=== PATIENT | female | born 1955 | race Caucasian/White ===

== ENCOUNTER 2020-02-21 09:19 | Inpatient (IN) | payer MEDICARE, OTHER ==
[~2020-02-21] VITALS: Ht 165.1 cm; Wt 55.8 kg
--- NOTE | 2020-02-21 10:01 | PHYS DOC ---
General Adult EDM: Chief Complaint: PSYCH EVALUATION HPI: HPI: 64-year-old female past medical history significant for COPD on 4 L nasal cannula, hypertension, RA, anemia, anxiety, hypertension and major depressive disorder presents to the ED sent from [facility] in [place], [place] by primary care physician Dr. Pérez, for [facility] admission, (pre- approved) requesting medical clearance. Patient states she's "been told" she has "outbursts" and needs medications. States she feels well and has no medical complaints. Patient was tested negative for COVID on February 20, 2020. ROS: Denies associated fever, chills, cough, dyspnea, chest pain or pressure, nausea, vomiting, diarrhea, abdominal pain, back pain, neck stiffness, headache, dysuria, hematuria, leg swelling, joint pain or rashes. Allergies: Allergies: Allergies Coded Allergies Type Severity Reaction Last Updated Verified amoxicillin Allergy Unknown 02/21/20 Yes aspirin Allergy Unknown 02/21/20 Yes cephalexin Allergy Unknown 02/21/20 Yes clarithromycin Allergy Unknown 02/21/20 Yes clavulanic acid Allergy Unknown 02/21/20 Yes codeine Allergy Unknown 02/21/20 Yes ibuprofen Allergy Unknown 02/21/20 Yes latex Allergy Unknown 02/21/20 Yes oseltamivir Allergy Unknown 02/21/20 Yes Physical Exam: PE: Constitutional: Well developed, well nourished, no acute distress, non-toxic appearance. [] HENT: Normocephalic, atraumatic, bilateral external ears normal, oropharynx moist, nose normal. [] Eyes: EOMI, conjunctiva normal, no discharge. [] Neck: Normal range of motion, no tenderness, supple, no stridor. [] Cardiovascular:Heart rate regular rhythm, no murmur [] Lungs & Thorax: Bilateral breath sounds clear to auscultation [] Abdomen: Bowel sounds normal, soft, no tenderness, no masses, no pulsatile masses. [] Skin: Warm, dry, no erythema, no rash. [] Back: No tenderness, no CVA tenderness. [] Extremities: No tenderness, no cyanosis, no clubbing, ROM intact, no edema. [] Neurologic: Alert and oriented X 3, normal motor function, normal sensory function, no focal deficits noted. [] Psychologic: Affect normal, judgement normal, mood normal. [] Current Patient Data: Vital Signs: HD stable EKG: EKG: Sinus rhythm at 95 bpm, no axis deviation, normal intervals, no T wave inversions, no ST elevations or ST depressions Radiology/Procedures: Impressions: Impression: Labs show anemia, no prior for comparison. Potassium was 3.1, oral replacement started in ED. Patient is medically cleared for psych admission, stable at time of admission. Dragon Disclaimer: Dragon Disclaimer: This electronic medical record was generated, in whole or in part, using a voice recognition dictation system. Departure Departure: Impression: Primary Impression: Behavior disturbance Disposition: ADMITTED INPATIENT Admitting Physician: Other (Dr. Bridges) Condition: GOOD JUDSON PATTON DO February 21, 2020 10:01
[2020-02-21] MEDS ORDERED: ASCO500C9 PO (10:06)
[2020-02-21] MEDS ORDERED: LORA-254 PO (10:06)
[2020-02-21] MEDS ORDERED: OXYC1TAB15 PO (10:06)
[2020-02-21] MEDS ORDERED: CLOP75TA57 PO (10:06)
[2020-02-21] MEDS ORDERED: DULO60CA6 PO (10:06)
[2020-02-21] MEDS ORDERED: QUET100T4 PO (10:06)
[2020-02-21] MEDS ORDERED: IPRA3AMP29 NEB (10:06)
[2020-02-21] MEDS ORDERED: MAGN24003 PO (10:06)
[2020-02-21] MEDS ORDERED: SUCR1TAB35 PO (10:06)
[2020-02-21] MEDS ORDERED: QUET50TA5 PO (10:06)
[2020-02-21] MEDS ORDERED: TAMS0.4C97 PO (10:06)
[2020-02-21] MEDS ORDERED: FERR325T14 PO (10:06)
[2020-02-21] MEDS ORDERED: PANT40TA3 PO (10:06)
[2020-02-21] MEDS ORDERED: GABA800T5 PO (10:06)
[2020-02-21] MEDS ORDERED: OXYC10TA46 PO (10:06)
[2020-02-21 10:52] LABS: BASO # 0.1 x10^3/uL (0.0-0.2); BASO % 1 % (0-3); EOS # 0.5 x10^3/uL (0.0-0.7); EOS % 5 % (0-3); HEMATOCRIT 29.3 % (36.0-47.0); HEMOGLOBIN 9.3 g/dL (12.0-15.5); LYMPH # 1.9 x10^3/uL (1.0-4.8); LYMPH % 19 % (24-48); MEAN CORPUSCULAR HEMOGLOBIN 30 pg (25-35); MEAN CORPUSCULAR HGB CONC 32 g/dL (31-37); MEAN CORPUSCULAR VOLUME 93 fL (79-100); MONO # 0.6 x10^3/uL (0.0-1.1); MONO % 7 % (0-9); NEUT # 6.6 x10^3uL (1.8-7.7); NEUT % 68 % (31-73); PLATELET COUNT 406 x10^3/uL (140-400); RED BLOOD COUNT 3.16 x10^6/uL (3.50-5.40); RED CELL DISTRIBUTION WIDTH 15.1 % (11.5-14.5); WHITE BLOOD COUNT 9.7 x10^3/uL (4.0-11.0)
[2020-02-21 11:00] LABS: CALCIUM 8.7 mg/dL (8.5-10.1); CREATININE 0.6 mg/dL (0.6-1.0); GFR 100.3; POTASSIUM 3.1 mmol/L (3.5-5.1)
[2020-02-21 11:01] LABS: BACTERIA,URINE 0 /HPF (0-FEW); BILIRUBIN,URINE NEG (NEG); CLARITY,URINE CLEAR; COLOR,URINE YELLOW; GLUCOSE,URINE NEG (NEG); NITRITE,URINE NEG (NEG); RBC,URINE 0 /HPF (0-2); SQUAMOUS EPITHELIAL CELL,UR FEW /LPF; UROBILINOGEN,URINE 0.2 mg/dL (0.2 mg/dL)
[2020-02-21] MEDS ORDERED: POTASSIUM BICARB 20 MEQ EFFERVESCENT TABLET. PO ONE (11:30)
--- NOTE | 2020-02-21 13:41 | EKG ---
[address] [address] Test Date: 2020-02-21 Test Time: 09:56:58 Pat Name: SUNNY NEWTON Department: Room: Gender: F Principal Database Developer: : 1955 Requested By: JUDSON PATTON Order Number: [id number] Reading MD: Alejandro Hernandes Measurements Intervals [place] Rate: 95 P: 54 DC: 156 QRS: 2 QRSD: 76 T: 13 QT: 362 QTc: 458 Interpretive Statements SINUS RHYTHM QRS(T) CONTOUR ABNORMALITY CONSISTENT WITH ANTEROSEPTAL INFARCT AGE UNDETERMINED ABNORMAL ECG Electronically Signed On 02-21-2020 13:41:01 CDT by Alejandro Hernandes
[2020-02-21] MEDS ORDERED: ACETAMINOPHEN 325 MG TABLET PO PRN (14:00)
[2020-02-21] MEDS ORDERED: MAGNESIUM HYDROXIDE 2,400 MG/30 ML ORAL.SUSP. PO PRN ×2 (14:00→14:45)
[2020-02-21] MEDS ORDERED: MAG HYDROX/AL HYDROX/SIMETH 30 ML ORAL.SUSP PO PRN (14:00)
[2020-02-21 14:11] VITALS: BP 108/56
[2020-02-21 15:44] VITALS: BP 123/68
[2020-02-21] MEDS: SUCRALFATE 1 GM TABLET. PO SCH ×2 (16:30→19:55)
[2020-02-21] MEDS: IPRATROPIUM/ALBUTEROL 20/100mcg/INH INHALER. INH SCH ×2 (17:15→19:54)
[2020-02-21] MEDS: oxyCODONE/APAP 5/325 1 TAB TABLET PO PRN (17:27)
[2020-02-21] MEDS: GABAPENTIN 400 MG CAPSULE. PO SCH (19:55)
[2020-02-21] MEDS: TAMSULOSIN 0.4 MG CAP.ER.24H. PO SCH (19:55)
[2020-02-21] MEDS: oxyCODONE ER 10 MG TAB.ER.12H PO SCH (19:56)
[2020-02-21] MEDS: QUEtiapine 50 MG TABLET. PO SCH (19:56)
--- NOTE | 2020-02-21 22:06 | PDOC ---
Exam Note: Andrea Note: Please also refer to the separate dictated note~for this date of service dictated separately. Discussed the patient with Nursing staff reviewed the chart.~Reviewed interim history and current functioning. Reviewed vital signs,~Labs/ Radiology~and current medications noted below. Continue current treatment with the changes noted in the dictated addendum note Assessment: Vital Signs/I&O: Vital Signs Date Time Temp Pulse Resp B/P (MAP) Pulse Ox O2 Delivery O2 Flow Rate FiO2 02/21/20 19:56 Room Air 02/21/20 15:44 97.0 94 16 123/68 (86) 99 4.0 Labs: Laboratory Tests Test 02/21/20 09:40 02/21/20 10:30 Urine Collection Type Unknown Urine Color Yellow Urine Clarity Clear Urine pH 7.0 Urine Specific [place] 1.015 Urine Protein Neg (NEG-TRACE) Urine Glucose (UA) Neg mg/dL (NEG) Urine Ketones (Stick) Neg mg/dL (NEG) Urine Blood Neg (NEG) Urine Nitrite Neg (NEG) Urine Bilirubin Neg (NEG) Urine Urobilinogen Dipstick 0.2 mg/dL (0.2 mg/dL) Urine Leukocyte Esterase Trace (NEG) Urine RBC 0 /HPF (0-2) Urine WBC 1-4 /HPF (0-4) Urine Squamous Epithelial Cells Few /LPF Urine Renal Epithelial Cells Occ /LPF Urine Bacteria 0 /HPF (0-FEW) White Blood Count 9.7 x10^3/uL (4.0-11.0) Red Blood Count 3.16 x10^6/uL (3.50-5.40) L Hemoglobin 9.3 g/dL (12.0-15.5) L Hematocrit 29.3 % (36.0-47.0) L Mean Corpuscular Volume 93 fL (79-100) Mean Corpuscular Hemoglobin 30 pg (25-35) Mean Corpuscular Hemoglobin Concent 32 g/dL (31-37) Red Cell Distribution Width 15.1 % (11.5-14.5) H Platelet Count 406 x10^3/uL (140-400) H Neutrophils (%) (Auto) 68 % (31-73) Lymphocytes (%) (Auto) 19 % (24-48) L Monocytes (%) (Auto) 7 % (0-9) Eosinophils (%) (Auto) 5 % (0-3) H Basophils (%) (Auto) 1 % (0-3) Neutrophils # (Auto) 6.6 x10^3uL (1.8-7.7) Lymphocytes # (Auto) 1.9 x10^3/uL (1.0-4.8) Monocytes # (Auto) 0.6 x10^3/uL (0.0-1.1) Eosinophils # (Auto) 0.5 x10^3/uL (0.0-0.7) Basophils # (Auto) 0.1 x10^3/uL (0.0-0.2) Sodium Level 141 mmol/L (136-145) Potassium Level 3.1 mmol/L (3.5-5.1) L Chloride Level 104 mmol/L (98-107) Carbon Dioxide Level 32 mmol/L (21-32) Anion Gap 5 (6-14) L Blood Urea Nitrogen 8 mg/dL (7-20) Creatinine 0.6 mg/dL (0.6-1.0) Estimated GFR (Cockcroft-Gault) 100.3 Glucose Level 92 mg/dL (70-99) Calcium Level 8.7 mg/dL (8.5-10.1) Magnesium Level 1.9 mg/dL (1.8-2.4) Current Medications: Meds: Current Medications Medications (Trade) Dose Ordered Sig/Jocelyn Route PRN Reason Start Time Stop Time Status Last Admin Dose Admin Potassium Bicarbonate (Potassium Effervescent Tablet) 40 meq 1X ONCE PO 02/21/20 11:30 02/21/20 11:34 DC 02/21/20 11:53 Albuterol/ Ipratropium (Combivent Respimat 20-100 Mcg) 1 puff RTQID INH 02/21/20 16:00 02/21/20 19:54 Oxycodone HCl (OxyCONTIN) 10 mg BID PO 02/21/20 21:00 02/21/20 19:56 Oxycodone/ Acetaminophen (Percocet 5/325) 2 tab PRN Q4HRS PRN PO MODERATE PAIN 02/21/20 14:15 02/21/20 17:27 Quetiapine Fumarate (SEROquel) 50 mg HS PO 02/21/20 21:00 02/21/20 19:56 Sucralfate (Carafate) 1 gm QIDACHS PO 02/21/20 16:30 02/21/20 19:55 Tamsulosin HCl (Flomax) 0.4 mg HS PO 02/21/20 21:00 02/21/20 19:55 Gabapentin (Neurontin) 800 mg QHS PO 02/21/20 21:00 02/21/20 19:55 I have reviewed the current psychotropics carefully including drug interactions. Risk benefit ratio favors no change other than as noted in my dictated progress note. MUKESH JAY MD February 21, 2020 22:06
--- NOTE | 2020-02-21 22:36 | HP ---
ADMIT DATE: 02/21/2020 PSYCHIATRIC ADMISSION HISTORY AND EVALUATION IDENTIFYING DATA: The patient is a 64-year-old female referred to us from [facility] by her primary care physician on account of worsening symptoms of depression, anxiety, impulse control. Reportedly, the patient has been "medication seeking and hyperfocused on medications." She is noted to have a labile mood, is manipulative "plays the victim of the time." She is refusing to eat, having weight loss, resistive to cares, verbally abusive, calling staff by derogatory names. She has been demanding, impulsive, disruptive, aggressive. She has failed outpatient psychiatric interventions resulting in this referral. CHIEF COMPLAINT: "Send me to another psychiatric hospital in [place], [place] about a year and half back. I don't know why they had sent me again. Yes, I get upset." HISTORY OF PRESENT ILLNESS: The patient has significant medical comorbidities with severe rheumatoid arthritis significantly affecting her functioning including ability to use her hands to eat. She is unable to feed herself, has been getting increasingly depressed, irritable, anxious, having sleep and appetite changes and worsening impulse control. No clear symptoms of bipolar disorder, suicidal or homicidal ideation. Cognitively, she has been reasonably intact. PAST PSYCHIATRIC HISTORY: As above. MEDICAL HISTORY: Positive for severe rheumatoid arthritis, esophagitis, COPD, chronic pain in right knee, right shoulder muscle weakness, GERD, emphysema, chronic constipation, anemia, malnutrition, hypertension, history of frequent falls, history of right knee replacement. ACCU-CHEKS: Not applicable. DIET: Regular. MEDICATIONS: Takes medications whole. ACTIVITY: Ambulates wheelchair, 1 to 2 person assist. CODE STATUS: Full code. ALLERGIES: ASPIRIN, KEFLEX, CLARITHROMYCIN, CODEINE, IBUPROFEN, AUGMENTIN, NUBAIN, TAMIFLU, LATEX. FAMILY HISTORY: Noncontributory. 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 Her about a year ago and she states she has been more depressed since then. She has 1 son who has been closely involved in her care. No history of alcohol, drug abuse, physical, sexual or elder abuse. She is not known to be a perpetrator. REACTION TO HOSPITALIZATION: The patient accepting of it. REVIEW OF SYSTEMS: Ambulation impaired. She is lying in bed. No CV, , pulmonary, eye system symptoms on review. MENTAL STATUS EXAMINATION: The patient is reasonably oriented. Speech is coherent, abstraction fair, computation impaired, language function intact, attention span short. Mood and affect are depressed, withdrawn, somewhat anxious. She minimizes this. Cognitively, she is reasonably intact. No suicidal or homicidal ideation. LABORATORY DATA: Reviewed. IMPRESSION: Major depressive disorder, recurrent; anxiety disorder, unspecified; impulse control disorder, unspecified. Rest as above. PLAN: Admit to Geropsychiatry Unit at [facility]. I will see the patient daily individually from a psychiatric standpoint. Medical followup with Dr. Blair. Continue the patient on her current psychotropics including Cymbalta 60 mg a day, Ativan p.r.n., Seroquel 100 mg a.m., 50 mg at bedtime. Observe baseline, then make further changes as clinically indicated. Estimated length of stay 10-12 days. DISCHARGE PLANS: Back to senior care when stable. MUKESH JAY MD DR: CASANDRA/elvis JOB#: [id number] / [id number]
[2020-02-22 05:07] LABS: HEMOGLOBIN A1C 4.7 % (4.8-5.6); THYROXINE 4.8 ug/dL (4.5-12.0)
[2020-02-22] MEDS: oxyCODONE/APAP 5/325 1 TAB TABLET PO PRN (06:02)
[2020-02-22 06:23] VITALS: BP 138/80
[2020-02-22] MEDS: oxyCODONE ER 10 MG TAB.ER.12H PO SCH ×2 (07:56→20:05)
[2020-02-22] MEDS: SUCRALFATE 1 GM TABLET. PO SCH ×4 (07:56→20:06)
[2020-02-22] MEDS: QUEtiapine 100 MG TABLET. PO SCH (07:58)
[2020-02-22] MEDS: ASCORBIC ACID 500 MG TABLET PO SCH (07:58)
[2020-02-22] MEDS: DULoxetine HCL 60 MG CAPSULE.DR PO SCH (07:58)
[2020-02-22] MEDS: FERROUS SULFATE 325 MG TABLET. PO SCH (07:58)
[2020-02-22] MEDS: IPRATROPIUM/ALBUTEROL 20/100mcg/INH INHALER. INH SCH ×4 (07:58→20:06)
[2020-02-22] MEDS: PANTOPRAZOLE 40 MG TABLET. PO SCH (07:58)
[2020-02-22] MEDS: CLOPIDOGREL BISULFATE 75 MG TABLET PO SCH (07:58)
[2020-02-22] MEDS ORDERED: NICOTINE 7MG PATCH. TD PRN (08:45)
[2020-02-22] MEDS ORDERED: NICOTINE 7MG PATCH. TD SCH (09:00)
[2020-02-22 10:46] LABS: THYROID STIM HORMONE (TSH) 4.255 uIU/mL (0.358-3.740)
[2020-02-22 15:32] VITALS: BP 97/60
[2020-02-22] MEDS: oxyCODONE IR 5 MG TABLET PO PRN (16:52)
[2020-02-22] MEDS: POTASSIUM CHLORIDE 20 MEQ TABLET.ER. PO SCH (20:05)
[2020-02-22] MEDS: TAMSULOSIN 0.4 MG CAP.ER.24H. PO SCH (20:05)
[2020-02-22] MEDS: GABAPENTIN 400 MG CAPSULE. PO SCH (20:06)
[2020-02-22] MEDS: QUEtiapine 50 MG TABLET. PO SCH (20:06)
[2020-02-22] MEDS ORDERED: NYSTATIN/TRIAMCIN TOPICAL CREAM 15GM TUBE. TP PRN (20:15)
--- NOTE | 2020-02-22 21:15 | CONS ---
DATE OF CONSULTATION: REASON FOR CONSULTATION: Medical management. HISTORY OF PRESENT ILLNESS: The patient is a 64-year-old female patient, a resident at [facility], who was admitted to [facility] on account of medication, seeking any meds, hyper-focused on medication, labile mood, manipulative, placed a victim all the time, refusing to eat. She has weight loss resistance to care, verbally abusive, calling staff names, demanding, all this in a background of major depressive disorder, impulse control disorder. PAST MEDICAL HISTORY: Significant for severe deforming rheumatoid arthritis, esophagitis, chronic obstructive pulmonary disease, chronic pain syndrome, pain in her right knee and right shoulder, muscle weakness, gastroesophageal reflux disease, chronic constipation, anemia, malnutrition and hypertension. PAST SURGICAL HISTORY: Significant for bilateral total knee arthroplasty. PAST PSYCHIATRIC HISTORY: Significant for anxiety disorder, conduct disorder, major depressive disorder and impulse control disorder. ALLERGIES: She is allergic to AMOXICILLIN, ASPIRIN, CEPHALEXIN, CLARITHROMYCIN, CLAVULANIC ACID, CODEINE, IBUPROFEN, LATEX, NALBUPHINE and OSELTAMIVIR. MEDICATIONS: She was transferred to this facility to continue on ascorbic acid 500 mg daily, Seroquel 100 mg daily, ferrous sulfate 325 mg once a day, duloxetine 60 mg once a day, Plavix 75 mg once a day, NicoDerm CQ 7 mg patch once a day though the patient is refusing to take it, Protonix 40 mg once a day, gabapentin 800 mg at bedtime, tamsulosin 0.4 mg at bedtime. She is also on Seroquel 50 mg at bedtime, OxyContin 10 mg twice a day, sucralfate 1 gram 4 times a day, Combivent Respimat 1 puff 4 times a day, magnesium hydroxide for milk of magnesia 30 mL p.o. daily p.r.n. for constipation, lorazepam 0.5 mg twice a day as needed, oxycodone/APAP 5/325 two tablets every 4 hours, Mylanta 15 mL after meals and bedtime and acetaminophen 650 mg every 6 hours. FAMILY HISTORY: Her father, 2 sisters and older brother are . SOCIAL HISTORY: She is , has 1 son. She continued to smoke, does not drink alcohol or use any recreational drugs. 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 REVIEW OF SYSTEMS: The patient complained mostly of pain. Other surgical operations she has included appendectomy, cholecystectomy, bilateral cataract extraction as well as total abdominal hysterectomy. PHYSICAL EXAMINATION: GENERAL: When I examined her this afternoon, she was resting slightly propped up in bed, in no apparent respiratory distress. She was pale, but no jaundice, cyanosis or thyromegaly. No jugular venous distention. No lower limb edema. VITAL SIGNS: Her heart rate was 63, blood pressure was 138/80, temperature was 98.1, respiratory rate was 18 and oxygen saturation was 97% on 4 liters of oxygen. HEAD, EYES, EARS, NOSE AND THROAT: Showed normocephalic, atraumatic. NECK: Supple. HEART: Showed normal first and second heart sounds. No gallop, rub or murmur. CHEST: Clear to auscultation. No crepitation or rhonchi. ABDOMEN: Distended, soft, nontender. NEUROLOGIC: She was awake, alert, responding appropriately. All cranial nerves intact. She moves all extremities; however, she is mostly bed bound, wheelchair bound. She has severe deforming rheumatoid arthritis involving both hands. She has also hammertoe on her left foot. LABORATORY DATA: On admission showed a white cell count 9700, hemoglobin 9, hematocrit 29, MCV 93, and platelet count of 106,000. Her chemistry showed a serum sodium 141, potassium 3.1, chloride 104, bicarbonate 32, anion gap of 5, BUN 8, creatinine 0.6, estimated GFR was 100. Her glucose was 92 and calcium was 8.7. Her urinalysis was essentially unremarkable. IMPRESSION: In summary, this is a 64-year-old female patient, a resident at [facility], who was admitted to this unit on account of worsening symptoms of depression, anxiety and impulse control. Reportedly, the patient has been medication seeking and hyper-focused on her medication. She was noted to have a labile mood. She is unable to place a victim of all the time. She is refusing to eat, having weight loss, resistive to care, verbally abusive, calling staff by name. She apparently has been demanding, impulsive, disruptive and aggressive and that she has failed outpatient psychiatric intervention. She was admitted for inpatient psychiatric stabilization. Medically, she has obviously severe deforming rheumatoid arthritis. She apparently has a history of esophagitis, chronic obstructive pulmonary disease, chronic pain in her right knee and right shoulder. She has chronic constipation, anemia, malnutrition, hypertension, history of frequent falls and history of right knee replacement. Her lab work showed that she has obviously normochromic normocytic anemia consistent with rheumatoid arthritis. She also has hypokalemia, so she seemed to be all in all medically stable. I will obviously put her on potassium supplement and monitor her lab work to make sure that the potassium is well replenished. Other than that she seemed to be medically stable. Thank you, Dr. Pérez for allowing me to participate in the care of this patient. ANGEL WHITE MD DR: STAR/elvis JOB#: [id number] / [id number]
--- NOTE | 2020-02-22 22:14 | PDOC ---
Exam Note: Andrea Note: Please also refer to the separate dictated note~for this date of service dictated separately.~Patient seen individually. Discussed the patient with Nursing staff reviewed the chart.~Reviewed interim history and current functioning. Reviewed vital signs,~Labs/ Radiology~and current medications noted below. Continue current treatment with the changes noted in the dictated addendum note Assessment: Vital Signs/I&O: Vital Signs Date Time Temp Pulse Resp B/P (MAP) Pulse Ox O2 Delivery O2 Flow Rate FiO2 02/22/20 20:05 93 02/22/20 15:32 98.6 77 16 97/60 (72) 02/22/20 06:23 Nasal Cannula 4.0 I & O 02/21/20 02/21/20 02/22/20 15:00 23:00 07:00 Intake Total 240 ml 0 ml Balance 240 ml 0 ml Current Medications: Meds: Current Medications Medications (Trade) Dose Ordered Sig/Jocelyn Route PRN Reason Start Time Stop Time Status Last Admin Dose Admin Clopidogrel Bisulfate (Plavix) 75 mg DAILY PO 02/22/20 09:00 02/22/20 07:58 Duloxetine HCl (Cymbalta) 60 mg DAILY PO 02/22/20 09:00 02/22/20 07:58 Ferrous Sulfate (Feosol) 325 mg DAILY PO 02/22/20 09:00 02/22/20 07:58 Pantoprazole Sodium (Protonix) 40 mg DAILYAC PO 02/22/20 07:30 02/22/20 07:58 Quetiapine Fumarate (SEROquel) 100 mg DAILY PO 02/22/20 09:00 02/22/20 07:58 Ascorbic Acid (Vitamin C) 500 mg DAILY PO 02/22/20 09:00 02/22/20 07:58 Oxycodone HCl (Roxicodone) 10 mg PRN Q4HRS PRN PO PAIN 02/22/20 14:30 02/22/20 16:52 Potassium Chloride (Klor-Con) 20 meq BID PO 02/22/20 21:00 02/22/20 20:05 I have reviewed the current psychotropics carefully including drug interactions. Risk benefit ratio favors no change other than as noted in my dictated progress note. Diagnosis: Problems: (1) Major depressive disorder, recurrent episode (2) Anxiety disorder, unspecified (3) Impulse control disorder, unspecified MISTY,MAN M MD February 22, 2020 22:14
[2020-02-23 06:37] VITALS: BP 144/70
[2020-02-23 07:06] LABS: ALBUMIN 1.3 g/dL (3.4-5.0); ALBUMIN/GLOBULIN RATIO 0.3 (1.0-1.7); CALCIUM 8.1 mg/dL (8.5-10.1); CREATININE 0.5 mg/dL (0.6-1.0); GFR 123.8; POTASSIUM 4.1 mmol/L (3.5-5.1); TOTAL BILIRUBIN 0.3 mg/dL (0.2-1.0); TOTAL PROTEIN 5.8 g/dL (6.4-8.2)
[2020-02-23] MEDS: SUCRALFATE 1 GM TABLET. PO SCH ×4 (07:53→20:15)
[2020-02-23] MEDS: ASCORBIC ACID 500 MG TABLET PO SCH (07:53)
[2020-02-23] MEDS: QUEtiapine 100 MG TABLET. PO SCH (07:53)
[2020-02-23] MEDS: POTASSIUM CHLORIDE 20 MEQ TABLET.ER. PO SCH ×2 (07:53→20:16)
[2020-02-23] MEDS: FERROUS SULFATE 325 MG TABLET. PO SCH (07:53)
[2020-02-23] MEDS: IPRATROPIUM/ALBUTEROL 20/100mcg/INH INHALER. INH SCH ×4 (07:53→20:15)
[2020-02-23] MEDS: CLOPIDOGREL BISULFATE 75 MG TABLET PO SCH (07:53)
[2020-02-23] MEDS: PANTOPRAZOLE 40 MG TABLET. PO SCH (07:53)
[2020-02-23] MEDS: DULoxetine HCL 60 MG CAPSULE.DR PO SCH (07:53)
[2020-02-23] MEDS: oxyCODONE IR 5 MG TABLET PO PRN ×3 (07:55→16:51)
[2020-02-23] MEDS: oxyCODONE ER 10 MG TAB.ER.12H PO SCH ×2 (07:55→20:16)
[2020-02-23] MEDS: buPROPion XL 150 MG TAB.ER.24H PO SCH (09:00)
[2020-02-23] MEDS: LORazepam 0.5 MG TABLET PO PRN ×2 (12:04→20:16)
[2020-02-23 15:46] VITALS: BP 100/68
[2020-02-23] MEDS: TAMSULOSIN 0.4 MG CAP.ER.24H. PO SCH (20:15)
[2020-02-23] MEDS: GABAPENTIN 400 MG CAPSULE. PO SCH (20:17)
[2020-02-23] MEDS: QUEtiapine 50 MG TABLET. PO SCH (20:17)
--- NOTE | 2020-02-23 22:30 | PDOC ---
Exam Note: Andrea Note: Please also refer to the separate dictated note~for this date of service dictated separately.~Patient seen individually. Discussed the patient with Nursing staff reviewed the chart.~Reviewed interim history and current functioning. Reviewed vital signs,~Labs/ Radiology~and current medications noted below. Continue current treatment with the changes noted in the dictated addendum note Assessment: Vital Signs/I&O: Vital Signs Date Time Temp Pulse Resp B/P (MAP) Pulse Ox O2 Delivery O2 Flow Rate FiO2 02/23/20 15:46 98.2 84 15 100/68 (79) 96 02/22/20 06:23 Nasal Cannula 4.0 I & O 02/22/20 02/22/20 02/23/20 15:00 23:00 07:00 Intake Total 240 ml 360 ml Balance 240 ml 360 ml Labs: Laboratory Tests Test 02/23/20 06:45 Sodium Level 141 mmol/L (136-145) Potassium Level 4.1 mmol/L (3.5-5.1) Chloride Level 105 mmol/L (98-107) Carbon Dioxide Level 34 mmol/L (21-32) H Anion Gap 2 (6-14) L Blood Urea Nitrogen 9 mg/dL (7-20) Creatinine 0.5 mg/dL (0.6-1.0) L Estimated GFR (Cockcroft-Gault) 123.8 BUN/Creatinine Ratio 18 (6-20) Glucose Level 83 mg/dL (70-99) Calcium Level 8.1 mg/dL (8.5-10.1) L Total Bilirubin 0.3 mg/dL (0.2-1.0) Aspartate Amino Transferase (AST) 46 U/L (15-37) H Alanine Aminotransferase (ALT) 20 U/L (14-59) Alkaline Phosphatase 223 U/L (46-116) H C-Reactive Protein 54.6 mg/L (0-3.3) H Total Protein 5.8 g/dL (6.4-8.2) L Albumin 1.3 g/dL (3.4-5.0) L Albumin/Globulin Ratio 0.3 (1.0-1.7) L Current Medications: Meds: Current Medications Medications (Trade) Dose Ordered Sig/Jocelyn Route PRN Reason Start Time Stop Time Status Last Admin Dose Admin Bupropion HCl (Wellbutrin Xl) 150 mg DAILY PO 02/23/20 09:00 02/23/20 09:00 Quetiapine Fumarate (SEROquel) 50 mg DAILY PO 02/24/20 09:00 02/23/20 20:17 I have reviewed the current psychotropics carefully including drug interactions. Risk benefit ratio favors no change other than as noted in my dictated progress note. Diagnosis: Problems: (1) Major depressive disorder, recurrent episode (2) Impulse control disorder, unspecified (3) Anxiety disorder, unspecified MUKESH JAY MD February 23, 2020 22:30
--- NOTE | 2020-02-24 05:14 | PN ---
DATE: 02/22/2020 PSYCHIATRIC PROGRESS NOTE This late entry 02/22/2020 covers elements not covered in my initial note. SUBJECTIVE: I met with the patient evening of 02/22/2020 on audiovisual rounds. Per RAVI Ramirez, the patient slept 6-1/4 hours previous night. She continues to be somewhat withdrawn, isolative and does not push herself to do as much as she is physically capable of despite the fact that she is quite incapacitated by the rheumatoid arthritis. Part of this lack of motivation is her mood symptoms. REVIEW OF SYSTEMS: Positive for the arthritic pain, impaired ambulation with 1 or 2-person assist, difficulty feeding herself due to the arthritis. No CV, GI, or pulmonary system symptoms on review. MENTAL STATUS EXAMINATION: The patient is reasonably oriented. Speech is coherent, abstraction fair, computation impaired, language function intact, attention span short. Mood and affect withdrawn. LABORATORY DATA: Reviewed. IMPRESSION: Major depressive disorder, recurrent; anxiety disorder, unspecified. PLAN: The patient's memory is fairly intact. She resides at [facility] and one of the nursing staffs' parent was a roommate in the past and she clearly remembered all of this accurately. We will augment the Cymbalta 60 mg a day with Wellbutrin-XL 150 mg a day. She has taken Wellbutrin in the past as a single agent, but never in combination with Cymbalta. Maintain Seroquel 100 mg daily, 50 mg at bedtime, but we may reduce the daytime Seroquel to avoid sedation, which may further cause some apathy. We will decide this in the next day or two. MAN Tanya JAY MD DR: CASANDRA/elvis JOB#: [id number] / [id number]
[2020-02-24 06:30] VITALS: BP 124/61
[2020-02-24 06:50] LABS: BASO # 0.1 x10^3/uL (0.0-0.2); BASO % 1 % (0-3); EOS # 0.6 x10^3/uL (0.0-0.7); EOS % 8 % (0-3); HEMATOCRIT 25.8 % (36.0-47.0); HEMOGLOBIN 8.4 g/dL (12.0-15.5); LYMPH # 2.3 x10^3/uL (1.0-4.8); LYMPH % 31 % (24-48); MEAN CORPUSCULAR HEMOGLOBIN 30 pg (25-35); MEAN CORPUSCULAR HGB CONC 32 g/dL (31-37); MEAN CORPUSCULAR VOLUME 93 fL (79-100); MONO # 0.7 x10^3/uL (0.0-1.1); MONO % 9 % (0-9); NEUT # 3.9 x10^3uL (1.8-7.7); NEUT % 52 % (31-73); PLATELET COUNT 354 x10^3/uL (140-400); RED BLOOD COUNT 2.78 x10^6/uL (3.50-5.40); RED CELL DISTRIBUTION WIDTH 15.4 % (11.5-14.5); WHITE BLOOD COUNT 7.5 x10^3/uL (4.0-11.0)
[2020-02-24 06:59] LABS: ALBUMIN 1.3 g/dL (3.4-5.0); ALBUMIN/GLOBULIN RATIO 0.3 (1.0-1.7); CALCIUM 8.5 mg/dL (8.5-10.1); CREATININE 0.5 mg/dL (0.6-1.0); GFR 123.8; TOTAL BILIRUBIN 0.2 mg/dL (0.2-1.0); TOTAL PROTEIN 5.8 g/dL (6.4-8.2)
[2020-02-24] MEDS: FERROUS SULFATE 325 MG TABLET. PO SCH (08:08)
[2020-02-24] MEDS: IPRATROPIUM/ALBUTEROL 20/100mcg/INH INHALER. INH SCH ×4 (08:08→21:32)
[2020-02-24] MEDS: SUCRALFATE 1 GM TABLET. PO SCH ×4 (08:08→21:31)
[2020-02-24] MEDS: DULoxetine HCL 60 MG CAPSULE.DR PO SCH (08:08)
[2020-02-24] MEDS: PANTOPRAZOLE 40 MG TABLET. PO SCH (08:08)
[2020-02-24] MEDS: buPROPion XL 150 MG TAB.ER.24H PO SCH (08:09)
[2020-02-24] MEDS: CLOPIDOGREL BISULFATE 75 MG TABLET PO SCH (08:09)
[2020-02-24] MEDS: POTASSIUM CHLORIDE 20 MEQ TABLET.ER. PO SCH ×2 (08:09→21:32)
[2020-02-24] MEDS: ASCORBIC ACID 500 MG TABLET PO SCH (08:09)
[2020-02-24] MEDS: oxyCODONE ER 10 MG TAB.ER.12H PO SCH ×2 (08:11→21:32)
[2020-02-24 16:43] VITALS: BP 123/72
--- NOTE | 2020-02-24 19:40 | RAD ---
INDICATION: Chest pain COMPARISON: March 2019 FINDINGS: Single view of chest obtained. Partial visualization of intramedullary elfego in the left humerus. Calcific atherosclerosis. Mild haziness at the right lung base. IMPRESSION: * Mild haziness right lung base could be from atelectasis or early infiltrate. Electronically signed by: Juan Wilkins MD (02/24/2020 7:37 PM) [id number]
[2020-02-24] MEDS: GABAPENTIN 400 MG CAPSULE. PO SCH (21:31)
[2020-02-24] MEDS: QUEtiapine 100 MG TABLET. PO SCH (21:31)
[2020-02-24] MEDS: TAMSULOSIN 0.4 MG CAP.ER.24H. PO SCH (21:31)
[2020-02-24] MEDS: LORazepam 0.5 MG TABLET PO PRN (21:31)
--- NOTE | 2020-02-24 22:00 | PDOC ---
Exam Note: Andrea Note: Please also refer to the separate dictated note~for this date of service dictated separately.~Patient seen individually. Discussed the patient with Nursing staff reviewed the chart.~Reviewed interim history and current functioning. Reviewed vital signs,~Labs/ Radiology~and current medications noted below. Continue current treatment with the changes noted in the dictated addendum note Assessment: Vital Signs/I&O: Vital Signs Date Time Temp Pulse Resp B/P (MAP) Pulse Ox O2 Delivery O2 Flow Rate FiO2 02/24/20 21:32 97 02/24/20 16:43 98.3 102 20 123/72 (89) 2.0 02/22/20 06:23 Nasal Cannula I & O 02/23/20 02/23/20 02/24/20 15:00 23:00 07:00 Intake Total 840 ml 480 ml Balance 840 ml 480 ml Labs: Laboratory Tests Test 02/24/20 06:25 White Blood Count 7.5 x10^3/uL (4.0-11.0) Red Blood Count 2.78 x10^6/uL (3.50-5.40) L Hemoglobin 8.4 g/dL (12.0-15.5) L Hematocrit 25.8 % (36.0-47.0) L Mean Corpuscular Volume 93 fL (79-100) Mean Corpuscular Hemoglobin 30 pg (25-35) Mean Corpuscular Hemoglobin Concent 32 g/dL (31-37) Red Cell Distribution Width 15.4 % (11.5-14.5) H Platelet Count 354 x10^3/uL (140-400) Neutrophils (%) (Auto) 52 % (31-73) Lymphocytes (%) (Auto) 31 % (24-48) Monocytes (%) (Auto) 9 % (0-9) Eosinophils (%) (Auto) 8 % (0-3) H Basophils (%) (Auto) 1 % (0-3) Neutrophils # (Auto) 3.9 x10^3uL (1.8-7.7) Lymphocytes # (Auto) 2.3 x10^3/uL (1.0-4.8) Monocytes # (Auto) 0.7 x10^3/uL (0.0-1.1) Eosinophils # (Auto) 0.6 x10^3/uL (0.0-0.7) Basophils # (Auto) 0.1 x10^3/uL (0.0-0.2) Sodium Level 141 mmol/L (136-145) Potassium Level 4.0 mmol/L (3.5-5.1) Chloride Level 105 mmol/L (98-107) Carbon Dioxide Level 33 mmol/L (21-32) H Anion Gap 3 (6-14) L Blood Urea Nitrogen 6 mg/dL (7-20) L Creatinine 0.5 mg/dL (0.6-1.0) L Estimated GFR (Cockcroft-Gault) 123.8 BUN/Creatinine Ratio 12 (6-20) Glucose Level 84 mg/dL (70-99) Calcium Level 8.5 mg/dL (8.5-10.1) Total Bilirubin 0.2 mg/dL (0.2-1.0) Aspartate Amino Transferase (AST) 56 U/L (15-37) H Alanine Aminotransferase (ALT) 20 U/L (14-59) Alkaline Phosphatase 243 U/L (46-116) H Total Protein 5.8 g/dL (6.4-8.2) L Albumin 1.3 g/dL (3.4-5.0) L Albumin/Globulin Ratio 0.3 (1.0-1.7) L Current Medications: Meds: Current Medications Medications (Trade) Dose Ordered Sig/Jocelyn Route PRN Reason Start Time Stop Time Status Last Admin Dose Admin Quetiapine Fumarate (SEROquel) 50 mg DAILY PO 02/24/20 09:00 02/23/20 20:17 Quetiapine Fumarate (SEROquel) 100 mg HS PO 02/24/20 21:00 02/24/20 21:31 I have reviewed the current psychotropics carefully including drug interactions. Risk benefit ratio favors no change other than as noted in my dictated progress note. Diagnosis: Problems: (1) Major depressive disorder, recurrent episode (2) Impulse control disorder, unspecified (3) Anxiety disorder, unspecified MUKESH JAY MD February 24, 2020 22:00
--- NOTE | 2020-02-24 22:19 | PN ---
DATE: 02/24/2020 PSYCHIATRIC PROGRESS NOTE This note covers the elements not covered in my initial note 02/24/2020. SUBJECTIVE: The patient was staffed at a treatment team meeting with the entire team in the morning and RAVI Ambrocio. Appetite 75%, slept 6-1/2 hours. She has been verbally abusive to staff, anxious, restless, demanding, threatening, calling the staff with the B word, refusing to do things, wanting to talk to her son to discharge her from here. Also discussed the patient with RAVI Schroeder in the evening. She has been somewhat hopeless, helpless, yelling at night, complains of chest pain. Dr. Blair is working this up with a chest x-ray, labs including troponin, anxious, restless, slamming her hand. REVIEW OF SYSTEMS: Ambulation impaired and above complains as noted. MENTAL STATUS EXAM: Oriented reasonably. Speech coherent, rapid at times. Abstraction fair, computation impaired, language function intact, attention span short. Mood and affect remains labile. LABORATORY DATA: Reviewed. IMPRESSION: Major depressive disorder with psychotic features; anxiety disorder, unspecified. Rest unchanged. PLAN: Defer medical workup to Dr. Blair, get past psychiatric records from her prior psychiatric hospitalizations. Seroquel has been changed. Continue Cymbalta along with Ativan p.r.n., Wellbutrin. May consider adding Depakote as a mood stabilizer and stopping Wellbutrin since this could be worsening her irritability. We will give it another day and then decide. MUKESH JAY MD DR: CASANDRA/elvis JOB#: [id number] / [id number]
--- NOTE | 2020-02-24 22:41 | PN ---
DATE: 02/23/2020 This late entry 02/22 covers elements not covered in my initial note. SUBJECTIVE: I met with the patient evening of 02/22 on audiovisual rounds. Discussed with RAVI Ramirez. The patient slept 6-1/2 hours previous night. She remains quite anxious, restless, labile in her mood, blaming staff for various things including supporting her. She is a fall risk and she had then complaints that there were hurting her. She attempted to walk and did a little better, walking to the toilet. She seems to be able to feed herself, but prefers to have staff to do this for her. I addressed this with her. REVIEW OF SYSTEMS: Ambulation impaired, 2% assist. No CV, , pulmonary, eye system symptoms on review. She has vague somatic symptoms. MENTAL STATUS EXAM: Oriented reasonably. Speech is coherent, abstraction fair, computation impaired, language function intact, attention span short. Mood and affect, anxious and labile. LABORATORY DATA: Reviewed. IMPRESSION: Major depressive disorder with psychotic features; anxiety disorder, unspecified. PLAN: Continue current psychotropics. Cymbalta 60 mg a day, Ativan p.r.n., change the Seroquel currently 100 mg a.m. and 50 mg at bedtime to 50 mg a.m. to reduce daytime sedation and 100 mg at bedtime. Maintain Wellbutrin 150 mg a day. Rest unchanged for now. MUKESH JAY MD DR: CASANDRA/elvis JOB#: [id number] / [id number]
[2020-02-24] MEDS: METHYL SALICYLATE/MENTHOL TOPICAL OINTMENT 57GM TUBE. TP PRN (23:00)
[2020-02-24] MEDS: oxyCODONE IR 5 MG TABLET PO PRN (23:00)
[2020-02-25 05:49] VITALS: BP 128/76
[2020-02-25 06:16] LABS: BASO # 0.1 x10^3/uL (0.0-0.2); BASO % 2 % (0-3); EOS # 0.4 x10^3/uL (0.0-0.7); EOS % 8 % (0-3); HEMATOCRIT 33.8 % (36.0-47.0); LYMPH # 1.9 x10^3/uL (1.0-4.8); LYMPH % 39 % (24-48); MEAN CORPUSCULAR HEMOGLOBIN 30 pg (25-35); MEAN CORPUSCULAR HGB CONC 32 g/dL (31-37); MEAN CORPUSCULAR VOLUME 92 fL (79-100); MONO # 0.4 x10^3/uL (0.0-1.1); MONO % 9 % (0-9); NEUT % 42 % (31-73); PLATELET COUNT 84 x10^3/uL (140-400); RED BLOOD COUNT 3.66 x10^6/uL (3.50-5.40); RED CELL DISTRIBUTION WIDTH 15.6 % (11.5-14.5); WHITE BLOOD COUNT 4.9 x10^3/uL (4.0-11.0)
[2020-02-25 06:53] LABS: HEMOGLOBIN 10.8 g/dL (12.0-15.5)
[2020-02-25] MEDS: QUEtiapine 50 MG TABLET. PO SCH (09:32)
[2020-02-25] MEDS: DULoxetine HCL 60 MG CAPSULE.DR PO SCH (09:32)
[2020-02-25] MEDS: buPROPion XL 150 MG TAB.ER.24H PO SCH (09:32)
[2020-02-25] MEDS: PANTOPRAZOLE 40 MG TABLET. PO SCH (09:32)
[2020-02-25] MEDS: POTASSIUM CHLORIDE 20 MEQ TABLET.ER. PO SCH ×2 (09:32→20:05)
[2020-02-25] MEDS: ASCORBIC ACID 500 MG TABLET PO SCH (09:32)
[2020-02-25] MEDS: IPRATROPIUM/ALBUTEROL 20/100mcg/INH INHALER. INH SCH ×4 (09:32→20:03)
[2020-02-25] MEDS: SUCRALFATE 1 GM TABLET. PO SCH ×4 (09:32→20:05)
[2020-02-25] MEDS: CLOPIDOGREL BISULFATE 75 MG TABLET PO SCH (09:33)
[2020-02-25] MEDS: FERROUS SULFATE 325 MG TABLET. PO SCH (09:33)
[2020-02-25] MEDS: oxyCODONE ER 10 MG TAB.ER.12H PO SCH ×2 (09:34→20:04)
--- NOTE | 2020-02-25 11:25 | TX PLAN ---
Interdisciplinary Tx Plan Admission Information February 21, 2020 at 13:15 Legal Status (on Admission): Voluntary DPOA/Guardian Name: Christiano Duncan Contact Other [facility] Other Contact Verified Code Status: Full Code Allergies: Coded Allergies: amoxicillin (Verified Allergy, Unknown, 02/21/20) aspirin (Verified Allergy, Unknown, 02/21/20) cephalexin (Verified Allergy, Unknown, 02/21/20) clarithromycin (Verified Allergy, Unknown, 02/21/20) clavulanic acid (Verified Allergy, Unknown, 02/21/20) codeine (Verified Allergy, Unknown, 02/21/20) ibuprofen (Verified Allergy, Unknown, 02/21/20) latex (Verified Allergy, Unknown, 02/21/20) nalbuphine (Verified Allergy, Unknown, 02/21/20) oseltamivir (Verified Allergy, Unknown, 02/21/20) Diagnoses Primary Diagnosis: MDD, Impulse Control D/O Reasons for Admission: Agitated, Angry, Poor impulse control Problem in Patient's Words: I think she requires frequent help for everything because she can't do it on her own. Additional Admission Comments: According to the intake pt is medication seeking, hyperfocused on medications, anxious, refusing to eat, weight loss, resistant cares, verbally abusive and name calling; demanding Problems Active Problems: Attention-seeking Medication seeking Verbally abusive Demanding Inactive Problems: Medication management Pt Strengths/Limitations Ability for [place]: Poor Cognitive Functioning/Ability: Poor Communication Skills/Ability: Fair Financial Resources: Fair Insight/Judgement: Poor Intellectual Ability: Fair Physical Health: Poor Social Skills: Poor Stability in Family: Fair Stability in School/Work: Poor Verbal Skills: Fair Discharge Criteria Discharge Criteria: No need for close observ., Improved behavior, Improved mood/thought Other Discharge Comments: Must exhibit a decrease in yelling out for the nurse in excess. Preliminary Discharge Plan Preliminary DC Plan: Custodial Special Precautions Fall Risk: Moderate Initial D/C Plan Pt to return to [facility] Identified Discharge Needs: Continued follow up care Currently Utilized Resources Currently Utilized Resources/P: Agency physician Referrals Community Resources: Mental health services Identified Problems/Hx/Goals Objectives/Short-Term Goals Short Term Goals: Dec. Outbursts, Improved Social Skills, Medication Stabilization, Monitor Med Effects, Promote Coping Skill Short Term Goals in Patient's: N/A Interventions/Frequency Staff Interventions/Frequency&: Psychiatrist to assess pt at least 3x per week. Social Work to assess pt at least 2x per week. Nursing to assess and monitor q 15 minutes daily. Encourage group participation within activities; or 1:1 time dependent on goals set by Activity Dept. History Vocational History: N/A Education: N/A Community Follow-up Pt will need continued primary care follow-up Will need mental health providers Community Provider/Family Inpu: Pt son feels that pt just cannot do anything on her own. 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
[2020-02-25] MEDS: oxyCODONE IR 5 MG TABLET PO PRN ×2 (12:33→17:34)
[2020-02-25 16:06] VITALS: BP 113/73
[2020-02-25] MEDS: QUEtiapine 100 MG TABLET. PO SCH (20:04)
[2020-02-25] MEDS: TAMSULOSIN 0.4 MG CAP.ER.24H. PO SCH (20:05)
[2020-02-25] MEDS: AMMONIUM LACTATE 12% TOPICAL LOTION 226GM BOTTLE. TP SCH (20:05)
[2020-02-25] MEDS: GABAPENTIN 400 MG CAPSULE. PO SCH (20:05)
--- NOTE | 2020-02-25 22:15 | PDOC ---
Exam Note: Andrea Note: Please also refer to the separate dictated note~for this date of service dictated separately.~Patient seen individually. Discussed the patient with Nursing staff reviewed the chart.~Reviewed interim history and current functioning. Reviewed vital signs,~Labs/ Radiology~and current medications noted below. Continue current treatment with the changes noted in the dictated addendum note Assessment: Vital Signs/I&O: Vital Signs Date Time Temp Pulse Resp B/P (MAP) Pulse Ox O2 Delivery O2 Flow Rate FiO2 02/25/20 20:35 98.4 97 2.0 02/25/20 20:04 20 Nasal Cannula 02/25/20 16:06 91 113/73 (86) I & O 02/24/20 02/24/20 02/25/20 15:00 23:00 07:00 Intake Total 240 ml 100 ml Balance 240 ml 100 ml Labs: Laboratory Tests Test 02/24/20 23:50 02/25/20 05:57 Creatine Kinase 34 U/L (26-192) Troponin I Quantitative < 0.017 ng/mL (0-0.055) White Blood Count 4.9 x10^3/uL (4.0-11.0) Red Blood Count 3.66 x10^6/uL (3.50-5.40) Hemoglobin 10.8 g/dL (12.0-15.5) L Hematocrit 33.8 % (36.0-47.0) L Mean Corpuscular Volume 92 fL (79-100) Mean Corpuscular Hemoglobin 30 pg (25-35) Mean Corpuscular Hemoglobin Concent 32 g/dL (31-37) Red Cell Distribution Width 15.6 % (11.5-14.5) H Platelet Count 84 x10^3/uL (140-400) L Neutrophils (%) (Auto) 42 % (31-73) Lymphocytes (%) (Auto) 39 % (24-48) Monocytes (%) (Auto) 9 % (0-9) Eosinophils (%) (Auto) 8 % (0-3) H Basophils (%) (Auto) 2 % (0-3) Neutrophils # (Auto) 2.0 x10^3uL (1.8-7.7) Lymphocytes # (Auto) 1.9 x10^3/uL (1.0-4.8) Monocytes # (Auto) 0.4 x10^3/uL (0.0-1.1) Eosinophils # (Auto) 0.4 x10^3/uL (0.0-0.7) Basophils # (Auto) 0.1 x10^3/uL (0.0-0.2) Current Medications: Meds: Current Medications Medications (Trade) Dose Ordered Sig/Jocelyn Route PRN Reason Start Time Stop Time Status Last Admin Dose Admin Lactic Acid (Lac-Hydrin) 1 laurence BID TP 02/25/20 21:00 02/25/20 20:05 I have reviewed the current psychotropics carefully including drug interactions. Risk benefit ratio favors no change other than as noted in my dictated progress note. Diagnosis: Problems: (1) Major depressive disorder, recurrent episode (2) Impulse control disorder, unspecified (3) Anxiety disorder, unspecified MUKESH JAY MD February 25, 2020 22:15
[2020-02-25] MEDS: LORazepam 0.5 MG TABLET PO PRN (23:07)
[2020-02-26 06:24] VITALS: BP 115/75
[2020-02-26] MEDS: ASCORBIC ACID 500 MG TABLET PO SCH (09:25)
[2020-02-26] MEDS: IPRATROPIUM/ALBUTEROL 20/100mcg/INH INHALER. INH SCH ×4 (09:25→20:26)
[2020-02-26] MEDS: AMMONIUM LACTATE 12% TOPICAL LOTION 226GM BOTTLE. TP SCH ×2 (09:25→20:26)
[2020-02-26] MEDS: CLOPIDOGREL BISULFATE 75 MG TABLET PO SCH (09:26)
[2020-02-26] MEDS: POTASSIUM CHLORIDE 20 MEQ TABLET.ER. PO SCH ×2 (09:26→20:26)
[2020-02-26] MEDS: DULoxetine HCL 60 MG CAPSULE.DR PO SCH (09:26)
[2020-02-26] MEDS: FERROUS SULFATE 325 MG TABLET. PO SCH (09:26)
[2020-02-26] MEDS: buPROPion XL 150 MG TAB.ER.24H PO SCH (09:26)
[2020-02-26] MEDS: SUCRALFATE 1 GM TABLET. PO SCH ×4 (09:26→20:26)
[2020-02-26] MEDS: PANTOPRAZOLE 40 MG TABLET. PO SCH (09:26)
[2020-02-26] MEDS: QUEtiapine 50 MG TABLET. PO SCH (09:26)
[2020-02-26] MEDS: oxyCODONE ER 10 MG TAB.ER.12H PO SCH ×2 (09:28→20:25)
[2020-02-26 09:59] LABS: BASO # 0.1 x10^3/uL (0.0-0.2); BASO % 2 % (0-3); EOS # 0.7 x10^3/uL (0.0-0.7); EOS % 11 % (0-3); HEMATOCRIT 28.1 % (36.0-47.0); HEMOGLOBIN 9.3 g/dL (12.0-15.5); LYMPH % 32 % (24-48); MEAN CORPUSCULAR HEMOGLOBIN 30 pg (25-35); MEAN CORPUSCULAR HGB CONC 33 g/dL (31-37); MEAN CORPUSCULAR VOLUME 91 fL (79-100); MONO # 0.6 x10^3/uL (0.0-1.1); MONO % 10 % (0-9); NEUT # 2.9 x10^3uL (1.8-7.7); NEUT % 46 % (31-73); RED BLOOD COUNT 3.11 x10^6/uL (3.50-5.40); RED CELL DISTRIBUTION WIDTH 15.4 % (11.5-14.5); WHITE BLOOD COUNT 6.3 x10^3/uL (4.0-11.0)
[2020-02-26 10:04] LABS: PLATELET COUNT 422 x10^3/uL (140-400)
[2020-02-26 10:23] LABS: ALBUMIN 1.5 g/dL (3.4-5.0); ALBUMIN/GLOBULIN RATIO 0.3 (1.0-1.7); CALCIUM 8.8 mg/dL (8.5-10.1); CREATININE 0.6 mg/dL (0.6-1.0); GFR 100.3; POTASSIUM 3.9 mmol/L (3.5-5.1); TOTAL BILIRUBIN 0.4 mg/dL (0.2-1.0); TOTAL PROTEIN 6.7 g/dL (6.4-8.2)
[2020-02-26 11:07] LABS: PLT ESTIMATE INCREASED (ADEQUATE)
[2020-02-26 11:11] LABS: TARGET CELLS FEW
[2020-02-26] MEDS: oxyCODONE IR 5 MG TABLET PO PRN (13:03)
[2020-02-26 15:47] VITALS: BP 98/68
[2020-02-26] MEDS ORDERED: DOCUSATE SODIUM 100 MG CAPSULE PO PRN (17:15)
[2020-02-26] MEDS: QUEtiapine 100 MG TABLET. PO SCH (20:25)
[2020-02-26] MEDS: GABAPENTIN 400 MG CAPSULE. PO SCH (20:26)
[2020-02-26] MEDS: TAMSULOSIN 0.4 MG CAP.ER.24H. PO SCH (20:26)
--- NOTE | 2020-02-26 21:53 | PDOC ---
Exam Note: Andrea Note: Please also refer to the separate dictated note~for this date of service dictated separately.~Patient seen individually. Discussed the patient with Nursing staff reviewed the chart.~Reviewed interim history and current functioning. Reviewed vital signs,~Labs/ Radiology~and current medications noted below. Continue current treatment with the changes noted in the dictated addendum note Assessment: Vital Signs/I&O: Vital Signs Date Time Temp Pulse Resp B/P (MAP) Pulse Ox O2 Delivery O2 Flow Rate FiO2 02/26/20 20:25 18 Nasal Cannula 2.0 02/26/20 20:16 98.3 98 02/26/20 15:47 99 98/68 (78) I & O 02/25/20 02/25/20 02/26/20 15:00 23:00 07:00 Intake Total 320 ml 240 ml Balance 320 ml 240 ml Labs: Laboratory Tests Test 02/26/20 09:53 White Blood Count 6.3 x10^3/uL (4.0-11.0) Red Blood Count 3.11 x10^6/uL (3.50-5.40) L Hemoglobin 9.3 g/dL (12.0-15.5) L Hematocrit 28.1 % (36.0-47.0) L Mean Corpuscular Volume 91 fL (79-100) Mean Corpuscular Hemoglobin 30 pg (25-35) Mean Corpuscular Hemoglobin Concent 33 g/dL (31-37) Red Cell Distribution Width 15.4 % (11.5-14.5) H Platelet Count 422 x10^3/uL (140-400) #H Neutrophils (%) (Auto) 46 % (31-73) Lymphocytes (%) (Auto) 32 % (24-48) Monocytes (%) (Auto) 10 % (0-9) H Eosinophils (%) (Auto) 11 % (0-3) H Basophils (%) (Auto) 2 % (0-3) Neutrophils # (Auto) 2.9 x10^3uL (1.8-7.7) Lymphocytes # (Auto) 2.0 x10^3/uL (1.0-4.8) Monocytes # (Auto) 0.6 x10^3/uL (0.0-1.1) Eosinophils # (Auto) 0.7 x10^3/uL (0.0-0.7) Basophils # (Auto) 0.1 x10^3/uL (0.0-0.2) Platelet Estimate Increased (ADEQUATE) Target Cells Few Sodium Level 136 mmol/L (136-145) Potassium Level 3.9 mmol/L (3.5-5.1) Chloride Level 101 mmol/L (98-107) Carbon Dioxide Level 32 mmol/L (21-32) Anion Gap 3 (6-14) L Blood Urea Nitrogen 5 mg/dL (7-20) L Creatinine 0.6 mg/dL (0.6-1.0) Estimated GFR (Cockcroft-Gault) 100.3 BUN/Creatinine Ratio 8 (6-20) Glucose Level 82 mg/dL (70-99) Calcium Level 8.8 mg/dL (8.5-10.1) Total Bilirubin 0.4 mg/dL (0.2-1.0) Aspartate Amino Transferase (AST) 44 U/L (15-37) H Alanine Aminotransferase (ALT) 20 U/L (14-59) Alkaline Phosphatase 224 U/L (46-116) H Total Protein 6.7 g/dL (6.4-8.2) Albumin 1.5 g/dL (3.4-5.0) L Albumin/Globulin Ratio 0.3 (1.0-1.7) L Current Medications: Meds: Current Medications Medications (Trade) Dose Ordered Sig/Jocelyn Route PRN Reason Start Time Stop Time Status Last Admin Dose Admin Docusate Sodium (Colace) 100 mg PRN DAILY PRN PO HARD STOOLS 02/26/20 17:15 02/26/20 20:25 I have reviewed the current psychotropics carefully including drug interactions. Risk benefit ratio favors no change other than as noted in my dictated progress note. Diagnosis: Problems: (1) Major depressive disorder, recurrent episode (2) Impulse control disorder, unspecified (3) Anxiety disorder, unspecified MUKESH JAY MD February 26, 2020 21:53
[2020-02-26] MEDS: LORazepam 0.5 MG TABLET PO PRN (21:56)
[2020-02-27 05:20] VITALS: BP 121/70
[2020-02-27] MEDS: QUEtiapine 50 MG TABLET. PO SCH (10:41)
[2020-02-27] MEDS: CLOPIDOGREL BISULFATE 75 MG TABLET PO SCH (10:42)
[2020-02-27] MEDS: DULoxetine HCL 60 MG CAPSULE.DR PO SCH (10:42)
[2020-02-27] MEDS: buPROPion XL 150 MG TAB.ER.24H PO SCH (10:42)
[2020-02-27] MEDS: oxyCODONE ER 10 MG TAB.ER.12H PO SCH ×2 (10:43→20:30)
[2020-02-27] MEDS: FERROUS SULFATE 325 MG TABLET. PO SCH (10:43)
[2020-02-27] MEDS: ASCORBIC ACID 500 MG TABLET PO SCH (10:43)
[2020-02-27] MEDS: POTASSIUM CHLORIDE 20 MEQ TABLET.ER. PO SCH ×2 (10:43→20:30)
[2020-02-27] MEDS: PANTOPRAZOLE 40 MG TABLET. PO SCH (10:43)
[2020-02-27] MEDS: SUCRALFATE 1 GM TABLET. PO SCH ×4 (10:44→20:30)
[2020-02-27] MEDS: PSYLLIUM SEED (WITH SUGAR) PACKET. PO SCH (10:44)
[2020-02-27] MEDS: AMMONIUM LACTATE 12% TOPICAL LOTION 226GM BOTTLE. TP SCH ×2 (10:44→20:37)
[2020-02-27] MEDS: IPRATROPIUM/ALBUTEROL 20/100mcg/INH INHALER. INH SCH ×4 (10:44→20:28)
[2020-02-27] MEDS: LORazepam 0.5 MG TABLET PO PRN ×2 (12:33→22:01)
[2020-02-27 15:34] VITALS: BP 97/58
[2020-02-27] MEDS: GABAPENTIN 400 MG CAPSULE. PO SCH (20:30)
[2020-02-27] MEDS: TAMSULOSIN 0.4 MG CAP.ER.24H. PO SCH (20:30)
[2020-02-27] MEDS: risperiDONE 0.25 MG TABLET. PO SCH (20:35)
[2020-02-27 21:10] LABS: FECAL OB PT POSITIVE (NEG)
--- NOTE | 2020-02-27 21:25 | PN ---
DATE: 02/25/2020 This late entry 02/24 covers elements not covered in my initial note. SUBJECTIVE: I met with the patient evening of 02/24 on audiovisual rounds. Per RAVI Sandoval, the patient slept 5-1/2 hours previous night. She has been needy, wanting to call her son, anxious, restless, quite labile in her mood. REVIEW OF SYSTEMS: Ambulation impaired, 1 or 2-person assist. She has vague somatic symptoms, chronic pain secondary to arthritis. No CV, , pulmonary, eye system symptoms on review. MENTAL STATUS EXAMINATION: The patient is reasonably oriented. Speech is coherent, abstraction fair, computation impaired, language function intact, attention span short. Mood and affect still depressed, withdrawn, but better than before. LABORATORY DATA: Reviewed. IMPRESSION: Major depressive disorder, recurrent, impulse control disorder. PLAN: Continue psychotropics from initial note, adjust further as clinically indicated. May need to adjust Seroquel. MUKESH JAY MD DR: CASANDRA/elvis JOB#: [id number] / [id number]
--- NOTE | 2020-02-27 21:29 | PN ---
DATE: 02/26/2020 This late entry 02/25 covers elements not covered in my initial note. SUBJECTIVE: I met with the patient evening of 02/25. Per RAVI Sandoval, the patient has been anxious, restless, medication seeking. Labs, BUN is improved. She often refuses to use a wheelchair, is a fall risk. Slept 5-1/4 hours previous night. REVIEW OF SYSTEMS: Chronic pain, impaired ambulation. No CV, , pulmonary, eye system symptoms on review. MENTAL STATUS EXAM: Oriented reasonably. Speech is coherent, abstraction fair, computation impaired, language function intact, attention span short. Mood and affect still depressed. No suicidal ideation. LABORATORY DATA: Reviewed. IMPRESSION: Unchanged from initial note. PLAN: No change from initial note. MAN Tanya JAY MD DR: CASANDRA/elvis JOB#: [id number] / [id number]
--- NOTE | 2020-02-27 21:30 | PN ---
DATE: 02/27/2020 PSYCHIATRIC PROGRESS NOTE This note covers elements not covered in my initial note 02/27/2020. SUBJECTIVE: The patient was staffed at a treatment team meeting with the entire team in the morning. Per RAVI Guerrero, the patient has had a better day. I met with her on audiovisual rounds in the evening. She has been less anxious, labile and less "hollering" per nursing staff. She ate her dinner very well, then was agitated, hollering after that and then settled shortly thereafter. REVIEW OF SYSTEMS: Ambulation impaired, in wheelchair, chronic pain, impaired ambulation. No CV, , pulmonary, eye system symptoms on review. MENTAL STATUS EXAM: Reasonably oriented. Speech is coherent, abstraction fair, computation impaired, language function intact, attention span short. Mood and affect withdrawn. LABORATORY DATA: Reviewed. IMPRESSION: Major depressive disorder, recurrent; anxiety disorder, unspecified; impulse control disorder, unspecified. Rest unchanged. PLAN: No change from initial note. I have received a message from the patient's providers at [facility], stating she has been on Seroquel for a long period of time with little benefit and they would request a change in her atypical antipsychotic. She remains intermittently psychotic, restless and we will go ahead and change the Seroquel to Risperdal 0.25 mg b.i.d. Continue Cymbalta along with Ativan p.r.n., Wellbutrin 150 mg a day. Adjust further as clinically indicated. MUKESH JAY MD DR: CASANDRA/elivs JOB#: [id number] / [id number]
--- NOTE | 2020-02-27 21:57 | PDOC ---
Exam Note: Andrea Note: Please also refer to the separate dictated note~for this date of service dictated separately.~Patient seen individually. Discussed the patient with Nursing staff reviewed the chart.~Reviewed interim history and current functioning. Reviewed vital signs,~Labs/ Radiology~and current medications noted below. Continue current treatment with the changes noted in the dictated addendum note Assessment: Vital Signs/I&O: Vital Signs Date Time Temp Pulse Resp B/P (MAP) Pulse Ox O2 Delivery O2 Flow Rate FiO2 02/27/20 20:52 98.6 97 02/27/20 20:30 Room Air 02/27/20 15:34 110 20 97/58 (71) 2.0 I & O 0 02/26/20 02/26/20 02/27/20 14:59 22:59 06:59 Intake Total 840 ml 120 ml Balance 840 ml 120 ml Labs: Laboratory Tests Test 02/27/20 19:06 Stool Occult Blood Positive (NEG) Current Medications: Meds: Current Medications Medications (Trade) Dose Ordered Sig/Jocelyn Route PRN Reason Start Time Stop Time Status Last Admin Dose Admin Psyllium Hydrophilic Mucilloid (Metamucil) 1 pkt DAILY PO 02/27/20 09:00 02/27/20 10:44 Risperidone (RisperDAL) 0.25 mg BID PO 02/27/20 21:00 02/27/20 20:35 I have reviewed the current psychotropics carefully including drug interactions. Risk benefit ratio favors no change other than as noted in my dictated progress note. Diagnosis: Problems: (1) Major depressive disorder, recurrent episode (2) Impulse control disorder, unspecified (3) Anxiety disorder, unspecified MUKESH JAY MD February 27, 2020 21:57
[2020-02-27] MEDS: oxyCODONE IR 5 MG TABLET PO PRN (23:52)
[2020-02-28 06:12] VITALS: BP 111/63
[2020-02-28] MEDS: POTASSIUM CHLORIDE 20 MEQ TABLET.ER. PO SCH ×2 (07:46→20:02)
[2020-02-28] MEDS: SUCRALFATE 1 GM TABLET. PO SCH ×4 (07:46→20:01)
[2020-02-28] MEDS: CLOPIDOGREL BISULFATE 75 MG TABLET PO SCH (07:46)
[2020-02-28] MEDS: risperiDONE 0.25 MG TABLET. PO SCH ×2 (07:46→20:04)
[2020-02-28] MEDS: FERROUS SULFATE 325 MG TABLET. PO SCH ×2 (07:46→20:02)
[2020-02-28] MEDS: buPROPion XL 150 MG TAB.ER.24H PO SCH (07:46)
[2020-02-28] MEDS: DULoxetine HCL 60 MG CAPSULE.DR PO SCH (07:46)
[2020-02-28] MEDS: PANTOPRAZOLE 40 MG TABLET. PO SCH (07:47)
[2020-02-28] MEDS: AMMONIUM LACTATE 12% TOPICAL LOTION 226GM BOTTLE. TP SCH ×2 (07:47→20:05)
[2020-02-28] MEDS: IPRATROPIUM/ALBUTEROL 20/100mcg/INH INHALER. INH SCH ×4 (07:47→20:01)
[2020-02-28] MEDS: ASCORBIC ACID 500 MG TABLET PO SCH ×2 (07:47→20:04)
[2020-02-28] MEDS: PSYLLIUM SEED (WITH SUGAR) PACKET. PO SCH (07:47)
[2020-02-28] MEDS: oxyCODONE ER 10 MG TAB.ER.12H PO SCH ×2 (07:48→20:04)
[2020-02-28] MEDS: LORazepam 0.5 MG TABLET PO PRN ×2 (09:01→20:04)
[2020-02-28] MEDS ORDERED: POLYVINYL ALCOHOL/POVIDONE/PF OPHTH SOLUTION DROPERETTE. OU PRN (11:45)
[2020-02-28] MEDS: oxyCODONE IR 5 MG TABLET PO PRN (11:57)
[2020-02-28 16:21] VITALS: BP 113/71
[2020-02-28] MEDS: TAMSULOSIN 0.4 MG CAP.ER.24H. PO SCH (20:02)
[2020-02-28] MEDS: traZODone 50 MG TABLET. PO SCH (20:02)
[2020-02-28] MEDS: GABAPENTIN 400 MG CAPSULE. PO SCH (20:03)
--- NOTE | 2020-02-28 22:07 | PDOC ---
Exam Note: Andrea Note: Please also refer to the separate dictated note~for this date of service dictated separately.~Patient seen individually. Discussed the patient with Nursing staff reviewed the chart.~Reviewed interim history and current functioning. Reviewed vital signs,~Labs/ Radiology~and current medications noted below. Continue current treatment with the changes noted in the dictated addendum note Assessment: Vital Signs/I&O: Vital Signs Date Time Temp Pulse Resp B/P (MAP) Pulse Ox O2 Delivery O2 Flow Rate FiO2 02/28/20 20:04 18 98 Nasal Cannula 2.0 02/28/20 20:00 98.1 02/28/20 16:21 90 113/71 (85) I & O 02/27/20 02/27/20 02/28/20 15:00 23:00 07:00 Intake Total 360 ml 120 ml Balance 360 ml 120 ml Current Medications: Meds: Current Medications Medications (Trade) Dose Ordered Sig/Jocelyn Route PRN Reason Start Time Stop Time Status Last Admin Dose Admin Ferrous Sulfate (Feosol) 325 mg BID PO 02/28/20 21:00 02/28/20 20:02 Ascorbic Acid (Vitamin C) 500 mg BID PO 02/28/20 21:00 02/28/20 20:04 Artificial Tears (Refresh Classic) 1 drop PRN Q15MIN PRN OU DRY EYE 02/28/20 11:45 02/28/20 11:56 Trazodone HCl (Desyrel) 50 mg QHS PO 02/28/20 21:00 02/28/20 20:02 I have reviewed the current psychotropics carefully including drug interactions. Risk benefit ratio favors no change other than as noted in my dictated progress note. Diagnosis: Problems: (1) Major depressive disorder, recurrent episode (2) Impulse control disorder, unspecified (3) Anxiety disorder, unspecified MUKESH JAY MD February 28, 2020 22:07
[2020-02-29] MEDS: oxyCODONE IR 5 MG TABLET PO PRN ×2 (04:07→12:38)
[2020-02-29 06:23] VITALS: BP 110/67
[2020-02-29 06:26] LABS: BASO # 0.1 x10^3/uL (0.0-0.2); BASO % 1 % (0-3); EOS # 0.5 x10^3/uL (0.0-0.7); EOS % 7 % (0-3); HEMATOCRIT 29.4 % (36.0-47.0); HEMOGLOBIN 9.5 g/dL (12.0-15.5); LYMPH # 1.8 x10^3/uL (1.0-4.8); LYMPH % 26 % (24-48); MEAN CORPUSCULAR HEMOGLOBIN 30 pg (25-35); MEAN CORPUSCULAR HGB CONC 32 g/dL (31-37); MEAN CORPUSCULAR VOLUME 93 fL (79-100); MONO # 0.8 x10^3/uL (0.0-1.1); MONO % 11 % (0-9); NEUT # 3.8 x10^3uL (1.8-7.7); NEUT % 55 % (31-73); PLATELET COUNT 475 x10^3/uL (140-400); RED BLOOD COUNT 3.17 x10^6/uL (3.50-5.40); RED CELL DISTRIBUTION WIDTH 15.2 % (11.5-14.5)
[2020-02-29 06:42] LABS: ALBUMIN 1.5 g/dL (3.4-5.0); ALBUMIN/GLOBULIN RATIO 0.3 (1.0-1.7); CREATININE 0.7 mg/dL (0.6-1.0); POTASSIUM 3.9 mmol/L (3.5-5.1); TOTAL BILIRUBIN 0.3 mg/dL (0.2-1.0); TOTAL PROTEIN 6.6 g/dL (6.4-8.2)
[2020-02-29] MEDS: oxyCODONE ER 10 MG TAB.ER.12H PO SCH ×2 (07:41→21:07)
[2020-02-29] MEDS: PSYLLIUM SEED (WITH SUGAR) PACKET. PO SCH (07:41)
[2020-02-29] MEDS: SUCRALFATE 1 GM TABLET. PO SCH ×4 (07:41→21:07)
[2020-02-29] MEDS: CLOPIDOGREL BISULFATE 75 MG TABLET PO SCH (07:41)
[2020-02-29] MEDS: risperiDONE 0.25 MG TABLET. PO SCH ×2 (07:41→21:07)
[2020-02-29] MEDS: ASCORBIC ACID 500 MG TABLET PO SCH ×3 (07:41→21:07)
[2020-02-29] MEDS: IPRATROPIUM/ALBUTEROL 20/100mcg/INH INHALER. INH SCH ×4 (07:42→21:08)
[2020-02-29] MEDS: DULoxetine HCL 60 MG CAPSULE.DR PO SCH (07:42)
[2020-02-29] MEDS: PANTOPRAZOLE 40 MG TABLET. PO SCH (07:42)
[2020-02-29] MEDS: FERROUS SULFATE 325 MG TABLET. PO SCH ×2 (07:42→21:07)
[2020-02-29] MEDS: buPROPion XL 150 MG TAB.ER.24H PO SCH (07:42)
[2020-02-29] MEDS: POTASSIUM CHLORIDE 20 MEQ TABLET.ER. PO SCH ×2 (07:42→21:07)
[2020-02-29] MEDS: AMMONIUM LACTATE 12% TOPICAL LOTION 226GM BOTTLE. TP SCH ×2 (07:43→21:08)
[2020-02-29 16:01] VITALS: BP 94/68
[2020-02-29] MEDS: LORazepam 0.5 MG TABLET PO PRN (16:05)
[2020-02-29] MEDS: TAMSULOSIN 0.4 MG CAP.ER.24H. PO SCH (21:07)
[2020-02-29] MEDS: GABAPENTIN 400 MG CAPSULE. PO SCH (21:07)
[2020-02-29] MEDS: traZODone 50 MG TABLET. PO SCH (21:07)
--- NOTE | 2020-02-29 22:15 | PDOC ---
Exam Note: Andrea Note: Please also refer to the separate dictated note~for this date of service dictated separately.~Patient seen individually. Discussed the patient with Nursing staff reviewed the chart.~Reviewed interim history and current functioning. Reviewed vital signs,~Labs/ Radiology~and current medications noted below. Continue current treatment with the changes noted in the dictated addendum note Assessment: Vital Signs/I&O: Vital Signs Date Time Temp Pulse Resp B/P (MAP) Pulse Ox O2 Delivery O2 Flow Rate FiO2 02/29/20 21:07 94 02/29/20 20:24 98.7 2.0 02/29/20 16:01 74 20 94/68 (77) Nasal Cannula I & O 02/28/20 02/28/20 02/29/20 15:00 23:00 07:00 Intake Total 120 ml 360 ml Balance 120 ml 360 ml Labs: Laboratory Tests Test 02/29/20 06:00 White Blood Count 7.0 x10^3/uL (4.0-11.0) Red Blood Count 3.17 x10^6/uL (3.50-5.40) L Hemoglobin 9.5 g/dL (12.0-15.5) L Hematocrit 29.4 % (36.0-47.0) L Mean Corpuscular Volume 93 fL (79-100) Mean Corpuscular Hemoglobin 30 pg (25-35) Mean Corpuscular Hemoglobin Concent 32 g/dL (31-37) Red Cell Distribution Width 15.2 % (11.5-14.5) H Platelet Count 475 x10^3/uL (140-400) H Neutrophils (%) (Auto) 55 % (31-73) Lymphocytes (%) (Auto) 26 % (24-48) Monocytes (%) (Auto) 11 % (0-9) H Eosinophils (%) (Auto) 7 % (0-3) H Basophils (%) (Auto) 1 % (0-3) Neutrophils # (Auto) 3.8 x10^3uL (1.8-7.7) Lymphocytes # (Auto) 1.8 x10^3/uL (1.0-4.8) Monocytes # (Auto) 0.8 x10^3/uL (0.0-1.1) Eosinophils # (Auto) 0.5 x10^3/uL (0.0-0.7) Basophils # (Auto) 0.1 x10^3/uL (0.0-0.2) Sodium Level 139 mmol/L (136-145) Potassium Level 3.9 mmol/L (3.5-5.1) Chloride Level 102 mmol/L (98-107) Carbon Dioxide Level 34 mmol/L (21-32) H Anion Gap 3 (6-14) L Blood Urea Nitrogen 6 mg/dL (7-20) L Creatinine 0.7 mg/dL (0.6-1.0) Estimated GFR (Cockcroft-Gault) 84.0 BUN/Creatinine Ratio 9 (6-20) Glucose Level 86 mg/dL (70-99) Calcium Level 9.0 mg/dL (8.5-10.1) Total Bilirubin 0.3 mg/dL (0.2-1.0) Aspartate Amino Transferase (AST) 31 U/L (15-37) Alanine Aminotransferase (ALT) 17 U/L (14-59) Alkaline Phosphatase 178 U/L (46-116) H Total Protein 6.6 g/dL (6.4-8.2) Albumin 1.5 g/dL (3.4-5.0) L Albumin/Globulin Ratio 0.3 (1.0-1.7) L Current Medications: I have reviewed the current psychotropics carefully including drug interactions. Risk benefit ratio favors no change other than as noted in my dictated progress note. Diagnosis: Problems: (1) Major depressive disorder, recurrent episode (2) Impulse control disorder, unspecified (3) Anxiety disorder, unspecified MUKESH JAY MD February 29, 2020 22:14
[2020-03-01] MEDS: oxyCODONE IR 5 MG TABLET PO PRN ×2 (01:24→12:52)
[2020-03-01 05:42] VITALS: BP 125/66
[2020-03-01] MEDS: DULoxetine HCL 60 MG CAPSULE.DR PO SCH (07:53)
[2020-03-01] MEDS: buPROPion XL 150 MG TAB.ER.24H PO SCH (07:53)
[2020-03-01] MEDS: POTASSIUM CHLORIDE 20 MEQ TABLET.ER. PO SCH ×2 (07:53→20:44)
[2020-03-01] MEDS: AMMONIUM LACTATE 12% TOPICAL LOTION 226GM BOTTLE. TP SCH ×2 (07:53→20:44)
[2020-03-01] MEDS: SUCRALFATE 1 GM TABLET. PO SCH ×4 (07:56→20:44)
[2020-03-01] MEDS: PANTOPRAZOLE 40 MG TABLET. PO SCH (07:56)
[2020-03-01] MEDS: CLOPIDOGREL BISULFATE 75 MG TABLET PO SCH (07:56)
[2020-03-01] MEDS: ASCORBIC ACID 500 MG TABLET PO SCH ×3 (07:56→20:44)
[2020-03-01] MEDS: risperiDONE 0.25 MG TABLET. PO SCH ×2 (07:56→20:44)
[2020-03-01] MEDS: FERROUS SULFATE 325 MG TABLET. PO SCH ×2 (07:56→20:44)
[2020-03-01] MEDS: IPRATROPIUM/ALBUTEROL 20/100mcg/INH INHALER. INH SCH ×4 (07:57→20:44)
[2020-03-01] MEDS: PSYLLIUM SEED (WITH SUGAR) PACKET. PO SCH (07:59)
[2020-03-01] MEDS: oxyCODONE ER 10 MG TAB.ER.12H PO SCH ×2 (07:59→20:44)
[2020-03-01] MEDS: NEO/POLYMYX/DEXAMETH OPHTH SUSPENSION 5ML BOTTLE. OU SCH ×2 (12:00→20:43)
[2020-03-01 16:08] VITALS: BP 110/63
[2020-03-01] MEDS: LORazepam 0.5 MG TABLET PO PRN (17:39)
--- NOTE | 2020-03-01 19:47 | PN ---
DATE: 02/28/2020 PSYCHIATRIC PROGRESS NOTE. This late entry of 02/28/2020 covers the elements not covered in my initial note. SUBJECTIVE: I met with the patient in them evening of 02/28/2020 on telehealth rounds. Per RAVI Ramirez, the patient was yelling in the morning, anxious, restless, blaming that someone threw her. She slept 3-1/2 hours previous night. Staff try and hold her because she tries to get up and walk on her own and is a fall risk, 1 or 2 person assist and she dislikes this. Totally oblivious to the fact of what could happen if she did fall and injure herself. Stool Hemoccult is positive for hemoglobin 9.3, will defer to Dr. Blair/Dr. Palafox and iron supplements have been increased with vitamin C added. REVIEW OF SYSTEMS: Positive for impaired ambulation. No CV, , pulmonary, eye system symptoms on review. She has vague somatic symptoms. MENTAL STATUS EXAM: Oriented reasonably. Speech has some latency, coherent. Abstraction fair, computation impaired, language function intact, attention span short. Mood and affect withdrawn, but improved. LABORATORY DATA: Reviewed. IMPRESSION: Major depressive disorder, recurrent; impulse control disorder; rheumatoid arthritis; anxiety disorder, unspecified. Rest unchanged. PLAN: Add trazodone 50 mg at bedtime scheduled for insomnia, february repeat x 1. Defer medical management to Dr. Blair/Dr. Palafox. Continue Cymbalta, Risperdal, Wellbutrin at current dosage, Ativan p.r.n. MUKESH JAY MD DR: CASANDRA/elvis JOB#: [id number] / [id number]
--- NOTE | 2020-03-01 19:47 | PN ---
DATE: 02/29/2020 PSYCHIATRIC PROGRESS NOTE This late entry 02/29/2020 covers elements not covered in my initial note. SUBJECTIVE: I met with the patient evening of 02/29/2020 on telehealth rounds. Per RAVI Ramirez, the patient slept 6-1/4 hours previous night. Trazodone seemed to help. She has been yelling less so, but still wants to walk and ambulate is a fall risk. REVIEW OF SYSTEMS: No CV, , pulmonary, eye system symptoms on review. MENTAL STATUS EXAM: Reasonably oriented. Speech has some latency, coherent. Abstraction fair, computation impaired, language function intact, attention span short. Mood and affect somewhat withdrawn. LABORATORY DATA: Reviewed. IMPRESSION: Unchanged from initial note. PLAN: No change from initial note. MAN Tanya JAY MD DR: CASANDRA/elvis JOB#: [id number] / [id number]
[2020-03-01] MEDS: GABAPENTIN 400 MG CAPSULE. PO SCH (20:44)
[2020-03-01] MEDS: traZODone 50 MG TABLET. PO SCH (20:44)
[2020-03-01] MEDS: TAMSULOSIN 0.4 MG CAP.ER.24H. PO SCH (20:44)
--- NOTE | 2020-03-01 22:17 | PDOC ---
Exam Note: Andrea Note: Please also refer to the separate dictated note~for this date of service dictated separately.~Patient seen individually. Discussed the patient with Nursing staff reviewed the chart.~Reviewed interim history and current functioning. Reviewed vital signs,~Labs/ Radiology~and current medications noted below. Continue current treatment with the changes noted in the dictated addendum note Assessment: Vital Signs/I&O: Vital Signs Date Time Temp Pulse Resp B/P (MAP) Pulse Ox O2 Delivery O2 Flow Rate FiO2 03/01/20 21:22 98.3 99 03/01/20 16:08 84 18 110/63 (79) Nasal Cannula 2.0 I & O 02/29/20 02/29/20 03/01/20 15:00 23:00 07:00 Intake Total 360 ml 240 ml Balance 360 ml 240 ml Current Medications: Meds: Current Medications Medications (Trade) Dose Ordered Sig/Jocelyn Route PRN Reason Start Time Stop Time Status Last Admin Dose Admin Neomycin/ Polymyxin/ Dexamethasone (Maxitrol) 1 drop BID OU 03/01/20 12:00 03/05/20 21:01 03/01/20 20:43 I have reviewed the current psychotropics carefully including drug interactions. Risk benefit ratio favors no change other than as noted in my dictated progress note. Diagnosis: Problems: (1) Major depressive disorder, recurrent episode (2) Impulse control disorder, unspecified (3) Anxiety disorder, unspecified MUKESH JAY MD March 01, 2020 22:17
[2020-03-02 05:44] VITALS: BP 113/68
[2020-03-02] MEDS: NEO/POLYMYX/DEXAMETH OPHTH SUSPENSION 5ML BOTTLE. OU SCH ×2 (08:50→20:22)
[2020-03-02] MEDS: AMMONIUM LACTATE 12% TOPICAL LOTION 226GM BOTTLE. TP SCH ×2 (08:50→20:22)
[2020-03-02] MEDS: IPRATROPIUM/ALBUTEROL 20/100mcg/INH INHALER. INH SCH ×4 (08:50→20:22)
[2020-03-02] MEDS: PSYLLIUM SEED (WITH SUGAR) PACKET. PO SCH ×2 (08:51→09:00)
[2020-03-02] MEDS: DULoxetine HCL 60 MG CAPSULE.DR PO SCH (08:51)
[2020-03-02] MEDS: ASCORBIC ACID 500 MG TABLET PO SCH ×2 (08:51→20:23)
[2020-03-02] MEDS: POTASSIUM CHLORIDE 20 MEQ TABLET.ER. PO SCH ×2 (08:51→20:22)
[2020-03-02] MEDS: CLOPIDOGREL BISULFATE 75 MG TABLET PO SCH (08:51)
[2020-03-02] MEDS: SUCRALFATE 1 GM TABLET. PO SCH ×4 (08:51→20:23)
[2020-03-02] MEDS: risperiDONE 0.25 MG TABLET. PO SCH ×2 (08:51→20:23)
[2020-03-02] MEDS: FERROUS SULFATE 325 MG TABLET. PO SCH ×2 (08:51→20:23)
[2020-03-02] MEDS: PANTOPRAZOLE 40 MG TABLET. PO SCH (08:51)
[2020-03-02] MEDS: oxyCODONE ER 10 MG TAB.ER.12H PO SCH ×2 (08:52→20:23)
[2020-03-02] MEDS: buPROPion XL 150 MG TAB.ER.24H PO SCH (08:52)
[2020-03-02] MEDS: LORazepam 0.5 MG TABLET PO PRN ×2 (09:03→21:32)
[2020-03-02 10:39] LABS: BASO # 0.1 x10^3/uL (0.0-0.2); BASO % 1 % (0-3); EOS # 0.7 x10^3/uL (0.0-0.7); EOS % 8 % (0-3); LYMPH # 1.9 x10^3/uL (1.0-4.8); LYMPH % 21 % (24-48); MEAN CORPUSCULAR HEMOGLOBIN 30 pg (25-35); MEAN CORPUSCULAR HGB CONC 32 g/dL (31-37); MEAN CORPUSCULAR VOLUME 92 fL (79-100); MONO % 11 % (0-9); NEUT # 5.1 x10^3uL (1.8-7.7); NEUT % 59 % (31-73); PLATELET COUNT 481 x10^3/uL (140-400); RED BLOOD COUNT 3.04 x10^6/uL (3.50-5.40); RED CELL DISTRIBUTION WIDTH 15.5 % (11.5-14.5); WHITE BLOOD COUNT 8.7 x10^3/uL (4.0-11.0)
[2020-03-02 10:48] LABS: ALBUMIN 1.5 g/dL (3.4-5.0); ALBUMIN/GLOBULIN RATIO 0.3 (1.0-1.7); CREATININE 0.6 mg/dL (0.6-1.0); GFR 100.3; TOTAL BILIRUBIN 0.2 mg/dL (0.2-1.0); TOTAL PROTEIN 6.4 g/dL (6.4-8.2)
--- NOTE | 2020-03-02 12:37 | TX PLAN ---
Interdisciplinary Tx Plan Admission Information February 21, 2020 at 13:15 Legal Status (on Admission): Voluntary DPOA/Guardian Name: Christiano Duncan Contact Other [facility] Verified Code Status: Full Code Allergies: Coded Allergies: amoxicillin (Verified Allergy, Unknown, 02/21/20) aspirin (Verified Allergy, Unknown, 02/21/20) cephalexin (Verified Allergy, Unknown, 02/21/20) clarithromycin (Verified Allergy, Unknown, 02/21/20) clavulanic acid (Verified Allergy, Unknown, 02/21/20) codeine (Verified Allergy, Unknown, 02/21/20) ibuprofen (Verified Allergy, Unknown, 02/21/20) latex (Verified Allergy, Unknown, 02/21/20) nalbuphine (Verified Allergy, Unknown, 02/21/20) oseltamivir (Verified Allergy, Unknown, 02/21/20) Diagnoses Primary Diagnosis: MDD, Impulse Control D/O Reasons for Admission: Agitated, Angry, Poor impulse control Problem in Patient's Words: I think she requires frequent help for everything because she can't do it on her own. Additional Admission Comments: According to the intake pt is medication seeking, hyperfocused on medications, anxious, refusing to eat, weight loss, resistant cares, verbally abusive and name calling; demanding Problems Active Problems: Attention-seeking Medication seeking Verbally abusive Demanding Inactive Problems: Medication management Pt Strengths/Limitations Ability for [place]: Poor Cognitive Functioning/Ability: Poor Communication Skills/Ability: Fair Financial Resources: Fair Insight/Judgement: Poor Intellectual Ability: Fair Physical Health: Poor Social Skills: Poor Stability in Family: Fair Stability in School/Work: Poor Verbal Skills: Fair Discharge Criteria Discharge Criteria: No need for close observ., Improved behavior, Improved mood/thought Other Discharge Comments: Must exhibit a decrease in yelling out for the nurse in excess. Preliminary Discharge Plan Preliminary DC Plan: Longterm Special Precautions Fall Risk: Moderate Initial D/C Plan Pt to return to [facility] Identified Discharge Needs: Continued follow up care Currently Utilized Resources Currently Utilized Resources/P: Agency physician Referrals Community Resources: Mental health services Identified Problems/Hx/Goals Objectives/Short-Term Goals Short Term Goals: Dec. Outbursts, Improved Social Skills, Medication Stabilization, Monitor Med Effects, Promote Coping Skill Short Term Goals in Patient's: N/A Interventions/Frequency Staff Interventions/Frequency&: Psychiatrist to assess pt at least 3x per week. Social Work to assess pt at least 2x per week. Nursing to assess and monitor q 15 minutes daily. Encourage group participation within activities; or 1:1 time dependent on goals set by Activity Dept. History Vocational History: N/A Education: N/A Community Follow-up Pt will need continued primary care follow-up Will need mental health providers Community Provider/Family Inpu: Pt son feels that pt just cannot do anything on her own. Treatment Plan Explained Patient/Liaison Engineer had this treatment plan explained to him/her as indicated by the signature below and has been given the opportunity to ask questions and make suggestions: Date: Patient/Liaison Engineer Signature: Status Update Update Pt is eating roughly 50% of meals and sleeping on average 6 hours. Pt continues to be somatic and attention seeking. Pt is compliant with medications and cares; however, does have pain complaints. Pt is currently on Cymbalta, Risperdal and Wellbutrin. At this time, pt will return to [facility] once stable. RENETTA is working on a Behavioral Plan with nursing staff that will be appropriate and able to follow pt back to her placement. RENETTA will plan to follow up with pt son and the facility on [place] of the beginning of next week. ANDRES RODRIGES March 02, 2020 12:37
[2020-03-02] MEDS: oxyCODONE IR 5 MG TABLET PO PRN ×2 (13:21→21:32)
[2020-03-02 16:12] VITALS: BP 102/67
[2020-03-02] MEDS: TAMSULOSIN 0.4 MG CAP.ER.24H. PO SCH (20:22)
[2020-03-02] MEDS: GABAPENTIN 400 MG CAPSULE. PO SCH (20:23)
[2020-03-02] MEDS: traZODone 50 MG TABLET. PO SCH (20:23)
--- NOTE | 2020-03-02 22:11 | PDOC ---
Exam Note: Andrea Note: Please also refer to the separate dictated note~for this date of service dictated separately.~Patient seen individually. Discussed the patient with Nursing staff reviewed the chart.~Reviewed interim history and current functioning. Reviewed vital signs,~Labs/ Radiology~and current medications noted below. Continue current treatment with the changes noted in the dictated addendum note Assessment: Vital Signs/I&O: Vital Signs Date Time Temp Pulse Resp B/P (MAP) Pulse Ox O2 Delivery O2 Flow Rate FiO2 03/02/20 21:54 97.5 98 03/02/20 16:12 80 20 102/67 (79) 2.0 03/02/20 05:44 Nasal Cannula I & O 03/01/20 03/01/20 03/02/20 14:59 22:59 06:59 Intake Total 240 ml 340 ml Balance 240 ml 340 ml Labs: Laboratory Tests Test 03/02/20 10:24 White Blood Count 8.7 x10^3/uL (4.0-11.0) Red Blood Count 3.04 x10^6/uL (3.50-5.40) L Hemoglobin 9.0 g/dL (12.0-15.5) L Hematocrit 28.0 % (36.0-47.0) L Mean Corpuscular Volume 92 fL (79-100) Mean Corpuscular Hemoglobin 30 pg (25-35) Mean Corpuscular Hemoglobin Concent 32 g/dL (31-37) Red Cell Distribution Width 15.5 % (11.5-14.5) H Platelet Count 481 x10^3/uL (140-400) H Neutrophils (%) (Auto) 59 % (31-73) Lymphocytes (%) (Auto) 21 % (24-48) L Monocytes (%) (Auto) 11 % (0-9) H Eosinophils (%) (Auto) 8 % (0-3) H Basophils (%) (Auto) 1 % (0-3) Neutrophils # (Auto) 5.1 x10^3uL (1.8-7.7) Lymphocytes # (Auto) 1.9 x10^3/uL (1.0-4.8) Monocytes # (Auto) 1.0 x10^3/uL (0.0-1.1) Eosinophils # (Auto) 0.7 x10^3/uL (0.0-0.7) Basophils # (Auto) 0.1 x10^3/uL (0.0-0.2) Sodium Level 139 mmol/L (136-145) Potassium Level 4.0 mmol/L (3.5-5.1) Chloride Level 102 mmol/L (98-107) Carbon Dioxide Level 33 mmol/L (21-32) H Anion Gap 4 (6-14) L Blood Urea Nitrogen 9 mg/dL (7-20) Creatinine 0.6 mg/dL (0.6-1.0) Estimated GFR (Cockcroft-Gault) 100.3 BUN/Creatinine Ratio 15 (6-20) Glucose Level 96 mg/dL (70-99) Calcium Level 9.0 mg/dL (8.5-10.1) Total Bilirubin 0.2 mg/dL (0.2-1.0) Aspartate Amino Transferase (AST) 32 U/L (15-37) Alanine Aminotransferase (ALT) 14 U/L (14-59) Alkaline Phosphatase 158 U/L (46-116) H Total Protein 6.4 g/dL (6.4-8.2) Albumin 1.5 g/dL (3.4-5.0) L Albumin/Globulin Ratio 0.3 (1.0-1.7) L Current Medications: I have reviewed the current psychotropics carefully including drug interactions. Risk benefit ratio favors no change other than as noted in my dictated progress note. Diagnosis: Problems: (1) Major depressive disorder, recurrent episode (2) Impulse control disorder, unspecified (3) Anxiety disorder, unspecified MUKESH JAY MD March 02, 2020 22:11
[2020-03-03] MEDS: oxyCODONE IR 5 MG TABLET PO PRN ×3 (01:39→20:15)
[2020-03-03] MEDS: METHYL SALICYLATE/MENTHOL TOPICAL OINTMENT 57GM TUBE. TP PRN ×2 (01:43→20:12)
[2020-03-03 06:15] VITALS: BP 107/70
[2020-03-03] MEDS: PSYLLIUM SEED (WITH SUGAR) PACKET. PO SCH (09:00)
[2020-03-03] MEDS: buPROPion XL 150 MG TAB.ER.24H PO SCH (09:39)
[2020-03-03] MEDS: DULoxetine HCL 60 MG CAPSULE.DR PO SCH (09:39)
[2020-03-03] MEDS: ASCORBIC ACID 500 MG TABLET PO SCH ×2 (09:39→20:12)
[2020-03-03] MEDS: PANTOPRAZOLE 40 MG TABLET. PO SCH (09:40)
[2020-03-03] MEDS: POTASSIUM CHLORIDE 20 MEQ TABLET.ER. PO SCH ×2 (09:40→20:15)
[2020-03-03] MEDS: CLOPIDOGREL BISULFATE 75 MG TABLET PO SCH (09:40)
[2020-03-03] MEDS: oxyCODONE ER 10 MG TAB.ER.12H PO SCH ×2 (09:40→20:15)
[2020-03-03] MEDS: FERROUS SULFATE 325 MG TABLET. PO SCH ×2 (09:40→20:16)
[2020-03-03] MEDS: SUCRALFATE 1 GM TABLET. PO SCH ×4 (09:40→20:13)
[2020-03-03] MEDS: risperiDONE 0.25 MG TABLET. PO SCH ×2 (09:40→20:15)
[2020-03-03] MEDS: IPRATROPIUM/ALBUTEROL 20/100mcg/INH INHALER. INH SCH ×4 (09:41→20:11)
[2020-03-03] MEDS: AMMONIUM LACTATE 12% TOPICAL LOTION 226GM BOTTLE. TP SCH ×2 (09:41→20:12)
[2020-03-03] MEDS: NEO/POLYMYX/DEXAMETH OPHTH SUSPENSION 5ML BOTTLE. OU SCH ×2 (09:41→20:11)
[2020-03-03 15:34] VITALS: BP 104/71
[2020-03-03] MEDS: GABAPENTIN 400 MG CAPSULE. PO SCH (20:12)
[2020-03-03] MEDS: TAMSULOSIN 0.4 MG CAP.ER.24H. PO SCH (20:13)
[2020-03-03] MEDS: LORazepam 0.5 MG TABLET PO PRN (20:13)
[2020-03-03] MEDS: traZODone 50 MG TABLET. PO SCH (20:14)
--- NOTE | 2020-03-03 21:22 | PN ---
DATE: 03/01/2020 PSYCHIATRIC PROGRESS NOTE. This is a late entry, date of service 03/01/2020, covers the elements not covered in my initial note. SUBJECTIVE: I met with the patient in the evening of 03/01/2020 on audiovisual rounds. Per RAVI Ramirez, the patient slept 7-1/4 hours previous night. She was up at noon, anxious, yelling in the evening. She has been reassessed for physical therapy. REVIEW OF SYSTEMS: Ambulation impaired, in wheelchair. No CV, , pulmonary, eye system symptoms on review. MENTAL STATUS EXAM: Reasonably oriented. Speech has some latency, low in rate and rhythm, low in volume. Abstraction fair, computation impaired, language function intact, attention span short. Mood and affect somewhat withdrawn. LABORATORY DATA: Reviewed. IMPRESSION: Unchanged from initial note. PLAN: No change from initial note. MAN Tanya JAY MD DR: CASANDRA/elvis JOB#: [id number] / [id number]
--- NOTE | 2020-03-03 22:05 | PDOC ---
Exam Note: Andrea Note: Please also refer to the separate dictated note~for this date of service dictated separately.~Patient seen individually. Discussed the patient with Nursing staff reviewed the chart.~Reviewed interim history and current functioning. Reviewed vital signs,~Labs/ Radiology~and current medications noted below. Continue current treatment with the changes noted in the dictated addendum note Assessment: Vital Signs/I&O: Vital Signs Date Time Temp Pulse Resp B/P (MAP) Pulse Ox O2 Delivery O2 Flow Rate FiO2 03/03/20 21:33 96 03/03/20 18:44 98.7 03/03/20 15:34 110 16 104/71 (82) 03/03/20 08:08 2.0 03/03/20 06:15 Room Air I & O 03/02/20 03/02/20 03/03/20 15:00 23:00 07:00 Intake Total 360 ml 600 ml Balance 360 ml 600 ml Current Medications: I have reviewed the current psychotropics carefully including drug interactions. Risk benefit ratio favors no change other than as noted in my dictated progress note. Diagnosis: Problems: (1) Major depressive disorder, recurrent episode (2) Impulse control disorder, unspecified (3) Anxiety disorder, unspecified MUKESH JAY MD March 03, 2020 22:05
--- NOTE | 2020-03-03 22:15 | PN ---
DATE: 03/02/2020 PSYCHIATRIC PROGRESS NOTE This late entry 03/02/2020 covers elements not covered in my initial note. SUBJECTIVE: I met with the patient evening of 03/02/2020 and staffed at a treatment team meeting with the entire team and RAVI Massey in the morning. The patient slept 6-1/2 hours previous night. She was tired in the morning, compliant with medications. Does complain of pain, impaired ambulation. REVIEW OF SYSTEMS: No CV, , pulmonary, eye system symptoms on review. During the day, she has tried to make herself fall out of bed. MENTAL STATUS EXAM: Reasonably oriented. Speech has some latency, coherent, often responses monosyllabic. Abstraction fair, computation impaired, language function intact. Mood and affect withdrawn. LABORATORY DATA: Reviewed. IMPRESSION: Unchanged from initial note. PLAN: No change from initial note. MAN Tanya JAY MD DR: CASANDRA/elvis JOB#: [id number] / [id number]
[2020-03-03] MEDS: traZODone 50 MG TABLET. PO PRN (23:35)
[2020-03-04 06:41] VITALS: BP 128/78
[2020-03-04] MEDS: buPROPion XL 150 MG TAB.ER.24H PO SCH (08:30)
[2020-03-04] MEDS: IPRATROPIUM/ALBUTEROL 20/100mcg/INH INHALER. INH SCH ×4 (08:30→20:19)
[2020-03-04] MEDS: risperiDONE 0.25 MG TABLET. PO SCH ×2 (08:30→20:19)
[2020-03-04] MEDS: AMMONIUM LACTATE 12% TOPICAL LOTION 226GM BOTTLE. TP SCH ×2 (08:30→20:19)
[2020-03-04] MEDS: ASCORBIC ACID 500 MG TABLET PO SCH ×2 (08:30→20:19)
[2020-03-04] MEDS: NEO/POLYMYX/DEXAMETH OPHTH SUSPENSION 5ML BOTTLE. OU SCH ×2 (08:30→20:19)
[2020-03-04] MEDS: POTASSIUM CHLORIDE 20 MEQ TABLET.ER. PO SCH ×2 (08:30→20:18)
[2020-03-04] MEDS: PANTOPRAZOLE 40 MG TABLET. PO SCH (08:31)
[2020-03-04] MEDS: DULoxetine HCL 60 MG CAPSULE.DR PO SCH (08:31)
[2020-03-04] MEDS: FERROUS SULFATE 325 MG TABLET. PO SCH ×2 (08:31→20:18)
[2020-03-04] MEDS: PSYLLIUM SEED (WITH SUGAR) PACKET. PO SCH (08:31)
[2020-03-04] MEDS: oxyCODONE ER 10 MG TAB.ER.12H PO SCH ×2 (08:31→20:18)
[2020-03-04] MEDS: CLOPIDOGREL BISULFATE 75 MG TABLET PO SCH (08:31)
[2020-03-04] MEDS: SUCRALFATE 1 GM TABLET. PO SCH ×4 (08:31→20:18)
--- NOTE | 2020-03-04 09:18 | PDOC ---
Exam Note: Andrea Note: This note is a late entry for 03/03/2020 covers elements not covered in my initial note. SUBJECTIVE: The patient was seen on Telehealth services in the evening of 03/03/2020. Nursing report was with Gaye RODRIGUES. Discussed the patient with nursing staff reviewed the chart. She slept 5-1/4 hours previous night. Previous night she was yelling, agitated. Today yelled twice in the bathroom. She has been doing better. REVIEW OF SYSTEMS: She is in a wheelchair. No CV, , Pulmonary, Eye system symptoms on review. MENTAL STATUS EXAM: Reasonably oriented. Speech has some latency, coherent, often responses are monosyllabic. Abstraction fair. Computation impaired. Language function intact. Mood and affect withdrawn. LABORATORY DATA: Reviewed. IMPRESSION: Unchanged from initial note. PLAN: No change from initial note. Assessment: Vital Signs/I&O: Vital Signs Date Time Temp Pulse Resp B/P (MAP) Pulse Ox O2 Delivery O2 Flow Rate FiO2 03/04/20 08:31 92 03/04/20 08:00 98.3 03/04/20 06:41 71 16 128/78 (95) 03/03/20 08:08 2.0 03/03/20 06:15 Room Air I & O 03/03/20 03/03/20 03/04/20 15:00 23:00 07:00 Intake Total 480 ml 360 ml Balance 480 ml 360 ml Current Medications: I have reviewed the current psychotropics carefully including drug interactions. Risk benefit ratio favors no change other than as noted in my dictated progress note. Diagnosis: Problems: (1) Major depressive disorder, recurrent episode (2) Impulse control disorder, unspecified (3) Anxiety disorder, unspecified MUKESH JAY MD March 04, 2020 09:18
[2020-03-04 09:22] LABS: BASO # 0.1 x10^3/uL (0.0-0.2); BASO % 1 % (0-3); EOS # 0.6 x10^3/uL (0.0-0.7); EOS % 9 % (0-3); HEMOGLOBIN 9.5 g/dL (12.0-15.5); LYMPH # 2.4 x10^3/uL (1.0-4.8); LYMPH % 33 % (24-48); MEAN CORPUSCULAR HEMOGLOBIN 30 pg (25-35); MEAN CORPUSCULAR HGB CONC 33 g/dL (31-37); MEAN CORPUSCULAR VOLUME 93 fL (79-100); MONO # 0.8 x10^3/uL (0.0-1.1); MONO % 11 % (0-9); NEUT # 3.2 x10^3uL (1.8-7.7); NEUT % 45 % (31-73); PLATELET COUNT 498 x10^3/uL (140-400); RED BLOOD COUNT 3.13 x10^6/uL (3.50-5.40); RED CELL DISTRIBUTION WIDTH 15.8 % (11.5-14.5); WHITE BLOOD COUNT 7.2 x10^3/uL (4.0-11.0)
[2020-03-04 09:37] LABS: ALBUMIN 1.6 g/dL (3.4-5.0); ALBUMIN/GLOBULIN RATIO 0.3 (1.0-1.7); CALCIUM 9.1 mg/dL (8.5-10.1); CREATININE 0.6 mg/dL (0.6-1.0); GFR 100.3; POTASSIUM 3.9 mmol/L (3.5-5.1); TOTAL BILIRUBIN 0.3 mg/dL (0.2-1.0); TOTAL PROTEIN 6.8 g/dL (6.4-8.2)
[2020-03-04] MEDS: oxyCODONE IR 5 MG TABLET PO PRN (14:48)
[2020-03-04 15:59] VITALS: BP 110/63
[2020-03-04] MEDS: TAMSULOSIN 0.4 MG CAP.ER.24H. PO SCH (20:18)
[2020-03-04] MEDS: traZODone 50 MG TABLET. PO SCH (20:19)
[2020-03-04] MEDS: GABAPENTIN 400 MG CAPSULE. PO SCH (20:19)
[2020-03-04] MEDS: LORazepam 0.5 MG TABLET PO PRN (20:31)
--- NOTE | 2020-03-04 22:04 | PDOC ---
Exam Note: Andrea Note: Please also refer to the separate dictated note~for this date of service dictated separately.~Patient seen individually. Discussed the patient with Nursing staff reviewed the chart.~Reviewed interim history and current functioning. Reviewed vital signs,~Labs/ Radiology~and current medications noted below. Continue current treatment with the changes noted in the dictated addendum note Assessment: Vital Signs/I&O: Vital Signs Date Time Temp Pulse Resp B/P (MAP) Pulse Ox O2 Delivery O2 Flow Rate FiO2 03/04/20 20:37 98.2 98 03/04/20 20:18 18 Room Air 03/04/20 15:59 65 110/63 (79) 2.0 I & O 0 03/03/20 03/03/20 03/04/20 15:00 23:00 07:00 Intake Total 480 ml 360 ml Balance 480 ml 360 ml Labs: Laboratory Tests Test 03/04/20 09:13 White Blood Count 7.2 x10^3/uL (4.0-11.0) Red Blood Count 3.13 x10^6/uL (3.50-5.40) L Hemoglobin 9.5 g/dL (12.0-15.5) L Hematocrit 29.0 % (36.0-47.0) L Mean Corpuscular Volume 93 fL (79-100) Mean Corpuscular Hemoglobin 30 pg (25-35) Mean Corpuscular Hemoglobin Concent 33 g/dL (31-37) Red Cell Distribution Width 15.8 % (11.5-14.5) H Platelet Count 498 x10^3/uL (140-400) H Neutrophils (%) (Auto) 45 % (31-73) Lymphocytes (%) (Auto) 33 % (24-48) Monocytes (%) (Auto) 11 % (0-9) H Eosinophils (%) (Auto) 9 % (0-3) H Basophils (%) (Auto) 1 % (0-3) Neutrophils # (Auto) 3.2 x10^3uL (1.8-7.7) Lymphocytes # (Auto) 2.4 x10^3/uL (1.0-4.8) Monocytes # (Auto) 0.8 x10^3/uL (0.0-1.1) Eosinophils # (Auto) 0.6 x10^3/uL (0.0-0.7) Basophils # (Auto) 0.1 x10^3/uL (0.0-0.2) Sodium Level 139 mmol/L (136-145) Potassium Level 3.9 mmol/L (3.5-5.1) Chloride Level 103 mmol/L (98-107) Carbon Dioxide Level 33 mmol/L (21-32) H Anion Gap 3 (6-14) L Blood Urea Nitrogen 10 mg/dL (7-20) Creatinine 0.6 mg/dL (0.6-1.0) Estimated GFR (Cockcroft-Gault) 100.3 BUN/Creatinine Ratio 17 (6-20) Glucose Level 90 mg/dL (70-99) Calcium Level 9.1 mg/dL (8.5-10.1) Total Bilirubin 0.3 mg/dL (0.2-1.0) Aspartate Amino Transferase (AST) 33 U/L (15-37) Alanine Aminotransferase (ALT) 15 U/L (14-59) Alkaline Phosphatase 151 U/L (46-116) H Total Protein 6.8 g/dL (6.4-8.2) Albumin 1.6 g/dL (3.4-5.0) L Albumin/Globulin Ratio 0.3 (1.0-1.7) L Current Medications: I have reviewed the current psychotropics carefully including drug interactions. Risk benefit ratio favors no change other than as noted in my dictated progress note. Diagnosis: Problems: (1) Major depressive disorder, recurrent episode (2) Impulse control disorder, unspecified (3) Anxiety disorder, unspecified MUKESH JAY MD March 04, 2020 22:04
--- NOTE | 2020-03-04 22:34 | PN ---
DATE: 03/04/2020 PSYCHIATRIC PROGRESS NOTE This note covers elements not covered in my initial note 03/04/2020. SUBJECTIVE: I met with the patient evening of 03/04/2020 several times on rounds that she would called me back again after a short while. Per RAVI Camacho, the patient slept 4-1/2 hours previous night. She slept in the morning until 10:00 a.m. She was quite agitated with one of the female CNAs. Also received a message from [facility] staff with the son's desire to have her discharged on Monday instead of early next week and we will go ahead and do this, so long as she remains stable until then. REVIEW OF SYSTEMS: Ambulation impaired, in a wheelchair. No CV, , pulmonary, eye system symptoms on review. She has vague somatic symptoms. MENTAL STATUS EXAMINATION: Oriented to herself and situation. Speech coherent, rapid at times. Abstraction fair, computation impaired. Language function intact. Attention span short. Mood and affect remains labile. LABORATORY DATA: Reviewed. IMPRESSION: Major depressive disorder, recurrent; anxiety disorder, unspecified; impulse control disorder, unspecified. Rest unchanged. PLAN: Continue psychotropics from initial note, Cymbalta 60 mg a day, Risperdal 0.25 mg b.i.d., Wellbutrin 150 mg a day, trazodone at night, Ativan p.r.n. MAN Tanya JAY MD DR: CASANDRA/elvis JOB#: [id number] / [id number]
[2020-03-05 06:14] VITALS: BP 99/60
[2020-03-05] MEDS: PSYLLIUM SEED (WITH SUGAR) PACKET. PO SCH (09:00)
[2020-03-05] MEDS: NEO/POLYMYX/DEXAMETH OPHTH SUSPENSION 5ML BOTTLE. OU SCH ×2 (10:30→20:19)
[2020-03-05] MEDS: AMMONIUM LACTATE 12% TOPICAL LOTION 226GM BOTTLE. TP SCH ×2 (10:30→20:48)
[2020-03-05] MEDS: IPRATROPIUM/ALBUTEROL 20/100mcg/INH INHALER. INH SCH ×4 (10:31→20:19)
[2020-03-05] MEDS: buPROPion XL 150 MG TAB.ER.24H PO SCH (10:31)
[2020-03-05] MEDS: SUCRALFATE 1 GM TABLET. PO SCH ×4 (10:31→20:17)
[2020-03-05] MEDS: PANTOPRAZOLE 40 MG TABLET. PO SCH (10:31)
[2020-03-05] MEDS: POTASSIUM CHLORIDE 20 MEQ TABLET.ER. PO SCH ×2 (10:32→20:19)
[2020-03-05] MEDS: oxyCODONE ER 10 MG TAB.ER.12H PO SCH ×2 (10:32→20:18)
[2020-03-05] MEDS: ASCORBIC ACID 500 MG TABLET PO SCH ×2 (10:32→20:18)
[2020-03-05] MEDS: CLOPIDOGREL BISULFATE 75 MG TABLET PO SCH (10:32)
[2020-03-05] MEDS: FERROUS SULFATE 325 MG TABLET. PO SCH ×2 (10:32→20:18)
[2020-03-05] MEDS: DULoxetine HCL 60 MG CAPSULE.DR PO SCH (10:32)
[2020-03-05] MEDS: risperiDONE 0.25 MG TABLET. PO SCH ×2 (10:32→20:18)
[2020-03-05] MEDS: LORazepam 0.5 MG TABLET PO PRN (12:23)
[2020-03-05] MEDS: oxyCODONE IR 5 MG TABLET PO PRN (12:23)
[2020-03-05 15:35] VITALS: BP 104/65
[2020-03-05] MEDS: GABAPENTIN 400 MG CAPSULE. PO SCH (20:18)
[2020-03-05] MEDS: traZODone 50 MG TABLET. PO SCH (20:19)
[2020-03-05] MEDS: TAMSULOSIN 0.4 MG CAP.ER.24H. PO SCH (20:19)
--- NOTE | 2020-03-05 22:01 | PDOC ---
Exam Note: Andrea Note: Please also refer to the separate dictated note~for this date of service dictated separately.~Patient seen individually. Discussed the patient with Nursing staff reviewed the chart.~Reviewed interim history and current functioning. Reviewed vital signs,~Labs/ Radiology~and current medications noted below. Continue current treatment with the changes noted in the dictated addendum note Assessment: Vital Signs/I&O: Vital Signs Date Time Temp Pulse Resp B/P (MAP) Pulse Ox O2 Delivery O2 Flow Rate FiO2 03/05/20 20:19 97.6 94 03/05/20 20:18 20 Room Air 03/05/20 15:35 110 104/65 (78) 03/05/20 14:44 2.0 I & O 03/04/20 03/04/20 03/05/20 15:00 23:00 07:00 Intake Total 360 ml 240 ml Balance 360 ml 240 ml Current Medications: I have reviewed the current psychotropics carefully including drug interactions. Risk benefit ratio favors no change other than as noted in my dictated progress note. Diagnosis: Problems: (1) Major depressive disorder, recurrent episode (2) Impulse control disorder, unspecified (3) Anxiety disorder, unspecified MUKESH JAY MD March 05, 2020 22:01
--- NOTE | 2020-03-05 22:02 | PN ---
DATE: 03/05/2020 PSYCHIATRIC PROGRESS NOTE This note covers elements not covered in my initial note 03/05/2020. Per RAVI Hu, the patient slept 6-1/4 hours previous night. SUBJECTIVE: I met with the patient on telehealth rounds the evening of 03/05/2020. Previous evening, she was noted to be somewhat agitated, manic, anxious and attention seeking. She received Ativan at night. In the morning, she got scheduled oxycodone, wanted a p.r.n. and then around lunchtime received oxycodone p.r.n. and Ativan. She was quite agitated in the evening and not wanting a shower and it is a shower day every third day. REVIEW OF SYSTEMS: Positive for impaired ambulation, chronic pain due to arthritis. No CV, , pulmonary, eye system symptoms on review. MENTAL STATUS EXAM: Reasonably oriented. Speech has some latency, coherent. Abstraction fair, computation impaired, language function intact, attention span short. Mood and affect remains labile. LABORATORY DATA: Reviewed. IMPRESSION: Unchanged from initial note. Major depressive disorder, recurrent, impulse control disorder; anxiety disorder, unspecified. PLAN: Increase Cymbalta from 60 mg a day to 90 mg a day. Hopefully, this will help her pain a little better as well, as greater antianxiety antidepressant effect do help mood lability. Rest unchanged including Wellbutrin 150 mg a day, trazodone for insomnia, Risperdal 0.25 b.i.d., Ativan p.r.n. MUKESH JAY MD DR: CASANDRA/elvis JOB#: [id number] / [id number]
[2020-03-06 06:17] VITALS: BP 121/63
[2020-03-06] MEDS: buPROPion XL 150 MG TAB.ER.24H PO SCH (07:55)
[2020-03-06] MEDS: PSYLLIUM SEED (WITH SUGAR) PACKET. PO SCH (07:55)
[2020-03-06] MEDS: risperiDONE 0.25 MG TABLET. PO SCH ×2 (07:55→20:16)
[2020-03-06] MEDS: POTASSIUM CHLORIDE 20 MEQ TABLET.ER. PO SCH ×2 (07:55→20:16)
[2020-03-06] MEDS: ASCORBIC ACID 500 MG TABLET PO SCH ×2 (07:55→20:15)
[2020-03-06] MEDS: FERROUS SULFATE 325 MG TABLET. PO SCH ×2 (07:55→20:15)
[2020-03-06] MEDS: PANTOPRAZOLE 40 MG TABLET. PO SCH (07:55)
[2020-03-06] MEDS: CLOPIDOGREL BISULFATE 75 MG TABLET PO SCH (07:55)
[2020-03-06] MEDS: SUCRALFATE 1 GM TABLET. PO SCH ×4 (07:55→20:15)
[2020-03-06] MEDS: IPRATROPIUM/ALBUTEROL 20/100mcg/INH INHALER. INH SCH ×4 (07:56→20:17)
[2020-03-06] MEDS: oxyCODONE ER 10 MG TAB.ER.12H PO SCH ×2 (07:58→20:17)
[2020-03-06] MEDS: AMMONIUM LACTATE 12% TOPICAL LOTION 226GM BOTTLE. TP SCH ×2 (07:58→20:17)
[2020-03-06] MEDS: DULoxetine HCL 30 MG CAPSULE.DR PO SCH (07:59)
[2020-03-06] MEDS: LORazepam 0.5 MG TABLET PO PRN (12:52)
[2020-03-06] MEDS: oxyCODONE IR 5 MG TABLET PO PRN (13:00)
[2020-03-06 16:26] VITALS: BP 107/56
[2020-03-06] MEDS: TAMSULOSIN 0.4 MG CAP.ER.24H. PO SCH (20:15)
[2020-03-06] MEDS: traZODone 50 MG TABLET. PO SCH (20:16)
[2020-03-06] MEDS: GABAPENTIN 400 MG CAPSULE. PO SCH (20:16)
--- NOTE | 2020-03-06 21:52 | PDOC ---
Exam Note: Andrea Note: Please also refer to the separate dictated note~for this date of service dictated separately.~Patient seen individually. Discussed the patient with Nursing staff reviewed the chart.~Reviewed interim history and current functioning. Reviewed vital signs,~Labs/ Radiology~and current medications noted below. Continue current treatment with the changes noted in the dictated addendum note Assessment: Vital Signs/I&O: Vital Signs Date Time Temp Pulse Resp B/P (MAP) Pulse Ox O2 Delivery O2 Flow Rate FiO2 03/06/20 21:13 97.4 95 03/06/20 20:17 18 Nasal Cannula 2.0 03/06/20 16:26 96 107/56 (73) I & O 03/05/20 03/05/20 03/06/20 15:00 23:00 07:00 Intake Total 120 ml 240 ml Balance 120 ml 240 ml Current Medications: Meds: Current Medications Medications (Trade) Dose Ordered Sig/Jocelyn Route PRN Reason Start Time Stop Time Status Last Admin Dose Admin Duloxetine HCl (Cymbalta) 90 mg DAILY PO 03/06/20 09:00 03/06/20 07:59 I have reviewed the current psychotropics carefully including drug interactions. Risk benefit ratio favors no change other than as noted in my dictated progress note. Diagnosis: Problems: (1) Major depressive disorder, recurrent episode (2) Impulse control disorder, unspecified (3) Anxiety disorder, unspecified MUKESH JAY MD March 06, 2020 21:52
[2020-03-06] MEDS: METHYL SALICYLATE/MENTHOL TOPICAL OINTMENT 57GM TUBE. TP PRN (21:57)
[2020-03-07] MEDS: oxyCODONE IR 5 MG TABLET PO PRN ×3 (04:26→20:16)
[2020-03-07 05:59] VITALS: BP 110/60
[2020-03-07] MEDS: buPROPion XL 150 MG TAB.ER.24H PO SCH (07:53)
[2020-03-07] MEDS: CLOPIDOGREL BISULFATE 75 MG TABLET PO SCH (07:53)
[2020-03-07] MEDS: DULoxetine HCL 30 MG CAPSULE.DR PO SCH (07:53)
[2020-03-07] MEDS: PSYLLIUM SEED (WITH SUGAR) PACKET. PO SCH (07:53)
[2020-03-07] MEDS: risperiDONE 0.25 MG TABLET. PO SCH ×2 (07:53→19:53)
[2020-03-07] MEDS: SUCRALFATE 1 GM TABLET. PO SCH ×4 (07:53→19:53)
[2020-03-07] MEDS: FERROUS SULFATE 325 MG TABLET. PO SCH ×2 (07:53→19:54)
[2020-03-07] MEDS: POTASSIUM CHLORIDE 20 MEQ TABLET.ER. PO SCH ×2 (07:54→19:53)
[2020-03-07] MEDS: PANTOPRAZOLE 40 MG TABLET. PO SCH (07:54)
[2020-03-07] MEDS: ASCORBIC ACID 500 MG TABLET PO SCH ×2 (07:54→19:52)
[2020-03-07] MEDS: IPRATROPIUM/ALBUTEROL 20/100mcg/INH INHALER. INH SCH ×4 (07:58→19:52)
[2020-03-07] MEDS: AMMONIUM LACTATE 12% TOPICAL LOTION 226GM BOTTLE. TP SCH ×2 (07:59→19:54)
[2020-03-07] MEDS: oxyCODONE ER 10 MG TAB.ER.12H PO SCH ×2 (08:01→19:53)
[2020-03-07 08:46] LABS: BASO # 0.1 x10^3/uL (0.0-0.2); BASO % 2 % (0-3); EOS # 0.5 x10^3/uL (0.0-0.7); EOS % 8 % (0-3); HEMATOCRIT 28.9 % (36.0-47.0); HEMOGLOBIN 9.2 g/dL (12.0-15.5); LYMPH # 1.8 x10^3/uL (1.0-4.8); LYMPH % 27 % (24-48); MEAN CORPUSCULAR HEMOGLOBIN 30 pg (25-35); MEAN CORPUSCULAR HGB CONC 32 g/dL (31-37); MEAN CORPUSCULAR VOLUME 93 fL (79-100); MONO # 0.8 x10^3/uL (0.0-1.1); MONO % 12 % (0-9); NEUT # 3.4 x10^3uL (1.8-7.7); NEUT % 52 % (31-73); PLATELET COUNT 469 x10^3/uL (140-400); RED BLOOD COUNT 3.11 x10^6/uL (3.50-5.40); RED CELL DISTRIBUTION WIDTH 15.6 % (11.5-14.5); WHITE BLOOD COUNT 6.5 x10^3/uL (4.0-11.0)
[2020-03-07 08:52] LABS: ALBUMIN 1.6 g/dL (3.4-5.0); ALBUMIN/GLOBULIN RATIO 0.3 (1.0-1.7); CALCIUM 9.2 mg/dL (8.5-10.1); CREATININE 0.5 mg/dL (0.6-1.0); GFR 123.8; POTASSIUM 4.1 mmol/L (3.5-5.1); TOTAL BILIRUBIN 0.2 mg/dL (0.2-1.0); TOTAL PROTEIN 6.5 g/dL (6.4-8.2)
[2020-03-07 16:10] VITALS: BP 100/65
[2020-03-07] MEDS: busPIRone 5 MG TABLET. PO SCH (17:00)
[2020-03-07] MEDS: TAMSULOSIN 0.4 MG CAP.ER.24H. PO SCH (19:52)
[2020-03-07] MEDS: traZODone 50 MG TABLET. PO SCH (19:54)
[2020-03-07] MEDS: GABAPENTIN 400 MG CAPSULE. PO SCH (19:54)
[2020-03-07] MEDS: LORazepam 0.5 MG TABLET PO PRN (21:53)
--- NOTE | 2020-03-07 22:26 | PDOC ---
Exam Note: Andrea Note: Please also refer to the separate dictated note~for this date of service dictated separately.~Patient seen individually. Discussed the patient with Nursing staff reviewed the chart.~Reviewed interim history and current functioning. Reviewed vital signs,~Labs/ Radiology~and current medications noted below. Continue current treatment with the changes noted in the dictated addendum note Assessment: Vital Signs/I&O: Vital Signs Date Time Temp Pulse Resp B/P (MAP) Pulse Ox O2 Delivery O2 Flow Rate FiO2 03/07/20 21:25 92 03/07/20 20:58 98.4 03/07/20 16:10 101 20 100/65 (77) Room Air 2.0 I & O 03/06/20 03/06/20 03/07/20 15:00 23:00 07:00 Intake Total 240 ml 240 ml Balance 240 ml 240 ml Labs: Laboratory Tests Test 03/07/20 07:45 White Blood Count 6.5 x10^3/uL (4.0-11.0) Red Blood Count 3.11 x10^6/uL (3.50-5.40) L Hemoglobin 9.2 g/dL (12.0-15.5) L Hematocrit 28.9 % (36.0-47.0) L Mean Corpuscular Volume 93 fL (79-100) Mean Corpuscular Hemoglobin 30 pg (25-35) Mean Corpuscular Hemoglobin Concent 32 g/dL (31-37) Red Cell Distribution Width 15.6 % (11.5-14.5) H Platelet Count 469 x10^3/uL (140-400) H Neutrophils (%) (Auto) 52 % (31-73) Lymphocytes (%) (Auto) 27 % (24-48) Monocytes (%) (Auto) 12 % (0-9) H Eosinophils (%) (Auto) 8 % (0-3) H Basophils (%) (Auto) 2 % (0-3) Neutrophils # (Auto) 3.4 x10^3uL (1.8-7.7) Lymphocytes # (Auto) 1.8 x10^3/uL (1.0-4.8) Monocytes # (Auto) 0.8 x10^3/uL (0.0-1.1) Eosinophils # (Auto) 0.5 x10^3/uL (0.0-0.7) Basophils # (Auto) 0.1 x10^3/uL (0.0-0.2) Sodium Level 140 mmol/L (136-145) Potassium Level 4.1 mmol/L (3.5-5.1) Chloride Level 104 mmol/L (98-107) Carbon Dioxide Level 35 mmol/L (21-32) H Anion Gap 1 (6-14) L Blood Urea Nitrogen 10 mg/dL (7-20) Creatinine 0.5 mg/dL (0.6-1.0) L Estimated GFR (Cockcroft-Gault) 123.8 BUN/Creatinine Ratio 20 (6-20) Glucose Level 86 mg/dL (70-99) Calcium Level 9.2 mg/dL (8.5-10.1) Total Bilirubin 0.2 mg/dL (0.2-1.0) Aspartate Amino Transferase (AST) 28 U/L (15-37) Alanine Aminotransferase (ALT) 17 U/L (14-59) Alkaline Phosphatase 124 U/L (46-116) H Total Protein 6.5 g/dL (6.4-8.2) Albumin 1.6 g/dL (3.4-5.0) L Albumin/Globulin Ratio 0.3 (1.0-1.7) L Current Medications: Meds: Current Medications Medications (Trade) Dose Ordered Sig/Jocelyn Route PRN Reason Start Time Stop Time Status Last Admin Dose Admin Buspirone HCl (Buspar) 5 mg BIDWMEALS PO 03/07/20 17:00 03/07/20 17:00 I have reviewed the current psychotropics carefully including drug interactions. Risk benefit ratio favors no change other than as noted in my dictated progress note. Diagnosis: Problems: (1) Major depressive disorder, recurrent episode (2) Impulse control disorder, unspecified (3) Anxiety disorder, unspecified MUKESH JAY MD March 07, 2020 22:25
[2020-03-08] MEDS: oxyCODONE IR 5 MG TABLET PO PRN ×3 (05:27→20:18)
[2020-03-08 06:40] VITALS: BP 121/74
--- NOTE | 2020-03-08 07:42 | PDOC ---
Exam Note: Andrea Note: This note is a late entry for 03/06/2020 covers elements not covered in my initial note. Subjective: The patient was seen face to face in the evening of 03/06/2020. Nursing report was with Trice RODRIGUES. Discussed the patient with nursing staff reviewed the chart. The patient has been anxious, restless, obsessing about wanting to go home and states her son is coming to pick her up. In fact the son is in [place]. [facility] social service staff is coordinating discharge with plans with the son. She slept 7-3/4 hours previous night. Per nursing report she is constantly anxious presents as poor me. Review of Systems: Positive for arthritic pain, generalized with impaired ambulation, on wheelchair. No CV, GI/, Pulmonary, Eye system symptoms on review. Mental Status Exam: Reasonably oriented. Speech has some latency, coherent. Abstraction fair. Computation impaired. Language function intact. Attention span short. Mood and affect remains labile. Laboratory Data: Reviewed. Impression: Major depressive disorder, recurrent. Anxiety disorder unspecified . Impulse control disorder. Rest unchanged. Plan: No change from initial note. Assessment: Vital Signs/I&O: Vital Signs Date Time Temp Pulse Resp B/P (MAP) Pulse Ox O2 Delivery O2 Flow Rate FiO2 03/08/20 06:49 98 03/08/20 06:40 98.0 96 18 121/74 (90) 03/07/20 16:10 Room Air 2.0 I & O 03/07/20 03/07/20 03/08/20 15:00 23:00 07:00 Intake Total 240 ml 360 ml Balance 240 ml 360 ml Labs: Laboratory Tests Test 03/07/20 07:45 White Blood Count 6.5 x10^3/uL (4.0-11.0) Red Blood Count 3.11 x10^6/uL (3.50-5.40) L Hemoglobin 9.2 g/dL (12.0-15.5) L Hematocrit 28.9 % (36.0-47.0) L Mean Corpuscular Volume 93 fL (79-100) Mean Corpuscular Hemoglobin 30 pg (25-35) Mean Corpuscular Hemoglobin Concent 32 g/dL (31-37) Red Cell Distribution Width 15.6 % (11.5-14.5) H Platelet Count 469 x10^3/uL (140-400) H Neutrophils (%) (Auto) 52 % (31-73) Lymphocytes (%) (Auto) 27 % (24-48) Monocytes (%) (Auto) 12 % (0-9) H Eosinophils (%) (Auto) 8 % (0-3) H Basophils (%) (Auto) 2 % (0-3) Neutrophils # (Auto) 3.4 x10^3uL (1.8-7.7) Lymphocytes # (Auto) 1.8 x10^3/uL (1.0-4.8) Monocytes # (Auto) 0.8 x10^3/uL (0.0-1.1) Eosinophils # (Auto) 0.5 x10^3/uL (0.0-0.7) Basophils # (Auto) 0.1 x10^3/uL (0.0-0.2) Sodium Level 140 mmol/L (136-145) Potassium Level 4.1 mmol/L (3.5-5.1) Chloride Level 104 mmol/L (98-107) Carbon Dioxide Level 35 mmol/L (21-32) H Anion Gap 1 (6-14) L Blood Urea Nitrogen 10 mg/dL (7-20) Creatinine 0.5 mg/dL (0.6-1.0) L Estimated GFR (Cockcroft-Gault) 123.8 BUN/Creatinine Ratio 20 (6-20) Glucose Level 86 mg/dL (70-99) Calcium Level 9.2 mg/dL (8.5-10.1) Total Bilirubin 0.2 mg/dL (0.2-1.0) Aspartate Amino Transferase (AST) 28 U/L (15-37) Alanine Aminotransferase (ALT) 17 U/L (14-59) Alkaline Phosphatase 124 U/L (46-116) H Total Protein 6.5 g/dL (6.4-8.2) Albumin 1.6 g/dL (3.4-5.0) L Albumin/Globulin Ratio 0.3 (1.0-1.7) L Current Medications: Meds: Current Medications Medications (Trade) Dose Ordered Sig/Jocelyn Route PRN Reason Start Time Stop Time Status Last Admin Dose Admin Buspirone HCl (Buspar) 5 mg BIDWMEALS PO 03/07/20 17:00 03/07/20 17:00 I have reviewed the current psychotropics carefully including drug interactions. Risk benefit ratio favors no change other than as noted in my dictated progress note. Diagnosis: Problems: (1) Major depressive disorder, recurrent episode (2) Impulse control disorder, unspecified (3) Anxiety disorder, unspecified MUKESH JAY MD March 08, 2020 07:42
--- NOTE | 2020-03-08 07:44 | PDOC ---
Exam Note: Andrea Note: This note is a late entry for 03/07/2020 covers elements not covered in my initial note. Subjective: The patient was seen face to face in the evening of 03/07/2020. Nursing report was with Trice RODRIGUES. Discussed the patient with nursing staff reviewed the chart. She slept 5-1/4 hours previous night. I met with her in the dining room and then twice in the hallway and then in her room. She was constantly asking me to come back, talked to her about discharge plans for tomorrow, Monday. She remains obsessive, anxious. Review of Systems: Positive for arthritic pain, generalized with impaired ambulation, on wheelchair. No CV, GI/, Pulmonary, Eye system symptoms on review. Mental Status Exam: Reasonably oriented. Speech has some latency, coherent. Abstraction fair. Computation impaired. Language function intact. Attention span short. Mood and affect remains labile. Laboratory Data: Reviewed. Impression: Major depressive disorder, recurrent. Anxiety disorder unspecified. Impulse control disorder. Rest unchanged. Plan: We have discussed with social service staff and have arranged discharge for Monday. Initially I had considered increasing the Cymbalta to 90 mg a day to help with her mood/anxiety but given the extent of her obsessiveness, we will change the Cymbalta to Luvox 25 mg a day for 3 days and then 50 mg a day. Add BuSpar 5 mg 9 a.m. and 5 p.m. for anxiety. We will also stop the Wellbutrin 150 mg a day in the morning as since this could be worsening her agitation. Assessment: Vital Signs/I&O: Vital Signs Date Time Temp Pulse Resp B/P (MAP) Pulse Ox O2 Delivery O2 Flow Rate FiO2 03/08/20 06:49 98 03/08/20 06:40 98.0 96 18 121/74 (90) 03/07/20 16:10 Room Air 2.0 I & O 03/07/20 03/07/20 03/08/20 15:00 23:00 07:00 Intake Total 240 ml 360 ml Balance 240 ml 360 ml Labs: Laboratory Tests Test 03/07/20 07:45 White Blood Count 6.5 x10^3/uL (4.0-11.0) Red Blood Count 3.11 x10^6/uL (3.50-5.40) L Hemoglobin 9.2 g/dL (12.0-15.5) L Hematocrit 28.9 % (36.0-47.0) L Mean Corpuscular Volume 93 fL (79-100) Mean Corpuscular Hemoglobin 30 pg (25-35) Mean Corpuscular Hemoglobin Concent 32 g/dL (31-37) Red Cell Distribution Width 15.6 % (11.5-14.5) H Platelet Count 469 x10^3/uL (140-400) H Neutrophils (%) (Auto) 52 % (31-73) Lymphocytes (%) (Auto) 27 % (24-48) Monocytes (%) (Auto) 12 % (0-9) H Eosinophils (%) (Auto) 8 % (0-3) H Basophils (%) (Auto) 2 % (0-3) Neutrophils # (Auto) 3.4 x10^3uL (1.8-7.7) Lymphocytes # (Auto) 1.8 x10^3/uL (1.0-4.8) Monocytes # (Auto) 0.8 x10^3/uL (0.0-1.1) Eosinophils # (Auto) 0.5 x10^3/uL (0.0-0.7) Basophils # (Auto) 0.1 x10^3/uL (0.0-0.2) Sodium Level 140 mmol/L (136-145) Potassium Level 4.1 mmol/L (3.5-5.1) Chloride Level 104 mmol/L (98-107) Carbon Dioxide Level 35 mmol/L (21-32) H Anion Gap 1 (6-14) L Blood Urea Nitrogen 10 mg/dL (7-20) Creatinine 0.5 mg/dL (0.6-1.0) L Estimated GFR (Cockcroft-Gault) 123.8 BUN/Creatinine Ratio 20 (6-20) Glucose Level 86 mg/dL (70-99) Calcium Level 9.2 mg/dL (8.5-10.1) Total Bilirubin 0.2 mg/dL (0.2-1.0) Aspartate Amino Transferase (AST) 28 U/L (15-37) Alanine Aminotransferase (ALT) 17 U/L (14-59) Alkaline Phosphatase 124 U/L (46-116) H Total Protein 6.5 g/dL (6.4-8.2) Albumin 1.6 g/dL (3.4-5.0) L Albumin/Globulin Ratio 0.3 (1.0-1.7) L Current Medications: Meds: Current Medications Medications (Trade) Dose Ordered Sig/Jocelyn Route PRN Reason Start Time Stop Time Status Last Admin Dose Admin Buspirone HCl (Buspar) 5 mg BIDWMEALS PO 03/07/20 17:00 03/07/20 17:00 I have reviewed the current psychotropics carefully including drug interactions. Risk benefit ratio favors no change other than as noted in my dictated progress note. Diagnosis: Problems: (1) Major depressive disorder, recurrent episode (2) Impulse control disorder, unspecified (3) Anxiety disorder, unspecified MUKESH JAY MD March 08, 2020 07:44
[2020-03-08] MEDS: SUCRALFATE 1 GM TABLET. PO SCH ×4 (08:00→20:16)
[2020-03-08] MEDS: risperiDONE 0.25 MG TABLET. PO SCH ×2 (08:00→20:17)
[2020-03-08] MEDS: IPRATROPIUM/ALBUTEROL 20/100mcg/INH INHALER. INH SCH ×4 (08:00→20:18)
[2020-03-08] MEDS: CLOPIDOGREL BISULFATE 75 MG TABLET PO SCH (08:00)
[2020-03-08] MEDS: PANTOPRAZOLE 40 MG TABLET. PO SCH (08:00)
[2020-03-08] MEDS: oxyCODONE ER 10 MG TAB.ER.12H PO SCH ×2 (08:00→20:16)
[2020-03-08] MEDS: busPIRone 5 MG TABLET. PO SCH ×2 (08:00→17:00)
[2020-03-08] MEDS: PSYLLIUM SEED (WITH SUGAR) PACKET. PO SCH (08:01)
[2020-03-08] MEDS: FERROUS SULFATE 325 MG TABLET. PO SCH ×2 (08:01→20:17)
[2020-03-08] MEDS: ASCORBIC ACID 500 MG TABLET PO SCH ×2 (08:01→20:17)
[2020-03-08] MEDS: POTASSIUM CHLORIDE 20 MEQ TABLET.ER. PO SCH ×2 (08:01→20:17)
[2020-03-08] MEDS: AMMONIUM LACTATE 12% TOPICAL LOTION 226GM BOTTLE. TP SCH ×2 (08:01→20:18)
[2020-03-08 15:59] VITALS: BP 104/52
[2020-03-08] MEDS ORDERED: PSYLLIUM SEED (WITH SUGAR) PACKET. PO PRN (16:30)
[2020-03-08] MEDS: LORazepam 0.5 MG TABLET PO PRN (17:49)
[2020-03-08] MEDS: traZODone 50 MG TABLET. PO SCH (20:17)
[2020-03-08] MEDS: GABAPENTIN 400 MG CAPSULE. PO SCH (20:17)
[2020-03-08] MEDS: TAMSULOSIN 0.4 MG CAP.ER.24H. PO SCH (20:18)
--- NOTE | 2020-03-08 21:55 | PDOC ---
Exam Note: Andrea Note: Please also refer to the separate dictated note~for this date of service dictated separately.~Patient seen individually. Discussed the patient with Nursing staff reviewed the chart.~Reviewed interim history and current functioning. Reviewed vital signs,~Labs/ Radiology~and current medications noted below. Continue current treatment with the changes noted in the dictated addendum note Assessment: Vital Signs/I&O: Vital Signs Date Time Temp Pulse Resp B/P (MAP) Pulse Ox O2 Delivery O2 Flow Rate FiO2 03/08/20 21:22 97 03/08/20 18:01 98.4 03/08/20 15:59 92 18 104/52 (69) Room Air 03/08/20 08:34 3.0 I & O 03/07/20 03/07/20 03/08/20 15:00 23:00 07:00 Intake Total 240 ml 360 ml Balance 240 ml 360 ml Current Medications: Meds: Current Medications Medications (Trade) Dose Ordered Sig/Jocelyn Route PRN Reason Start Time Stop Time Status Last Admin Dose Admin Fluvoxamine Maleate (Luvox) 25 mg DAILY PO 03/08/20 09:00 03/10/20 08:59 03/08/20 08:03 I have reviewed the current psychotropics carefully including drug interactions. Risk benefit ratio favors no change other than as noted in my dictated progress note. Diagnosis: Problems: (1) Major depressive disorder, recurrent episode (2) Impulse control disorder, unspecified (3) Anxiety disorder, unspecified MUKESH JAY MD March 08, 2020 21:54
[2020-03-08] MEDS: traZODone 50 MG TABLET. PO PRN (23:43)
[2020-03-09 06:15] VITALS: BP 130/66
--- NOTE | 2020-03-09 06:57 | PDOC ---
Exam Note: Andrea Note: This note is a late entry for 03/08/2020 covers elements not covered in my initial note. Subjective: The patient was seen face to face in the evening of 03/08/2020. Nursing report was with Ashley RODRIGUES. Discussed the patient with nursing staff reviewed the chart. She slept 6 hours previous night. Reportedly the patient has talked to her son wanting him to take her home for a day or two before she goes back to the correction. [facility] social service staff has been involved to facilitate this. She remains quite obsessed with this. She has been started on Luvox in place of Cymbalta and we will see how she does. Review of Systems: Impaired ambulation, on wheelchair. No CV, GI/, P ulmonary, Eye system symptoms on review. Mental Status Exam: Reasonably oriented. Speech has some latency, coherent. Abstraction fair. Computation impaired. Language function intact. Attention span short. Mood and affect remains labile. Laboratory Data: Reviewed. Impression: Major depressive disorder, recurrent. Anxiety disorder unspecified. Impulse control disorder. Rest unchanged. Plan: She has been started on Luvox in place of Cymbalta and we will see how she does. Rest unchanged from initial note. Assessment: Vital Signs/I&O: Vital Signs Date Time Temp Pulse Resp B/P (MAP) Pulse Ox O2 Delivery O2 Flow Rate FiO2 03/09/20 06:15 97.4 72 20 130/66 (87) 98 03/08/20 15:59 Room Air 03/08/20 08:34 3.0 I & O 03/08/20 03/08/20 03/09/20 15:00 23:00 07:00 Intake Total 240 ml 240 ml Balance 240 ml 240 ml Current Medications: Meds: Current Medications Medications (Trade) Dose Ordered Sig/Jocelyn Route PRN Reason Start Time Stop Time Status Last Admin Dose Admin Fluvoxamine Maleate (Luvox) 25 mg DAILY PO 03/08/20 09:00 03/10/20 08:59 03/08/20 08:03 I have reviewed the current psychotropics carefully including drug interactions. Risk benefit ratio favors no change other than as noted in my dictated progress note. Diagnosis: Problems: (1) Major depressive disorder, recurrent episode (2) Impulse control disorder, unspecified (3) Anxiety disorder, unspecified MUKESH JAY MD March 09, 2020 06:57
[2020-03-09] MEDS: SUCRALFATE 1 GM TABLET. PO SCH ×4 (07:30→20:47)
[2020-03-09] MEDS: IPRATROPIUM/ALBUTEROL 20/100mcg/INH INHALER. INH SCH ×4 (08:00→20:46)
[2020-03-09 08:17] LABS: BASO # 0.1 x10^3/uL (0.0-0.2); BASO % 2 % (0-3); EOS # 0.4 x10^3/uL (0.0-0.7); EOS % 7 % (0-3); HEMATOCRIT 28.1 % (36.0-47.0); HEMOGLOBIN 9.1 g/dL (12.0-15.5); LYMPH # 1.7 x10^3/uL (1.0-4.8); LYMPH % 26 % (24-48); MEAN CORPUSCULAR HEMOGLOBIN 30 pg (25-35); MEAN CORPUSCULAR HGB CONC 33 g/dL (31-37); MEAN CORPUSCULAR VOLUME 92 fL (79-100); MONO # 0.8 x10^3/uL (0.0-1.1); MONO % 12 % (0-9); NEUT # 3.6 x10^3uL (1.8-7.7); NEUT % 54 % (31-73); PLATELET COUNT 484 x10^3/uL (140-400); RED BLOOD COUNT 3.06 x10^6/uL (3.50-5.40); RED CELL DISTRIBUTION WIDTH 15.5 % (11.5-14.5); WHITE BLOOD COUNT 6.7 x10^3/uL (4.0-11.0)
[2020-03-09 08:33] LABS: ALBUMIN 1.6 g/dL (3.4-5.0); ALBUMIN/GLOBULIN RATIO 0.3 (1.0-1.7); CALCIUM 9.3 mg/dL (8.5-10.1); CREATININE 0.7 mg/dL (0.6-1.0); POTASSIUM 3.8 mmol/L (3.5-5.1); TOTAL BILIRUBIN 0.2 mg/dL (0.2-1.0); TOTAL PROTEIN 6.5 g/dL (6.4-8.2)
[2020-03-09] MEDS: AMMONIUM LACTATE 12% TOPICAL LOTION 226GM BOTTLE. TP SCH ×2 (09:00→20:46)
[2020-03-09] MEDS: FERROUS SULFATE 325 MG TABLET. PO SCH ×2 (11:43→20:47)
[2020-03-09] MEDS: PANTOPRAZOLE 40 MG TABLET. PO SCH (11:43)
[2020-03-09] MEDS: POTASSIUM CHLORIDE 20 MEQ TABLET.ER. PO SCH ×2 (11:43→20:47)
[2020-03-09] MEDS: busPIRone 5 MG TABLET. PO SCH ×2 (11:43→17:12)
[2020-03-09] MEDS: oxyCODONE ER 10 MG TAB.ER.12H PO SCH ×2 (11:44→20:48)
[2020-03-09] MEDS: ASCORBIC ACID 500 MG TABLET PO SCH ×2 (11:44→20:47)
[2020-03-09] MEDS: risperiDONE 0.25 MG TABLET. PO SCH ×2 (11:44→20:47)
[2020-03-09] MEDS: oxyCODONE IR 5 MG TABLET PO PRN ×2 (11:44→20:48)
[2020-03-09] MEDS: CLOPIDOGREL BISULFATE 75 MG TABLET PO SCH (11:45)
[2020-03-09] MEDS: LORazepam 0.5 MG TABLET PO PRN (14:14)
[2020-03-09 16:14] VITALS: BP 143/89
[2020-03-09] MEDS: TAMSULOSIN 0.4 MG CAP.ER.24H. PO SCH (20:47)
[2020-03-09] MEDS: GABAPENTIN 400 MG CAPSULE. PO SCH (20:47)
[2020-03-09] MEDS: traZODone 50 MG TABLET. PO SCH (20:47)
[2020-03-10 05:39] VITALS: BP 93/55
--- NOTE | 2020-03-10 08:14 | PDOC ---
Exam Note: Andrea Note: This is a late entry for DOS 03/09/2020. Please also refer to the separate dictated note~for this date of service dictated separately.~Patient seen individually. Discussed the patient with Nursing staff reviewed the chart.~Reviewed interim history and current functioning. Reviewed vital signs,~Labs/ Radiology~and current medications noted below. Continue current treatment with the changes noted in the dictated addendum note Assessment: Vital Signs/I&O: Vital Signs Date Time Temp Pulse Resp B/P (MAP) Pulse Ox O2 Delivery O2 Flow Rate FiO2 03/10/20 05:39 98.2 106 20 93/55 (68) 91 Nasal Cannula 2.0 I & O 03/09/20 03/09/20 03/10/20 14:59 22:59 06:59 Intake Total 240 ml 480 ml Balance 240 ml 480 ml Current Medications: I have reviewed the current psychotropics carefully including drug interactions. Risk benefit ratio favors no change other than as noted in my dictated progress note. Diagnosis: Problems: (1) Major depressive disorder, recurrent episode (2) Impulse control disorder, unspecified (3) Anxiety disorder, unspecified MUKESH JAY MD March 10, 2020 08:14
[2020-03-10] MEDS: IPRATROPIUM/ALBUTEROL 20/100mcg/INH INHALER. INH SCH ×4 (08:27→20:15)
[2020-03-10] MEDS: POTASSIUM CHLORIDE 20 MEQ TABLET.ER. PO SCH ×2 (08:28→20:17)
[2020-03-10] MEDS: ASCORBIC ACID 500 MG TABLET PO SCH ×2 (08:28→20:17)
[2020-03-10] MEDS: busPIRone 5 MG TABLET. PO SCH ×2 (08:28→17:45)
[2020-03-10] MEDS: SUCRALFATE 1 GM TABLET. PO SCH ×4 (08:28→20:17)
[2020-03-10] MEDS: AMMONIUM LACTATE 12% TOPICAL LOTION 226GM BOTTLE. TP SCH ×2 (08:28→20:16)
[2020-03-10] MEDS: PANTOPRAZOLE 40 MG TABLET. PO SCH (08:29)
[2020-03-10] MEDS: risperiDONE 0.25 MG TABLET. PO SCH ×2 (08:29→20:17)
[2020-03-10] MEDS: CLOPIDOGREL BISULFATE 75 MG TABLET PO SCH (08:29)
[2020-03-10] MEDS: FERROUS SULFATE 325 MG TABLET. PO SCH ×2 (08:29→20:17)
[2020-03-10] MEDS: oxyCODONE ER 10 MG TAB.ER.12H PO SCH ×2 (08:30→20:18)
[2020-03-10] MEDS: oxyCODONE IR 5 MG TABLET PO PRN ×2 (12:10→20:18)
[2020-03-10 15:54] VITALS: BP 109/67
--- NOTE | 2020-03-10 15:57 | TX PLAN ---
Interdisciplinary Tx Plan Admission Information February 21, 2020 at 13:15 Legal Status (on Admission): Voluntary DPOA/Guardian Name: Christiano Duncan Contact [facility] Verified Code Status: Full Code Allergies: Coded Allergies: amoxicillin (Verified Allergy, Unknown, 02/21/20) aspirin (Verified Allergy, Unknown, 02/21/20) cephalexin (Verified Allergy, Unknown, 02/21/20) clarithromycin (Verified Allergy, Unknown, 02/21/20) clavulanic acid (Verified Allergy, Unknown, 02/21/20) codeine (Verified Allergy, Unknown, 02/21/20) ibuprofen (Verified Allergy, Unknown, 02/21/20) latex (Verified Allergy, Unknown, 02/21/20) nalbuphine (Verified Allergy, Unknown, 02/21/20) oseltamivir (Verified Allergy, Unknown, 02/21/20) Diagnoses Primary Diagnosis: MDD, Impulse Control D/O Reasons for Admission: Agitated, Angry, Poor impulse control Problem in Patient's Words: I think she requires frequent help for everything because she can't do it on her own. Additional Admission Comments: According to the intake pt is medication seeking, hyperfocused on medications, anxious, refusing to eat, weight loss, resistant cares, verbally abusive and name calling; demanding Problems Active Problems: Attention-seeking Medication seeking Verbally abusive Demanding Inactive Problems: Medication management Pt Strengths/Limitations Ability for [place]: Poor Cognitive Functioning/Ability: Poor Communication Skills/Ability: Fair Financial Resources: Fair Insight/Judgement: Poor Intellectual Ability: Fair Physical Health: Poor Social Skills: Poor Stability in Family: Fair Stability in School/Work: Poor Verbal Skills: Fair Discharge Criteria Discharge Criteria: No need for close observ., Improved behavior, Improved mood/thought Other Discharge Comments: Must exhibit a decrease in yelling out for the nurse in excess. Preliminary Discharge Plan Preliminary DC Plan: Snf Special Precautions Fall Risk: Moderate Initial D/C Plan Pt to return to [facility] Identified Discharge Needs: Continued follow up care Currently Utilized Resources Currently Utilized Resources/P: Agency physician Referrals Community Resources: Mental health services Identified Problems/Hx/Goals Objectives/Short-Term Goals Short Term Goals: Dec. Outbursts, Improved Social Skills, Medication Stabilization, Monitor Med Effects, Promote Coping Skill Short Term Goals in Patient's: N/A Interventions/Frequency Staff Interventions/Frequency&: Psychiatrist to assess pt at least 3x per week. Social Work to assess pt at least 2x per week. Nursing to assess and monitor q 15 minutes daily. Encourage group participation within activities; or 1:1 time dependent on goals set by Activity Dept. History Vocational History: N/A Education: N/A Community Follow-up Pt will need continued primary care follow-up Will need mental health providers Community Provider/Family Inpu: Pt son feels that pt just cannot do anything on her own. Treatment Plan Explained Patient/Cut To Length Operator had this treatment plan explained to him/her as indicated by the signature below and has been given the opportunity to ask questions and make suggestions: Date: Patient/Cut To Length Operator Signature: Status Update Update Pt is eating roughly 50% of meals and sleeping on average 6.5 hours per night. Pt is compliant with medications, but upset that her son will not and cannot pick her up. It was explained to pt that with pt son traveling out of the state, the facility will pick pt up and pt son is not able to do so. Pt was started over the weekend on Luvox to aid in pt rumination on subjects. ELOS for pt is Monday around 1130. ANDRES RODRIGES March 10, 2020 15:57
[2020-03-10] MEDS: SULFACETAMIDE 10% OPHTH SOLUTION 15ML BOTTLE. OS SCH ×2 (18:00→20:18)
--- NOTE | 2020-03-10 19:44 | PN ---
DATE: 03/10/2020 SUBJECTIVE: The patient was seen today and requested the nursing staff as she apparently has matted eyelashes and she has drainage in her left eye. She denied any blurring of vision. Denied any pain. PHYSICAL EXAMINATION: GENERAL: When I examined her, she looked well and was clearly in no apparent respiratory distress, pale, somewhat cachectic, but no jaundice, cyanosis or thyromegaly. No jugular venous distention or limb edema. VITAL SIGNS: Her heart rate was 103, blood pressure was 109/67, temperature 98.1, respiratory rate was 18 and oxygen saturation was 97%. HEAD, EYES, EARS, NOSE AND THROAT: Showed normocephalic, atraumatic. Examination of the eyes showed that she has drainage from her left eye and also matting of her eyelashes. There is no conjunctival injection. Pupils are equally reacting to light and accommodation. The rest of clinical exam is stable. LABORATORY DATA: Her lab work as of yesterday showed a white cell count of 6700, hemoglobin 9, hematocrit 28, MCV 92, and platelet count of 184,000. Her chemistry showed a serum sodium 140, potassium 3.8, chloride 104, bicarbonate 34, anion gap of 2, BUN 9, creatinine 0.7, estimated GFR was 84 mL per minute. Her glucose was 91. ASSESSMENT AND PLAN: Acute conjunctivitis. I will start the patient on sulfacetamide eye drops 2 drops to the affected eye or eyes every 4 hours until clear. ANGEL WHITE MD DR: STAR/elvis JOB#: [id number] / [id number]
[2020-03-10] MEDS: TAMSULOSIN 0.4 MG CAP.ER.24H. PO SCH (20:16)
[2020-03-10] MEDS: traZODone 50 MG TABLET. PO SCH (20:16)
[2020-03-10] MEDS: GABAPENTIN 400 MG CAPSULE. PO SCH (20:17)
--- NOTE | 2020-03-10 22:04 | PDOC ---
Exam Note: Andrea Note: Please also refer to the separate dictated note~for this date of service dictated separately.~Patient seen individually. Discussed the patient with Nursing staff reviewed the chart.~Reviewed interim history and current functioning. Reviewed vital signs,~Labs/ Radiology~and current medications noted below. Continue current treatment with the changes noted in the dictated addendum note Assessment: Vital Signs/I&O: Vital Signs Date Time Temp Pulse Resp B/P (MAP) Pulse Ox O2 Delivery O2 Flow Rate FiO2 03/10/20 21:18 97 03/10/20 18:35 98.7 03/10/20 15:54 103 18 109/67 (81) 03/10/20 08:42 2.0 03/10/20 05:39 Nasal Cannula I & O 03/09/20 03/09/20 03/10/20 15:00 23:00 07:00 Intake Total 240 ml 480 ml Balance 240 ml 480 ml Current Medications: Meds: Current Medications Medications (Trade) Dose Ordered Sig/Jocelyn Route PRN Reason Start Time Stop Time Status Last Admin Dose Admin Fluvoxamine Maleate (Luvox) 50 mg DAILY PO 03/10/20 09:00 03/10/20 08:29 Sulfacetamide Sodium (Sulf-10) 2 drop Q4H OS 03/10/20 18:00 03/10/20 20:18 I have reviewed the current psychotropics carefully including drug interactions. Risk benefit ratio favors no change other than as noted in my dictated progress note. Diagnosis: Problems: (1) Major depressive disorder, recurrent episode (2) Impulse control disorder, unspecified (3) Anxiety disorder, unspecified MUKESH JAY MD March 10, 2020 22:04
[2020-03-10] MEDS ORDERED: ACET325T21 PO (23:19)
[2020-03-10] MEDS ORDERED: AMMO385C5 TP (23:20)
[2020-03-10] MEDS ORDERED: MAG355OR11 PO (23:21)
[2020-03-10] MEDS ORDERED: DOCU100C28 PO (23:21)
[2020-03-10] MEDS ORDERED: METH57CR17 TP (23:22)
[2020-03-10] MEDS ORDERED: NICO1PAT27 TD (23:22)
[2020-03-10] MEDS ORDERED: NYST15CR2 TP (23:23)
[2020-03-10] MEDS ORDERED: POTA20TA4 PO (23:25)
[2020-03-10] MEDS ORDERED: POLY15DR7 EACHEYE (23:25)
[2020-03-10] MEDS ORDERED: PSYL575P4 PO (23:27)
[2020-03-10] MEDS ORDERED: BUSP5TAB PO (23:27)
[2020-03-10] MEDS ORDERED: FLUV50TA2 PO (23:27)
[2020-03-10] MEDS ORDERED: OXYC5TAB4 PO (23:28)
[2020-03-10] MEDS ORDERED: RISP0.5T3 PO (23:28)
[2020-03-10] MEDS ORDERED: TRAZ-120 PO ×2 (23:29)
[2020-03-10] MEDS ORDERED: SULF15DR5 OS (23:35)
[2020-03-11] MEDS: SULFACETAMIDE 10% OPHTH SOLUTION 15ML BOTTLE. OS SCH ×3 (02:00→09:06)
[2020-03-11 05:29] VITALS: BP 97/64
[2020-03-11] MEDS: LORazepam 0.5 MG TABLET PO PRN (05:36)
[2020-03-11 07:21] LABS: BASO # 0.1 x10^3/uL (0.0-0.2); BASO % 1 % (0-3); EOS # 0.5 x10^3/uL (0.0-0.7); EOS % 6 % (0-3); HEMATOCRIT 28.8 % (36.0-47.0); HEMOGLOBIN 9.3 g/dL (12.0-15.5); LYMPH # 2.4 x10^3/uL (1.0-4.8); LYMPH % 32 % (24-48); MEAN CORPUSCULAR HEMOGLOBIN 30 pg (25-35); MEAN CORPUSCULAR HGB CONC 32 g/dL (31-37); MEAN CORPUSCULAR VOLUME 92 fL (79-100); MONO # 0.8 x10^3/uL (0.0-1.1); MONO % 10 % (0-9); NEUT # 3.8 x10^3uL (1.8-7.7); NEUT % 51 % (31-73); PLATELET COUNT 466 x10^3/uL (140-400); RED BLOOD COUNT 3.13 x10^6/uL (3.50-5.40); RED CELL DISTRIBUTION WIDTH 15.6 % (11.5-14.5); WHITE BLOOD COUNT 7.6 x10^3/uL (4.0-11.0)
[2020-03-11] MEDS: SUCRALFATE 1 GM TABLET. PO SCH (07:30)
[2020-03-11 07:34] LABS: ALBUMIN 1.6 g/dL (3.4-5.0); ALBUMIN/GLOBULIN RATIO 0.3 (1.0-1.7); CALCIUM 8.8 mg/dL (8.5-10.1); CREATININE 0.9 mg/dL (0.6-1.0); GFR 62.8; POTASSIUM 3.5 mmol/L (3.5-5.1); TOTAL BILIRUBIN 0.2 mg/dL (0.2-1.0); TOTAL PROTEIN 6.5 g/dL (6.4-8.2)
--- NOTE | 2020-03-11 07:37 | PDOC ---
Exam Note: Andrea Note: This note is a late entry for 03/09/2020 covers elements not covered in my initial note. Subjective: The patient was seen face to face in the evening of 03/09/2020. Nursing report was with Cherrie RODRIGUES. Discussed the patient with nursing staff reviewed the chart. She slept 6 hours previous night. She is anxious, very obsessed, persistent, repetitive about wanting to be discharged, want me to call her son to arrange for me to come and take her to his house. Nursing staff are reiterating to her that discharge plans are being worked out with social service staff. Review of Systems: Impaired ambulation, in wheelchair. Complains of chronic arthritic pain. No CV, GI/, Pulmonary, Eye system symptoms on review. Mental Status Exam: Reasonably oriented. Speech has some latency, coherent. Abstraction fair. Computation impaired. Language function intact. Attention span short. Mood and affect remains labile. Laboratory Data: Reviewed. Impression: Major depressive disorder, recurrent. Anxiety disorder unspecified. Impulse control disorder. Rest unchanged. Plan: Rest unchanged from initial note. Assessment: Vital Signs/I&O: Vital Signs Date Time Temp Pulse Resp B/P (MAP) Pulse Ox O2 Delivery O2 Flow Rate FiO2 03/11/20 05:29 98.3 101 18 97/64 (75) 95 Nasal Cannula 2.0 I & O 03/10/20 03/10/20 03/11/20 15:00 23:00 07:00 Intake Total 480 ml 840 ml Balance 480 ml 840 ml Labs: Laboratory Tests Test 03/11/20 06:22 White Blood Count 7.6 x10^3/uL (4.0-11.0) Red Blood Count 3.13 x10^6/uL (3.50-5.40) L Hemoglobin 9.3 g/dL (12.0-15.5) L Hematocrit 28.8 % (36.0-47.0) L Mean Corpuscular Volume 92 fL (79-100) Mean Corpuscular Hemoglobin 30 pg (25-35) Mean Corpuscular Hemoglobin Concent 32 g/dL (31-37) Red Cell Distribution Width 15.6 % (11.5-14.5) H Platelet Count 466 x10^3/uL (140-400) H Neutrophils (%) (Auto) 51 % (31-73) Lymphocytes (%) (Auto) 32 % (24-48) Monocytes (%) (Auto) 10 % (0-9) H Eosinophils (%) (Auto) 6 % (0-3) H Basophils (%) (Auto) 1 % (0-3) Neutrophils # (Auto) 3.8 x10^3uL (1.8-7.7) Lymphocytes # (Auto) 2.4 x10^3/uL (1.0-4.8) Monocytes # (Auto) 0.8 x10^3/uL (0.0-1.1) Eosinophils # (Auto) 0.5 x10^3/uL (0.0-0.7) Basophils # (Auto) 0.1 x10^3/uL (0.0-0.2) Sodium Level 138 mmol/L (136-145) Potassium Level 3.5 mmol/L (3.5-5.1) Chloride Level 102 mmol/L (98-107) Carbon Dioxide Level 32 mmol/L (21-32) Anion Gap 4 (6-14) L Blood Urea Nitrogen 9 mg/dL (7-20) Creatinine 0.9 mg/dL (0.6-1.0) Estimated GFR (Cockcroft-Gault) 62.8 BUN/Creatinine Ratio 10 (6-20) Glucose Level 106 mg/dL (70-99) H Calcium Level 8.8 mg/dL (8.5-10.1) Total Bilirubin 0.2 mg/dL (0.2-1.0) Aspartate Amino Transferase (AST) 27 U/L (15-37) Alanine Aminotransferase (ALT) 16 U/L (14-59) Alkaline Phosphatase 134 U/L (46-116) H Total Protein 6.5 g/dL (6.4-8.2) Albumin 1.6 g/dL (3.4-5.0) L Albumin/Globulin Ratio 0.3 (1.0-1.7) L Current Medications: Meds: Current Medications Medications (Trade) Dose Ordered Sig/Jocelyn Route PRN Reason Start Time Stop Time Status Last Admin Dose Admin Fluvoxamine Maleate (Luvox) 50 mg DAILY PO 03/10/20 09:00 03/10/20 08:29 Sulfacetamide Sodium (Sulf-10) 2 drop Q4H OS 03/10/20 18:00 03/11/20 05:36 I have reviewed the current psychotropics carefully including drug interactions. Risk benefit ratio favors no change other than as noted in my dictated progress note. Diagnosis: Problems: (1) Major depressive disorder, recurrent episode (2) Impulse control disorder, unspecified (3) Anxiety disorder, unspecified MUKESH JAY MD March 11, 2020 07:37
--- NOTE | 2020-03-11 07:59 | PDOC ---
Exam Note: Andrea Note: This note is a late entry for 03/10/2020 covers elements not covered in my initial note. Subjective: The patient was seen face to face with the treatment team in the morning including Belle Romero, and Destiny (social media coordinator), Jonna, Activity Therapy. Nursing report was with Janice RODRIGUES. Discussed the patient with nursing staff in the evening reviewed the chart. She slept 8-3/4 hours previous night. She was tearful yesterday. Review of Systems: Positive for chronic arthritic pain. Impaired ambulation, in wheelchair, yells out at times. No CV, GI/, Pulmonary, Eye system symptoms on review. Mental Status Exam: I met with the patient in the evening in the dining room at some length and again discussed with Janice RODRIGUES. Reasonably oriented. Speech has some latency, coherent. Abstraction fair. Computation impaired. Language function intact. Attention span short. Mood and affect remains labile. Laboratory Data: Reviewed. Impression: Major depressive disorder, recurrent. Anxiety disorder unspecified. Impulse control disorder. Rest unchanged. Plan: Rest unchanged from initial note. She is COVID-19 and will be transitioned back to the facility tomorrow. Assessment: Vital Signs/I&O: Vital Signs Date Time Temp Pulse Resp B/P (MAP) Pulse Ox O2 Delivery O2 Flow Rate FiO2 03/11/20 05:29 98.3 101 18 97/64 (75) 95 Nasal Cannula 2.0 I & O 03/10/20 03/10/20 03/11/20 15:00 23:00 07:00 Intake Total 480 ml 840 ml Balance 480 ml 840 ml Labs: Laboratory Tests Test 03/11/20 06:22 White Blood Count 7.6 x10^3/uL (4.0-11.0) Red Blood Count 3.13 x10^6/uL (3.50-5.40) L Hemoglobin 9.3 g/dL (12.0-15.5) L Hematocrit 28.8 % (36.0-47.0) L Mean Corpuscular Volume 92 fL (79-100) Mean Corpuscular Hemoglobin 30 pg (25-35) Mean Corpuscular Hemoglobin Concent 32 g/dL (31-37) Red Cell Distribution Width 15.6 % (11.5-14.5) H Platelet Count 466 x10^3/uL (140-400) H Neutrophils (%) (Auto) 51 % (31-73) Lymphocytes (%) (Auto) 32 % (24-48) Monocytes (%) (Auto) 10 % (0-9) H Eosinophils (%) (Auto) 6 % (0-3) H Basophils (%) (Auto) 1 % (0-3) Neutrophils # (Auto) 3.8 x10^3uL (1.8-7.7) Lymphocytes # (Auto) 2.4 x10^3/uL (1.0-4.8) Monocytes # (Auto) 0.8 x10^3/uL (0.0-1.1) Eosinophils # (Auto) 0.5 x10^3/uL (0.0-0.7) Basophils # (Auto) 0.1 x10^3/uL (0.0-0.2) Sodium Level 138 mmol/L (136-145) Potassium Level 3.5 mmol/L (3.5-5.1) Chloride Level 102 mmol/L (98-107) Carbon Dioxide Level 32 mmol/L (21-32) Anion Gap 4 (6-14) L Blood Urea Nitrogen 9 mg/dL (7-20) Creatinine 0.9 mg/dL (0.6-1.0) Estimated GFR (Cockcroft-Gault) 62.8 BUN/Creatinine Ratio 10 (6-20) Glucose Level 106 mg/dL (70-99) H Calcium Level 8.8 mg/dL (8.5-10.1) Total Bilirubin 0.2 mg/dL (0.2-1.0) Aspartate Amino Transferase (AST) 27 U/L (15-37) Alanine Aminotransferase (ALT) 16 U/L (14-59) Alkaline Phosphatase 134 U/L (46-116) H Total Protein 6.5 g/dL (6.4-8.2) Albumin 1.6 g/dL (3.4-5.0) L Albumin/Globulin Ratio 0.3 (1.0-1.7) L Current Medications: Meds: Current Medications Medications (Trade) Dose Ordered Sig/Jocelyn Route PRN Reason Start Time Stop Time Status Last Admin Dose Admin Fluvoxamine Maleate (Luvox) 50 mg DAILY PO 03/10/20 09:00 03/10/20 08:29 Sulfacetamide Sodium (Sulf-10) 2 drop Q4H OS 03/10/20 18:00 03/11/20 05:36 I have reviewed the current psychotropics carefully including drug interactions. Risk benefit ratio favors no change other than as noted in my dictated progress note. Diagnosis: Problems: (1) Major depressive disorder, recurrent episode (2) Impulse control disorder, unspecified (3) Anxiety disorder, unspecified MUKESH JAY MD March 11, 2020 07:59
[2020-03-11] MEDS: AMMONIUM LACTATE 12% TOPICAL LOTION 226GM BOTTLE. TP SCH (09:00)
[2020-03-11] MEDS: PANTOPRAZOLE 40 MG TABLET. PO SCH (09:06)
[2020-03-11] MEDS: CLOPIDOGREL BISULFATE 75 MG TABLET PO SCH (09:06)
[2020-03-11] MEDS: IPRATROPIUM/ALBUTEROL 20/100mcg/INH INHALER. INH SCH (09:06)
[2020-03-11] MEDS: FERROUS SULFATE 325 MG TABLET. PO SCH (09:06)
[2020-03-11] MEDS: oxyCODONE ER 10 MG TAB.ER.12H PO SCH (09:07)
[2020-03-11] MEDS: busPIRone 5 MG TABLET. PO SCH (09:07)
[2020-03-11] MEDS: risperiDONE 0.25 MG TABLET. PO SCH (09:08)
[2020-03-11] MEDS: ASCORBIC ACID 500 MG TABLET PO SCH (09:08)
[2020-03-11] MEDS: POTASSIUM CHLORIDE 20 MEQ TABLET.ER. PO SCH (09:08)
[2020-03-11] MEDS: oxyCODONE IR 5 MG TABLET PO PRN (09:29)
--- NOTE | 2020-03-11 22:14 | PDOC ---
Exam Note: Andrea Note: Please also refer to the separate dictated note~for this date of service dictated separately.~Patient seen individually. Discussed the patient with Nursing staff reviewed the chart.~Reviewed interim history and current functioning. Reviewed vital signs,~Labs/ Radiology~and current medications noted below. Continue current treatment with the changes noted in the dictated addendum note Assessment: Vital Signs/I&O: Vital Signs Date Time Temp Pulse Resp B/P (MAP) Pulse Ox O2 Delivery O2 Flow Rate FiO2 03/11/20 08:00 98.1 96 03/11/20 05:29 101 18 97/64 (75) Nasal Cannula 2.0 I & O 03/10/20 03/10/20 03/11/20 15:00 23:00 07:00 Intake Total 480 ml 840 ml Balance 480 ml 840 ml Labs: Laboratory Tests Test 03/11/20 06:22 White Blood Count 7.6 x10^3/uL (4.0-11.0) Red Blood Count 3.13 x10^6/uL (3.50-5.40) L Hemoglobin 9.3 g/dL (12.0-15.5) L Hematocrit 28.8 % (36.0-47.0) L Mean Corpuscular Volume 92 fL (79-100) Mean Corpuscular Hemoglobin 30 pg (25-35) Mean Corpuscular Hemoglobin Concent 32 g/dL (31-37) Red Cell Distribution Width 15.6 % (11.5-14.5) H Platelet Count 466 x10^3/uL (140-400) H Neutrophils (%) (Auto) 51 % (31-73) Lymphocytes (%) (Auto) 32 % (24-48) Monocytes (%) (Auto) 10 % (0-9) H Eosinophils (%) (Auto) 6 % (0-3) H Basophils (%) (Auto) 1 % (0-3) Neutrophils # (Auto) 3.8 x10^3uL (1.8-7.7) Lymphocytes # (Auto) 2.4 x10^3/uL (1.0-4.8) Monocytes # (Auto) 0.8 x10^3/uL (0.0-1.1) Eosinophils # (Auto) 0.5 x10^3/uL (0.0-0.7) Basophils # (Auto) 0.1 x10^3/uL (0.0-0.2) Sodium Level 138 mmol/L (136-145) Potassium Level 3.5 mmol/L (3.5-5.1) Chloride Level 102 mmol/L (98-107) Carbon Dioxide Level 32 mmol/L (21-32) Anion Gap 4 (6-14) L Blood Urea Nitrogen 9 mg/dL (7-20) Creatinine 0.9 mg/dL (0.6-1.0) Estimated GFR (Cockcroft-Gault) 62.8 BUN/Creatinine Ratio 10 (6-20) Glucose Level 106 mg/dL (70-99) H Calcium Level 8.8 mg/dL (8.5-10.1) Total Bilirubin 0.2 mg/dL (0.2-1.0) Aspartate Amino Transferase (AST) 27 U/L (15-37) Alanine Aminotransferase (ALT) 16 U/L (14-59) Alkaline Phosphatase 134 U/L (46-116) H Total Protein 6.5 g/dL (6.4-8.2) Albumin 1.6 g/dL (3.4-5.0) L Albumin/Globulin Ratio 0.3 (1.0-1.7) L Current Medications: I have reviewed the current psychotropics carefully including drug interactions. Risk benefit ratio favors no change other than as noted in my dictated progress note. Diagnosis: Problems: (1) Major depressive disorder, recurrent episode (2) Impulse control disorder, unspecified (3) Anxiety disorder, unspecified MUKESH JAY MD March 11, 2020 22:14
--- NOTE | 2020-03-13 01:06 | PN ---
DATE: 03/11/2020 PSYCHIATRIC PROGRESS NOTE. This late entry of 03/11/2020 covers the elements not covered in my initial note. REASON FOR ADMISSION: Please refer to the admission history for details. Briefly, the patient is a 64-year-old female referred to us from [facility] on account of worsening symptoms of depression, anxiety, irritability, mood lability. She was medication seeking, hyperfocused on her meds with a labile mood, manipulative, "playing the victim all the time." she is refusing to eat, having weight loss, resistive to cares, depressed, verbally abusive, and calling staff names, demanding. Behaviors were deemed unmanageable, dangerous. Having failed outpatient psychiatric interventions, she was referred for inpatient psychiatric stabilization. SIGNIFICANT FINDINGS AND CLINICAL COURSE: Following admission, the patient was seen daily individually by myself from a psychiatric standpoint, medical followup with Dr. Blair/Dr. Palafox. The patient was significantly impaired due to her arthritis and impaired ability to ambulate, remaining in a wheelchair. She was depressed, anxious, restless, paranoid with marked mood lability and obsessive. Adjustments were made in her psychotropic. She seemed to respond to a combination of Luvox 50 mg a day; BuSpar 5 mg t.i.d.; trazodone 50 mg at bedtime, february repeat x 1 for insomnia; Ativan p.r.n. Prior to discharge, she remained anxious, restless, but much improved and manageable. REVIEW OF SYSTEMS: Prior to discharge on 03/11/2020, ambulation impaired, in wheelchair. No CV, , pulmonary, eye, ENT system symptoms on review. She has chronic pain and arthritis, impaired mobility due to this, which is significant. MENTAL STATUS EXAM: Reasonably oriented. Speech is coherent, has some latency, pressured at times. Abstraction fair, computation impaired, language function intact, attention span short. Mood and affect, lability is improved. LABORATORY DATA: Reviewed. FINAL DIAGNOSES: Major depressive disorder, recurrent with psychotic features, in partial remission; anxiety disorder, unspecified; impulse control disorder, unspecified. Rest unchanged from admission. DISCHARGE MEDICATIONS: Please refer to the MRAD. DISCHARGE INSTRUCTIONS: [facility]. Time for discharge from day management greater than 30 minutes. MAN Tanya JAY MD DR: Charles JOB#: [id number] / [id number]
== END 2020-03-11 12:08 | DRG 885 ==
LOC: EDBD 09:19 → ER 09:19 → GEROPSY 13:15
PROVIDERS: ADMIT Psychiatry & Neurology Psychiatry; ATTEND Psychiatry & Neurology Psychiatry
DX: F33.3 Major depressive disorder, recurrent, severe with psychotic symptoms (principal); E43 Unspecified severe protein-calorie malnutrition; E87.6 Hypokalemia; F41.9 Anxiety disorder, unspecified; F63.9 Impulse disorder, unspecified; G89.4 Chronic pain syndrome; H10.30 Unspecified acute conjunctivitis, unspecified eye; I10 Essential (primary) hypertension; J43.9 Emphysema, unspecified; M06.9 Rheumatoid arthritis, unspecified; Z96.653 Presence of artificial knee joint, bilateral; K21.0 Gastro-esophageal reflux disease with esophagitis; Z88.5 Allergy status to narcotic agent; Z88.8 Allergy status to other drugs, medicaments and biological substances; Z88.1 Allergy status to other antibiotic agents; Z91.041 Radiographic dye allergy status; Z91.040 Latex allergy status; Z90.710 Acquired absence of both cervix and uterus; Z90.49 Acquired absence of other specified parts of digestive tract; Z98.42 Cataract extraction status, left eye; Z98.41 Cataract extraction status, right eye; Z99.3 Dependence on wheelchair; Z20.828 Contact with and (suspected) exposure to other viral communicable diseases; Z68.21 Body mass index [BMI] 21.0-21.9, adult
CPT/HCPCS: 36415; 71045; 80048; 80053; 80061; 81001; 82274; 82306; 82550; 82607; 83036; 83540; 83550; 83735; 84436; 84443; 84480; 84484; 85025; 86140; 86592; 87086; 93005; 94640; 99406; 97530; 97535; U0003-CS

== ENCOUNTER 2020-11-15 17:45 | Inpatient (IN) | payer MEDICARE, OTHER ==
[~2020-11-15] VITALS: Ht 165.1 cm; Wt 52.1 kg
[~2020-11-15 17:45] MED LIST: ACET325T21 PO; AMMO385C5 TP; ASCO500C9 PO; BUSP5TAB PO; CLOP75TA57 PO; DOCU100C28 PO; DULO60CA6 PO; FERR325T14 PO; FLUV50TA2 PO; GABA800T5 PO; IPRA3AMP29 NEB; LORA-254 PO; MAG355OR11 PO; MAGN24003 PO; METH57CR17 TP; NICO1PAT27 TD; NYST15CR2 TP; OXYC10TA46 PO; OXYC1TAB15 PO; OXYC5TAB4 PO; PANT40TA3 PO; POLY15DR7 EACHEYE; POTA20TA4 PO; PSYL575P4 PO; QUET100T4 PO; QUET50TA5 PO; RISP0.5T62 PO; SUCR1TAB35 PO; SULF15DR5 OS; TAMS0.4C97 PO; TRAZ-120 PO
[2020-11-15 20:00] VITALS: BP 134/72
[2020-11-15] MEDS ORDERED: DOCUSATE SODIUM 100 MG CAPSULE PO PRN (22:00)
[2020-11-15] MEDS ORDERED: PHENYLEPH/MINERAL OIL/PETROLAT RECTAL OINTMENT TUBE. RC PRN ×2 (22:00→22:45)
[2020-11-15] MEDS ORDERED: ACETAMINOPHEN 325 MG TABLET PO PRN (22:00)
[2020-11-15] MEDS ORDERED: NICOTINE 7MG PATCH. TD PRN (22:00)
[2020-11-15] MEDS ORDERED: POLYVINYL ALCOHOL 1.4% OPHTH SOLUTION 15ML BOTTLE. OU PRN (22:15)
[2020-11-15] MEDS ORDERED: LORazepam 0.5 MG TABLET PO PRN (22:15)
[2020-11-15] MEDS: CALCIUM CARBONATE 500 MG TABLET PO SCH (22:52)
[2020-11-15] MEDS: LACTOBACILLUS RHAMNOSUS GG 1 CAPSULE. PO SCH (22:52)
[2020-11-15] MEDS: OLANZapine 10 MG TABLET PO SCH (22:52)
[2020-11-15] MEDS ORDERED: OLANZapine 10 MG TABLET PO SCH (23:00)
[2020-11-15] MEDS ORDERED: CALCIUM CARBONATE 500 MG TABLET PO SCH (23:00)
[2020-11-15] MEDS ORDERED: LACTOBACILLUS RHAMNOSUS GG 1 CAPSULE. PO SCH (23:00)
[2020-11-15 23:05] VITALS: BP 124/69
--- NOTE | 2020-11-16 05:19 | EKG ---
[address] [address] Test Date: 2020-11-16 Test Time: 05:15:06 Pat Name: SUNNY NEWTON Department: Room: [facility] A Gender: F Speech/Language Therapist: : 1955 Requested By: ANGEL WHITE Order Number: [id number] Reading MD: Alejandro Hernandes Measurements Intervals Sandy Rate: 94 P: 45 MD: 164 QRS: 0 QRSD: 80 T: 7 QT: 364 QTc: 461 Interpretive Statements SINUS RHYTHM LEFTWARD AXIS Electronically Signed On 11-24-2020 10:18:29 ENAMEL BUFFER by Alejandro Hernandes
[2020-11-16 05:45] VITALS: BP 126/68
[2020-11-16 06:37] LABS: BASO # 0.1 x10^3/uL (0.0-0.2); BASO % 1 % (0-3); EOS # 0.5 x10^3/uL (0.0-0.7); EOS % 6 % (0-3); HEMATOCRIT 32.1 % (36.0-47.0); HEMOGLOBIN 10.3 g/dL (12.0-15.5); LYMPH % 33 % (24-48); MEAN CORPUSCULAR HEMOGLOBIN 30 pg (25-35); MEAN CORPUSCULAR HGB CONC 32 g/dL (31-37); MEAN CORPUSCULAR VOLUME 93 fL (79-100); MONO # 0.8 x10^3/uL (0.0-1.1); MONO % 9 % (0-9); NEUT # 4.7 x10^3uL (1.8-7.7); NEUT % 51 % (31-73); PLATELET COUNT 373 x10^3/uL (140-400); RED BLOOD COUNT 3.44 x10^6/uL (3.50-5.40); RED CELL DISTRIBUTION WIDTH 15.2 % (11.5-14.5); WHITE BLOOD COUNT 9.2 x10^3/uL (4.0-11.0)
[2020-11-16 06:46] LABS: ALBUMIN 2.4 g/dL (3.4-5.0); ALBUMIN/GLOBULIN RATIO 0.5 (1.0-1.7); CALCIUM 8.7 mg/dL (8.5-10.1); CREATININE 0.8 mg/dL (0.6-1.0); GFR 71.8; MAGNESIUM 1.9 mg/dL (1.8-2.4); POTASSIUM 3.9 mmol/L (3.5-5.1); TOTAL BILIRUBIN 0.2 mg/dL (0.2-1.0); TOTAL PROTEIN 7.1 g/dL (6.4-8.2)
[2020-11-16] MEDS ORDERED: PANTOPRAZOLE 40 MG TABLET. PO SCH (07:30)
[2020-11-16] MEDS ORDERED: busPIRone 10 MG TABLET. PO SCH (08:00)
[2020-11-16] MEDS ORDERED: CLOPIDOGREL BISULFATE 75 MG TABLET PO SCH ×3 (08:00→09:00)
[2020-11-16] MEDS: OLANZapine 10 MG TABLET PO SCH (08:30)
[2020-11-16] MEDS: CALCIUM CARBONATE 500 MG TABLET PO SCH (08:31)
[2020-11-16] MEDS ORDERED: GABAPENTIN 400 MG CAPSULE. PO SCH ×3 (09:00→21:00)
[2020-11-16] MEDS ORDERED: POTASSIUM CHLORIDE 20 MEQ TABLET.ER. PO SCH (09:00)
[2020-11-16] MEDS ORDERED: ASCORBIC ACID 500 MG TABLET PO SCH (09:00)
[2020-11-16] MEDS ORDERED: SUCRALFATE 1 GM TABLET. PO SCH (09:00)
[2020-11-16] MEDS ORDERED: FLUoxetine HCL 20 MG CAPSULE PO SCH ×2 (09:00)
[2020-11-16] MEDS: LACTOBACILLUS RHAMNOSUS GG 1 CAPSULE. PO SCH (09:00)
[2020-11-16] MEDS ORDERED: oxyCODONE ER 20 MG TAB.ER.12H PO SCH ×2 (09:00)
[2020-11-16] MEDS ORDERED: FERROUS SULFATE 325 MG TABLET. PO SCH (09:00)
[2020-11-16] MEDS ORDERED: NEO/POLYMYX/DEXAMETH OPHTH SUSPENSION 5ML BOTTLE. OU SCH ×2 (09:00)
[2020-11-16 10:38] VITALS: BP 115/62
[2020-11-16 10:45] LABS: BACTERIA,URINE MOD /HPF (0-FEW); BILIRUBIN,URINE NEG (NEG); CLARITY,URINE CLEAR; COLOR,URINE YELLOW; GLUCOSE,URINE NEG (NEG); NITRITE,URINE NEG (NEG); SQUAMOUS EPITHELIAL CELL,UR FEW /LPF; UROBILINOGEN,URINE 0.2 mg/dL (0.2 mg/dL)
[2020-11-16 10:46] LABS: HYALINE CASTS, URINE OCC /HPF
--- NOTE | 2020-11-16 12:41 | HP ---
ADMIT DATE: 11/15/2020 HISTORY OF PRESENT ILLNESS: The patient is a 64-year-old female patient, a resident at [facility], who was admitted to [address] [place] [address] Surgical Unit to be screened for COVID-19 and once she is negative, she will be admitted to [facility] Unit for inpatient psychiatric stabilization. Apparently, the patient is ___ hollering out threatening to throw herself to the floor, attention seeking, verbally abusive, name calling, belligerent, anxious, irritable. Two to three weeks ago, she was moved to a private room, was started on Zyprexa, gabapentin, and lorazepam without much improvement, and given the failure of outpatient psychiatric intervention, she will be admitted to [facility] for inpatient psychiatric stabilization. PAST MEDICAL HISTORY: Significant for severe deforming rheumatoid arthritis, esophagitis, chronic obstructive pulmonary disease, chronic pain syndrome, pain in her right knee and right shoulder, muscle weakness, gastroesophageal reflux disease, chronic constipation, anemia, malnutrition and hypertension. She also has bilateral conjunctivitis. PAST SURGICAL HISTORY: Significant for bilateral cataract extraction, tonsillectomy, appendectomy, cholecystectomy, total abdominal hysterectomy. She has also bilateral total knee arthroplasty and left shoulder surgery. PAST PSYCHIATRIC HISTORY: Significant for anxiety disorder, conduct disorder, major depressive disorder, impulse control disorder. ALLERGIES: She is allergic to AMOXICILLIN, ASPIRIN, CEPHALEXIN, CLARITHROMYCIN, CLAVULANIC ACID, CODEINE, IBUPROFEN, LATEX, NALBUPHINE and TAMIFLU. MEDICATIONS: She is currently on following medications: She is on tamsulosin 0.4 mg at bedtime, nicotine patch 7 mg transdermal daily, ferrous sulfate 325 mg twice a day, Plavix 75 mg once a day, acetaminophen 650 mg every 6 hours, gabapentin 800 mg at bedtime, lorazepam 0.5 mg twice a day as needed, buspirone 10 mg twice a day with meals, potassium chloride 20 mEq twice a day, artificial tears 1 drop to both eyes every 15 minutes. She is on Colace 100 mg daily as needed for constipation, sucralfate 1 gram twice a day, Protonix 40 mg once a day and ascorbic acid 500 mg twice a day. FAMILY HISTORY: Her father, 2 sisters and other brothers are all . SOCIAL HISTORY: She is . She has 1 son. She unfortunately continues to smoke, according to her, 3 cigarettes a day. She does not drink alcohol or use any recreational drugs. 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 REVIEW OF SYSTEMS: As per history of present illness. PHYSICAL EXAMINATION: GENERAL: When I examined her on arrival, she looked pale, extremely cachectic, but no jaundice or cyanosis. No lymphadenopathy, no thyromegaly. No jugular venous distention. No limb edema. VITAL SIGNS: Her heart rate was 106, blood pressure was 134/72, temperature was 98.3, respiratory rate was 18 and oxygen saturation was 94% on room air. HEAD, EYES, EARS, NOSE AND THROAT: Showed she is normocephalic, atraumatic. She has bilateral conjunctivitis with eyelashes matted, especially in the left eye. NECK: Supple. HEART: Showed normal first and second heart sounds. No gallop, rub or murmur. CHEST: Showed central trachea, equal bilateral chest expansion, air entry, vesicular sounds. I could not appreciate any crepitation or rhonchi. ABDOMEN: Scaphoid, soft, nontender. NEUROLOGIC: She was awake, alert, responding appropriately. All cranial nerves are intact. EXTREMITIES: She moves extremities without difficulty, although she is mostly bed bound, wheelchair bound. She has severe deforming rheumatoid arthritis. She has also marked muscle wasting and weakness, has multiple wounds in both her left and right legs. LABORATORY DATA: Her lab work on admission showed a white cell count 9200, hemoglobin 10, hematocrit 32, MCV 93, and platelet count of 373,000. Her chemistry showed a serum sodium 140, potassium 3.9, chloride 105, bicarbonate 31, anion gap of 4, BUN 20, creatinine 0.8, estimated GFR was 72 mL per minute, her glucose 104, calcium was 8.7, magnesium was 1.9. Total bilirubin, AST, ALT were normal. Alkaline phosphatase slightly elevated. Total protein was 7.1, albumin was 2.4. Her D-dimer was extremely high at 3.72. Urinalysis showed that the urine was yellow, clear with a pH of 5, specific gravity of 1.020. The urine was negative for protein, glucose, ketones, blood, nitrite, but trace of leukocyte esterase, 1-2 rbc's, 5-10 wbc's, and moderate amount of bacteria. IMPRESSION: In summary, this is a 65-year-old female patient, a resident at [facility], was admitted to Med/Surg Unit to be screened for coronavirus. She will eventually be admitted to [facility] on account of being constantly ___ hollering out, threatening to throw herself on the floor tension seeking, verbally abusive, name calling, belligerent, anxious and irritable. About 2-3 weeks ago, she was seen by the psychiatrist and was moved to a private room. She was started on Zyprexa. Her gabapentin was increased and started on lorazepam without much improvement and therefore, she was referred to [facility] for inpatient psychiatric stabilization. Medically, she has multitude of medical problems including severe deforming rheumatoid arthritis, gastroesophageal reflux disease and esophagitis, chronic obstructive pulmonary disease, chronic pain syndrome and chronic constipation, anemia, malnutrition and hypertension. We will continue all her medication for now and await the results of the coronavirus PCR. Once negative, she will be transferred to [facility]. ANGEL WHITE MD DR: STAR/elvis JOB#: [id number] / [id number]
--- NOTE | 2020-11-16 12:53 | PN ---
DATE: 11/16/2020 SUBJECTIVE: The patient is resting, slightly propped up in bed, in no apparent respiratory distress. She is sleepy, but arousable. On questioning her, she is complaining of aches and pains all over. Her eyelashes are matted particularly more so on the left than right. PHYSICAL EXAMINATION: GENERAL: When I examined her, she was pale, somewhat cachectic, but no jaundice, cyanosis or thyromegaly. No jugular venous distention. No limb edema. VITAL SIGNS: Her heart rate was 75, blood pressure 115/62, temperature was 98.4, respiratory rate was 20, and oxygen saturation was 100% on 3 liters of oxygen. HEENT: Showed normocephalic, atraumatic. NECK: Supple. HEART: Showed normal first and second heart sounds. No gallop, rub or murmur. CHEST: Clear to auscultation. No crepitation or rhonchi. ABDOMEN: Distended, soft, nontender. NEUROLOGIC: She is awake, alert, responding appropriately. All cranial nerves are intact. She moves extremities without difficulty, although she is mostly bedbound and wheelchair bound. She has severe deforming rheumatoid arthritis. She has multiple wounds on both legs. LABORATORY DATA: Showed that she has normochromic, normocytic anemia. Her chemistry is unremarkable except for protein-calorie malnutrition with serum albumin is only 2.4. Her D-dimer is high at 3.72. However, she has severe rheumatoid arthritis and this could be just acute phase reactant. PLAN: My plan is to obviously continue with all her medication. I will add sulfacetamide eye drops and erythromycin and await the result of her coronavirus by PCR. If it comes negative, she will be discharged to [facility] for inpatient psychiatric stabilization. ANGEL WHITE MD DR: STAR/elvis JOB#: [id number] / [id number]
--- NOTE | 2020-11-16 15:01 | DS ---
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 Apparently 2-3 weeks ago, she was moved to a private room, was started on Zyprexa, gabapentin, and lorazepam, without much improvement and, therefore, she was admitted to [facility] for inpatient psychiatric stabilization. PHYSICAL EXAMINATION: GENERAL: When I saw her this afternoon, she looked well and was clearly in no apparent distress. She was pale, cachectic, no jaundice, cyanosis, or thyromegaly. No jugular venous distention. No limb edema. VITAL SIGNS: Her heart rate was 75, blood pressure 115/62, temperature 98.4, respiratory rate 20, and oxygen saturation 100% on 3 liters of oxygen. HEAD, EYES, EARS, NOSE AND THROAT: Showed normocephalic, atraumatic. NECK: Supple. HEART: Normal first and second heart sounds. No gallop or murmur. CHEST: Clear to auscultation. No crepitation or rhonchi. ABDOMEN: Distended, soft, nontender. No guarding or rigidity. No organomegaly. All hernial orifice intact. Bowel sounds normal. NEUROLOGIC: She is grossly intact. She has severe deforming rheumatoid arthritis. She has multiple wounds in both lower extremities. LABORATORY DATA: Showed hemoglobin of 10, hematocrit 32 with normal white cell count and platelets. Her chemistry was also unremarkable except that she has severe protein-calorie malnutrition. Her D-dimer is high at 3.72 and her coronavirus by PCR was not detectable. DISCHARGE MEDICATIONS: She was discharged to [facility] Unit to continue on acetaminophen 650 mg every 6 hours, ascorbic acid 500 mg twice a day, buspirone 10 mg twice a day, Plavix 75 mg once a day, Colace 100 mg twice a day, ferrous sulfate 325 mg twice a day, gabapentin 800 mg at bedtime, lorazepam 0.5 mg twice a day for anxiety. She is on Nicoderm CQ 7 mg transdermal patch once a day, Protonix 40 mg once a day, artificial tears 1 drop to both eyes every 4 hours, potassium chloride 20 mEq twice a day, sucralfate 1 gram twice a day, tamsulosin 0.4 mg at bedtime. She should be on neomycin, Polymyxin, and dexamethasone for Maxitrol 1 drop to both eyes twice a day, and OxyContin 20 mg twice a day. FINAL DISCHARGE DIAGNOSES: 1. Severe anxiety disorder, impulsive disorder, major depressive disorder. 2. Severe deforming rheumatoid arthritis. 3. Gastroesophageal reflux disease and esophagitis. 4. Chronic obstructive pulmonary disease. 5. Chronic pain syndrome. 6. Chronic constipation. 7. Anemia. 8. Hypertension. 9. Malnutrition. 10. Bilateral conjunctivitis. ANGEL WHITE MD DR: STAR/elvis JOB#: [id number] / [id number]
[2020-11-16] MEDS ORDERED: LACT1CAP21 PO (17:59)
[2020-11-16] MEDS ORDERED: FLUO40CA2 PO (17:59)
[2020-11-16] MEDS ORDERED: GABA100C81 PO (17:59)
[2020-11-16] MEDS ORDERED: CALC500T31 PO (17:59)
[2020-11-16] MEDS ORDERED: PHEN28OI8 RC (17:59)
[2020-11-16] MEDS ORDERED: NEO/5DRO EACHEYE (17:59)
[2020-11-16] MEDS ORDERED: OLAN10TA9 PO (17:59)
[2020-11-16] MEDS ORDERED: OXYC20TA42 PO (17:59)
[2020-11-16] MEDS ORDERED: GABA600T7 PO (17:59)
[2020-11-16 19:41] LABS: THYROID STIM HORMONE (TSH) 3.934 uIU/mL (0.358-3.740)
[2020-11-16] MEDS ORDERED: TAMSULOSIN 0.4 MG CAP.ER.24H. PO SCH (21:00)
[2020-11-17 00:09] LABS: HEMOGLOBIN A1C 5.3 % (4.8-5.6)
== END 2020-11-16 13:09 | DRG 391 ==
LOC: 1 SOUTH 19:45
PROVIDERS: ADMIT Internal Medicine; ATTEND Internal Medicine
DX: K21.00 Gastro-esophageal reflux disease with esophagitis, without bleeding (principal); E43 Unspecified severe protein-calorie malnutrition; Z68.1 Body mass index [BMI] 19.9 or less, adult; F32.9 Major depressive disorder, single episode, unspecified; D64.9 Anemia, unspecified; F17.210 Nicotine dependence, cigarettes, uncomplicated; F41.9 Anxiety disorder, unspecified; G89.4 Chronic pain syndrome; H10.9 Unspecified conjunctivitis; I10 Essential (primary) hypertension; J44.9 Chronic obstructive pulmonary disease, unspecified; K59.09 Other constipation; M06.9 Rheumatoid arthritis, unspecified; Z90.710 Acquired absence of both cervix and uterus; Z96.653 Presence of artificial knee joint, bilateral; Z98.41 Cataract extraction status, right eye; Z98.42 Cataract extraction status, left eye; Z20.822 Contact with and (suspected) exposure to COVID-19; Z88.8 Allergy status to other drugs, medicaments and biological substances; Z88.1 Allergy status to other antibiotic agents; Z91.040 Latex allergy status
CPT/HCPCS: 36415; 80053; 80061; 81001; 82306; 82607; 83036; 83735; 84443; 85025; 85379; 86592; 87077; 87086; 87186; 93005; U0003

== ENCOUNTER 2020-11-16 15:30 | Inpatient (IN) | payer MEDICARE, OTHER ==
[~2020-11-16] VITALS: Ht 162.6 cm; Wt 55.5 kg
[2020-11-16 15:30] VITALS: BP 118/68
[2020-11-16] MEDS ORDERED: MAG HYDROX/AL HYDROX/SIMETH 30 ML ORAL.SUSP PO PRN (17:30)
[2020-11-16] MEDS ORDERED: ACETAMINOPHEN 325 MG TABLET PO PRN (17:30)
[2020-11-16] MEDS ORDERED: NICOTINE 7MG PATCH. TD SCH (17:30)
[2020-11-16] MEDS ORDERED: MAGNESIUM HYDROXIDE 2,400 MG/30 ML ORAL.SUSP. PO PRN (17:30)
[2020-11-16] MEDS ORDERED: FLUO40CA2 PO (17:59)
[2020-11-16] MEDS ORDERED: GABA100C81 PO (17:59)
[2020-11-16] MEDS ORDERED: CALC500T31 PO (17:59)
[2020-11-16] MEDS ORDERED: NEO/5DRO EACHEYE (17:59)
[2020-11-16] MEDS ORDERED: PHEN28OI8 RC (17:59)
[2020-11-16] MEDS ORDERED: LACT1CAP21 PO (17:59)
[2020-11-16] MEDS ORDERED: OXYC20TA42 PO (17:59)
[2020-11-16] MEDS ORDERED: OLAN10TA9 PO (17:59)
[2020-11-16] MEDS ORDERED: GABA600T7 PO (17:59)
[2020-11-16] MEDS ORDERED: DOCUSATE SODIUM 100 MG CAPSULE PO PRN (18:00)
[2020-11-16] MEDS ORDERED: PHENYLEPH/MINERAL OIL/PETROLAT RECTAL OINTMENT TUBE. RC PRN (18:45)
[2020-11-16] MEDS ORDERED: NICOTINE 7MG PATCH. TD PRN (19:00)
[2020-11-16] MEDS: OLANZapine 10 MG TABLET PO SCH (19:45)
[2020-11-16] MEDS: LACTOBACILLUS RHAMNOSUS GG 1 CAPSULE. PO SCH (19:45)
[2020-11-16] MEDS: GABAPENTIN 400 MG CAPSULE. PO SCH (19:45)
[2020-11-16] MEDS: FERROUS SULFATE 325 MG TABLET. PO SCH (19:45)
[2020-11-16] MEDS: TAMSULOSIN 0.4 MG CAP.ER.24H. PO SCH (19:45)
[2020-11-16] MEDS: CALCIUM CARBONATE 500 MG TABLET PO SCH (19:45)
[2020-11-16] MEDS: SUCRALFATE 1 GM TABLET. PO SCH (19:45)
[2020-11-16] MEDS: POTASSIUM CHLORIDE 20 MEQ TABLET.ER. PO SCH (19:46)
[2020-11-16] MEDS: ASCORBIC ACID 500 MG TABLET PO SCH (19:46)
[2020-11-16] MEDS: oxyCODONE ER 20 MG TAB.ER.12H PO SCH (19:46)
[2020-11-16] MEDS ORDERED: NON FORMULARY ITEM (Gabapentin 600 MG) PO SCH (21:00)
--- NOTE | 2020-11-16 21:06 | PDOC ---
Exam Note: Andrea Note: Please also refer to the separate dictated note~for this date of service dictated separately.~Patient seen individually. Discussed the patient with Nursing staff reviewed the chart.~Reviewed interim history and current functioning. Reviewed vital signs,~Labs/ Radiology~and current medications noted below. Continue current treatment with the changes noted in the dictated addendum note Assessment: Vital Signs/I&O: Vital Signs Date Time Temp Pulse Resp B/P (MAP) Pulse Ox O2 Delivery O2 Flow Rate FiO2 11/16/20 15:30 98.1 86 20 118/68 (85) 96 Nasal Cannula 3.0 Current Medications: Meds: Current Medications Medications (Trade) Dose Ordered Sig/Jocelyn Route PRN Reason Start Time Stop Time Status Last Admin Dose Admin Calcium Carbonate/ Glycine (Oscal) 500 mg BID PO 11/16/20 21:00 11/16/20 19:45 Ferrous Sulfate (Feosol) 325 mg BID PO 11/16/20 21:00 11/16/20 19:45 Olanzapine (ZyPREXA) 10 mg BID PO 11/16/20 21:00 11/16/20 19:45 Oxycodone HCl (OxyCONTIN) 20 mg BID PO 11/16/20 21:00 11/16/20 19:46 Potassium Chloride (Klor-Con) 20 meq BID PO 11/16/20 21:00 11/16/20 19:46 Sucralfate (Carafate) 1 gm BID PO 11/16/20 21:00 11/16/20 19:45 Tamsulosin HCl (Flomax) 0.4 mg HS PO 11/16/20 21:00 11/16/20 19:45 Ascorbic Acid (Vitamin C) 500 mg BID PO 11/16/20 21:00 11/16/20 19:46 Gabapentin (Neurontin) 800 mg HS PO 11/16/20 21:00 11/16/20 19:45 Lactobacillus Rhamnosus (Culturelle) 1 cap BID PO 11/16/20 21:00 11/16/20 19:45 I have reviewed the current psychotropics carefully including drug interactions. Risk benefit ratio favors no change other than as noted in my dictated progress note. Diagnosis: Problems: (1) Major depressive disorder with psychotic features (2) Acute psychosis (3) Anxiety disorder, unspecified (4) Impulse control disorder, unspecified MUKESH JAY MDb 1, 2021 21:06
--- NOTE | 2020-11-17 06:34 | EKG ---
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
[2020-11-17 06:44] VITALS: BP 120/70
[2020-11-17] MEDS: CALCIUM CARBONATE 500 MG TABLET PO SCH ×2 (08:55→20:15)
[2020-11-17] MEDS: OLANZapine 10 MG TABLET PO SCH ×2 (08:55→20:15)
[2020-11-17] MEDS: SUCRALFATE 1 GM TABLET. PO SCH ×2 (08:55→20:15)
[2020-11-17] MEDS: FERROUS SULFATE 325 MG TABLET. PO SCH ×2 (08:55→20:15)
[2020-11-17] MEDS: ASCORBIC ACID 500 MG TABLET PO SCH ×2 (08:55→20:15)
[2020-11-17] MEDS: LACTOBACILLUS RHAMNOSUS GG 1 CAPSULE. PO SCH ×2 (08:55→20:15)
[2020-11-17] MEDS: POTASSIUM CHLORIDE 20 MEQ TABLET.ER. PO SCH ×2 (08:55→20:16)
[2020-11-17] MEDS: PANTOPRAZOLE 40 MG TABLET. PO SCH (08:56)
[2020-11-17] MEDS: FLUoxetine HCL 20 MG CAPSULE PO SCH (08:56)
[2020-11-17] MEDS: busPIRone 10 MG TABLET. PO SCH ×2 (08:56→17:29)
[2020-11-17] MEDS: GABAPENTIN 100 MG CAPSULE. PO SCH ×2 (08:56→17:29)
[2020-11-17] MEDS: CLOPIDOGREL BISULFATE 75 MG TABLET PO SCH (08:56)
[2020-11-17] MEDS: oxyCODONE ER 20 MG TAB.ER.12H PO SCH ×2 (08:57→20:16)
[2020-11-17] MEDS: NICOTINE 7MG PATCH. TD SCH (08:57)
[2020-11-17] MEDS: NEO/POLYMYX/DEXAMETH OPHTH SUSPENSION 5ML BOTTLE. OU SCH (08:57)
--- NOTE | 2020-11-17 09:58 | HP ---
ADMIT DATE: PSYCHIATRIC ADMISSION HISTORY/EVALUATION I met with the patient evening of 11/16/2020 for this evaluation [id number]. IDENTIFYING DATA: The patient is a 65-year-old female referred to us from [facility] by her primary care physician/psychiatrist on account of recurrence of her major depressive disorder with psychotic features, anxiety disorder and impulse control disorder. She is being admitted by her son, Christiano Duncan, who is her power of solder leveler printed circuit boards and at the nursing facility, the patient had increasing anxiety, was on the call light, repeatedly hollering out, yelling, threatening to throw herself on the floor, noted to be "attention seeking." She is verbally abusive, name calling, belligerent, anxious, irritable. Behaviors have been worsening for about 2 or 3 weeks. Attempts had been made to move her room to a private room and Zyprexa was increased, Neurontin increased, Ativan added per her primary care physician, but she failed all of this. Behaviors were deemed unmanageable at the facility resulting in this referral. She was initially admitted to [facility] Medical/S[facility] floor until her COVID screen was negative and then she transferred to us. CHIEF COMPLAINT: "Yes, I was getting upset. I get impatient." HISTORY OF PRESENT ILLNESS: The patient has a history of major depressive disorder with psychotic features and has been hospitalized with us in the past. She has been doing better at the group home until she has had worsening behaviors for the past 2 or 3 weeks. She has had marked mood lability, anxiety, irritability, appears more depressed, impulsive, angry and unmanageable. She has failed outpatient psychiatric interventions. She does have a history of mood swings, but no clear established diagnosis of bipolar disorder, but she has been known to be somewhat obsessive and is noted to have a possible personality disorder. PAST PSYCHIATRIC HISTORY: As above. She has been hospitalized on our service in the past. MEDICAL HISTORY: Positive for status post pneumonia, cellulitis, severe rheumatoid arthritis, esophagitis, COPD, chronic right knee pain, chronic shoulder muscle weakness, GERD, emphysema, chronic constipation, anemia, malnutrition, hypertension, frequent falls, history of right knee replacement. ACCU-CHEKS: Not applicable. DIET: Regular. Takes medications whole. Ambulates in wheelchair. Urine culture is pending. CODE STATUS: Full code. ALLERGIES: ASPIRIN, KEFLEX, CLARITHROMYCIN, CODEINE, IBUPROFEN, AUGMENTIN, NUBAIN, TAMIFLU, LATEX. CURRENT PSYCHOTROPICS: BuSpar 10 mg b.i.d.; gabapentin 400 mg b.i.d., 800 mg at bedtime; Ativan 0.5 mg b.i.d. p.r.n. anxiety; Prozac 40 mg a day; Zyprexa 10 mg b.i.d. FAMILY HISTORY: Noncontributory. SOCIAL HISTORY: No history of alcohol, drug abuse, physical, sexual or elder abuse. She is not known to be a perpetrator. REACTION TO HOSPITALIZATION: The patient accepting of it. ASSETS: Stable living at the above nursing facility, supportive son who is her power of solder leveler printed circuit boards. REVIEW OF SYSTEMS: Ambulation impaired in wheelchair and some pain is consequent to arthritis, anxiety. No CV, , pulmonary, eye system symptoms on review. MENTAL STATUS EXAMINATION: The patient is reasonably oriented, seemed to recognize me from a prior hospitalization. Speech coherent, little pressured at times. Abstraction fair, computation impaired, language function intact, attention span short. Mood is somewhat depressed and anxious, somewhat obsessive. No active suicidal or homicidal ideation. Attention span is short. IMPRESSION: Major depressive disorder with psychotic features, rule out bipolar 1 disorder, unspecified; anxiety disorder, unspecified; impulse control disorder. Rest as above. PLAN: Admit to Geropsychiatry Unit at [facility]. I will see the patient daily individually from a psychiatric standpoint. Medical followup with Dr. Blair/Dr. Palafox. Continue the patient on her current psychotropics. Observe baseline. Make further adjustments as clinically indicated. ESTIMATED LENGTH OF STAY: 10-12 days. DISPOSITION: Plans back to group home when stable. MUKESH JAY MD DR: CASANDRA/elvis JOB#: [id number] / [id number]
[2020-11-17] MEDS: LORazepam 1 MG TABLET PO PRN (12:39)
[2020-11-17 15:26] VITALS: BP 116/79
--- NOTE | 2020-11-17 19:07 | CONS ---
DATE OF CONSULTATION: 11/17/2020 REASON FOR CONSULTATION: Medical management. HISTORY OF PRESENT ILLNESS: The patient is a 65-year-old female patient who was referred from [facility] by her primary care physician on account of recurrence of her major depressive disorder with psychotic features, anxiety disorder, impulse control. She was seen initially at [address] [place] [address] where she was screened for COVID-19 at 1010 out to be negative and was referred to [facility] for inpatient psychiatric stabilization. She apparently has been repeatedly hollering out, yelling, threatening to throw herself to the floor, noted to be attention seeking. She is verbally abusive, name calling, belligerent, anxious, irritable, behaviors that have been worsening for about 2-3 weeks. Attempts have been made to move her room to a private room and Zyprexa was increased, her Neurontin was increased and Ativan was added by primary care physician without much improvement and therefore, she is admitted to [facility] for inpatient psychiatric stabilization. Medically, she has multiple medical problems including severe deforming rheumatoid arthritis, esophagitis, COPD, chronic pain syndrome, gastroesophageal reflux disease, chronic constipation, anemia, malnutrition, hypertension, frequent falls. PAST SURGICAL HISTORY: Significant for bilateral cataract extraction, tonsillectomy, appendectomy, cholecystectomy, total abdominal hysterectomy. She also has bilateral total knee arthroplasty and left shoulder surgery. PAST PSYCHIATRIC HISTORY: Significant for anxiety and impulse control, major depressive disorder. ALLERGIES: She is allergic to AMOXICILLIN, ASPIRIN, CEPHALEXIN, CLARITHROMYCIN, CLAVULANIC ACID, CODEINE, IBUPROFEN, LATEX, NALBUPHINE and TAMIFLU. FAMILY HISTORY: Her father and 2 sisters and other brothers are all . SOCIAL HISTORY: She is , has 1 son. Fortunately, continues to smoke according to her 3 cigarettes a day. She does not drink alcohol or inhalational drugs. 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 MEDICATIONS: She is currently on following medications: She is on fluoxetine 40 mg once a day. She is on Maxitrol 1 drop to both eyes once a day, gabapentin 400 mg twice a day, Plavix 75 mg daily, Nicoderm transdermal patch 7 mg topically daily, buspirone 10 mg twice a day, Protonix 40 mg daily, lactobacillus rhamnosus 1 capsule twice a day, gabapentin 800 mg at bedtime, ascorbic acid 500 mg twice a day, tamsulosin 0.4 mg at bedtime, sucralfate 1 g twice a day, potassium chloride 20 mEq twice a day, OxyContin 20 mg twice a day, olanzapine 10 mg twice a day, ferrous sulfate 325 mg twice a day, calcium carbonate with glycine 500 mg twice a day, and artificial tears 1 drop to both eyes every 15 minutes. She is on Preparation-H applied topically twice a day, lorazepam 0.5 mg twice a day, Colace 100 mg daily p.r.n. for constipation, acetaminophen 650 mg every 6 hours, magnesium hydroxide for milk of magnesia 30 mL p.o. daily p.r.n. for constipation. PHYSICAL EXAMINATION: GENERAL: On examining her, she was pale, but no jaundice, cyanosis or thyromegaly. No jugular venous distention. No lower limb edema. VITAL SIGNS: Her heart rate was 80, blood pressure was 116/79, temperature was 96.3, respiratory rate was 16, and oxygen saturation was 97% on 3 liters of oxygen. HEAD, EYES, EARS, NOSE AND THROAT: Showed normocephalic, atraumatic. NECK: Supple. HEART: Normal first and second heart sounds. No gallop or murmur. CHEST: Clear to auscultation. No crepitation or rhonchi. ABDOMEN: Distended, soft, nontender. NEUROLOGIC: She is awake, alert, responding appropriately. All cranial nerves are intact. He moves she is mostly bed bound, wheelchair bound. She has severe deforming rheumatoid arthritis. She has multiple wounds in both lower extremities. LABORATORY DATA: Her lab work showed a white cell count was 9200; hemoglobin 10; hematocrit 32; MCV 93; and platelet count 373,000 with normal manual differential. Her chemistry showed a serum sodium 140, potassium 3.9, chloride 105, bicarbonate 31, anion gap of 4, BUN 20, creatinine 0.8, estimated GFR was 72 mL per minute. Her glucose was 104. Hemoglobin A1c was 5.3%. Calcium was 8.7, magnesium was 1.9. Total bilirubin, AST, ALT, alkaline phosphatase were normal. Her total protein was 7.1, albumin was 2.4. Her serum triglycerides were 81, total cholesterol 172, LDL was 113, VLDL was 16, and HDL cholesterol of 43 and the ratio was 4. Her vitamin B12 was 430, 25-hydroxy vitamin D was normal at 33.8. Her TSH was 3.9434. D-dimer was high at 3.72. Urinalysis was essentially unremarkable and her coronavirus by PCR was not detectable. Her total T3 was normal at 99 and free T4 was 1.13 and is also well within normal range. 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 She is verbally abusive, name calling, belligerent, anxious, irritable. Medically, she has multiple medical problems including chronic obstructive pulmonary disease, severe deforming rheumatoid arthritis, hiatal hernia, esophagitis, chronic constipation, anemia, malnutrition, hypertension. All in all, the patient seems to be medically stable. I have reviewed all her medication and lab works and seemed to be all appropriate. Thank you, Dr. Pérez for allowing me to participate in the care of this patient. ANGEL WHITE MD DR: STAR/elvis JOB#: [id number] / [id number]
[2020-11-17] MEDS: GABAPENTIN 400 MG CAPSULE. PO SCH (20:15)
[2020-11-17] MEDS: TAMSULOSIN 0.4 MG CAP.ER.24H. PO SCH (20:15)
--- NOTE | 2020-11-17 21:02 | PDOC ---
Exam Note: Andrea Note: Please also refer to the separate dictated note~for this date of service dictated separately.~Patient seen individually. Discussed the patient with Nursing staff reviewed the chart.~Reviewed interim history and current functioning. Reviewed vital signs,~Labs/ Radiology~and current medications noted below. Continue current treatment with the changes noted in the dictated addendum note Assessment: Vital Signs/I&O: Vital Signs Date Time Temp Pulse Resp B/P (MAP) Pulse Ox O2 Delivery O2 Flow Rate FiO2 11/17/20 20:16 97 11/17/20 15:26 96.3 80 16 116/79 (91) 11/17/20 13:00 Nasal Cannula 3.0 I & O 11/16/20 11/16/20 11/17/20 14:59 22:59 06:59 Intake Total 220 ml Balance 220 ml Current Medications: Meds: Current Medications Medications (Trade) Dose Ordered Sig/Jocelyn Route PRN Reason Start Time Stop Time Status Last Admin Dose Admin Acetaminophen (Tylenol) 650 mg PRN Q6HRS PRN PO MILD PAIN / TEMP > 100.3'F 11/16/20 17:30 11/17/20 18:17 DC 11/17/20 12:40 Multi-Ingredient Ointment (Analgesic [place]) 1 laurence PRN QID PRN TP MUSCLE PAIN 11/16/20 17:30 Al Hydroxide/Mg Hydroxide (Mylanta Plus Xs) 15 ml PRN AFTMEALHC PRN PO DYSPEPSIA 11/16/20 17:30 Magnesium Hydroxide (Milk Of Magnesia) 2,400 mg PRN QHS PRN PO CONSTIPATION 11/16/20 17:30 Nicotine (Nicoderm Cq 7mg Patch) 1 patch DAILY TD 11/16/20 17:30 11/16/20 17:44 DC Nicotine (Nicoderm Cq 7mg Patch) 1 patch DAILY TD 11/17/20 09:00 11/17/20 08:57 Acetaminophen (Tylenol) 650 mg PRN Q6HRS PRN PO MILD PAIN / TEMP > 100.3'F 11/16/20 18:00 Buspirone HCl (Buspar) 10 mg BIDWMEALS PO 11/17/20 08:00 11/17/20 18:09 DC 11/17/20 17:29 Calcium Carbonate/ Glycine (Oscal) 500 mg BID PO 11/16/20 21:00 11/17/20 20:15 Clopidogrel Bisulfate (Plavix) 75 mg DAILY PO 11/17/20 09:00 11/17/20 08:56 Docusate Sodium (Colace) 100 mg PRN DAILY PRN PO 2ND CHOICE CONSTIPATION 11/16/20 18:00 Ferrous Sulfate (Feosol) 325 mg BID PO 11/16/20 21:00 11/17/20 20:15 Gabapentin (Neurontin) 400 mg BID94 PO 11/17/20 09:00 11/17/20 17:29 Lorazepam (Ativan) 0.5 mg PRN BID PRN PO ANXIETY / AGITATION 11/16/20 18:00 11/17/20 12:39 Neomycin/ Polymyxin/ Dexamethasone (Maxitrol) 1 drop DAILY OU 11/17/20 09:00 11/17/20 08:57 Nicotine (Nicoderm Cq 7mg Patch) 1 patch PRN DAILY PRN TD SMOKING CESSATION 11/16/20 19:00 Olanzapine (ZyPREXA) 10 mg BID PO 11/16/20 21:00 11/17/20 20:15 Oxycodone HCl (OxyCONTIN) 20 mg BID PO 11/16/20 21:00 11/17/20 20:16 Pantoprazole Sodium (Protonix) 40 mg DAILYAC PO 11/17/20 07:30 11/17/20 08:56 Potassium Chloride (Klor-Con) 20 meq BID PO 11/16/20 21:00 11/17/20 20:16 Sucralfate (Carafate) 1 gm BID PO 11/16/20 21:00 11/17/20 20:15 Tamsulosin HCl (Flomax) 0.4 mg HS PO 11/16/20 21:00 11/17/20 20:15 Ascorbic Acid (Vitamin C) 500 mg BID PO 11/16/20 21:00 11/17/20 20:15 Fluoxetine HCl (PROzac) 40 mg DAILY PO 11/17/20 09:00 11/17/20 08:56 Non-Formulary Medication (Gabapentin ) 600 mg TID PO 11/16/20 21:00 UNV Gabapentin (Neurontin) 800 mg HS PO 11/16/20 21:00 11/17/20 20:15 Lactobacillus Rhamnosus (Culturelle) 1 cap BID PO 11/16/20 21:00 11/17/20 20:15 Phenyleph/Shark Oil/Min Oil/Petrol (Preparation H) 1 laurence PRN BID PRN RC RECTAL PAIN 11/16/20 18:45 Artificial Tears (Artificial Tears) 1 drop PRN Q15MIN PRN OD DRY EYE 11/16/20 18:45 Buspirone HCl (Buspar) 10 mg 1700 PO 11/18/20 17:00 11/20/20 23:50 Buspirone HCl (Buspar) 5 mg DAILY PO 11/18/20 09:00 11/20/20 23:50 Buspirone HCl (Buspar) 5 mg BIDWMEALS PO 11/21/20 08:00 Current Medications Medications (Trade) Dose Ordered Sig/Jocelyn Route PRN Reason Start Time Stop Time Status Last Admin Dose Admin Nicotine (Nicoderm Cq 7mg Patch) 1 patch DAILY TD 11/17/20 09:00 11/17/20 08:57 Buspirone HCl (Buspar) 10 mg BIDWMEALS PO 11/17/20 08:00 11/17/20 18:09 DC 11/17/20 17:29 Clopidogrel Bisulfate (Plavix) 75 mg DAILY PO 11/17/20 09:00 11/17/20 08:56 Gabapentin (Neurontin) 400 mg BID94 PO 11/17/20 09:00 11/17/20 17:29 Neomycin/ Polymyxin/ Dexamethasone (Maxitrol) 1 drop DAILY OU 11/17/20 09:00 11/17/20 08:57 Pantoprazole Sodium (Protonix) 40 mg DAILYAC PO 11/17/20 07:30 11/17/20 08:56 Fluoxetine HCl (PROzac) 40 mg DAILY PO 11/17/20 09:00 11/17/20 08:56 I have reviewed the current psychotropics carefully including drug interactions. Risk benefit ratio favors no change other than as noted in my dictated progress note. Diagnosis: Problems: (1) Major depressive disorder with psychotic features (2) Anxiety disorder, unspecified (3) Impulse control disorder, unspecified MUKESH JAY MD Nov 17, 2020 21:02
[2020-11-18] MEDS: ACETAMINOPHEN 325 MG TABLET PO PRN ×2 (04:53→16:23)
[2020-11-18 06:26] VITALS: BP 121/76
[2020-11-18] MEDS: SUCRALFATE 1 GM TABLET. PO SCH ×2 (09:12→20:29)
[2020-11-18] MEDS: NICOTINE 7MG PATCH. TD SCH (09:12)
[2020-11-18] MEDS: busPIRone 5 MG TABLET. PO SCH (09:12)
[2020-11-18] MEDS: GABAPENTIN 100 MG CAPSULE. PO SCH ×2 (09:12→16:14)
[2020-11-18] MEDS: oxyCODONE ER 20 MG TAB.ER.12H PO SCH ×2 (09:13→20:30)
[2020-11-18] MEDS: FERROUS SULFATE 325 MG TABLET. PO SCH ×2 (09:13→20:29)
[2020-11-18] MEDS: OLANZapine 10 MG TABLET PO SCH ×2 (09:13→20:29)
[2020-11-18] MEDS: ASCORBIC ACID 500 MG TABLET PO SCH ×2 (09:13→20:29)
[2020-11-18] MEDS: POTASSIUM CHLORIDE 20 MEQ TABLET.ER. PO SCH ×2 (09:14→20:29)
[2020-11-18] MEDS: CALCIUM CARBONATE 500 MG TABLET PO SCH ×2 (09:14→20:29)
[2020-11-18] MEDS: PANTOPRAZOLE 40 MG TABLET. PO SCH (09:14)
[2020-11-18] MEDS: FLUoxetine HCL 20 MG CAPSULE PO SCH (09:14)
[2020-11-18] MEDS: LACTOBACILLUS RHAMNOSUS GG 1 CAPSULE. PO SCH ×2 (09:14→20:29)
[2020-11-18] MEDS: CLOPIDOGREL BISULFATE 75 MG TABLET PO SCH (09:14)
[2020-11-18] MEDS: NEO/POLYMYX/DEXAMETH OPHTH SUSPENSION 5ML BOTTLE. OU SCH (09:15)
--- NOTE | 2020-11-18 09:18 | PDOC ---
Exam Note: Andrea Note: This note is a late entry for 11/17/2020 covers elements not covered in my initial note. Subjective: The patient was seen face to face in the evening of 11/17/2020 with Fritz RODRIGUES. Discussed with nursing staff, reviewed the chart. The patient slept 4-3/4 hours previous night. Overall the patient remains anxious, constantly wanting nursing staff to reposition her. She is compliant with medications. Review of Systems: Ambulation impaired in wheelchair. She complains of pain and generalized somatic symptoms. No CV, , pulmonary, eye, ENT system symptoms on review. Mental Status Exam: The patient is reasonably oriented. Speech coherent, has some latency. Abstraction is fair. Computation is impaired. Language function intact. Attention span is short. Mood and affect depressed. Laboratory Data: Reviewed. Impression: Major depressive disorder with psychotic features. Anxiety disorder unspecified. Impulse control disorder unspecified. Plan: The patient is rather on high dosages of Zyprexa 10 mg b.i.d. We will reduce it to 5 mg a.m. and 10 mg h.s. In 3 days drop the h.s. dosage down to 5 mg. Continue rest unchanged. Assessment: Vital Signs/I&O: Vital Signs Date Time Temp Pulse Resp B/P (MAP) Pulse Ox O2 Delivery O2 Flow Rate FiO2 11/18/20 06:26 97.7 75 18 121/76 (91) 97 Nasal Cannula 2.0 I & O 11/17/20 11/17/20 11/18/20 14:59 22:59 06:59 Intake Total 340 ml 220 ml 100 ml Balance 340 ml 220 ml 100 ml Current Medications: Meds: Current Medications Medications (Trade) Dose Ordered Sig/Jocelyn Route PRN Reason Start Time Stop Time Status Last Admin Dose Admin Acetaminophen (Tylenol) 650 mg PRN Q6HRS PRN PO MILD PAIN / TEMP > 100.3'F 11/16/20 17:30 11/17/20 18:17 DC 11/17/20 12:40 Multi-Ingredient Ointment (Analgesic [place]) 1 laurence PRN QID PRN TP MUSCLE PAIN 11/16/20 17:30 Al Hydroxide/Mg Hydroxide (Mylanta Plus Xs) 15 ml PRN AFTMEALHC PRN PO DYSPEPSIA 11/16/20 17:30 Magnesium Hydroxide (Milk Of Magnesia) 2,400 mg PRN QHS PRN PO CONSTIPATION 11/16/20 17:30 Nicotine (Nicoderm Cq 7mg Patch) 1 patch DAILY TD 11/16/20 17:30 11/16/20 17:44 DC Nicotine (Nicoderm Cq 7mg Patch) 1 patch DAILY TD 11/17/20 09:00 11/18/20 09:12 Acetaminophen (Tylenol) 650 mg PRN Q6HRS PRN PO MILD PAIN / TEMP > 100.3'F 11/16/20 18:00 11/18/20 04:53 Buspirone HCl (Buspar) 10 mg BIDWMEALS PO 11/17/20 08:00 11/17/20 18:09 DC 11/17/20 17:29 Calcium Carbonate/ Glycine (Oscal) 500 mg BID PO 11/16/20 21:00 11/18/20 09:14 Clopidogrel Bisulfate (Plavix) 75 mg DAILY PO 11/17/20 09:00 11/18/20 09:14 Docusate Sodium (Colace) 100 mg PRN DAILY PRN PO 2ND CHOICE CONSTIPATION 11/16/20 18:00 Ferrous Sulfate (Feosol) 325 mg BID PO 11/16/20 21:00 11/18/20 09:13 Gabapentin (Neurontin) 400 mg BID94 PO 11/17/20 09:00 11/18/20 09:12 Lorazepam (Ativan) 0.5 mg PRN BID PRN PO ANXIETY / AGITATION 11/16/20 18:00 11/17/20 12:39 Neomycin/ Polymyxin/ Dexamethasone (Maxitrol) 1 drop DAILY OU 11/17/20 09:00 11/18/20 09:15 Nicotine (Nicoderm Cq 7mg Patch) 1 patch PRN DAILY PRN TD SMOKING CESSATION 11/16/20 19:00 Olanzapine (ZyPREXA) 10 mg BID PO 11/16/20 21:00 11/18/20 09:13 Oxycodone HCl (OxyCONTIN) 20 mg BID PO 11/16/20 21:00 11/18/20 09:13 Pantoprazole Sodium (Protonix) 40 mg DAILYAC PO 11/17/20 07:30 11/18/20 09:14 Potassium Chloride (Klor-Con) 20 meq BID PO 11/16/20 21:00 11/18/20 09:14 Sucralfate (Carafate) 1 gm BID PO 11/16/20 21:00 11/18/20 09:12 Tamsulosin HCl (Flomax) 0.4 mg HS PO 11/16/20 21:00 11/17/20 20:15 Ascorbic Acid (Vitamin C) 500 mg BID PO 11/16/20 21:00 11/18/20 09:13 Fluoxetine HCl (PROzac) 40 mg DAILY PO 11/17/20 09:00 11/18/20 09:14 Non-Formulary Medication (Gabapentin ) 600 mg TID PO 11/16/20 21:00 UNV Gabapentin (Neurontin) 800 mg HS PO 11/16/20 21:00 11/17/20 20:15 Lactobacillus Rhamnosus (Culturelle) 1 cap BID PO 11/16/20 21:00 11/18/20 09:14 Phenyleph/Shark Oil/Min Oil/Petrol (Preparation H) 1 laurence PRN BID PRN RC RECTAL PAIN 11/16/20 18:45 Artificial Tears (Artificial Tears) 1 drop PRN Q15MIN PRN OD DRY EYE 11/16/20 18:45 Buspirone HCl (Buspar) 10 mg 1700 PO 11/18/20 17:00 11/20/20 23:50 Buspirone HCl (Buspar) 5 mg DAILY PO 11/18/20 09:00 11/20/20 23:50 11/18/20 09:12 Buspirone HCl (Buspar) 5 mg BIDWMEALS PO 11/21/20 08:00 Current Medications Medications (Trade) Dose Ordered Sig/Jocelyn Route PRN Reason Start Time Stop Time Status Last Admin Dose Admin Buspirone HCl (Buspar) 5 mg DAILY PO 11/18/20 09:00 11/20/20 23:50 11/18/20 09:12 I have reviewed the current psychotropics carefully including drug interactions. Risk benefit ratio favors no change other than as noted in my dictated progress note. Diagnosis: Problems: (1) Impulse control disorder, unspecified (2) Anxiety disorder, unspecified (3) Major depressive disorder with psychotic features MUKESH JAY MD Nov 18, 2020 09:18
[2020-11-18] MEDS: METHYL SALICYLATE/MENTHOL TOPICAL OINTMENT 57GM TUBE. TP PRN (15:29)
[2020-11-18] MEDS: busPIRone 10 MG TABLET. PO SCH (16:14)
[2020-11-18 16:18] VITALS: BP 103/64
[2020-11-18] MEDS: LORazepam 1 MG TABLET PO PRN (16:24)
[2020-11-18] MEDS: GABAPENTIN 400 MG CAPSULE. PO SCH (20:29)
[2020-11-18] MEDS: TAMSULOSIN 0.4 MG CAP.ER.24H. PO SCH (20:30)
--- NOTE | 2020-11-18 21:02 | PDOC ---
Exam Note: Andrea Note: Please also refer to the separate dictated note~for this date of service dictated separately.~Patient seen individually. Discussed the patient with Nursing staff reviewed the chart.~Reviewed interim history and current functioning. Reviewed vital signs,~Labs/ Radiology~and current medications noted below. Continue current treatment with the changes noted in the dictated addendum note Assessment: Vital Signs/I&O: Vital Signs Date Time Temp Pulse Resp B/P (MAP) Pulse Ox O2 Delivery O2 Flow Rate FiO2 11/18/20 20:30 98 11/18/20 16:18 98.2 76 22 103/64 (77) 11/18/20 13:33 Nasal Cannula 2.0 I & O 11/17/20 11/17/20 11/18/20 15:00 23:00 07:00 Intake Total 340 ml 220 ml 100 ml Balance 340 ml 220 ml 100 ml Current Medications: Meds: Current Medications Medications (Trade) Dose Ordered Sig/Jocelyn Route PRN Reason Start Time Stop Time Status Last Admin Dose Admin Acetaminophen (Tylenol) 650 mg PRN Q6HRS PRN PO MILD PAIN / TEMP > 100.3'F 11/16/20 17:30 11/17/20 18:17 DC 11/17/20 12:40 Multi-Ingredient Ointment (Analgesic [place]) 1 laurence PRN QID PRN TP MUSCLE PAIN 11/16/20 17:30 11/18/20 15:29 Al Hydroxide/Mg Hydroxide (Mylanta Plus Xs) 15 ml PRN AFTMEALHC PRN PO DYSPEPSIA 11/16/20 17:30 Magnesium Hydroxide (Milk Of Magnesia) 2,400 mg PRN QHS PRN PO CONSTIPATION 11/16/20 17:30 Nicotine (Nicoderm Cq 7mg Patch) 1 patch DAILY TD 11/16/20 17:30 11/16/20 17:44 DC Nicotine (Nicoderm Cq 7mg Patch) 1 patch DAILY TD 11/17/20 09:00 11/18/20 09:12 Acetaminophen (Tylenol) 650 mg PRN Q6HRS PRN PO MILD PAIN / TEMP > 100.3'F 11/16/20 18:00 11/18/20 16:23 Buspirone HCl (Buspar) 10 mg BIDWMEALS PO 11/17/20 08:00 11/17/20 18:09 DC 11/17/20 17:29 Calcium Carbonate/ Glycine (Oscal) 500 mg BID PO 11/16/20 21:00 11/18/20 20:29 Clopidogrel Bisulfate (Plavix) 75 mg DAILY PO 11/17/20 09:00 11/18/20 09:14 Docusate Sodium (Colace) 100 mg PRN DAILY PRN PO 2ND CHOICE CONSTIPATION 11/16/20 18:00 Ferrous Sulfate (Feosol) 325 mg BID PO 11/16/20 21:00 11/18/20 20:29 Gabapentin (Neurontin) 400 mg BID94 PO 11/17/20 09:00 11/18/20 16:14 Lorazepam (Ativan) 0.5 mg PRN BID PRN PO ANXIETY / AGITATION 11/16/20 18:00 11/18/20 16:24 Neomycin/ Polymyxin/ Dexamethasone (Maxitrol) 1 drop DAILY OU 11/17/20 09:00 11/18/20 09:15 Nicotine (Nicoderm Cq 7mg Patch) 1 patch PRN DAILY PRN TD SMOKING CESSATION 11/16/20 19:00 Olanzapine (ZyPREXA) 10 mg BID PO 11/16/20 21:00 11/18/20 20:29 Oxycodone HCl (OxyCONTIN) 20 mg BID PO 11/16/20 21:00 11/18/20 20:30 Pantoprazole Sodium (Protonix) 40 mg DAILYAC PO 11/17/20 07:30 11/18/20 09:14 Potassium Chloride (Klor-Con) 20 meq BID PO 11/16/20 21:00 11/18/20 20:29 Sucralfate (Carafate) 1 gm BID PO 11/16/20 21:00 11/18/20 20:29 Tamsulosin HCl (Flomax) 0.4 mg HS PO 11/16/20 21:00 11/18/20 20:30 Ascorbic Acid (Vitamin C) 500 mg BID PO 11/16/20 21:00 11/18/20 20:29 Fluoxetine HCl (PROzac) 40 mg DAILY PO 11/17/20 09:00 11/18/20 09:14 Non-Formulary Medication (Gabapentin ) 600 mg TID PO 11/16/20 21:00 UNV Gabapentin (Neurontin) 800 mg HS PO 11/16/20 21:00 11/18/20 20:29 Lactobacillus Rhamnosus (Culturelle) 1 cap BID PO 11/16/20 21:00 11/18/20 20:29 Phenyleph/Shark Oil/Min Oil/Petrol (Preparation H) 1 laurence PRN BID PRN RC RECTAL PAIN 11/16/20 18:45 Artificial Tears (Artificial Tears) 1 drop PRN Q15MIN PRN OD DRY EYE 11/16/20 18:45 Buspirone HCl (Buspar) 10 mg 1700 PO 11/18/20 17:00 11/20/20 23:50 11/18/20 16:14 Buspirone HCl (Buspar) 5 mg DAILY PO 11/18/20 09:00 11/20/20 23:50 11/18/20 09:12 Buspirone HCl (Buspar) 5 mg BIDWMEALS PO 11/21/20 08:00 Quetiapine Fumarate (SEROquel) 12.5 mg 0900,1300,1500 PO 11/19/20 09:00 Current Medications Medications (Trade) Dose Ordered Sig/Jocelyn Route PRN Reason Start Time Stop Time Status Last Admin Dose Admin Buspirone HCl (Buspar) 10 mg 1700 PO 11/18/20 17:00 11/20/20 23:50 11/18/20 16:14 Buspirone HCl (Buspar) 5 mg DAILY PO 11/18/20 09:00 11/20/20 23:50 11/18/20 09:12 I have reviewed the current psychotropics carefully including drug interactions. Risk benefit ratio favors no change other than as noted in my dictated progress note. Diagnosis: Problems: (1) Major depressive disorder, recurrent episode (2) Impulse control disorder, unspecified (3) Anxiety disorder, unspecified (4) Major depressive disorder with psychotic features MUKESH JAY MD Nov 18, 2020 21:02
--- NOTE | 2020-11-18 22:54 | PN ---
DATE: 11/18/2020 PSYCHIATRIC PROGRESS NOTE SUBJECTIVE: The patient was seen on rounds evening of 11/18/2020. Discussed with RAVI Kirk, reviewed the chart. This note covers elements not covered in my initial note. The patient slept for 3/4 hours previous night. She has been extremely anxious, restless, yelling. She does seem to be in significant pain from arthritis, making her anxiety, irritability worse. REVIEW OF SYSTEMS: Ambulation impaired, in wheelchair. No CV, , pulmonary, eye, ENT system symptoms on review. She has vague somatic symptoms. MENTAL STATUS EXAM: Oriented reasonably. Speech coherent, rapid, loud at times. Abstraction fair, computation impaired, language function intact, attention span short. Mood and affect still depressed with marked mood lability. No suicidal ideation. LABORATORY DATA: Reviewed. IMPRESSION: Major depressive disorder with psychotic features; anxiety disorder, unspecified; impulse control disorder, unspecified. PLAN: Start Seroquel 12.5 mg at 9 a.m., 1:00 p.m., 5:00 p.m. to augment the Prozac 40 mg a day and to help with anxiety, irritability, mood lability. Reviewed drug interactions, risk/benefit ratio. There is no further change. MUKESH JAY MD DR: CASANDRA/elvis JOB#: [id number] / [id number]
[2020-11-19 06:03] VITALS: BP 122/62
[2020-11-19] MEDS: PANTOPRAZOLE 40 MG TABLET. PO SCH (11:59)
[2020-11-19] MEDS: CLOPIDOGREL BISULFATE 75 MG TABLET PO SCH (12:00)
[2020-11-19] MEDS: LACTOBACILLUS RHAMNOSUS GG 1 CAPSULE. PO SCH ×2 (12:00→19:36)
[2020-11-19] MEDS: OLANZapine 10 MG TABLET PO SCH ×2 (12:00→19:36)
[2020-11-19] MEDS: GABAPENTIN 100 MG CAPSULE. PO SCH ×2 (12:00→15:39)
[2020-11-19] MEDS: FERROUS SULFATE 325 MG TABLET. PO SCH ×2 (12:00→19:36)
[2020-11-19] MEDS: ASCORBIC ACID 500 MG TABLET PO SCH ×2 (12:00→19:37)
[2020-11-19] MEDS: SUCRALFATE 1 GM TABLET. PO SCH ×2 (12:00→19:36)
[2020-11-19] MEDS: FLUoxetine HCL 20 MG CAPSULE PO SCH (12:00)
[2020-11-19] MEDS: NICOTINE 7MG PATCH. TD SCH (12:00)
[2020-11-19] MEDS: CALCIUM CARBONATE 500 MG TABLET PO SCH ×2 (12:01→19:36)
[2020-11-19] MEDS: POTASSIUM CHLORIDE 20 MEQ TABLET.ER. PO SCH ×2 (12:01→19:36)
[2020-11-19] MEDS: busPIRone 5 MG TABLET. PO SCH (12:01)
[2020-11-19] MEDS: QUEtiapine 25 MG TABLET. PO SCH ×3 (12:02→15:38)
[2020-11-19] MEDS: oxyCODONE ER 20 MG TAB.ER.12H PO SCH ×2 (12:03→19:37)
[2020-11-19] MEDS: NEO/POLYMYX/DEXAMETH OPHTH SUSPENSION 5ML BOTTLE. OU SCH (12:04)
[2020-11-19] MEDS: LORazepam 1 MG TABLET PO PRN (13:26)
[2020-11-19 16:01] VITALS: BP 104/59
[2020-11-19] MEDS: busPIRone 10 MG TABLET. PO SCH (17:26)
[2020-11-19] MEDS: TAMSULOSIN 0.4 MG CAP.ER.24H. PO SCH (19:36)
[2020-11-19] MEDS: GABAPENTIN 400 MG CAPSULE. PO SCH (19:36)
--- NOTE | 2020-11-19 21:09 | PDOC ---
Exam Note: Andrea Note: Please also refer to the separate dictated note~for this date of service dictated separately.~Patient seen individually. Discussed the patient with Nursing staff reviewed the chart.~Reviewed interim history and current functioning. Reviewed vital signs,~Labs/ Radiology~and current medications noted below. Continue current treatment with the changes noted in the dictated addendum note Assessment: Vital Signs/I&O: Vital Signs Date Time Temp Pulse Resp B/P (MAP) Pulse Ox O2 Delivery O2 Flow Rate FiO2 11/19/20 16:10 18 93 Nasal Cannula 2.0 11/19/20 16:01 97.9 89 104/59 (74) I & O 11/18/20 11/18/20 11/19/20 15:00 23:00 07:00 Intake Total 480 ml 320 ml Balance 480 ml 320 ml Current Medications: Meds: Current Medications Medications (Trade) Dose Ordered Sig/Jocelyn Route PRN Reason Start Time Stop Time Status Last Admin Dose Admin Acetaminophen (Tylenol) 650 mg PRN Q6HRS PRN PO MILD PAIN / TEMP > 100.3'F 11/16/20 17:30 11/17/20 18:17 DC 11/17/20 12:40 Multi-Ingredient Ointment (Analgesic [place]) 1 laurence PRN QID PRN TP MUSCLE PAIN 11/16/20 17:30 11/18/20 15:29 Al Hydroxide/Mg Hydroxide (Mylanta Plus Xs) 15 ml PRN AFTMEALHC PRN PO DYSPEPSIA 11/16/20 17:30 Magnesium Hydroxide (Milk Of Magnesia) 2,400 mg PRN QHS PRN PO CONSTIPATION 11/16/20 17:30 Nicotine (Nicoderm Cq 7mg Patch) 1 patch DAILY TD 11/16/20 17:30 11/16/20 17:44 DC Nicotine (Nicoderm Cq 7mg Patch) 1 patch DAILY TD 11/17/20 09:00 11/19/20 12:00 Acetaminophen (Tylenol) 650 mg PRN Q6HRS PRN PO MILD PAIN / TEMP > 100.3'F 11/16/20 18:00 11/18/20 16:23 Buspirone HCl (Buspar) 10 mg BIDWMEALS PO 11/17/20 08:00 11/17/20 18:09 DC 11/17/20 17:29 Calcium Carbonate/ Glycine (Oscal) 500 mg BID PO 11/16/20 21:00 11/19/20 19:36 Clopidogrel Bisulfate (Plavix) 75 mg DAILY PO 11/17/20 09:00 11/19/20 12:00 Docusate Sodium (Colace) 100 mg PRN DAILY PRN PO 2ND CHOICE CONSTIPATION 11/16/20 18:00 Ferrous Sulfate (Feosol) 325 mg BID PO 11/16/20 21:00 11/19/20 19:36 Gabapentin (Neurontin) 400 mg BID94 PO 11/17/20 09:00 11/19/20 15:39 Lorazepam (Ativan) 0.5 mg PRN BID PRN PO ANXIETY / AGITATION 11/16/20 18:00 11/19/20 13:26 Neomycin/ Polymyxin/ Dexamethasone (Maxitrol) 1 drop DAILY OU 11/17/20 09:00 11/19/20 12:04 Nicotine (Nicoderm Cq 7mg Patch) 1 patch PRN DAILY PRN TD SMOKING CESSATION 11/16/20 19:00 Olanzapine (ZyPREXA) 10 mg BID PO 11/16/20 21:00 11/19/20 19:36 Oxycodone HCl (OxyCONTIN) 20 mg BID PO 11/16/20 21:00 11/19/20 19:37 Pantoprazole Sodium (Protonix) 40 mg DAILYAC PO 11/17/20 07:30 11/19/20 11:59 Potassium Chloride (Klor-Con) 20 meq BID PO 11/16/20 21:00 11/19/20 19:36 Sucralfate (Carafate) 1 gm BID PO 11/16/20 21:00 11/19/20 19:36 Tamsulosin HCl (Flomax) 0.4 mg HS PO 11/16/20 21:00 11/19/20 19:36 Ascorbic Acid (Vitamin C) 500 mg BID PO 11/16/20 21:00 11/19/20 19:37 Fluoxetine HCl (PROzac) 40 mg DAILY PO 11/17/20 09:00 11/19/20 12:00 Non-Formulary Medication (Gabapentin ) 600 mg TID PO 11/16/20 21:00 UNV Gabapentin (Neurontin) 800 mg HS PO 11/16/20 21:00 11/19/20 19:36 Lactobacillus Rhamnosus (Culturelle) 1 cap BID PO 11/16/20 21:00 11/19/20 19:36 Phenyleph/Shark Oil/Min Oil/Petrol (Preparation H) 1 laurence PRN BID PRN RC RECTAL PAIN 11/16/20 18:45 Artificial Tears (Artificial Tears) 1 drop PRN Q15MIN PRN OD DRY EYE 11/16/20 18:45 Buspirone HCl (Buspar) 10 mg 1700 PO 11/18/20 17:00 11/20/20 23:50 11/19/20 17:26 Buspirone HCl (Buspar) 5 mg DAILY PO 11/18/20 09:00 11/20/20 23:50 11/19/20 12:01 Buspirone HCl (Buspar) 5 mg BIDWMEALS PO 11/21/20 08:00 Quetiapine Fumarate (SEROquel) 12.5 mg 0900,1300,1500 PO 11/19/20 09:00 11/19/20 15:38 Current Medications Medications (Trade) Dose Ordered Sig/Jocelyn Route PRN Reason Start Time Stop Time Status Last Admin Dose Admin Quetiapine Fumarate (SEROquel) 12.5 mg 0900,1300,1500 PO 11/19/20 09:00 11/19/20 15:38 I have reviewed the current psychotropics carefully including drug interactions. Risk benefit ratio favors no change other than as noted in my dictated progress note. Diagnosis: Problems: (1) Impulse control disorder, unspecified (2) Anxiety disorder, unspecified (3) Acute psychosis (4) Major depressive disorder with psychotic features MUKESH JAY MD Nov 19, 2020 21:09
[2020-11-20 06:24] VITALS: BP 135/69
[2020-11-20] MEDS: QUEtiapine 25 MG TABLET. PO SCH ×3 (06:39→15:00)
[2020-11-20] MEDS: FLUoxetine HCL 20 MG CAPSULE PO SCH (06:39)
[2020-11-20] MEDS: CLOPIDOGREL BISULFATE 75 MG TABLET PO SCH (06:39)
[2020-11-20] MEDS: busPIRone 5 MG TABLET. PO SCH (06:39)
[2020-11-20] MEDS: OLANZapine 10 MG TABLET PO SCH ×3 (06:39→21:00)
[2020-11-20] MEDS: PANTOPRAZOLE 40 MG TABLET. PO SCH (06:40)
[2020-11-20] MEDS: POTASSIUM CHLORIDE 20 MEQ TABLET.ER. PO SCH ×3 (06:40→21:00)
[2020-11-20] MEDS: SUCRALFATE 1 GM TABLET. PO SCH ×3 (06:40→21:00)
[2020-11-20] MEDS: GABAPENTIN 100 MG CAPSULE. PO SCH ×2 (06:40→16:00)
[2020-11-20] MEDS: FERROUS SULFATE 325 MG TABLET. PO SCH ×3 (06:40→21:00)
[2020-11-20] MEDS: LACTOBACILLUS RHAMNOSUS GG 1 CAPSULE. PO SCH ×3 (06:40→21:01)
[2020-11-20] MEDS: CALCIUM CARBONATE 500 MG TABLET PO SCH ×3 (06:40→21:00)
[2020-11-20] MEDS: ASCORBIC ACID 500 MG TABLET PO SCH ×2 (06:40→20:59)
[2020-11-20] MEDS: NICOTINE 7MG PATCH. TD SCH (06:41)
[2020-11-20] MEDS: NEO/POLYMYX/DEXAMETH OPHTH SUSPENSION 5ML BOTTLE. OU SCH (06:43)
[2020-11-20] MEDS: oxyCODONE ER 20 MG TAB.ER.12H PO SCH ×2 (06:43→21:00)
[2020-11-20] MEDS: LORazepam 1 MG TABLET PO PRN ×2 (13:43→14:30)
[2020-11-20 16:00] VITALS: BP 101/62
[2020-11-20] MEDS: busPIRone 10 MG TABLET. PO SCH (17:00)
[2020-11-20 20:53] VITALS: BP 103/63
--- NOTE | 2020-11-20 20:56 | PDOC ---
Exam Note: Andrea Note: Please also refer to the separate dictated note~for this date of service dictated separately.~Patient seen individually. Discussed the patient with Nursing staff reviewed the chart.~Reviewed interim history and current functioning. Reviewed vital signs,~Labs/ Radiology~and current medications noted below. Continue current treatment with the changes noted in the dictated addendum note Assessment: Vital Signs/I&O: Vital Signs Date Time Temp Pulse Resp B/P (MAP) Pulse Ox O2 Delivery O2 Flow Rate FiO2 11/20/20 06:43 95 11/20/20 06:24 98.0 87 18 135/69 (91) 11/19/20 16:10 Nasal Cannula 2.0 I & O 11/19/20 11/19/20 11/20/20 15:00 23:00 07:00 Intake Total 840 ml 360 ml Balance 840 ml 360 ml Current Medications: Meds: Current Medications Medications (Trade) Dose Ordered Sig/Jocelyn Route PRN Reason Start Time Stop Time Status Last Admin Dose Admin Acetaminophen (Tylenol) 650 mg PRN Q6HRS PRN PO MILD PAIN / TEMP > 100.3'F 11/16/20 17:30 11/17/20 18:17 DC 11/17/20 12:40 Multi-Ingredient Ointment (Analgesic [place]) 1 laurence PRN QID PRN TP MUSCLE PAIN 11/16/20 17:30 11/18/20 15:29 Al Hydroxide/Mg Hydroxide (Mylanta Plus Xs) 15 ml PRN AFTMEALHC PRN PO DYSPEPSIA 11/16/20 17:30 Magnesium Hydroxide (Milk Of Magnesia) 2,400 mg PRN QHS PRN PO CONSTIPATION 11/16/20 17:30 Nicotine (Nicoderm Cq 7mg Patch) 1 patch DAILY TD 11/16/20 17:30 11/16/20 17:44 DC Nicotine (Nicoderm Cq 7mg Patch) 1 patch DAILY TD 11/17/20 09:00 11/20/20 06:41 Acetaminophen (Tylenol) 650 mg PRN Q6HRS PRN PO MILD PAIN / TEMP > 100.3'F 11/16/20 18:00 11/18/20 16:23 Buspirone HCl (Buspar) 10 mg BIDWMEALS PO 11/17/20 08:00 11/17/20 18:09 DC 11/17/20 17:29 Calcium Carbonate/ Glycine (Oscal) 500 mg BID PO 11/16/20 21:00 11/20/20 06:40 Clopidogrel Bisulfate (Plavix) 75 mg DAILY PO 11/17/20 09:00 11/20/20 06:39 Docusate Sodium (Colace) 100 mg PRN DAILY PRN PO 2ND CHOICE CONSTIPATION 11/16/20 18:00 Ferrous Sulfate (Feosol) 325 mg BID PO 11/16/20 21:00 11/20/20 06:40 Gabapentin (Neurontin) 400 mg BID94 PO 11/17/20 09:00 11/20/20 16:00 Lorazepam (Ativan) 0.5 mg PRN BID PRN PO ANXIETY / AGITATION 11/16/20 18:00 11/20/20 14:30 Neomycin/ Polymyxin/ Dexamethasone (Maxitrol) 1 drop DAILY OU 11/17/20 09:00 11/20/20 06:43 Nicotine (Nicoderm Cq 7mg Patch) 1 patch PRN DAILY PRN TD SMOKING CESSATION 11/16/20 19:00 Olanzapine (ZyPREXA) 10 mg BID PO 11/16/20 21:00 11/20/20 06:39 Oxycodone HCl (OxyCONTIN) 20 mg BID PO 11/16/20 21:00 11/20/20 06:43 Pantoprazole Sodium (Protonix) 40 mg DAILYAC PO 11/17/20 07:30 11/20/20 06:40 Potassium Chloride (Klor-Con) 20 meq BID PO 11/16/20 21:00 11/20/20 06:40 Sucralfate (Carafate) 1 gm BID PO 11/16/20 21:00 11/20/20 06:40 Tamsulosin HCl (Flomax) 0.4 mg HS PO 11/16/20 21:00 11/19/20 19:36 Ascorbic Acid (Vitamin C) 500 mg BID PO 11/16/20 21:00 11/20/20 06:40 Fluoxetine HCl (PROzac) 40 mg DAILY PO 11/17/20 09:00 11/20/20 06:39 Non-Formulary Medication (Gabapentin ) 600 mg TID PO 11/16/20 21:00 UNV Gabapentin (Neurontin) 800 mg HS PO 11/16/20 21:00 11/19/20 19:36 Lactobacillus Rhamnosus (Culturelle) 1 cap BID PO 11/16/20 21:00 11/20/20 06:40 Phenyleph/Shark Oil/Min Oil/Petrol (Preparation H) 1 laurence PRN BID PRN RC RECTAL PAIN 11/16/20 18:45 Artificial Tears (Artificial Tears) 1 drop PRN Q15MIN PRN OD DRY EYE 11/16/20 18:45 Buspirone HCl (Buspar) 10 mg 1700 PO 11/18/20 17:00 11/20/20 23:50 11/20/20 17:00 Buspirone HCl (Buspar) 5 mg DAILY PO 11/18/20 09:00 11/20/20 23:50 11/20/20 06:39 Buspirone HCl (Buspar) 5 mg BIDWMEALS PO 11/21/20 08:00 Quetiapine Fumarate (SEROquel) 12.5 mg 0900,1300,1500 PO 11/19/20 09:00 11/20/20 15:00 I have reviewed the current psychotropics carefully including drug interactions. Risk benefit ratio favors no change other than as noted in my dictated progress note. Diagnosis: Problems: (1) Impulse control disorder, unspecified (2) Anxiety disorder, unspecified (3) Major depressive disorder with psychotic features MUKESH JAY MD Nov 20, 2020 20:56
[2020-11-20] MEDS: TAMSULOSIN 0.4 MG CAP.ER.24H. PO SCH ×2 (20:59→21:00)
[2020-11-20] MEDS: GABAPENTIN 400 MG CAPSULE. PO SCH ×2 (20:59→21:00)
[2020-11-21] MEDS: OLANZapine 10 MG TABLET PO SCH ×2 (01:33→10:36)
[2020-11-21] MEDS: oxyCODONE ER 20 MG TAB.ER.12H PO SCH ×3 (01:33→20:13)
[2020-11-21] MEDS: GABAPENTIN 400 MG CAPSULE. PO SCH ×2 (01:34→20:12)
[2020-11-21 06:28] VITALS: BP 137/93
--- NOTE | 2020-11-21 07:23 | PDOC ---
Exam Note: Andrea Note: This note is a late entry for 11/19/2020 covers elements not covered in my initial note. Subjective: The patient was seen face to face in the morning of 11/19/2020 for a treatment team meeting with Belle Solomon, Heather Campbell and Liya (social work manager), Jonna Nicolas, activity therapy and Fritz RODRIGUES, reviewed the chart. The patient slept 6-1/2 hours previous night. The patient has been yelling, continues to have significant pain consequent to arthritis. Previous night she was less anxious. We will provide a special kitchenware to help her feed herself. [facility] wanted levels to screen but they will have to do it when she returns there. I addressed in treatment team meeting. Review of Systems: Ambulation impaired in wheelchair. No CV, , pulmonary, eye, ENT system symptoms on review. Mental Status Exam: The patient is reasonably oriented. Speech coherent, rapid at times. She is blaming staff for different things and feels they are mistreating her. She had been making numerous complaints about staff to the [facility] and other authorities while at the group home as well. Abstraction is fair. Computation is impaired. Language function intact. Mood and affect remains labile, anxious. Laboratory Data: Reviewed. Impression: Major depressive disorder with psychotic features. Anxiety disorder unspecified. Impulse control disorder unspecified. Plan: No change from initial note. Adjust further as clinically indicated. Assessment: Vital Signs/I&O: Vital Signs Date Time Temp Pulse Resp B/P (MAP) Pulse Ox O2 Delivery O2 Flow Rate FiO2 11/21/20 06:28 97.6 75 137/93 (108) 97 Nasal Cannula 2.0 11/20/20 16:00 18 I & O 11/20/20 11/20/20 11/21/20 15:00 23:00 07:00 Intake Total 480 ml 120 ml Balance 480 ml 120 ml Current Medications: Meds: Current Medications Medications (Trade) Dose Ordered Sig/Jocelyn Route PRN Reason Start Time Stop Time Status Last Admin Dose Admin Acetaminophen (Tylenol) 650 mg PRN Q6HRS PRN PO MILD PAIN / TEMP > 100.3'F 11/16/20 17:30 11/17/20 18:17 DC 11/17/20 12:40 Multi-Ingredient Ointment (Analgesic [place]) 1 laurence PRN QID PRN TP MUSCLE PAIN 11/16/20 17:30 11/18/20 15:29 Al Hydroxide/Mg Hydroxide (Mylanta Plus Xs) 15 ml PRN AFTMEALHC PRN PO DYSPEPSIA 11/16/20 17:30 Magnesium Hydroxide (Milk Of Magnesia) 2,400 mg PRN QHS PRN PO CONSTIPATION 11/16/20 17:30 Nicotine (Nicoderm Cq 7mg Patch) 1 patch DAILY TD 11/16/20 17:30 11/16/20 17:44 DC Nicotine (Nicoderm Cq 7mg Patch) 1 patch DAILY TD 11/17/20 09:00 11/20/20 06:41 Acetaminophen (Tylenol) 650 mg PRN Q6HRS PRN PO MILD PAIN / TEMP > 100.3'F 11/16/20 18:00 11/18/20 16:23 Buspirone HCl (Buspar) 10 mg BIDWMEALS PO 11/17/20 08:00 11/17/20 18:09 DC 11/17/20 17:29 Calcium Carbonate/ Glycine (Oscal) 500 mg BID PO 11/16/20 21:00 11/20/20 06:40 Clopidogrel Bisulfate (Plavix) 75 mg DAILY PO 11/17/20 09:00 11/20/20 06:39 Docusate Sodium (Colace) 100 mg PRN DAILY PRN PO 2ND CHOICE CONSTIPATION 11/16/20 18:00 Ferrous Sulfate (Feosol) 325 mg BID PO 11/16/20 21:00 11/20/20 06:40 Gabapentin (Neurontin) 400 mg BID94 PO 11/17/20 09:00 11/20/20 16:00 Lorazepam (Ativan) 0.5 mg PRN BID PRN PO ANXIETY / AGITATION 11/16/20 18:00 11/20/20 14:30 Neomycin/ Polymyxin/ Dexamethasone (Maxitrol) 1 drop DAILY OU 11/17/20 09:00 11/20/20 06:43 Nicotine (Nicoderm Cq 7mg Patch) 1 patch PRN DAILY PRN TD SMOKING CESSATION 11/16/20 19:00 Olanzapine (ZyPREXA) 10 mg BID PO 11/16/20 21:00 11/21/20 01:33 Oxycodone HCl (OxyCONTIN) 20 mg BID PO 11/16/20 21:00 11/21/20 01:33 Pantoprazole Sodium (Protonix) 40 mg DAILYAC PO 11/17/20 07:30 11/20/20 06:40 Potassium Chloride (Klor-Con) 20 meq BID PO 11/16/20 21:00 11/20/20 06:40 Sucralfate (Carafate) 1 gm BID PO 11/16/20 21:00 11/20/20 06:40 Tamsulosin HCl (Flomax) 0.4 mg HS PO 11/16/20 21:00 11/19/20 19:36 Ascorbic Acid (Vitamin C) 500 mg BID PO 11/16/20 21:00 11/20/20 20:59 Fluoxetine HCl (PROzac) 40 mg DAILY PO 11/17/20 09:00 11/20/20 06:39 Non-Formulary Medication (Gabapentin ) 600 mg TID PO 11/16/20 21:00 UNV Gabapentin (Neurontin) 800 mg HS PO 11/16/20 21:00 11/21/20 01:34 Lactobacillus Rhamnosus (Culturelle) 1 cap BID PO 11/16/20 21:00 11/20/20 06:40 Phenyleph/Shark Oil/Min Oil/Petrol (Preparation H) 1 laurence PRN BID PRN RC RECTAL PAIN 11/16/20 18:45 Artificial Tears (Artificial Tears) 1 drop PRN Q15MIN PRN OD DRY EYE 11/16/20 18:45 Buspirone HCl (Buspar) 10 mg 1700 PO 11/18/20 17:00 11/20/20 23:50 DC 11/20/20 17:00 Buspirone HCl (Buspar) 5 mg DAILY PO 11/18/20 09:00 11/20/20 23:50 DC 11/20/20 06:39 Buspirone HCl (Buspar) 5 mg BIDWMEALS PO 11/21/20 08:00 Quetiapine Fumarate (SEROquel) 12.5 mg 0900,1300,1500 PO 11/19/20 09:00 11/20/20 15:00 I have reviewed the current psychotropics carefully including drug interactions. Risk benefit ratio favors no change other than as noted in my dictated progress note. Diagnosis: Problems: (1) Impulse control disorder, unspecified (2) Anxiety disorder, unspecified (3) Major depressive disorder with psychotic features MUKESH JAY MD Nov 21, 2020 07:23
--- NOTE | 2020-11-21 07:47 | PDOC ---
Exam Note: Andrea Note: This note is a late entry for 11/20/2020 covers elements not covered in my initial note. Subjective: The patient was seen face to face in the evening of 11/20/2020 with Ashley RODRIGUES. Discussed with nursing staff, reviewed the chart. The patient slept 7-3/4 hours previous night. She has been yelling, restless, anxious. Review of Systems: Ambulation impaired in wheelchair. No CV, , pulmonary, eye, ENT system symptoms on review. Mental Status Exam: The patient is alert and oriented. I met with her in her room. She is yelling constantly and intermittently. The patient in the next room was complaining about her yelling all last night. Speech coherent, has some latency. Abstraction is fair. Computation is impaired. Language function intact. Attention span is short. Mood and affect depressed. Laboratory Data: Reviewed. Impression: Major depressive disorder with psychotic features. Anxiety disorder unspecified. Impulse control disorder unspecified. Plan: Continue current psychotropics. Adjust further as clinically indicated. Assessment: Vital Signs/I&O: Vital Signs Date Time Temp Pulse Resp B/P (MAP) Pulse Ox O2 Delivery O2 Flow Rate FiO2 11/21/20 06:28 97.6 75 137/93 (108) 97 Nasal Cannula 2.0 11/20/20 16:00 18 I & O 11/20/20 11/20/20 11/21/20 15:00 23:00 07:00 Intake Total 480 ml 120 ml Balance 480 ml 120 ml Current Medications: Meds: Current Medications Medications (Trade) Dose Ordered Sig/Jocelyn Route PRN Reason Start Time Stop Time Status Last Admin Dose Admin Acetaminophen (Tylenol) 650 mg PRN Q6HRS PRN PO MILD PAIN / TEMP > 100.3'F 11/16/20 17:30 11/17/20 18:17 DC 11/17/20 12:40 Multi-Ingredient Ointment (Analgesic [place]) 1 laurence PRN QID PRN TP MUSCLE PAIN 11/16/20 17:30 11/18/20 15:29 Al Hydroxide/Mg Hydroxide (Mylanta Plus Xs) 15 ml PRN AFTMEALHC PRN PO DYSPEPSIA 11/16/20 17:30 Magnesium Hydroxide (Milk Of Magnesia) 2,400 mg PRN QHS PRN PO CONSTIPATION 11/16/20 17:30 Nicotine (Nicoderm Cq 7mg Patch) 1 patch DAILY TD 11/16/20 17:30 11/16/20 17:44 DC Nicotine (Nicoderm Cq 7mg Patch) 1 patch DAILY TD 11/17/20 09:00 11/20/20 06:41 Acetaminophen (Tylenol) 650 mg PRN Q6HRS PRN PO MILD PAIN / TEMP > 100.3'F 11/16/20 18:00 11/18/20 16:23 Buspirone HCl (Buspar) 10 mg BIDWMEALS PO 11/17/20 08:00 11/17/20 18:09 DC 11/17/20 17:29 Calcium Carbonate/ Glycine (Oscal) 500 mg BID PO 11/16/20 21:00 11/20/20 06:40 Clopidogrel Bisulfate (Plavix) 75 mg DAILY PO 11/17/20 09:00 11/20/20 06:39 Docusate Sodium (Colace) 100 mg PRN DAILY PRN PO 2ND CHOICE CONSTIPATION 11/16/20 18:00 Ferrous Sulfate (Feosol) 325 mg BID PO 11/16/20 21:00 11/20/20 06:40 Gabapentin (Neurontin) 400 mg BID94 PO 11/17/20 09:00 11/20/20 16:00 Lorazepam (Ativan) 0.5 mg PRN BID PRN PO ANXIETY / AGITATION 11/16/20 18:00 11/20/20 14:30 Neomycin/ Polymyxin/ Dexamethasone (Maxitrol) 1 drop DAILY OU 11/17/20 09:00 11/20/20 06:43 Nicotine (Nicoderm Cq 7mg Patch) 1 patch PRN DAILY PRN TD SMOKING CESSATION 11/16/20 19:00 Olanzapine (ZyPREXA) 10 mg BID PO 11/16/20 21:00 11/21/20 01:33 Oxycodone HCl (OxyCONTIN) 20 mg BID PO 11/16/20 21:00 11/21/20 01:33 Pantoprazole Sodium (Protonix) 40 mg DAILYAC PO 11/17/20 07:30 11/20/20 06:40 Potassium Chloride (Klor-Con) 20 meq BID PO 11/16/20 21:00 11/20/20 06:40 Sucralfate (Carafate) 1 gm BID PO 11/16/20 21:00 11/20/20 06:40 Tamsulosin HCl (Flomax) 0.4 mg HS PO 11/16/20 21:00 11/19/20 19:36 Ascorbic Acid (Vitamin C) 500 mg BID PO 11/16/20 21:00 11/20/20 20:59 Fluoxetine HCl (PROzac) 40 mg DAILY PO 11/17/20 09:00 11/20/20 06:39 Non-Formulary Medication (Gabapentin ) 600 mg TID PO 11/16/20 21:00 UNV Gabapentin (Neurontin) 800 mg HS PO 11/16/20 21:00 11/21/20 01:34 Lactobacillus Rhamnosus (Culturelle) 1 cap BID PO 11/16/20 21:00 11/20/20 06:40 Phenyleph/Shark Oil/Min Oil/Petrol (Preparation H) 1 laurence PRN BID PRN RC RECTAL PAIN 11/16/20 18:45 Artificial Tears (Artificial Tears) 1 drop PRN Q15MIN PRN OD DRY EYE 11/16/20 18:45 Buspirone HCl (Buspar) 10 mg 1700 PO 11/18/20 17:00 11/20/20 23:50 DC 11/20/20 17:00 Buspirone HCl (Buspar) 5 mg DAILY PO 11/18/20 09:00 11/20/20 23:50 DC 11/20/20 06:39 Buspirone HCl (Buspar) 5 mg BIDWMEALS PO 11/21/20 08:00 Quetiapine Fumarate (SEROquel) 12.5 mg 0900,1300,1500 PO 11/19/20 09:00 11/20/20 15:00 I have reviewed the current psychotropics carefully including drug interactions. Risk benefit ratio favors no change other than as noted in my dictated progress note. Diagnosis: Problems: (1) Impulse control disorder, unspecified (2) Anxiety disorder, unspecified (3) Major depressive disorder with psychotic features MUKESH JAY MD Nov 21, 2020 07:47
[2020-11-21] MEDS: NEO/POLYMYX/DEXAMETH OPHTH SUSPENSION 5ML BOTTLE. OU SCH (09:00)
[2020-11-21] MEDS: FLUoxetine HCL 20 MG CAPSULE PO SCH (10:36)
[2020-11-21] MEDS: SUCRALFATE 1 GM TABLET. PO SCH ×2 (10:36→20:12)
[2020-11-21] MEDS: NICOTINE 7MG PATCH. TD SCH (10:36)
[2020-11-21] MEDS: LACTOBACILLUS RHAMNOSUS GG 1 CAPSULE. PO SCH ×2 (10:36→20:12)
[2020-11-21] MEDS: QUEtiapine 25 MG TABLET. PO SCH ×3 (10:36→14:51)
[2020-11-21] MEDS: CALCIUM CARBONATE 500 MG TABLET PO SCH ×2 (10:36→20:13)
[2020-11-21] MEDS: PANTOPRAZOLE 40 MG TABLET. PO SCH (10:37)
[2020-11-21] MEDS: busPIRone 5 MG TABLET. PO SCH ×2 (10:37→17:17)
[2020-11-21] MEDS: POTASSIUM CHLORIDE 20 MEQ TABLET.ER. PO SCH ×2 (10:37→20:13)
[2020-11-21] MEDS: ASCORBIC ACID 500 MG TABLET PO SCH ×2 (10:37→20:12)
[2020-11-21] MEDS: FERROUS SULFATE 325 MG TABLET. PO SCH ×2 (10:37→20:12)
[2020-11-21] MEDS: CLOPIDOGREL BISULFATE 75 MG TABLET PO SCH (10:37)
[2020-11-21] MEDS: GABAPENTIN 100 MG CAPSULE. PO SCH ×2 (10:39→17:18)
[2020-11-21 15:56] VITALS: BP 111/50
[2020-11-21] MEDS: TAMSULOSIN 0.4 MG CAP.ER.24H. PO SCH (20:13)
[2020-11-21] MEDS: OLANZapine 5 MG TABLET PO SCH (20:15)
--- NOTE | 2020-11-21 21:05 | PDOC ---
Exam Note: Andrea Note: Please also refer to the separate dictated note~for this date of service dictated separately.~Patient seen individually. Discussed the patient with Nursing staff reviewed the chart.~Reviewed interim history and current functioning. Reviewed vital signs,~Labs/ Radiology~and current medications noted below. Continue current treatment with the changes noted in the dictated addendum note Assessment: Vital Signs/I&O: Vital Signs Date Time Temp Pulse Resp B/P (MAP) Pulse Ox O2 Delivery O2 Flow Rate FiO2 11/21/20 20:13 96 11/21/20 15:56 97.2 87 16 111/50 (70) 2.0 11/21/20 06:28 Nasal Cannula I & O 11/20/20 11/20/20 11/21/20 15:00 23:00 07:00 Intake Total 480 ml 120 ml Balance 480 ml 120 ml Current Medications: Meds: Current Medications Medications (Trade) Dose Ordered Sig/Jocelyn Route PRN Reason Start Time Stop Time Status Last Admin Dose Admin Acetaminophen (Tylenol) 650 mg PRN Q6HRS PRN PO MILD PAIN / TEMP > 100.3'F 11/16/20 17:30 11/17/20 18:17 DC 11/17/20 12:40 Multi-Ingredient Ointment (Analgesic [place]) 1 laurence PRN QID PRN TP MUSCLE PAIN 11/16/20 17:30 11/18/20 15:29 Al Hydroxide/Mg Hydroxide (Mylanta Plus Xs) 15 ml PRN AFTMEALHC PRN PO DYSPEPSIA 11/16/20 17:30 Magnesium Hydroxide (Milk Of Magnesia) 2,400 mg PRN QHS PRN PO CONSTIPATION 11/16/20 17:30 Nicotine (Nicoderm Cq 7mg Patch) 1 patch DAILY TD 11/16/20 17:30 11/16/20 17:44 DC Nicotine (Nicoderm Cq 7mg Patch) 1 patch DAILY TD 11/17/20 09:00 11/21/20 10:36 Acetaminophen (Tylenol) 650 mg PRN Q6HRS PRN PO MILD PAIN / TEMP > 100.3'F 11/16/20 18:00 11/18/20 16:23 Buspirone HCl (Buspar) 10 mg BIDWMEALS PO 11/17/20 08:00 11/17/20 18:09 DC 11/17/20 17:29 Calcium Carbonate/ Glycine (Oscal) 500 mg BID PO 11/16/20 21:00 11/21/20 20:13 Clopidogrel Bisulfate (Plavix) 75 mg DAILY PO 11/17/20 09:00 11/21/20 10:37 Docusate Sodium (Colace) 100 mg PRN DAILY PRN PO 2ND CHOICE CONSTIPATION 11/16/20 18:00 Ferrous Sulfate (Feosol) 325 mg BID PO 11/16/20 21:00 11/21/20 20:12 Gabapentin (Neurontin) 400 mg BID94 PO 11/17/20 09:00 11/21/20 17:18 Lorazepam (Ativan) 0.5 mg PRN BID PRN PO ANXIETY / AGITATION 11/16/20 18:00 11/20/20 14:30 Neomycin/ Polymyxin/ Dexamethasone (Maxitrol) 1 drop DAILY OU 11/17/20 09:00 11/21/20 09:00 Nicotine (Nicoderm Cq 7mg Patch) 1 patch PRN DAILY PRN TD SMOKING CESSATION 11/16/20 19:00 Olanzapine (ZyPREXA) 10 mg BID PO 11/16/20 21:00 11/21/20 18:06 DC 11/21/20 10:36 Oxycodone HCl (OxyCONTIN) 20 mg BID PO 11/16/20 21:00 11/21/20 20:13 Pantoprazole Sodium (Protonix) 40 mg DAILYAC PO 11/17/20 07:30 11/21/20 10:37 Potassium Chloride (Klor-Con) 20 meq BID PO 11/16/20 21:00 11/21/20 20:13 Sucralfate (Carafate) 1 gm BID PO 11/16/20 21:00 11/21/20 20:12 Tamsulosin HCl (Flomax) 0.4 mg HS PO 11/16/20 21:00 11/21/20 20:13 Ascorbic Acid (Vitamin C) 500 mg BID PO 11/16/20 21:00 11/21/20 20:12 Fluoxetine HCl (PROzac) 40 mg DAILY PO 11/17/20 09:00 11/21/20 10:36 Non-Formulary Medication (Gabapentin ) 600 mg TID PO 11/16/20 21:00 UNV Gabapentin (Neurontin) 800 mg HS PO 11/16/20 21:00 11/21/20 20:12 Lactobacillus Rhamnosus (Culturelle) 1 cap BID PO 11/16/20 21:00 11/21/20 20:12 Phenyleph/Shark Oil/Min Oil/Petrol (Preparation H) 1 laurence PRN BID PRN RC RECTAL PAIN 11/16/20 18:45 Artificial Tears (Artificial Tears) 1 drop PRN Q15MIN PRN OD DRY EYE 11/16/20 18:45 Buspirone HCl (Buspar) 10 mg 1700 PO 11/18/20 17:00 11/20/20 23:50 DC 11/20/20 17:00 Buspirone HCl (Buspar) 5 mg DAILY PO 11/18/20 09:00 11/20/20 23:50 DC 11/20/20 06:39 Buspirone HCl (Buspar) 5 mg BIDWMEALS PO 11/21/20 08:00 11/21/20 17:17 Quetiapine Fumarate (SEROquel) 12.5 mg 0900,1300,1500 PO 11/19/20 09:00 11/21/20 14:51 Olanzapine (ZyPREXA) 10 mg DAILY PO 11/22/20 09:00 11/24/20 22:00 Olanzapine (ZyPREXA) 5 mg QHS PO 11/21/20 21:00 11/24/20 22:00 11/21/20 20:15 Olanzapine (ZyPREXA) 5 mg BID PO 11/25/20 09:00 Divalproex Sodium (Depakote Sprinkles) 125 mg 0900,1300,1700 PO 11/22/20 09:00 Current Medications Medications (Trade) Dose Ordered Sig/Jocelyn Route PRN Reason Start Time Stop Time Status Last Admin Dose Admin Buspirone HCl (Buspar) 5 mg BIDWMEALS PO 11/21/20 08:00 11/21/20 17:17 Olanzapine (ZyPREXA) 5 mg QHS PO 11/21/20 21:00 11/24/20 22:00 11/21/20 20:15 I have reviewed the current psychotropics carefully including drug interactions. Risk benefit ratio favors no change other than as noted in my dictated progress note. Diagnosis: Problems: (1) Impulse control disorder, unspecified (2) Acute psychosis (3) Major depressive disorder with psychotic features MUKESH JAY MD Nov 21, 2020 21:05
[2020-11-22 06:04] VITALS: BP 128/84
[2020-11-22] MEDS: FLUoxetine HCL 20 MG CAPSULE PO SCH (08:17)
[2020-11-22] MEDS: QUEtiapine 25 MG TABLET. PO SCH ×3 (08:17→15:00)
[2020-11-22] MEDS: CLOPIDOGREL BISULFATE 75 MG TABLET PO SCH (08:17)
[2020-11-22] MEDS: POTASSIUM CHLORIDE 20 MEQ TABLET.ER. PO SCH ×2 (08:17→19:52)
[2020-11-22] MEDS: FERROUS SULFATE 325 MG TABLET. PO SCH ×2 (08:17→19:51)
[2020-11-22] MEDS: busPIRone 5 MG TABLET. PO SCH ×2 (08:17→17:00)
[2020-11-22] MEDS: LACTOBACILLUS RHAMNOSUS GG 1 CAPSULE. PO SCH ×2 (08:18→19:51)
[2020-11-22] MEDS: NICOTINE 7MG PATCH. TD SCH (08:18)
[2020-11-22] MEDS: ASCORBIC ACID 500 MG TABLET PO SCH ×2 (08:18→19:51)
[2020-11-22] MEDS: NEO/POLYMYX/DEXAMETH OPHTH SUSPENSION 5ML BOTTLE. OU SCH (08:18)
[2020-11-22] MEDS: SUCRALFATE 1 GM TABLET. PO SCH ×2 (08:18→19:51)
[2020-11-22] MEDS: CALCIUM CARBONATE 500 MG TABLET PO SCH ×2 (08:18→19:51)
[2020-11-22] MEDS: PANTOPRAZOLE 40 MG TABLET. PO SCH (08:18)
[2020-11-22] MEDS: oxyCODONE ER 20 MG TAB.ER.12H PO SCH ×2 (08:21→19:52)
[2020-11-22] MEDS: DIVALPROEX 125 MG CAP.SPRINK PO SCH ×3 (08:22→17:00)
[2020-11-22] MEDS: OLANZapine 10 MG TABLET PO SCH (08:22)
[2020-11-22] MEDS: GABAPENTIN 100 MG CAPSULE. PO SCH ×2 (08:22→16:00)
--- NOTE | 2020-11-22 08:28 | PDOC ---
Exam Note: Andrea Note: This note is a late entry for 11/21/2020 covers elements not covered in my initial note. Subjective: The patient was seen on telehealth rounds in the evening of 11/21/2020 with Ashley RODRIGUES, discussed and reviewed the chart. The patient slept 6-3/4 hours previous night. She has a very difficult day. She has been yelling constantly, anxious, restless, agitated, somatically preoccupied. She suddenly has severe arthritis and the pain makes her agitation worse. Review of Systems: Positive for the above pain, inability to ambulate, arthritis. No CV, , pulmonary, eye system symptoms on review. Mental Status Exam: The patient is alert and oriented. I met with her in her room. Speech coherent, rapid, loud at times. Abstraction is fair. Computation is impaired. Language function intact. Attention span is short. Mood and affect remains labile. Laboratory Data: Reviewed. Impression: Major depressive disorder with psychotic features. Anxiety disorder unspecified. Impulse control disorder unspecified. Plan: Continue psychotropics from initial note. She is currently on Zyprexa 10 mg b.i.d. We will reduce to 10 mg a.m. and 5 mg h.s. for 3 days, then 5 mg b.i.d. and further reduction after that since she is on Seroquel 12.5 mg 3 times a day which we will continue along with BuSpar and she remains on gabapentin. We will add Depakote Sprinkle 125 mg 9 a.m., 1 p.m., 5 p.m. as a mood stabilizer. Check CBC, CMP, valproic acid level in 3 days. Adjust further as clinically indicated. Assessment: Vital Signs/I&O: Vital Signs Date Time Temp Pulse Resp B/P (MAP) Pulse Ox O2 Delivery O2 Flow Rate FiO2 11/22/20 06:04 97.6 87 20 128/84 (99) 100 2.0 11/21/20 06:28 Nasal Cannula I & O 11/21/20 11/21/20 11/22/20 15:00 23:00 07:00 Intake Total 360 ml 440 ml Balance 360 ml 440 ml Current Medications: Meds: Current Medications Medications (Trade) Dose Ordered Sig/Jocelyn Route PRN Reason Start Time Stop Time Status Last Admin Dose Admin Acetaminophen (Tylenol) 650 mg PRN Q6HRS PRN PO MILD PAIN / TEMP > 100.3'F 11/16/20 17:30 11/17/20 18:17 DC 11/17/20 12:40 Multi-Ingredient Ointment (Analgesic [place]) 1 laurence PRN QID PRN TP MUSCLE PAIN 11/16/20 17:30 11/18/20 15:29 Al Hydroxide/Mg Hydroxide (Mylanta Plus Xs) 15 ml PRN AFTMEALHC PRN PO DYSPEPSIA 11/16/20 17:30 Magnesium Hydroxide (Milk Of Magnesia) 2,400 mg PRN QHS PRN PO CONSTIPATION 11/16/20 17:30 Nicotine (Nicoderm Cq 7mg Patch) 1 patch DAILY TD 11/16/20 17:30 11/16/20 17:44 DC Nicotine (Nicoderm Cq 7mg Patch) 1 patch DAILY TD 11/17/20 09:00 11/22/20 08:18 Acetaminophen (Tylenol) 650 mg PRN Q6HRS PRN PO MILD PAIN / TEMP > 100.3'F 11/16/20 18:00 11/18/20 16:23 Buspirone HCl (Buspar) 10 mg BIDWMEALS PO 11/17/20 08:00 11/17/20 18:09 DC 11/17/20 17:29 Calcium Carbonate/ Glycine (Oscal) 500 mg BID PO 11/16/20 21:00 11/22/20 08:18 Clopidogrel Bisulfate (Plavix) 75 mg DAILY PO 11/17/20 09:00 11/22/20 08:17 Docusate Sodium (Colace) 100 mg PRN DAILY PRN PO 2ND CHOICE CONSTIPATION 11/16/20 18:00 Ferrous Sulfate (Feosol) 325 mg BID PO 11/16/20 21:00 11/22/20 08:17 Gabapentin (Neurontin) 400 mg BID94 PO 11/17/20 09:00 11/22/20 08:22 Lorazepam (Ativan) 0.5 mg PRN BID PRN PO ANXIETY / AGITATION 11/16/20 18:00 11/20/20 14:30 Neomycin/ Polymyxin/ Dexamethasone (Maxitrol) 1 drop DAILY OU 11/17/20 09:00 11/22/20 08:18 Nicotine (Nicoderm Cq 7mg Patch) 1 patch PRN DAILY PRN TD SMOKING CESSATION 11/16/20 19:00 Olanzapine (ZyPREXA) 10 mg BID PO 11/16/20 21:00 11/21/20 18:06 DC 11/21/20 10:36 Oxycodone HCl (OxyCONTIN) 20 mg BID PO 11/16/20 21:00 11/22/20 08:21 Pantoprazole Sodium (Protonix) 40 mg DAILYAC PO 11/17/20 07:30 11/22/20 08:18 Potassium Chloride (Klor-Con) 20 meq BID PO 11/16/20 21:00 11/22/20 08:17 Sucralfate (Carafate) 1 gm BID PO 11/16/20 21:00 11/22/20 08:18 Tamsulosin HCl (Flomax) 0.4 mg HS PO 11/16/20 21:00 11/21/20 20:13 Ascorbic Acid (Vitamin C) 500 mg BID PO 11/16/20 21:00 11/22/20 08:18 Fluoxetine HCl (PROzac) 40 mg DAILY PO 11/17/20 09:00 11/22/20 08:17 Non-Formulary Medication (Gabapentin ) 600 mg TID PO 11/16/20 21:00 UNV Gabapentin (Neurontin) 800 mg HS PO 11/16/20 21:00 11/21/20 20:12 Lactobacillus Rhamnosus (Culturelle) 1 cap BID PO 11/16/20 21:00 11/22/20 08:18 Phenyleph/Shark Oil/Min Oil/Petrol (Preparation H) 1 laurence PRN BID PRN RC RECTAL PAIN 11/16/20 18:45 Artificial Tears (Artificial Tears) 1 drop PRN Q15MIN PRN OD DRY EYE 11/16/20 18:45 Buspirone HCl (Buspar) 10 mg 1700 PO 11/18/20 17:00 11/20/20 23:50 DC 11/20/20 17:00 Buspirone HCl (Buspar) 5 mg DAILY PO 11/18/20 09:00 11/20/20 23:50 DC 11/20/20 06:39 Buspirone HCl (Buspar) 5 mg BIDWMEALS PO 11/21/20 08:00 11/22/20 08:17 Quetiapine Fumarate (SEROquel) 12.5 mg 0900,1300,1500 PO 11/19/20 09:00 11/22/20 08:17 Olanzapine (ZyPREXA) 10 mg DAILY PO 11/22/20 09:00 11/24/20 22:00 11/22/20 08:22 Olanzapine (ZyPREXA) 5 mg QHS PO 11/21/20 21:00 11/24/20 22:00 11/21/20 20:15 Olanzapine (ZyPREXA) 5 mg BID PO 11/25/20 09:00 Divalproex Sodium (Depakote Sprinkles) 125 mg 0900,1300,1700 PO 11/22/20 09:00 11/22/20 08:22 Current Medications Medications (Trade) Dose Ordered Sig/Jocelyn Route PRN Reason Start Time Stop Time Status Last Admin Dose Admin Olanzapine (ZyPREXA) 10 mg DAILY PO 11/22/20 09:00 11/24/20 22:00 11/22/20 08:22 Olanzapine (ZyPREXA) 5 mg QHS PO 11/21/20 21:00 11/24/20 22:00 11/21/20 20:15 Divalproex Sodium (Depakote Sprinkles) 125 mg 0900,1300,1700 PO 11/22/20 09:00 11/22/20 08:22 I have reviewed the current psychotropics carefully including drug interactions. Risk benefit ratio favors no change other than as noted in my dictated progress note. Diagnosis: Problems: (1) Impulse control disorder, unspecified (2) Anxiety disorder, unspecified (3) Major depressive disorder with psychotic features MUKESH JAY MD Nov 22, 2020 08:28
[2020-11-22 16:08] VITALS: BP 104/59
[2020-11-22] MEDS: OLANZapine 5 MG TABLET PO SCH (19:51)
[2020-11-22] MEDS: GABAPENTIN 400 MG CAPSULE. PO SCH (19:52)
[2020-11-22] MEDS: TAMSULOSIN 0.4 MG CAP.ER.24H. PO SCH (19:52)
--- NOTE | 2020-11-22 21:04 | PDOC ---
Exam Note: Andrea Note: Please also refer to the separate dictated note~for this date of service dictated separately.~Patient seen individually. Discussed the patient with Nursing staff reviewed the chart.~Reviewed interim history and current functioning. Reviewed vital signs,~Labs/ Radiology~and current medications noted below. Continue current treatment with the changes noted in the dictated addendum note Assessment: Vital Signs/I&O: Vital Signs Date Time Temp Pulse Resp B/P (MAP) Pulse Ox O2 Delivery O2 Flow Rate FiO2 11/22/20 19:52 Nasal Cannula 11/22/20 16:08 98.0 18 104/59 (74) 97 11/22/20 06:04 87 2.0 I & O 11/21/20 11/21/20 11/22/20 15:00 23:00 07:00 Intake Total 360 ml 440 ml Balance 360 ml 440 ml Current Medications: Meds: Current Medications Medications (Trade) Dose Ordered Sig/Jocelyn Route PRN Reason Start Time Stop Time Status Last Admin Dose Admin Acetaminophen (Tylenol) 650 mg PRN Q6HRS PRN PO MILD PAIN / TEMP > 100.3'F 11/16/20 17:30 11/17/20 18:17 DC 11/17/20 12:40 Multi-Ingredient Ointment (Analgesic [place]) 1 laurence PRN QID PRN TP MUSCLE PAIN 11/16/20 17:30 11/18/20 15:29 Al Hydroxide/Mg Hydroxide (Mylanta Plus Xs) 15 ml PRN AFTMEALHC PRN PO DYSPEPSIA 11/16/20 17:30 Magnesium Hydroxide (Milk Of Magnesia) 2,400 mg PRN QHS PRN PO CONSTIPATION 11/16/20 17:30 Nicotine (Nicoderm Cq 7mg Patch) 1 patch DAILY TD 11/16/20 17:30 11/16/20 17:44 DC Nicotine (Nicoderm Cq 7mg Patch) 1 patch DAILY TD 11/17/20 09:00 11/22/20 08:18 Acetaminophen (Tylenol) 650 mg PRN Q6HRS PRN PO MILD PAIN / TEMP > 100.3'F 11/16/20 18:00 11/18/20 16:23 Buspirone HCl (Buspar) 10 mg BIDWMEALS PO 11/17/20 08:00 11/17/20 18:09 DC 11/17/20 17:29 Calcium Carbonate/ Glycine (Oscal) 500 mg BID PO 11/16/20 21:00 11/22/20 19:51 Clopidogrel Bisulfate (Plavix) 75 mg DAILY PO 11/17/20 09:00 11/22/20 08:17 Docusate Sodium (Colace) 100 mg PRN DAILY PRN PO 2ND CHOICE CONSTIPATION 11/16/20 18:00 Ferrous Sulfate (Feosol) 325 mg BID PO 11/16/20 21:00 11/22/20 19:51 Gabapentin (Neurontin) 400 mg BID94 PO 11/17/20 09:00 11/22/20 16:00 Lorazepam (Ativan) 0.5 mg PRN BID PRN PO ANXIETY / AGITATION 11/16/20 18:00 11/20/20 14:30 Neomycin/ Polymyxin/ Dexamethasone (Maxitrol) 1 drop DAILY OU 11/17/20 09:00 11/22/20 08:18 Nicotine (Nicoderm Cq 7mg Patch) 1 patch PRN DAILY PRN TD SMOKING CESSATION 11/16/20 19:00 Olanzapine (ZyPREXA) 10 mg BID PO 11/16/20 21:00 11/21/20 18:06 DC 11/21/20 10:36 Oxycodone HCl (OxyCONTIN) 20 mg BID PO 11/16/20 21:00 11/22/20 19:52 Pantoprazole Sodium (Protonix) 40 mg DAILYAC PO 11/17/20 07:30 11/22/20 08:18 Potassium Chloride (Klor-Con) 20 meq BID PO 11/16/20 21:00 11/22/20 19:52 Sucralfate (Carafate) 1 gm BID PO 11/16/20 21:00 11/22/20 19:51 Tamsulosin HCl (Flomax) 0.4 mg HS PO 11/16/20 21:00 11/22/20 19:52 Ascorbic Acid (Vitamin C) 500 mg BID PO 11/16/20 21:00 11/22/20 19:51 Fluoxetine HCl (PROzac) 40 mg DAILY PO 11/17/20 09:00 11/22/20 08:17 Non-Formulary Medication (Gabapentin ) 600 mg TID PO 11/16/20 21:00 UNV Gabapentin (Neurontin) 800 mg HS PO 11/16/20 21:00 11/22/20 19:52 Lactobacillus Rhamnosus (Culturelle) 1 cap BID PO 11/16/20 21:00 11/22/20 19:51 Phenyleph/Shark Oil/Min Oil/Petrol (Preparation H) 1 laurence PRN BID PRN RC RECTAL PAIN 11/16/20 18:45 Artificial Tears (Artificial Tears) 1 drop PRN Q15MIN PRN OD DRY EYE 11/16/20 18:45 Buspirone HCl (Buspar) 10 mg 1700 PO 11/18/20 17:00 11/20/20 23:50 DC 11/20/20 17:00 Buspirone HCl (Buspar) 5 mg DAILY PO 11/18/20 09:00 11/20/20 23:50 DC 11/20/20 06:39 Buspirone HCl (Buspar) 5 mg BIDWMEALS PO 11/21/20 08:00 11/22/20 17:00 Quetiapine Fumarate (SEROquel) 12.5 mg 0900,1300,1500 PO 11/19/20 09:00 11/22/20 15:00 Olanzapine (ZyPREXA) 10 mg DAILY PO 11/22/20 09:00 11/24/20 22:00 11/22/20 08:22 Olanzapine (ZyPREXA) 5 mg QHS PO 11/21/20 21:00 11/24/20 22:00 11/22/20 19:51 Olanzapine (ZyPREXA) 5 mg BID PO 11/25/20 09:00 Divalproex Sodium (Depakote Sprinkles) 125 mg 0900,1300,1700 PO 11/22/20 09:00 11/22/20 17:00 Current Medications Medications (Trade) Dose Ordered Sig/Jocelyn Route PRN Reason Start Time Stop Time Status Last Admin Dose Admin Olanzapine (ZyPREXA) 10 mg DAILY PO 11/22/20 09:00 11/24/20 22:00 11/22/20 08:22 Divalproex Sodium (Depakote Sprinkles) 125 mg 0900,1300,1700 PO 11/22/20 09:00 11/22/20 17:00 I have reviewed the current psychotropics carefully including drug interactions. Risk benefit ratio favors no change other than as noted in my dictated progress note. Diagnosis: Problems: (1) Impulse control disorder, unspecified (2) Anxiety disorder, unspecified (3) Major depressive disorder with psychotic features MUKESH JAY MD Nov 22, 2020 21:04
[2020-11-23 06:32] VITALS: BP 110/51
[2020-11-23] MEDS: NICOTINE 7MG PATCH. TD SCH (08:51)
[2020-11-23] MEDS: FLUoxetine HCL 20 MG CAPSULE PO SCH (08:51)
[2020-11-23] MEDS: OLANZapine 10 MG TABLET PO SCH (08:51)
[2020-11-23] MEDS: PANTOPRAZOLE 40 MG TABLET. PO SCH (08:52)
[2020-11-23] MEDS: SUCRALFATE 1 GM TABLET. PO SCH ×2 (08:52→19:49)
[2020-11-23] MEDS: POTASSIUM CHLORIDE 20 MEQ TABLET.ER. PO SCH ×2 (08:52→19:49)
[2020-11-23] MEDS: CALCIUM CARBONATE 500 MG TABLET PO SCH ×2 (08:52→19:48)
[2020-11-23] MEDS: LACTOBACILLUS RHAMNOSUS GG 1 CAPSULE. PO SCH ×2 (08:52→19:49)
[2020-11-23] MEDS: FERROUS SULFATE 325 MG TABLET. PO SCH ×2 (08:52→19:48)
[2020-11-23] MEDS: QUEtiapine 25 MG TABLET. PO SCH ×3 (08:52→15:29)
[2020-11-23] MEDS: busPIRone 5 MG TABLET. PO SCH ×2 (08:53→16:37)
[2020-11-23] MEDS: ASCORBIC ACID 500 MG TABLET PO SCH ×2 (08:53→19:49)
[2020-11-23] MEDS: DIVALPROEX 125 MG CAP.SPRINK PO SCH ×3 (08:53→16:37)
[2020-11-23] MEDS: GABAPENTIN 100 MG CAPSULE. PO SCH ×2 (08:53→15:30)
[2020-11-23] MEDS: CLOPIDOGREL BISULFATE 75 MG TABLET PO SCH (08:54)
[2020-11-23] MEDS: oxyCODONE ER 20 MG TAB.ER.12H PO SCH ×2 (08:55→19:48)
[2020-11-23] MEDS: NEO/POLYMYX/DEXAMETH OPHTH SUSPENSION 5ML BOTTLE. OU SCH (08:59)
[2020-11-23 15:19] VITALS: BP 99/51
[2020-11-23] MEDS: METHYL SALICYLATE/MENTHOL TOPICAL OINTMENT 57GM TUBE. TP PRN (16:56)
[2020-11-23] MEDS: TAMSULOSIN 0.4 MG CAP.ER.24H. PO SCH (19:48)
[2020-11-23] MEDS: OLANZapine 5 MG TABLET PO SCH (19:49)
[2020-11-23] MEDS: GABAPENTIN 400 MG CAPSULE. PO SCH (19:49)
--- NOTE | 2020-11-23 21:12 | PDOC ---
Exam Note: Andrea Note: This note is a late entry for 11/22/2020 covers elements not covered in my initial note. Subjective: The patient was seen on telehealth rounds in the evening of 11/22/2020 with Ashley RODRIGUES, discussed and reviewed the chart. The patient slept 5-3/4 hours previous night. She has been anxious, yelling all day, accuses staff for mistreating her. Two staff members entered her room together because she has alleged similar things at the [facility] as well. Per nursing report, she called her son accusing staff of mistreating her and apparently the son stated he would report this. On carefully checking with nursing staff, seems to be going out of the way to assist her. She continues to have marked mood lability and this was what initially prompted her hospitalization anyway. She does like a certain female nursing aid but all others are generally shunned. Review of Systems: Positive for the chronic pain due to arthritis. Impaired ambulation. No CV, , pulmonary, eye, ENT system symptoms on review. Mental Status Exam: The patient is reasonably oriented. Speech is coherent, rapid at times. Abstraction is fair. Computation is impaired. Language function intact. Mood and affect withdrawn, depressed, labile, anxious. Laboratory Data: Reviewed. Impression: Major depressive disorder with psychotic features. Anxiety disorder unspecified. Impulse control disorder unspecified. Plan: Continue psychotropics from initial note. Repeat labs level on Depakote. Adjust as indicated. We may need to increase BuSpar and adjust Seroquel. Assessment: Vital Signs/I&O: Vital Signs Date Time Temp Pulse Resp B/P (MAP) Pulse Ox O2 Delivery O2 Flow Rate FiO2 11/23/20 15:19 97.1 88 16 99/51 (67) 94 11/23/20 13:10 Nasal Cannula 3.0 I & O 0 11/22/20 11/22/20 11/23/20 15:00 23:00 07:00 Intake Total 440 ml 220 ml Balance 440 ml 220 ml Current Medications: Meds: Current Medications Medications (Trade) Dose Ordered Sig/Jocelyn Route PRN Reason Start Time Stop Time Status Last Admin Dose Admin Acetaminophen (Tylenol) 650 mg PRN Q6HRS PRN PO MILD PAIN / TEMP > 100.3'F 11/16/20 17:30 11/17/20 18:17 DC 11/17/20 12:40 Multi-Ingredient Ointment (Analgesic [place]) 1 laurence PRN QID PRN TP MUSCLE PAIN 11/16/20 17:30 11/23/20 16:56 Al Hydroxide/Mg Hydroxide (Mylanta Plus Xs) 15 ml PRN AFTMEALHC PRN PO DYSPEPSIA 11/16/20 17:30 Magnesium Hydroxide (Milk Of Magnesia) 2,400 mg PRN QHS PRN PO CONSTIPATION 11/16/20 17:30 Nicotine (Nicoderm Cq 7mg Patch) 1 patch DAILY TD 11/16/20 17:30 11/16/20 17:44 DC Nicotine (Nicoderm Cq 7mg Patch) 1 patch DAILY TD 11/17/20 09:00 11/23/20 08:51 Acetaminophen (Tylenol) 650 mg PRN Q6HRS PRN PO MILD PAIN / TEMP > 100.3'F 11/16/20 18:00 11/18/20 16:23 Buspirone HCl (Buspar) 10 mg BIDWMEALS PO 11/17/20 08:00 11/17/20 18:09 DC 11/17/20 17:29 Calcium Carbonate/ Glycine (Oscal) 500 mg BID PO 11/16/20 21:00 11/23/20 19:48 Clopidogrel Bisulfate (Plavix) 75 mg DAILY PO 11/17/20 09:00 11/23/20 08:54 Docusate Sodium (Colace) 100 mg PRN DAILY PRN PO 2ND CHOICE CONSTIPATION 11/16/20 18:00 Ferrous Sulfate (Feosol) 325 mg BID PO 11/16/20 21:00 11/23/20 19:48 Gabapentin (Neurontin) 400 mg BID94 PO 11/17/20 09:00 11/23/20 15:30 Lorazepam (Ativan) 0.5 mg PRN BID PRN PO ANXIETY / AGITATION 11/16/20 18:00 11/20/20 14:30 Neomycin/ Polymyxin/ Dexamethasone (Maxitrol) 1 drop DAILY OU 11/17/20 09:00 11/23/20 08:59 Nicotine (Nicoderm Cq 7mg Patch) 1 patch PRN DAILY PRN TD SMOKING CESSATION 11/16/20 19:00 Olanzapine (ZyPREXA) 10 mg BID PO 11/16/20 21:00 11/21/20 18:06 DC 11/21/20 10:36 Oxycodone HCl (OxyCONTIN) 20 mg BID PO 11/16/20 21:00 11/23/20 19:48 Pantoprazole Sodium (Protonix) 40 mg DAILYAC PO 11/17/20 07:30 11/23/20 08:52 Potassium Chloride (Klor-Con) 20 meq BID PO 11/16/20 21:00 11/23/20 19:49 Sucralfate (Carafate) 1 gm BID PO 11/16/20 21:00 11/23/20 19:49 Tamsulosin HCl (Flomax) 0.4 mg HS PO 11/16/20 21:00 11/23/20 19:48 Ascorbic Acid (Vitamin C) 500 mg BID PO 11/16/20 21:00 11/23/20 19:49 Fluoxetine HCl (PROzac) 40 mg DAILY PO 11/17/20 09:00 11/23/20 08:51 Non-Formulary Medication (Gabapentin ) 600 mg TID PO 11/16/20 21:00 UNV Gabapentin (Neurontin) 800 mg HS PO 11/16/20 21:00 11/23/20 19:49 Lactobacillus Rhamnosus (Culturelle) 1 cap BID PO 11/16/20 21:00 11/23/20 19:49 Phenyleph/Shark Oil/Min Oil/Petrol (Preparation H) 1 laurence PRN BID PRN RC RECTAL PAIN 11/16/20 18:45 Artificial Tears (Artificial Tears) 1 drop PRN Q15MIN PRN OD DRY EYE 11/16/20 18:45 Buspirone HCl (Buspar) 10 mg 1700 PO 11/18/20 17:00 11/20/20 23:50 DC 11/20/20 17:00 Buspirone HCl (Buspar) 5 mg DAILY PO 11/18/20 09:00 11/20/20 23:50 DC 11/20/20 06:39 Buspirone HCl (Buspar) 5 mg BIDWMEALS PO 11/21/20 08:00 11/23/20 16:37 Quetiapine Fumarate (SEROquel) 12.5 mg 0900,1300,1500 PO 11/19/20 09:00 11/23/20 15:29 Olanzapine (ZyPREXA) 10 mg DAILY PO 11/22/20 09:00 11/24/20 22:00 11/23/20 08:51 Olanzapine (ZyPREXA) 5 mg QHS PO 11/21/20 21:00 11/24/20 22:00 11/23/20 19:49 Olanzapine (ZyPREXA) 5 mg BID PO 11/25/20 09:00 Divalproex Sodium (Depakote Sprinkles) 125 mg 0900,1300,1700 PO 11/22/20 09:00 11/23/20 16:37 I have reviewed the current psychotropics carefully including drug interactions. Risk benefit ratio favors no change other than as noted in my dictated progress note. Diagnosis: Problems: (1) Impulse control disorder, unspecified (2) Anxiety disorder, unspecified (3) Major depressive disorder with psychotic features MUKESH JAY MD Nov 23, 2020 21:12
--- NOTE | 2020-11-23 21:33 | PDOC ---
Exam Note: Andrea Note: Please also refer to the separate dictated note~for this date of service dictated separately.~Patient seen individually. Discussed the patient with Nursing staff reviewed the chart.~Reviewed interim history and current functioning. Reviewed vital signs,~Labs/ Radiology~and current medications noted below. Continue current treatment with the changes noted in the dictated addendum note Assessment: Vital Signs/I&O: Vital Signs Date Time Temp Pulse Resp B/P (MAP) Pulse Ox O2 Delivery O2 Flow Rate FiO2 11/23/20 15:19 97.1 88 16 99/51 (67) 94 11/23/20 13:10 Nasal Cannula 3.0 I & O 11/22/20 11/22/20 11/23/20 15:00 23:00 07:00 Intake Total 440 ml 220 ml Balance 440 ml 220 ml Current Medications: I have reviewed the current psychotropics carefully including drug interactions. Risk benefit ratio favors no change other than as noted in my dictated progress note. Diagnosis: Problems: (1) Impulse control disorder, unspecified (2) Anxiety disorder, unspecified (3) Major depressive disorder with psychotic features MUKESH JAY MD Nov 23, 2020 21:33
[2020-11-24 06:21] VITALS: BP 110/61
[2020-11-24 06:30] LABS: BASO # 0.1 x10^3/uL (0.0-0.2); BASO % 1 % (0-3); EOS # 0.5 x10^3/uL (0.0-0.7); EOS % 6 % (0-3); HEMATOCRIT 32.9 % (36.0-47.0); HEMOGLOBIN 10.6 g/dL (12.0-15.5); LYMPH # 2.5 x10^3/uL (1.0-4.8); LYMPH % 31 % (24-48); MEAN CORPUSCULAR HEMOGLOBIN 30 pg (25-35); MEAN CORPUSCULAR HGB CONC 32 g/dL (31-37); MEAN CORPUSCULAR VOLUME 93 fL (79-100); MONO # 0.7 x10^3/uL (0.0-1.1); MONO % 8 % (0-9); NEUT # 4.4 x10^3uL (1.8-7.7); NEUT % 54 % (31-73); PLATELET COUNT 359 x10^3/uL (140-400); RED BLOOD COUNT 3.54 x10^6/uL (3.50-5.40); RED CELL DISTRIBUTION WIDTH 14.6 % (11.5-14.5); WHITE BLOOD COUNT 8.2 x10^3/uL (4.0-11.0)
[2020-11-24 06:50] LABS: ALBUMIN 2.4 g/dL (3.4-5.0); ALBUMIN/GLOBULIN RATIO 0.5 (1.0-1.7); ALK PHOS 112 U/L (46-116); ALT (SGPT) 11 U/L (14-59); ANION GAP 5 (6-14); AST (SGOT) 13 U/L (15-37); BLOOD UREA NITROGEN 30 mg/dL (7-20); BUN/CREATININE RATIO 38 (6-20); CALCIUM 8.8 mg/dL (8.5-10.1); CARBON DIOXIDE 34 mmol/L (21-32); CHLORIDE 103 mmol/L (98-107); CREATININE 0.8 mg/dL (0.6-1.0); GFR 71.8; GLUCOSE 89 mg/dL (70-99); POTASSIUM 4.4 mmol/L (3.5-5.1); SODIUM 142 mmol/L (136-145); TOTAL BILIRUBIN 0.3 mg/dL (0.2-1.0); TOTAL PROTEIN 7.3 g/dL (6.4-8.2)
[2020-11-24 06:59] LABS: VAL ACID 28 mcg/mL (50-100)
--- NOTE | 2020-11-24 08:44 | PDOC ---
Exam Note: Andrea Note: This note is a late entry for 11/23/2020 covers elements not covered in my initial note. Subjective: The patient was seen face to face in the evening of 11/23/2020 with Dolores RODRIGUES, discussed and reviewed the chart. The patient slept 7-3/4 hours previous night. She spent much time in bed in her room, demanding, loud, yelling, irritable, accusing staff of different things to appoint where staff members go into her room two at a time. She has a witness for each other, otherwise, she alleges things that are untrue per nursing report. Review of Systems: Ambulation impaired in wheelchair. She complains of arthritic pain, which she does have severe arthritis. No CV, , pulmonary, eye, ENT system symptoms on review. Mental Status Exam: The patient is reasonably oriented. Speech is coherent, rapid at times. Abstraction is fair. Computation is impaired. Language function intact. Attention span is short. Mood and affect remains anxious, labile, depressed. Laboratory Data: Reviewed. Impression: Major depressive disorder with psychotic features. Anxiety disor [place] unspecified. Impulse control disorder unspecified. Plan: Continue psychotropics from initial note. Assessment: Vital Signs/I&O: Vital Signs Date Time Temp Pulse Resp B/P (MAP) Pulse Ox O2 Delivery O2 Flow Rate FiO2 11/24/20 06:21 98.0 70 14 110/61 (77) 96 3.0 11/24/20 00:00 Nasal Cannula I & O 11/23/20 11/23/20 11/24/20 15:00 23:00 07:00 Intake Total 440 ml 580 ml Balance 440 ml 580 ml Labs: Laboratory Tests Test 11/24/20 06:00 White Blood Count 8.2 x10^3/uL (4.0-11.0) Red Blood Count 3.54 x10^6/uL (3.50-5.40) Hemoglobin 10.6 g/dL (12.0-15.5) L Hematocrit 32.9 % (36.0-47.0) L Mean Corpuscular Volume 93 fL (79-100) Mean Corpuscular Hemoglobin 30 pg (25-35) Mean Corpuscular Hemoglobin Concent 32 g/dL (31-37) Red Cell Distribution Width 14.6 % (11.5-14.5) H Platelet Count 359 x10^3/uL (140-400) Neutrophils (%) (Auto) 54 % (31-73) Lymphocytes (%) (Auto) 31 % (24-48) Monocytes (%) (Auto) 8 % (0-9) Eosinophils (%) (Auto) 6 % (0-3) H Basophils (%) (Auto) 1 % (0-3) Neutrophils # (Auto) 4.4 x10^3uL (1.8-7.7) Lymphocytes # (Auto) 2.5 x10^3/uL (1.0-4.8) Monocytes # (Auto) 0.7 x10^3/uL (0.0-1.1) Eosinophils # (Auto) 0.5 x10^3/uL (0.0-0.7) Basophils # (Auto) 0.1 x10^3/uL (0.0-0.2) Sodium Level 142 mmol/L (136-145) Potassium Level 4.4 mmol/L (3.5-5.1) Chloride Level 103 mmol/L (98-107) Carbon Dioxide Level 34 mmol/L (21-32) H Anion Gap 5 (6-14) L Blood Urea Nitrogen 30 mg/dL (7-20) H Creatinine 0.8 mg/dL (0.6-1.0) Estimated GFR (Cockcroft-Gault) 71.8 BUN/Creatinine Ratio 38 (6-20) H Glucose Level 89 mg/dL (70-99) Calcium Level 8.8 mg/dL (8.5-10.1) Total Bilirubin 0.3 mg/dL (0.2-1.0) Aspartate Amino Transferase (AST) 13 U/L (15-37) L Alanine Aminotransferase (ALT) 11 U/L (14-59) L Alkaline Phosphatase 112 U/L (46-116) Total Protein 7.3 g/dL (6.4-8.2) Albumin 2.4 g/dL (3.4-5.0) L Albumin/Globulin Ratio 0.5 (1.0-1.7) L Valproic Acid Level 28 mcg/mL (50-100) L Valproic Acid Last Dose Date 11/23/2020 Valproic Acid Last Dose Time 2100 Current Medications: Meds: Laboratory Tests Test 11/24/20 06:00 White Blood Count 8.2 x10^3/uL Red Blood Count 3.54 x10^6/uL Hemoglobin 10.6 g/dL Hematocrit 32.9 % Mean Corpuscular Volume 93 fL Mean Corpuscular Hemoglobin 30 pg Mean Corpuscular Hemoglobin Concent 32 g/dL Red Cell Distribution Width 14.6 % Platelet Count 359 x10^3/uL Neutrophils (%) (Auto) 54 % Lymphocytes (%) (Auto) 31 % Monocytes (%) (Auto) 8 % Eosinophils (%) (Auto) 6 % Basophils (%) (Auto) 1 % Neutrophils # (Auto) 4.4 x10^3uL Lymphocytes # (Auto) 2.5 x10^3/uL Monocytes # (Auto) 0.7 x10^3/uL Eosinophils # (Auto) 0.5 x10^3/uL Basophils # (Auto) 0.1 x10^3/uL Sodium Level 142 mmol/L Potassium Level 4.4 mmol/L Chloride Level 103 mmol/L Carbon Dioxide Level 34 mmol/L Anion Gap 5 Blood Urea Nitrogen 30 mg/dL Creatinine 0.8 mg/dL Estimated GFR (Cockcroft-Gault) 71.8 BUN/Creatinine Ratio 38 Glucose Level 89 mg/dL Calcium Level 8.8 mg/dL Total Bilirubin 0.3 mg/dL Aspartate Amino Transf (AST/SGOT) 13 U/L Alanine Aminotransferase (ALT/SGPT) 11 U/L Alkaline Phosphatase 112 U/L Total Protein 7.3 g/dL Albumin 2.4 g/dL Albumin/Globulin Ratio 0.5 Valproic Acid (Depakene) Level 28 mcg/mL Valproic Acid Last Dose Date 11/23/2020 Valproic Acid Last Dose Time 2100 Current Medications Medications (Trade) Dose Ordered Sig/Jocelyn Route PRN Reason Start Time Stop Time Status Last Admin Dose Admin Acetaminophen (Tylenol) 650 mg PRN Q6HRS PRN PO MILD PAIN / TEMP > 100.3'F 11/16/20 17:30 11/17/20 18:17 DC 11/17/20 12:40 Multi-Ingredient Ointment (Analgesic [place]) 1 laurence PRN QID PRN TP MUSCLE PAIN 11/16/20 17:30 11/23/20 16:56 Al Hydroxide/Mg Hydroxide (Mylanta Plus Xs) 15 ml PRN AFTMEALHC PRN PO DYSPEPSIA 11/16/20 17:30 Magnesium Hydroxide (Milk Of Magnesia) 2,400 mg PRN QHS PRN PO CONSTIPATION 11/16/20 17:30 Nicotine (Nicoderm Cq 7mg Patch) 1 patch DAILY TD 11/16/20 17:30 11/16/20 17:44 DC Nicotine (Nicoderm Cq 7mg Patch) 1 patch DAILY TD 11/17/20 09:00 11/23/20 08:51 Acetaminophen (Tylenol) 650 mg PRN Q6HRS PRN PO MILD PAIN / TEMP > 100.3'F 11/16/20 18:00 11/18/20 16:23 Buspirone HCl (Buspar) 10 mg BIDWMEALS PO 11/17/20 08:00 11/17/20 18:09 DC 11/17/20 17:29 Calcium Carbonate/ Glycine (Oscal) 500 mg BID PO 11/16/20 21:00 11/23/20 19:48 Clopidogrel Bisulfate (Plavix) 75 mg DAILY PO 11/17/20 09:00 11/23/20 08:54 Docusate Sodium (Colace) 100 mg PRN DAILY PRN PO 2ND CHOICE CONSTIPATION 11/16/20 18:00 Ferrous Sulfate (Feosol) 325 mg BID PO 11/16/20 21:00 11/23/20 19:48 Gabapentin (Neurontin) 400 mg BID94 PO 11/17/20 09:00 11/23/20 15:30 Lorazepam (Ativan) 0.5 mg PRN BID PRN PO ANXIETY / AGITATION 11/16/20 18:00 11/20/20 14:30 Neomycin/ Polymyxin/ Dexamethasone (Maxitrol) 1 drop DAILY OU 11/17/20 09:00 11/23/20 08:59 Nicotine (Nicoderm Cq 7mg Patch) 1 patch PRN DAILY PRN TD SMOKING CESSATION 11/16/20 19:00 Olanzapine (ZyPREXA) 10 mg BID PO 11/16/20 21:00 11/21/20 18:06 DC 11/21/20 10:36 Oxycodone HCl (OxyCONTIN) 20 mg BID PO 11/16/20 21:00 11/23/20 19:48 Pantoprazole Sodium (Protonix) 40 mg DAILYAC PO 11/17/20 07:30 11/23/20 08:52 Potassium Chloride (Klor-Con) 20 meq BID PO 11/16/20 21:00 11/23/20 19:49 Sucralfate (Carafate) 1 gm BID PO 11/16/20 21:00 11/23/20 19:49 Tamsulosin HCl (Flomax) 0.4 mg HS PO 11/16/20 21:00 11/23/20 19:48 Ascorbic Acid (Vitamin C) 500 mg BID PO 11/16/20 21:00 11/23/20 19:49 Fluoxetine HCl (PROzac) 40 mg DAILY PO 11/17/20 09:00 11/23/20 08:51 Non-Formulary Medication (Gabapentin ) 600 mg TID PO 11/16/20 21:00 UNV Gabapentin (Neurontin) 800 mg HS PO 11/16/20 21:00 11/23/20 19:49 Lactobacillus Rhamnosus (Culturelle) 1 cap BID PO 11/16/20 21:00 11/23/20 19:49 Phenyleph/Shark Oil/Min Oil/Petrol (Preparation H) 1 laurence PRN BID PRN RC RECTAL PAIN 11/16/20 18:45 Artificial Tears (Artificial Tears) 1 drop PRN Q15MIN PRN OD DRY EYE 11/16/20 18:45 Buspirone HCl (Buspar) 10 mg 1700 PO 11/18/20 17:00 11/20/20 23:50 DC 11/20/20 17:00 Buspirone HCl (Buspar) 5 mg DAILY PO 11/18/20 09:00 11/20/20 23:50 DC 11/20/20 06:39 Buspirone HCl (Buspar) 5 mg BIDWMEALS PO 11/21/20 08:00 11/23/20 16:37 Quetiapine Fumarate (SEROquel) 12.5 mg 0900,1300,1500 PO 11/19/20 09:00 11/23/20 15:29 Olanzapine (ZyPREXA) 10 mg DAILY PO 11/22/20 09:00 11/24/20 22:00 11/23/20 08:51 Olanzapine (ZyPREXA) 5 mg QHS PO 11/21/20 21:00 2/9/21 22:00 11/23/20 19:49 Olanzapine (ZyPREXA) 5 mg BID PO 11/25/20 09:00 Divalproex Sodium (Depakote Sprinkles) 125 mg 0900,1300,1700 PO 11/22/20 09:00 11/23/20 16:37 I have reviewed the current psychotropics carefully including drug interactions. Risk benefit ratio favors no change other than as noted in my dictated progress note. Diagnosis: Problems: (1) Impulse control disorder, unspecified (2) Anxiety disorder, unspecified (3) Major depressive disorder with psychotic features MUKESH JAY MD Nov 24, 2020 08:44
[2020-11-24] MEDS: busPIRone 5 MG TABLET. PO SCH ×2 (10:06→17:00)
[2020-11-24] MEDS: LACTOBACILLUS RHAMNOSUS GG 1 CAPSULE. PO SCH ×2 (10:06→20:15)
[2020-11-24] MEDS: DIVALPROEX 125 MG CAP.SPRINK PO SCH ×3 (10:06→20:15)
[2020-11-24] MEDS: GABAPENTIN 100 MG CAPSULE. PO SCH ×2 (10:07→15:13)
[2020-11-24] MEDS: QUEtiapine 25 MG TABLET. PO SCH ×3 (10:07→15:13)
[2020-11-24] MEDS: CALCIUM CARBONATE 500 MG TABLET PO SCH ×2 (10:08→20:16)
[2020-11-24] MEDS: ASCORBIC ACID 500 MG TABLET PO SCH ×2 (10:08→20:15)
[2020-11-24] MEDS: FLUoxetine HCL 20 MG CAPSULE PO SCH (10:08)
[2020-11-24] MEDS: CLOPIDOGREL BISULFATE 75 MG TABLET PO SCH (10:08)
[2020-11-24] MEDS: SUCRALFATE 1 GM TABLET. PO SCH ×2 (10:08→20:15)
[2020-11-24] MEDS: POTASSIUM CHLORIDE 20 MEQ TABLET.ER. PO SCH ×2 (10:08→20:16)
[2020-11-24] MEDS: PANTOPRAZOLE 40 MG TABLET. PO SCH (10:08)
[2020-11-24] MEDS: FERROUS SULFATE 325 MG TABLET. PO SCH ×2 (10:08→20:16)
[2020-11-24] MEDS: NICOTINE 7MG PATCH. TD SCH (10:09)
[2020-11-24] MEDS: OLANZapine 10 MG TABLET PO SCH (10:09)
[2020-11-24] MEDS: NEO/POLYMYX/DEXAMETH OPHTH SUSPENSION 5ML BOTTLE. OU SCH (10:09)
[2020-11-24] MEDS: oxyCODONE ER 20 MG TAB.ER.12H PO SCH ×2 (10:09→20:15)
[2020-11-24 15:51] VITALS: BP 107/66
[2020-11-24] MEDS: GABAPENTIN 400 MG CAPSULE. PO SCH (20:15)
[2020-11-24] MEDS: OLANZapine 5 MG TABLET PO SCH (20:15)
[2020-11-24] MEDS: TAMSULOSIN 0.4 MG CAP.ER.24H. PO SCH (20:16)
--- NOTE | 2020-11-24 20:59 | PDOC ---
Exam Note: Andrea Note: Please also refer to the separate dictated note~for this date of service dictated separately.~Patient seen individually. Discussed the patient with Nursing staff reviewed the chart.~Reviewed interim history and current functioning. Reviewed vital signs,~Labs/ Radiology~and current medications noted below. Continue current treatment with the changes noted in the dictated addendum note Assessment: Vital Signs/I&O: Vital Signs Date Time Temp Pulse Resp B/P (MAP) Pulse Ox O2 Delivery O2 Flow Rate FiO2 11/24/20 20:15 Nasal Cannula 2.0 11/24/20 15:51 98.4 84 16 107/66 (80) 94 I & O 11/23/20 11/23/20 11/24/20 15:00 23:00 07:00 Intake Total 440 ml 580 ml Balance 440 ml 580 ml Labs: Laboratory Tests Test 11/24/20 06:00 White Blood Count 8.2 x10^3/uL (4.0-11.0) Red Blood Count 3.54 x10^6/uL (3.50-5.40) Hemoglobin 10.6 g/dL (12.0-15.5) L Hematocrit 32.9 % (36.0-47.0) L Mean Corpuscular Volume 93 fL (79-100) Mean Corpuscular Hemoglobin 30 pg (25-35) Mean Corpuscular Hemoglobin Concent 32 g/dL (31-37) Red Cell Distribution Width 14.6 % (11.5-14.5) H Platelet Count 359 x10^3/uL (140-400) Neutrophils (%) (Auto) 54 % (31-73) Lymphocytes (%) (Auto) 31 % (24-48) Monocytes (%) (Auto) 8 % (0-9) Eosinophils (%) (Auto) 6 % (0-3) H Basophils (%) (Auto) 1 % (0-3) Neutrophils # (Auto) 4.4 x10^3uL (1.8-7.7) Lymphocytes # (Auto) 2.5 x10^3/uL (1.0-4.8) Monocytes # (Auto) 0.7 x10^3/uL (0.0-1.1) Eosinophils # (Auto) 0.5 x10^3/uL (0.0-0.7) Basophils # (Auto) 0.1 x10^3/uL (0.0-0.2) Sodium Level 142 mmol/L (136-145) Potassium Level 4.4 mmol/L (3.5-5.1) Chloride Level 103 mmol/L (98-107) Carbon Dioxide Level 34 mmol/L (21-32) H Anion Gap 5 (6-14) L Blood Urea Nitrogen 30 mg/dL (7-20) H Creatinine 0.8 mg/dL (0.6-1.0) Estimated GFR (Cockcroft-Gault) 71.8 BUN/Creatinine Ratio 38 (6-20) H Glucose Level 89 mg/dL (70-99) Calcium Level 8.8 mg/dL (8.5-10.1) Total Bilirubin 0.3 mg/dL (0.2-1.0) Aspartate Amino Transferase (AST) 13 U/L (15-37) L Alanine Aminotransferase (ALT) 11 U/L (14-59) L Alkaline Phosphatase 112 U/L (46-116) Total Protein 7.3 g/dL (6.4-8.2) Albumin 2.4 g/dL (3.4-5.0) L Albumin/Globulin Ratio 0.5 (1.0-1.7) L Valproic Acid Level 28 mcg/mL (50-100) L Valproic Acid Last Dose Date 11/23/2020 Valproic Acid Last Dose Time 2100 Current Medications: Meds: Laboratory Tests Test 11/24/20 06:00 White Blood Count 8.2 x10^3/uL Red Blood Count 3.54 x10^6/uL Hemoglobin 10.6 g/dL Hematocrit 32.9 % Mean Corpuscular Volume 93 fL Mean Corpuscular Hemoglobin 30 pg Mean Corpuscular Hemoglobin Concent 32 g/dL Red Cell Distribution Width 14.6 % Platelet Count 359 x10^3/uL Neutrophils (%) (Auto) 54 % Lymphocytes (%) (Auto) 31 % Monocytes (%) (Auto) 8 % Eosinophils (%) (Auto) 6 % Basophils (%) (Auto) 1 % Neutrophils # (Auto) 4.4 x10^3uL Lymphocytes # (Auto) 2.5 x10^3/uL Monocytes # (Auto) 0.7 x10^3/uL Eosinophils # (Auto) 0.5 x10^3/uL Basophils # (Auto) 0.1 x10^3/uL Sodium Level 142 mmol/L Potassium Level 4.4 mmol/L Chloride Level 103 mmol/L Carbon Dioxide Level 34 mmol/L Anion Gap 5 Blood Urea Nitrogen 30 mg/dL Creatinine 0.8 mg/dL Estimated GFR (Cockcroft-Gault) 71.8 BUN/Creatinine Ratio 38 Glucose Level 89 mg/dL Calcium Level 8.8 mg/dL Total Bilirubin 0.3 mg/dL Aspartate Amino Transf (AST/SGOT) 13 U/L Alanine Aminotransferase (ALT/SGPT) 11 U/L Alkaline Phosphatase 112 U/L Total Protein 7.3 g/dL Albumin 2.4 g/dL Albumin/Globulin Ratio 0.5 Valproic Acid (Depakene) Level 28 mcg/mL Valproic Acid Last Dose Date 11/23/2020 Valproic Acid Last Dose Time 2100 Current Medications Medications (Trade) Dose Ordered Sig/Jocelyn Route PRN Reason Start Time Stop Time Status Last Admin Dose Admin Acetaminophen (Tylenol) 650 mg PRN Q6HRS PRN PO MILD PAIN / TEMP > 100.3'F 11/16/20 17:30 11/17/20 18:17 DC 11/17/20 12:40 Multi-Ingredient Ointment (Analgesic [place]) 1 laurence PRN QID PRN TP MUSCLE PAIN 11/16/20 17:30 11/23/20 16:56 Al Hydroxide/Mg Hydroxide (Mylanta Plus Xs) 15 ml PRN AFTMEALHC PRN PO DYSPEPSIA 11/16/20 17:30 Magnesium Hydroxide (Milk Of Magnesia) 2,400 mg PRN QHS PRN PO 2ND CHOICE CONSTIPATION 11/16/20 17:30 Nicotine (Nicoderm Cq 7mg Patch) 1 patch DAILY TD 11/16/20 17:30 11/16/20 17:44 DC Nicotine (Nicoderm Cq 7mg Patch) 1 patch DAILY TD 11/17/20 09:00 11/24/20 10:09 Acetaminophen (Tylenol) 650 mg PRN Q6HRS PRN PO MILD PAIN / TEMP > 100.3'F 11/16/20 18:00 11/18/20 16:23 Buspirone HCl (Buspar) 10 mg BIDWMEALS PO 11/17/20 08:00 11/17/20 18:09 DC 11/17/20 17:29 Calcium Carbonate/ Glycine (Oscal) 500 mg BID PO 11/16/20 21:00 11/24/20 20:16 Clopidogrel Bisulfate (Plavix) 75 mg DAILY PO 11/17/20 09:00 11/24/20 10:08 Docusate Sodium (Colace) 100 mg PRN DAILY PRN PO 1ST CHOICE CONSTIPATION 11/16/20 18:00 Ferrous Sulfate (Feosol) 325 mg BID PO 11/16/20 21:00 11/24/20 20:16 Gabapentin (Neurontin) 400 mg BID94 PO 11/17/20 09:00 11/24/20 15:13 Lorazepam (Ativan) 0.5 mg PRN BID PRN PO ANXIETY / AGITATION 11/16/20 18:00 11/20/20 14:30 Neomycin/ Polymyxin/ Dexamethasone (Maxitrol) 1 drop DAILY OU 11/17/20 09:00 11/24/20 10:09 Nicotine (Nicoderm Cq 7mg Patch) 1 patch PRN DAILY PRN TD SMOKING CESSATION 11/16/20 19:00 Olanzapine (ZyPREXA) 10 mg BID PO 11/16/20 21:00 11/21/20 18:06 DC 11/21/20 10:36 Oxycodone HCl (OxyCONTIN) 20 mg BID PO 11/16/20 21:00 11/24/20 20:15 Pantoprazole Sodium (Protonix) 40 mg DAILYAC PO 11/17/20 07:30 11/24/20 10:08 Potassium Chloride (Klor-Con) 20 meq BID PO 11/16/20 21:00 11/24/20 20:16 Sucralfate (Carafate) 1 gm BID PO 11/16/20 21:00 11/24/20 20:15 Tamsulosin HCl (Flomax) 0.4 mg HS PO 11/16/20 21:00 11/24/20 20:16 Ascorbic Acid (Vitamin C) 500 mg BID PO 11/16/20 21:00 11/24/20 20:15 Fluoxetine HCl (PROzac) 40 mg DAILY PO 11/17/20 09:00 11/24/20 10:08 Non-Formulary Medication (Gabapentin ) 600 mg TID PO 11/16/20 21:00 UNV Gabapentin (Neurontin) 800 mg HS PO 11/16/20 21:00 11/24/20 20:15 Lactobacillus Rhamnosus (Culturelle) 1 cap BID PO 11/16/20 21:00 11/24/20 20:15 Phenyleph/Shark Oil/Min Oil/Petrol (Preparation H) 1 laurence PRN BID PRN RC RECTAL PAIN 11/16/20 18:45 Artificial Tears (Artificial Tears) 1 drop PRN Q15MIN PRN OD DRY EYE 11/16/20 18:45 Buspirone HCl (Buspar) 10 mg 1700 PO 11/18/20 17:00 11/20/20 23:50 DC 11/20/20 17:00 Buspirone HCl (Buspar) 5 mg DAILY PO 11/18/20 09:00 11/20/20 23:50 DC 11/20/20 06:39 Buspirone HCl (Buspar) 5 mg BIDWMEALS PO 11/21/20 08:00 11/24/20 17:00 Quetiapine Fumarate (SEROquel) 12.5 mg 0900,1300,1500 PO 11/19/20 09:00 11/24/20 15:13 Olanzapine (ZyPREXA) 10 mg DAILY PO 11/22/20 09:00 11/24/20 22:00 11/24/20 10:09 Olanzapine (ZyPREXA) 5 mg QHS PO 11/21/20 21:00 11/24/20 22:00 11/24/20 20:15 Olanzapine (ZyPREXA) 5 mg BID PO 11/25/20 09:00 Divalproex Sodium (Depakote Sprinkles) 125 mg 0900,1300,1700 PO 11/22/20 09:00 11/24/20 16:52 DC 11/24/20 13:05 Divalproex Sodium (Depakote Sprinkles) 250 mg BID PO 11/24/20 21:00 11/24/20 20:15 Divalproex Sodium (Depakote Sprinkles) 125 mg NOON PO 11/25/20 12:00 Current Medications Medications (Trade) Dose Ordered Sig/Jocelyn Route PRN Reason Start Time Stop Time Status Last Admin Dose Admin Divalproex Sodium (Depakote Sprinkles) 250 mg BID PO 11/24/20 21:00 11/24/20 20:15 I have reviewed the current psychotropics carefully including drug interactions. Risk benefit ratio favors no change other than as noted in my dictated progress note. Diagnosis: Problems: (1) Impulse control disorder, unspecified (2) Anxiety disorder, unspecified (3) Major depressive disorder with psychotic features MUKESH JAY MD Nov 24, 2020 20:59
[2020-11-25 05:59] VITALS: BP 122/74
--- NOTE | 2020-11-25 08:38 | PDOC ---
Exam Note: Andrea Note: This note is a late entry for 11/24/2020 covers elements not covered in my initial note. Subjective: The patient was seen on telehealth rounds in the evening of 11/24/2020 with Sharla RODRIGUES, discussed and reviewed the chart. The patient slept 7 hours previous night. Overall she has been yelling less, more pleasant. I met with her in her room. Review of Systems: Ambulation impaired in wheelchair. No CV, , pulmonary, eye, ENT system symptoms on review. Mental Status Exam: The patient is reasonably oriented. She was not yelling, more pleasant, still depressed. Speech is coherent, rapid at times. Abstraction is fair. Computation is impaired. Language function intact. Attention span is short. Mood and affect improved. No suicidal or homicidal ideation, somewhat distractible. Laboratory Data: Reviewed. Impression: Major depressive disorder with psychotic features. Anxiety disorder unspecified. Impulse control disorder unspecified. Plan: Continue current psychotropics from initial note. Valproic acid level is 28, subtherapeutic on 125 mg t.i.d. We will increase to 250 mg b.i.d. and 125 mg in the afternoon of the Depakote Sprinkle. Check CBC, CMP, valproic acid level in 3 days. Adjust further as clinically indicated. Assessment: Vital Signs/I&O: Vital Signs Date Time Temp Pulse Resp B/P (MAP) Pulse Ox O2 Delivery O2 Flow Rate FiO2 11/25/20 05:59 96.9 73 18 122/74 (90) 97 11/24/20 20:15 Nasal Cannula 2.0 I & O 11/24/20 11/24/20 11/25/20 15:00 23:00 07:00 Intake Total 600 ml 300 ml Balance 600 ml 300 ml Current Medications: Meds: Current Medications Medications (Trade) Dose Ordered Sig/Jocelyn Route PRN Reason Start Time Stop Time Status Last Admin Dose Admin Acetaminophen (Tylenol) 650 mg PRN Q6HRS PRN PO MILD PAIN / TEMP > 100.3'F 11/16/20 17:30 11/17/20 18:17 DC 11/17/20 12:40 Multi-Ingredient Ointment (Analgesic [place]) 1 laurence PRN QID PRN TP MUSCLE PAIN 11/16/20 17:30 11/23/20 16:56 Al Hydroxide/Mg Hydroxide (Mylanta Plus Xs) 15 ml PRN AFTMEALHC PRN PO DYSPEPSIA 11/16/20 17:30 Magnesium Hydroxide (Milk Of Magnesia) 2,400 mg PRN QHS PRN PO 2ND CHOICE CONSTIPATION 11/16/20 17:30 Nicotine (Nicoderm Cq 7mg Patch) 1 patch DAILY TD 11/16/20 17:30 11/16/20 17:44 DC Nicotine (Nicoderm Cq 7mg Patch) 1 patch DAILY TD 11/17/20 09:00 11/24/20 10:09 Acetaminophen (Tylenol) 650 mg PRN Q6HRS PRN PO MILD PAIN / TEMP > 100.3'F 11/16/20 18:00 11/18/20 16:23 Buspirone HCl (Buspar) 10 mg BIDWMEALS PO 11/17/20 08:00 11/17/20 18:09 DC 11/17/20 17:29 Calcium Carbonate/ Glycine (Oscal) 500 mg BID PO 11/16/20 21:00 11/24/20 20:16 Clopidogrel Bisulfate (Plavix) 75 mg DAILY PO 11/17/20 09:00 11/24/20 10:08 Docusate Sodium (Colace) 100 mg PRN DAILY PRN PO 1ST CHOICE CONSTIPATION 11/16/20 18:00 Ferrous Sulfate (Feosol) 325 mg BID PO 11/16/20 21:00 11/24/20 20:16 Gabapentin (Neurontin) 400 mg BID94 PO 11/17/20 09:00 11/24/20 15:13 Lorazepam (Ativan) 0.5 mg PRN BID PRN PO ANXIETY / AGITATION 11/16/20 18:00 11/20/20 14:30 Neomycin/ Polymyxin/ Dexamethasone (Maxitrol) 1 drop DAILY OU 11/17/20 09:00 11/24/20 10:09 Nicotine (Nicoderm Cq 7mg Patch) 1 patch PRN DAILY PRN TD SMOKING CESSATION 11/16/20 19:00 Olanzapine (ZyPREXA) 10 mg BID PO 11/16/20 21:00 11/21/20 18:06 DC 11/21/20 10:36 Oxycodone HCl (OxyCONTIN) 20 mg BID PO 11/16/20 21:00 11/24/20 20:15 Pantoprazole Sodium (Protonix) 40 mg DAILYAC PO 11/17/20 07:30 11/24/20 10:08 Potassium Chloride (Klor-Con) 20 meq BID PO 11/16/20 21:00 11/24/20 20:16 Sucralfate (Carafate) 1 gm BID PO 11/16/20 21:00 11/24/20 20:15 Tamsulosin HCl (Flomax) 0.4 mg HS PO 11/16/20 21:00 11/24/20 20:16 Ascorbic Acid (Vitamin C) 500 mg BID PO 11/16/20 21:00 11/24/20 20:15 Fluoxetine HCl (PROzac) 40 mg DAILY PO 11/17/20 09:00 11/24/20 10:08 Non-Formulary Medication (Gabapentin ) 600 mg TID PO 11/16/20 21:00 UNV Gabapentin (Neurontin) 800 mg HS PO 11/16/20 21:00 11/24/20 20:15 Lactobacillus Rhamnosus (Culturelle) 1 cap BID PO 11/16/20 21:00 11/24/20 20:15 Phenyleph/Shark Oil/Min Oil/Petrol (Preparation H) 1 laurence PRN BID PRN RC RECTAL PAIN 11/16/20 18:45 Artificial Tears (Artificial Tears) 1 drop PRN Q15MIN PRN OD DRY EYE 11/16/20 18:45 Buspirone HCl (Buspar) 10 mg 1700 PO 11/18/20 17:00 11/20/20 23:50 DC 11/20/20 17:00 Buspirone HCl (Buspar) 5 mg DAILY PO 11/18/20 09:00 11/20/20 23:50 DC 11/20/20 06:39 Buspirone HCl (Buspar) 5 mg BIDWMEALS PO 11/21/20 08:00 11/24/20 17:00 Quetiapine Fumarate (SEROquel) 12.5 mg 0900,1300,1500 PO 11/19/20 09:00 11/24/20 15:13 Olanzapine (ZyPREXA) 10 mg DAILY PO 11/22/20 09:00 11/24/20 22:00 DC 11/24/20 10:09 Olanzapine (ZyPREXA) 5 mg QHS PO 11/21/20 21:00 11/24/20 22:00 DC 11/24/20 20:15 Olanzapine (ZyPREXA) 5 mg BID PO 11/25/20 09:00 Divalproex Sodium (Depakote Sprinkles) 125 mg 0900,1300,1700 PO 11/22/20 09:00 11/24/20 16:52 DC 11/24/20 13:05 Divalproex Sodium (Depakote Sprinkles) 250 mg BID PO 11/24/20 21:00 11/24/20 20:15 Divalproex Sodium (Depakote Sprinkles) 125 mg NOON PO 11/25/20 12:00 Current Medications Medications (Trade) Dose Ordered Sig/Jocelyn Route PRN Reason Start Time Stop Time Status Last Admin Dose Admin Divalproex Sodium (Depakote Sprinkles) 250 mg BID PO 11/24/20 21:00 11/24/20 20:15 I have reviewed the current psychotropics carefully including drug interactions. Risk benefit ratio favors no change other than as noted in my dictated progress note. Diagnosis: Problems: (1) Impulse control disorder, unspecified (2) Anxiety disorder, unspecified (3) Major depressive disorder with psychotic features MUKESH JAY MD Nov 25, 2020 08:38
[2020-11-25] MEDS: CLOPIDOGREL BISULFATE 75 MG TABLET PO SCH (08:46)
[2020-11-25] MEDS: NEO/POLYMYX/DEXAMETH OPHTH SUSPENSION 5ML BOTTLE. OU SCH (08:46)
[2020-11-25] MEDS: oxyCODONE ER 20 MG TAB.ER.12H PO SCH ×2 (08:46→20:45)
[2020-11-25] MEDS: GABAPENTIN 100 MG CAPSULE. PO SCH ×2 (08:46→15:50)
[2020-11-25] MEDS: CALCIUM CARBONATE 500 MG TABLET PO SCH ×2 (08:47→20:43)
[2020-11-25] MEDS: OLANZapine 5 MG TABLET PO SCH ×2 (08:47→20:43)
[2020-11-25] MEDS: NICOTINE 7MG PATCH. TD SCH (08:47)
[2020-11-25] MEDS: QUEtiapine 25 MG TABLET. PO SCH ×3 (08:47→15:50)
[2020-11-25] MEDS: FERROUS SULFATE 325 MG TABLET. PO SCH ×2 (08:47→20:43)
[2020-11-25] MEDS: POTASSIUM CHLORIDE 20 MEQ TABLET.ER. PO SCH ×2 (08:47→20:43)
[2020-11-25] MEDS: DIVALPROEX 125 MG CAP.SPRINK PO SCH ×2 (08:48→20:44)
[2020-11-25] MEDS: PANTOPRAZOLE 40 MG TABLET. PO SCH (08:48)
[2020-11-25] MEDS: ASCORBIC ACID 500 MG TABLET PO SCH ×2 (08:48→20:43)
[2020-11-25] MEDS: FLUoxetine HCL 20 MG CAPSULE PO SCH (08:48)
[2020-11-25] MEDS: SUCRALFATE 1 GM TABLET. PO SCH ×2 (08:48→20:43)
[2020-11-25] MEDS: busPIRone 5 MG TABLET. PO SCH ×2 (08:48→15:50)
[2020-11-25] MEDS: LACTOBACILLUS RHAMNOSUS GG 1 CAPSULE. PO SCH ×2 (08:48→20:43)
--- NOTE | 2020-11-25 10:39 | TX PLAN ---
Interdisciplinary Tx Plan Admission Information Nov 16, 2020 at 15:30 Legal Status (on Admission): Voluntary DPOA/Guardian Name: Christiano Duncan Contact Other Contact Name: Heriberto Davey Other Contact Verified Code Status: Full Code Allergies: Coded Allergies: amoxicillin (Verified Allergy, Unknown, 02/21/20) aspirin (Verified Allergy, Unknown, 02/21/20) cephalexin (Verified Allergy, Unknown, 02/21/20) clarithromycin (Verified Allergy, Unknown, 02/21/20) clavulanic acid (Verified Allergy, Unknown, 02/21/20) codeine (Verified Allergy, Unknown, 02/21/20) ibuprofen (Verified Allergy, Unknown, 02/21/20) latex (Verified Allergy, Unknown, 02/21/20) nalbuphine (Verified Allergy, Unknown, 02/21/20) oseltamivir (Verified Allergy, Unknown, 02/21/20) Diagnoses Primary Diagnosis: MDD with psychotic features Reasons for Admission: Aggressive, Relation/conflict, Poor impulse control Problem in Patient's Words: According to pt son, she is in continual pain. Additional Admission Comments: According to the intake, pt is consistently on the call light, yelling out, threatening to throw self on the floor, attention-seeking, verbally abusive, name calling and belligerent, anxious, irritable Problems Active Problems: Yelling out Attention-seeking Verbally abusive Irritable Anxious Inactive Problems: Medication compliant Pt Strengths/Limitations Ability for [place]: Poor Cognitive Functioning/Ability: Fair Communication Skills/Ability: Fair Financial Resources: Poor Insight/Judgement: Poor Intellectual Ability: Fair Physical Health: Poor Social Skills: Poor Stability in Family: Fair Stability in School/Work: Poor Verbal Skills: Fair Discharge Criteria Discharge Criteria: No need for close observ., Adequate arrangements @DC, Improved behavior, Improved mood/thought Preliminary Discharge Plan Preliminary DC Plan: Current Living Arrange., Other Special Precautions Fall Risk: High Initial D/C Plan At this time, pt will return to placement. Placement has requested help with higher level of care. Identified Discharge Needs: Pt can return to placement; however, may need a higher level of care. Currently Utilized Resources Currently Utilized Resources/P: Primary Care Physician Psychiatrist (telehealth) Referrals Community Resources: Facility referrals Identified Problems/Hx/Goals Objectives/Short-Term Goals Short Term Goals: Dec. Anxiety/Panic, Dec. Outbursts, Dec. Symp. Depression, Improved Social Skills, Medication Stabilization, Promote Coping Skill Short Term Goals in Patient's: N/A Interventions/Frequency Staff Interventions/Frequency&: Psychiatrist to assess pt at least 3x per week to rmedication mgmt. Social Work to assess pt at least 2x per week to identify barriers to care and discharge planning goals. Nursing to assess behaviors, medication effects and complete 15 minute checks daily. Encourage group participation in activities (if applicable) or 1:1 engagement based off Activity Therapy goals. 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 ANDRES RODRIGES Nov 25, 2020 10:38
[2020-11-25] MEDS ORDERED: DIVALPROEX 125 MG CAP.SPRINK PO SCH (12:00)
[2020-11-25 16:43] VITALS: BP 88/59
[2020-11-25 20:07] VITALS: BP 119/64
[2020-11-25] MEDS: TAMSULOSIN 0.4 MG CAP.ER.24H. PO SCH (20:44)
[2020-11-25] MEDS: GABAPENTIN 400 MG CAPSULE. PO SCH (20:46)
--- NOTE | 2020-11-25 21:03 | PDOC ---
Exam Note: Andrea Note: Please also refer to the separate dictated note~for this date of service dictated separately.~Patient seen individually. Discussed the patient with Nursing staff reviewed the chart.~Reviewed interim history and current functioning. Reviewed vital signs,~Labs/ Radiology~and current medications noted below. Continue current treatment with the changes noted in the dictated addendum note Assessment: Vital Signs/I&O: Vital Signs Date Time Temp Pulse Resp B/P (MAP) Pulse Ox O2 Delivery O2 Flow Rate FiO2 11/25/20 20:45 96 11/25/20 20:07 73 119/64 (82) 2.0 11/25/20 16:43 97.6 16 Room Air I & O 0 11/24/20 11/24/20 11/25/20 15:00 23:00 07:00 Intake Total 600 ml 300 ml Balance 600 ml 300 ml Current Medications: Meds: Current Medications Medications (Trade) Dose Ordered Sig/Jocelyn Route PRN Reason Start Time Stop Time Status Last Admin Dose Admin Acetaminophen (Tylenol) 650 mg PRN Q6HRS PRN PO MILD PAIN / TEMP > 100.3'F 11/16/20 17:30 11/17/20 18:17 DC 11/17/20 12:40 Multi-Ingredient Ointment (Analgesic [place]) 1 laurence PRN QID PRN TP MUSCLE PAIN 11/16/20 17:30 11/23/20 16:56 Al Hydroxide/Mg Hydroxide (Mylanta Plus Xs) 15 ml PRN AFTMEALHC PRN PO DYSPEPSIA 11/16/20 17:30 Magnesium Hydroxide (Milk Of Magnesia) 2,400 mg PRN QHS PRN PO 2ND CHOICE CONSTIPATION 11/16/20 17:30 Nicotine (Nicoderm Cq 7mg Patch) 1 patch DAILY TD 11/16/20 17:30 11/16/20 17:44 DC Nicotine (Nicoderm Cq 7mg Patch) 1 patch DAILY TD 11/17/20 09:00 11/25/20 08:47 Acetaminophen (Tylenol) 650 mg PRN Q6HRS PRN PO MILD PAIN / TEMP > 100.3'F 11/16/20 18:00 11/18/20 16:23 Buspirone HCl (Buspar) 10 mg BIDWMEALS PO 11/17/20 08:00 11/17/20 18:09 DC 11/17/20 17:29 Calcium Carbonate/ Glycine (Oscal) 500 mg BID PO 11/16/20 21:00 11/25/20 20:43 Clopidogrel Bisulfate (Plavix) 75 mg DAILY PO 11/17/20 09:00 11/25/20 08:46 Docusate Sodium (Colace) 100 mg PRN DAILY PRN PO 1ST CHOICE CONSTIPATION 11/16/20 18:00 Ferrous Sulfate (Feosol) 325 mg BID PO 11/16/20 21:00 11/25/20 20:43 Gabapentin (Neurontin) 400 mg BID94 PO 11/17/20 09:00 11/25/20 15:50 Lorazepam (Ativan) 0.5 mg PRN BID PRN PO ANXIETY / AGITATION 11/16/20 18:00 11/20/20 14:30 Neomycin/ Polymyxin/ Dexamethasone (Maxitrol) 1 drop DAILY OU 11/17/20 09:00 11/25/20 08:46 Nicotine (Nicoderm Cq 7mg Patch) 1 patch PRN DAILY PRN TD SMOKING CESSATION 11/16/20 19:00 Olanzapine (ZyPREXA) 10 mg BID PO 11/16/20 21:00 11/21/20 18:06 DC 11/21/20 10:36 Oxycodone HCl (OxyCONTIN) 20 mg BID PO 11/16/20 21:00 11/25/20 20:45 Pantoprazole Sodium (Protonix) 40 mg DAILYAC PO 11/17/20 07:30 11/25/20 08:48 Potassium Chloride (Klor-Con) 20 meq BID PO 11/16/20 21:00 11/25/20 20:43 Sucralfate (Carafate) 1 gm BID PO 11/16/20 21:00 11/25/20 20:43 Tamsulosin HCl (Flomax) 0.4 mg HS PO 11/16/20 21:00 11/25/20 20:44 Ascorbic Acid (Vitamin C) 500 mg BID PO 11/16/20 21:00 11/25/20 20:43 Fluoxetine HCl (PROzac) 40 mg DAILY PO 11/17/20 09:00 11/25/20 08:48 Non-Formulary Medication (Gabapentin ) 600 mg TID PO 11/16/20 21:00 UNV Gabapentin (Neurontin) 800 mg HS PO 11/16/20 21:00 11/25/20 20:46 Lactobacillus Rhamnosus (Culturelle) 1 cap BID PO 11/16/20 21:00 11/25/20 20:43 Phenyleph/Shark Oil/Min Oil/Petrol (Preparation H) 1 laurence PRN BID PRN RC RECTAL PAIN 11/16/20 18:45 Artificial Tears (Artificial Tears) 1 drop PRN Q15MIN PRN OD DRY EYE 11/16/20 18:45 Buspirone HCl (Buspar) 10 mg 1700 PO 11/18/20 17:00 11/20/20 23:50 DC 11/20/20 17:00 Buspirone HCl (Buspar) 5 mg DAILY PO 11/18/20 09:00 11/20/20 23:50 DC 11/20/20 06:39 Buspirone HCl (Buspar) 5 mg BIDWMEALS PO 11/21/20 08:00 11/25/20 15:50 Quetiapine Fumarate (SEROquel) 12.5 mg 0900,1300,1500 PO 11/19/20 09:00 11/25/20 15:50 Olanzapine (ZyPREXA) 10 mg DAILY PO 11/22/20 09:00 11/24/20 22:00 DC 11/24/20 10:09 Olanzapine (ZyPREXA) 5 mg QHS PO 11/21/20 21:00 11/24/20 22:00 DC 11/24/20 20:15 Olanzapine (ZyPREXA) 5 mg BID PO 11/25/20 09:00 11/25/20 20:43 Divalproex Sodium (Depakote Sprinkles) 125 mg 0900,1300,1700 PO 11/22/20 09:00 11/24/20 16:52 DC 11/24/20 13:05 Divalproex Sodium (Depakote Sprinkles) 250 mg BID PO 11/24/20 21:00 11/25/20 20:44 Divalproex Sodium (Depakote Sprinkles) 125 mg NOON PO 11/25/20 12:00 11/25/20 12:03 Current Medications Medications (Trade) Dose Ordered Sig/Jocelyn Route PRN Reason Start Time Stop Time Status Last Admin Dose Admin Olanzapine (ZyPREXA) 5 mg BID PO 11/25/20 09:00 11/25/20 20:43 Divalproex Sodium (Depakote Sprinkles) 125 mg NOON PO 11/25/20 12:00 11/25/20 12:03 I have reviewed the current psychotropics carefully including drug interactions. Risk benefit ratio favors no change other than as noted in my dictated progress note. Diagnosis: Problems: (1) Impulse control disorder, unspecified (2) Anxiety disorder, unspecified (3) Major depressive disorder with psychotic features MUKESH JAY MD Nov 25, 2020 21:03
[2020-11-26 05:35] VITALS: BP 128/57
--- NOTE | 2020-11-26 08:07 | PDOC ---
Exam Note: Andrea Note: This note is a late entry for 11/25/2020 covers elements not covered in my initial note. Subjective: The patient was seen face to face in the evening of 11/25/2020 with Yelena RODRIGUES, discussed and reviewed the chart. The patient slept 3 hours previous night. She has been yelling less compliant with medications. Review of Systems: Ambulation impaired in wheelchair. No CV, , pulmonary, eye, ENT system symptoms on review. Mental Status Exam: The patient is reasonably oriented. She is very much less anxious today as I met with her in her room. She had many questions from a medical standpoint and she will present them to the nursing staff for Dr. Anu underwood. There is complaint of ongoing pain, otherwise, well oriented. Speech is coherent. Abstraction is fair. Computation is impaired. Language function intact. Mood and affect still depressed, anxious but improved. Laboratory Data: Reviewed. Impression: Major depressive disorder with psychotic features. Anxiety disorder unspecified. Impulse control disorder unspecified. Plan: Continue current psychotropics from initial note. Assessment: Vital Signs/I&O: Vital Signs Date Time Temp Pulse Resp B/P (MAP) Pulse Ox O2 Delivery O2 Flow Rate FiO2 11/26/20 05:35 98.2 73 18 128/57 (80) 99 11/25/20 20:07 2.0 11/25/20 16:43 Room Air I & O 11/25/20 11/25/20 11/26/20 14:59 22:59 06:59 Intake Total 100 ml 480 ml Balance 100 ml 480 ml Current Medications: Meds: Current Medications Medications (Trade) Dose Ordered Sig/Jocelyn Route PRN Reason Start Time Stop Time Status Last Admin Dose Admin Acetaminophen (Tylenol) 650 mg PRN Q6HRS PRN PO MILD PAIN / TEMP > 100.3'F 11/16/20 17:30 11/17/20 18:17 DC 11/17/20 12:40 Multi-Ingredient Ointment (Analgesic [place]) 1 laurence PRN QID PRN TP MUSCLE PAIN 11/16/20 17:30 11/23/20 16:56 Al Hydroxide/Mg Hydroxide (Mylanta Plus Xs) 15 ml PRN AFTMEALHC PRN PO DYSPEPSIA 11/16/20 17:30 Magnesium Hydroxide (Milk Of Magnesia) 2,400 mg PRN QHS PRN PO 2ND CHOICE CONSTIPATION 11/16/20 17:30 Nicotine (Nicoderm Cq 7mg Patch) 1 patch DAILY TD 11/16/20 17:30 11/16/20 17:44 DC Nicotine (Nicoderm Cq 7mg Patch) 1 patch DAILY TD 11/17/20 09:00 11/25/20 08:47 Acetaminophen (Tylenol) 650 mg PRN Q6HRS PRN PO MILD PAIN / TEMP > 100.3'F 11/16/20 18:00 11/18/20 16:23 Buspirone HCl (Buspar) 10 mg BIDWMEALS PO 11/17/20 08:00 11/17/20 18:09 DC 11/17/20 17:29 Calcium Carbonate/ Glycine (Oscal) 500 mg BID PO 11/16/20 21:00 11/25/20 20:43 Clopidogrel Bisulfate (Plavix) 75 mg DAILY PO 11/17/20 09:00 11/25/20 08:46 Docusate Sodium (Colace) 100 mg PRN DAILY PRN PO 1ST CHOICE CONSTIPATION 11/16/20 18:00 Ferrous Sulfate (Feosol) 325 mg BID PO 11/16/20 21:00 11/25/20 20:43 Gabapentin (Neurontin) 400 mg BID94 PO 11/17/20 09:00 11/25/20 15:50 Lorazepam (Ativan) 0.5 mg PRN BID PRN PO ANXIETY / AGITATION 11/16/20 18:00 11/20/20 14:30 Neomycin/ Polymyxin/ Dexamethasone (Maxitrol) 1 drop DAILY OU 11/17/20 09:00 11/25/20 08:46 Nicotine (Nicoderm Cq 7mg Patch) 1 patch PRN DAILY PRN TD SMOKING CESSATION 11/16/20 19:00 Olanzapine (ZyPREXA) 10 mg BID PO 11/16/20 21:00 11/21/20 18:06 DC 11/21/20 10:36 Oxycodone HCl (OxyCONTIN) 20 mg BID PO 11/16/20 21:00 11/25/20 20:45 Pantoprazole Sodium (Protonix) 40 mg DAILYAC PO 11/17/20 07:30 11/25/20 08:48 Potassium Chloride (Klor-Con) 20 meq BID PO 11/16/20 21:00 11/25/20 20:43 Sucralfate (Carafate) 1 gm BID PO 11/16/20 21:00 11/25/20 20:43 Tamsulosin HCl (Flomax) 0.4 mg HS PO 11/16/20 21:00 11/25/20 20:44 Ascorbic Acid (Vitamin C) 500 mg BID PO 11/16/20 21:00 11/25/20 20:43 Fluoxetine HCl (PROzac) 40 mg DAILY PO 11/17/20 09:00 11/25/20 08:48 Non-Formulary Medication (Gabapentin ) 600 mg TID PO 11/16/20 21:00 UNV Gabapentin (Neurontin) 800 mg HS PO 11/16/20 21:00 11/25/20 20:46 Lactobacillus Rhamnosus (Culturelle) 1 cap BID PO 11/16/20 21:00 11/25/20 20:43 Phenyleph/Shark Oil/Min Oil/Petrol (Preparation H) 1 laurence PRN BID PRN RC RECTAL PAIN 11/16/20 18:45 Artificial Tears (Artificial Tears) 1 drop PRN Q15MIN PRN OD DRY EYE 11/16/20 18:45 Buspirone HCl (Buspar) 10 mg 1700 PO 11/18/20 17:00 11/20/20 23:50 DC 11/20/20 17:00 Buspirone HCl (Buspar) 5 mg DAILY PO 11/18/20 09:00 11/20/20 23:50 DC 11/20/20 06:39 Buspirone HCl (Buspar) 5 mg BIDWMEALS PO 11/21/20 08:00 11/25/20 15:50 Quetiapine Fumarate (SEROquel) 12.5 mg 0900,1300,1500 PO 11/19/20 09:00 11/25/20 15:50 Olanzapine (ZyPREXA) 10 mg DAILY PO 11/22/20 09:00 11/24/20 22:00 DC 11/24/20 10:09 Olanzapine (ZyPREXA) 5 mg QHS PO 11/21/20 21:00 11/24/20 22:00 DC 11/24/20 20:15 Olanzapine (ZyPREXA) 5 mg BID PO 11/25/20 09:00 11/25/20 20:43 Divalproex Sodium (Depakote Sprinkles) 125 mg 0900,1300,1700 PO 11/22/20 09:00 11/24/20 16:52 DC 11/24/20 13:05 Divalproex Sodium (Depakote Sprinkles) 250 mg BID PO 11/24/20 21:00 11/25/20 20:44 Divalproex Sodium (Depakote Sprinkles) 125 mg NOON PO 11/25/20 12:00 11/25/20 12:03 Current Medications Medications (Trade) Dose Ordered Sig/Jocelyn Route PRN Reason Start Time Stop Time Status Last Admin Dose Admin Olanzapine (ZyPREXA) 5 mg BID PO 11/25/20 09:00 11/25/20 20:43 Divalproex Sodium (Depakote Sprinkles) 125 mg NOON PO 11/25/20 12:00 11/25/20 12:03 I have reviewed the current psychotropics carefully including drug interactions. Risk benefit ratio favors no change other than as noted in my dictated progress note. Diagnosis: Problems: (1) Impulse control disorder, unspecified (2) Anxiety disorder, unspecified (3) Major depressive disorder with psychotic features MUKESH JAY MD Nov 26, 2020 08:07
[2020-11-26] MEDS: NICOTINE 7MG PATCH. TD SCH ×2 (09:00→09:59)
[2020-11-26] MEDS: GABAPENTIN 100 MG CAPSULE. PO SCH ×2 (09:59→16:43)
[2020-11-26] MEDS: QUEtiapine 25 MG TABLET. PO SCH ×3 (09:59→16:43)
[2020-11-26] MEDS: CALCIUM CARBONATE 500 MG TABLET PO SCH ×2 (09:59→20:32)
[2020-11-26] MEDS: NEO/POLYMYX/DEXAMETH OPHTH SUSPENSION 5ML BOTTLE. OU SCH (09:59)
[2020-11-26] MEDS: FERROUS SULFATE 325 MG TABLET. PO SCH ×2 (10:00→20:33)
[2020-11-26] MEDS: ASCORBIC ACID 500 MG TABLET PO SCH ×2 (10:00→20:32)
[2020-11-26] MEDS: FLUoxetine HCL 20 MG CAPSULE PO SCH (10:00)
[2020-11-26] MEDS: oxyCODONE ER 20 MG TAB.ER.12H PO SCH ×2 (10:00→20:35)
[2020-11-26] MEDS: OLANZapine 5 MG TABLET PO SCH ×2 (10:00→20:33)
[2020-11-26] MEDS: LACTOBACILLUS RHAMNOSUS GG 1 CAPSULE. PO SCH ×2 (10:00→20:33)
[2020-11-26] MEDS: POTASSIUM CHLORIDE 20 MEQ TABLET.ER. PO SCH ×2 (10:01→20:33)
[2020-11-26] MEDS: SUCRALFATE 1 GM TABLET. PO SCH ×2 (10:01→20:33)
[2020-11-26] MEDS: PANTOPRAZOLE 40 MG TABLET. PO SCH (10:01)
[2020-11-26] MEDS: DIVALPROEX 125 MG CAP.SPRINK PO SCH ×3 (10:01→20:35)
[2020-11-26] MEDS: busPIRone 5 MG TABLET. PO SCH ×2 (10:02→16:43)
[2020-11-26] MEDS: CLOPIDOGREL BISULFATE 75 MG TABLET PO SCH (10:02)
[2020-11-26 15:25] VITALS: BP 115/59
[2020-11-26] MEDS: TAMSULOSIN 0.4 MG CAP.ER.24H. PO SCH (20:32)
[2020-11-26] MEDS: GABAPENTIN 400 MG CAPSULE. PO SCH (20:35)
--- NOTE | 2020-11-26 21:05 | PDOC ---
Exam Note: Andrea Note: Please also refer to the separate dictated note~for this date of service dictated separately.~Patient seen individually. Discussed the patient with Nursing staff reviewed the chart.~Reviewed interim history and current functioning. Reviewed vital signs,~Labs/ Radiology~and current medications noted below. Continue current treatment with the changes noted in the dictated addendum note Assessment: Vital Signs/I&O: Vital Signs Date Time Temp Pulse Resp B/P (MAP) Pulse Ox O2 Delivery O2 Flow Rate FiO2 11/26/20 20:35 97 11/26/20 15:25 97.7 80 16 115/59 (77) Room Air 11/25/20 20:07 2.0 I & O 0 11/25/20 11/25/20 11/26/20 15:00 23:00 07:00 Intake Total 100 ml 480 ml Balance 100 ml 480 ml Current Medications: Meds: Current Medications Medications (Trade) Dose Ordered Sig/Jocelyn Route PRN Reason Start Time Stop Time Status Last Admin Dose Admin Acetaminophen (Tylenol) 650 mg PRN Q6HRS PRN PO MILD PAIN / TEMP > 100.3'F 11/16/20 17:30 11/17/20 18:17 DC 11/17/20 12:40 Multi-Ingredient Ointment (Analgesic [place]) 1 laurence PRN QID PRN TP MUSCLE PAIN 11/16/20 17:30 11/23/20 16:56 Al Hydroxide/Mg Hydroxide (Mylanta Plus Xs) 15 ml PRN AFTMEALHC PRN PO DYSPEPSIA 11/16/20 17:30 Magnesium Hydroxide (Milk Of Magnesia) 2,400 mg PRN QHS PRN PO 2ND CHOICE CONSTIPATION 11/16/20 17:30 Nicotine (Nicoderm Cq 7mg Patch) 1 patch DAILY TD 11/16/20 17:30 11/16/20 17:44 DC Nicotine (Nicoderm Cq 7mg Patch) 1 patch DAILY TD 11/17/20 09:00 11/25/20 08:47 Acetaminophen (Tylenol) 650 mg PRN Q6HRS PRN PO MILD PAIN / TEMP > 100.3'F 11/16/20 18:00 11/18/20 16:23 Buspirone HCl (Buspar) 10 mg BIDWMEALS PO 11/17/20 08:00 11/17/20 18:09 DC 11/17/20 17:29 Calcium Carbonate/ Glycine (Oscal) 500 mg BID PO 11/16/20 21:00 11/26/20 20:32 Clopidogrel Bisulfate (Plavix) 75 mg DAILY PO 11/17/20 09:00 11/26/20 10:02 Docusate Sodium (Colace) 100 mg PRN DAILY PRN PO 1ST CHOICE CONSTIPATION 11/16/20 18:00 Ferrous Sulfate (Feosol) 325 mg BID PO 11/16/20 21:00 11/26/20 20:33 Gabapentin (Neurontin) 400 mg BID94 PO 11/17/20 09:00 11/26/20 16:43 Lorazepam (Ativan) 0.5 mg PRN BID PRN PO ANXIETY / AGITATION 11/16/20 18:00 11/20/20 14:30 Neomycin/ Polymyxin/ Dexamethasone (Maxitrol) 1 drop DAILY OU 11/17/20 09:00 11/26/20 09:59 Nicotine (Nicoderm Cq 7mg Patch) 1 patch PRN DAILY PRN TD SMOKING CESSATION 11/16/20 19:00 Olanzapine (ZyPREXA) 10 mg BID PO 11/16/20 21:00 11/21/20 18:06 DC 11/21/20 10:36 Oxycodone HCl (OxyCONTIN) 20 mg BID PO 11/16/20 21:00 11/26/20 20:35 Pantoprazole Sodium (Protonix) 40 mg DAILYAC PO 11/17/20 07:30 11/26/20 10:01 Potassium Chloride (Klor-Con) 20 meq BID PO 11/16/20 21:00 11/26/20 20:33 Sucralfate (Carafate) 1 gm BID PO 11/16/20 21:00 11/26/20 20:33 Tamsulosin HCl (Flomax) 0.4 mg HS PO 11/16/20 21:00 11/26/20 20:32 Ascorbic Acid (Vitamin C) 500 mg BID PO 11/16/20 21:00 11/26/20 20:32 Fluoxetine HCl (PROzac) 40 mg DAILY PO 11/17/20 09:00 11/26/20 10:00 Non-Formulary Medication (Gabapentin ) 600 mg TID PO 11/16/20 21:00 UNV Gabapentin (Neurontin) 800 mg HS PO 11/16/20 21:00 11/26/20 20:35 Lactobacillus Rhamnosus (Culturelle) 1 cap BID PO 11/16/20 21:00 11/26/20 20:33 Phenyleph/Shark Oil/Min Oil/Petrol (Preparation H) 1 laurence PRN BID PRN RC RECTAL PAIN 11/16/20 18:45 Artificial Tears (Artificial Tears) 1 drop PRN Q15MIN PRN OD DRY EYE 11/16/20 18:45 Buspirone HCl (Buspar) 10 mg 1700 PO 11/18/20 17:00 11/20/20 23:50 DC 11/20/20 17:00 Buspirone HCl (Buspar) 5 mg DAILY PO 11/18/20 09:00 11/20/20 23:50 DC 11/20/20 06:39 Buspirone HCl (Buspar) 5 mg BIDWMEALS PO 11/21/20 08:00 11/26/20 16:43 Quetiapine Fumarate (SEROquel) 12.5 mg 0900,1300,1500 PO 11/19/20 09:00 11/26/20 16:43 Olanzapine (ZyPREXA) 10 mg DAILY PO 11/22/20 09:00 11/24/20 22:00 DC 11/24/20 10:09 Olanzapine (ZyPREXA) 5 mg QHS PO 11/21/20 21:00 11/24/20 22:00 DC 11/24/20 20:15 Olanzapine (ZyPREXA) 5 mg BID PO 11/25/20 09:00 11/26/20 20:33 Divalproex Sodium (Depakote Sprinkles) 125 mg 0900,1300,1700 PO 11/22/20 09:00 11/24/20 16:52 DC 11/24/20 13:05 Divalproex Sodium (Depakote Sprinkles) 250 mg BID PO 11/24/20 21:00 11/26/20 12:26 DC 11/26/20 10:01 Divalproex Sodium (Depakote Sprinkles) 125 mg NOON PO 11/25/20 12:00 11/26/20 12:23 DC 11/25/20 12:03 Divalproex Sodium (Depakote Sprinkles) 250 mg NOON PO 11/26/20 12:40 11/26/20 14:25 Divalproex Sodium (Depakote Sprinkles) 375 mg HS PO 11/26/20 21:00 11/26/20 20:35 Divalproex Sodium (Depakote Sprinkles) 250 mg 0900 PO 11/27/20 09:00 Oxycodone HCl (Roxicodone) 5 mg PRN Q6HRS PRN PO BREAKTHROUGH MOD-SEV PAIN 11/26/20 15:30 Current Medications Medications (Trade) Dose Ordered Sig/Jocelyn Route PRN Reason Start Time Stop Time Status Last Admin Dose Admin Divalproex Sodium (Depakote Sprinkles) 250 mg NOON PO 11/26/20 12:40 11/26/20 14:25 Divalproex Sodium (Depakote Sprinkles) 375 mg HS PO 11/26/20 21:00 11/26/20 20:35 I have reviewed the current psychotropics carefully including drug interactions. Risk benefit ratio favors no change other than as noted in my dictated progress note. Diagnosis: Problems: (1) Impulse control disorder, unspecified (2) Anxiety disorder, unspecified (3) Major depressive disorder with psychotic features MUKESH JAY MD Nov 26, 2020 21:05
[2020-11-27 05:52] VITALS: BP 102/62
[2020-11-27] MEDS: LACTOBACILLUS RHAMNOSUS GG 1 CAPSULE. PO SCH ×2 (10:12→20:38)
[2020-11-27] MEDS: SUCRALFATE 1 GM TABLET. PO SCH ×2 (10:12→20:38)
[2020-11-27] MEDS: NICOTINE 7MG PATCH. TD SCH (10:12)
[2020-11-27] MEDS: GABAPENTIN 100 MG CAPSULE. PO SCH ×2 (10:12→15:59)
[2020-11-27] MEDS: PANTOPRAZOLE 40 MG TABLET. PO SCH (10:13)
[2020-11-27] MEDS: QUEtiapine 25 MG TABLET. PO SCH ×3 (10:13→15:00)
[2020-11-27] MEDS: FLUoxetine HCL 20 MG CAPSULE PO SCH (10:13)
[2020-11-27] MEDS: CALCIUM CARBONATE 500 MG TABLET PO SCH ×2 (10:13→20:39)
[2020-11-27] MEDS: ASCORBIC ACID 500 MG TABLET PO SCH ×2 (10:13→20:42)
[2020-11-27] MEDS: busPIRone 5 MG TABLET. PO SCH ×2 (10:13→15:59)
[2020-11-27] MEDS: POTASSIUM CHLORIDE 20 MEQ TABLET.ER. PO SCH ×2 (10:13→20:41)
[2020-11-27] MEDS: FERROUS SULFATE 325 MG TABLET. PO SCH ×2 (10:13→20:39)
[2020-11-27] MEDS: OLANZapine 5 MG TABLET PO SCH ×2 (10:13→20:41)
[2020-11-27] MEDS: CLOPIDOGREL BISULFATE 75 MG TABLET PO SCH (10:13)
[2020-11-27] MEDS: NEO/POLYMYX/DEXAMETH OPHTH SUSPENSION 5ML BOTTLE. OU SCH (10:15)
[2020-11-27] MEDS: DIVALPROEX 125 MG CAP.SPRINK PO SCH ×3 (10:15→20:38)
[2020-11-27] MEDS: oxyCODONE ER 20 MG TAB.ER.12H PO SCH ×2 (10:15→20:40)
[2020-11-27 16:23] VITALS: BP 96/63
[2020-11-27] MEDS: TAMSULOSIN 0.4 MG CAP.ER.24H. PO SCH (20:39)
[2020-11-27] MEDS: GABAPENTIN 400 MG CAPSULE. PO SCH (20:41)
[2020-11-28 05:53] VITALS: BP 134/73
[2020-11-28] MEDS: SUCRALFATE 1 GM TABLET. PO SCH ×2 (08:18→19:59)
[2020-11-28] MEDS: busPIRone 5 MG TABLET. PO SCH ×2 (08:18→17:00)
[2020-11-28] MEDS: CLOPIDOGREL BISULFATE 75 MG TABLET PO SCH (08:18)
[2020-11-28] MEDS: FLUoxetine HCL 20 MG CAPSULE PO SCH (08:18)
[2020-11-28] MEDS: LACTOBACILLUS RHAMNOSUS GG 1 CAPSULE. PO SCH ×2 (08:18→19:59)
[2020-11-28] MEDS: OLANZapine 5 MG TABLET PO SCH ×2 (08:18→19:58)
[2020-11-28] MEDS: DIVALPROEX 125 MG CAP.SPRINK PO SCH ×3 (08:18→20:03)
[2020-11-28] MEDS: ASCORBIC ACID 500 MG TABLET PO SCH ×2 (08:19→20:01)
[2020-11-28] MEDS: GABAPENTIN 100 MG CAPSULE. PO SCH ×2 (08:19→16:00)
[2020-11-28] MEDS: PANTOPRAZOLE 40 MG TABLET. PO SCH (08:19)
[2020-11-28] MEDS: CALCIUM CARBONATE 500 MG TABLET PO SCH ×2 (08:19→20:01)
[2020-11-28] MEDS: FERROUS SULFATE 325 MG TABLET. PO SCH ×2 (08:19→20:00)
[2020-11-28] MEDS: POTASSIUM CHLORIDE 20 MEQ TABLET.ER. PO SCH ×2 (08:19→20:00)
[2020-11-28] MEDS: QUEtiapine 25 MG TABLET. PO SCH ×3 (08:19→15:00)
[2020-11-28] MEDS: oxyCODONE ER 20 MG TAB.ER.12H PO SCH ×2 (08:21→20:01)
[2020-11-28] MEDS: NEO/POLYMYX/DEXAMETH OPHTH SUSPENSION 5ML BOTTLE. OU SCH (08:21)
[2020-11-28 15:49] VITALS: BP 82/51
[2020-11-28] MEDS: oxyCODONE IR 5 MG TABLET PO PRN (17:16)
[2020-11-28] MEDS ORDERED: NICOTINE 7MG PATCH. TD PRN (19:00)
[2020-11-28] MEDS: busPIRone 10 MG TABLET. PO SCH (19:58)
[2020-11-28] MEDS: TAMSULOSIN 0.4 MG CAP.ER.24H. PO SCH (19:59)
[2020-11-28] MEDS: GABAPENTIN 400 MG CAPSULE. PO SCH (20:02)
--- NOTE | 2020-11-28 21:23 | PDOC ---
Exam Note: Andrea Note: Please also refer to the separate dictated note~for this date of service dictated separately.~Patient seen individually. Discussed the patient with Nursing staff reviewed the chart.~Reviewed interim history and current functioning. Reviewed vital signs,~Labs/ Radiology~and current medications noted below. Continue current treatment with the changes noted in the dictated addendum note Assessment: Vital Signs/I&O: Vital Signs Date Time Temp Pulse Resp B/P (MAP) Pulse Ox O2 Delivery O2 Flow Rate FiO2 11/28/20 20:01 93 11/28/20 15:49 98.7 101 18 82/51 (61) 11/28/20 05:53 Room Air 11/27/20 05:52 2.0 I & O 11/27/20 11/27/20 11/28/20 15:00 23:00 07:00 Intake Total 240 ml 240 ml Balance 240 ml 240 ml Current Medications: Meds: Current Medications Medications (Trade) Dose Ordered Sig/Jocelyn Route PRN Reason Start Time Stop Time Status Last Admin Dose Admin Buspirone HCl (Buspar) 10 mg BID PO 11/28/20 21:00 11/28/20 19:58 I have reviewed the current psychotropics carefully including drug interactions. Risk benefit ratio favors no change other than as noted in my dictated progress note. Diagnosis: Problems: (1) Impulse control disorder, unspecified (2) Anxiety disorder, unspecified (3) Major depressive disorder with psychotic features MUKESH JAY MD Nov 28, 2020 21:23
--- NOTE | 2020-11-28 21:23 | PDOC ---
Exam Note: Andrea Note: Late entry for 11/27/2020. Please also refer to the separate dictated note~for this date of service dictated separately.~Patient seen individually. Discussed the patient with Nursing staff reviewed the chart.~Reviewed interim history and current functioning. Reviewed vital signs,~Labs/ Radiology~and current medic ations noted below. Continue current treatment with the changes noted in the dictated addendum note Assessment: Vital Signs/I&O: Vital Signs Date Time Temp Pulse Resp B/P (MAP) Pulse Ox O2 Delivery O2 Flow Rate FiO2 11/28/20 20:01 93 11/28/20 15:49 98.7 101 18 82/51 (61) 11/28/20 05:53 Room Air 11/27/20 05:52 2.0 I & O 11/27/20 11/27/20 11/28/20 15:00 23:00 07:00 Intake Total 240 ml 240 ml Balance 240 ml 240 ml Current Medications: Meds: Current Medications Medications (Trade) Dose Ordered Sig/Jocelyn Route PRN Reason Start Time Stop Time Status Last Admin Dose Admin Buspirone HCl (Buspar) 10 mg BID PO 11/28/20 21:00 11/28/20 19:58 I have reviewed the current psychotropics carefully including drug interactions. Risk benefit ratio favors no change other than as noted in my dictated progress note. Diagnosis: Problems: (1) Impulse control disorder, unspecified (2) Anxiety disorder, unspecified (3) Major depressive disorder with psychotic features MUKESH JAY MD Nov 28, 2020 21:23
[2020-11-29 06:29] VITALS: BP 123/62
[2020-11-29] MEDS: FLUoxetine HCL 20 MG CAPSULE PO SCH (08:13)
[2020-11-29] MEDS: CLOPIDOGREL BISULFATE 75 MG TABLET PO SCH (08:13)
[2020-11-29] MEDS: QUEtiapine 25 MG TABLET. PO SCH ×3 (08:13→15:00)
[2020-11-29] MEDS: GABAPENTIN 100 MG CAPSULE. PO SCH ×2 (08:14→16:00)
[2020-11-29] MEDS: LACTOBACILLUS RHAMNOSUS GG 1 CAPSULE. PO SCH ×2 (08:14→18:52)
[2020-11-29] MEDS: DIVALPROEX 125 MG CAP.SPRINK PO SCH ×3 (08:14→18:52)
[2020-11-29] MEDS: ASCORBIC ACID 500 MG TABLET PO SCH ×2 (08:14→18:52)
[2020-11-29] MEDS: PANTOPRAZOLE 40 MG TABLET. PO SCH (08:14)
[2020-11-29] MEDS: POTASSIUM CHLORIDE 20 MEQ TABLET.ER. PO SCH ×2 (08:14→18:52)
[2020-11-29] MEDS: busPIRone 10 MG TABLET. PO SCH ×2 (08:14→18:52)
[2020-11-29] MEDS: FERROUS SULFATE 325 MG TABLET. PO SCH ×2 (08:14→18:54)
[2020-11-29] MEDS: SUCRALFATE 1 GM TABLET. PO SCH ×2 (08:15→18:52)
[2020-11-29] MEDS: CALCIUM CARBONATE 500 MG TABLET PO SCH ×2 (08:15→18:54)
[2020-11-29] MEDS: OLANZapine 5 MG TABLET PO SCH ×2 (08:15→18:53)
[2020-11-29] MEDS: NEO/POLYMYX/DEXAMETH OPHTH SUSPENSION 5ML BOTTLE. OU SCH (08:15)
[2020-11-29] MEDS: oxyCODONE ER 20 MG TAB.ER.12H PO SCH ×2 (08:18→18:54)
[2020-11-29] MEDS: oxyCODONE IR 5 MG TABLET PO PRN ×2 (12:55→18:54)
[2020-11-29 16:05] VITALS: BP 96/58
[2020-11-29] MEDS: GABAPENTIN 400 MG CAPSULE. PO SCH (18:53)
[2020-11-29] MEDS: TAMSULOSIN 0.4 MG CAP.ER.24H. PO SCH (18:53)
--- NOTE | 2020-11-29 20:57 | PDOC ---
Exam Note: Andrea Note: Please also refer to the separate dictated note~for this date of service dictated separately.~Patient seen individually. Discussed the patient with Nursing staff reviewed the chart.~Reviewed interim history and current functioning. Reviewed vital signs,~Labs/ Radiology~and current medications noted below. Continue current treatment with the changes noted in the dictated addendum note Assessment: Vital Signs/I&O: Vital Signs Date Time Temp Pulse Resp B/P (MAP) Pulse Ox O2 Delivery O2 Flow Rate FiO2 11/29/20 16:05 97.9 100 16 96/58 (71) 93 11/28/20 05:53 Room Air 11/27/20 05:52 2.0 I & O 0 11/28/20 11/28/20 11/29/20 15:00 23:00 07:00 Intake Total 840 ml Balance 840 ml Current Medications: Meds: Current Medications Medications (Trade) Dose Ordered Sig/Jocelyn Route PRN Reason Start Time Stop Time Status Last Admin Dose Admin Buspirone HCl (Buspar) 10 mg BID PO 11/28/20 21:00 11/29/20 18:52 I have reviewed the current psychotropics carefully including drug interactions. Risk benefit ratio favors no change other than as noted in my dictated progress note. Diagnosis: Problems: (1) Impulse control disorder, unspecified (2) Anxiety disorder, unspecified (3) Major depressive disorder with psychotic features MUKESH JAY MD Nov 29, 2020 20:57
[2020-11-30] MEDS: oxyCODONE IR 5 MG TABLET PO PRN (01:19)
[2020-11-30 06:33] VITALS: BP 102/64
--- NOTE | 2020-11-30 07:18 | PDOC ---
Exam Note: Andrea Note: This note is a late entry for 11/26/2020 covers elements not covered in my initial note. Subjective: The patient was seen face to face in the morning of 11/26/2020 for a treatment team meeting with Belle Solomon, Heather Campbell and Liya (social work professor), Jonna Nicolas, activity therapy and Yelena RODRIGUES, discussed and reviewed the patients chart. The patient slept 5 hours previous night. Sleeping average 6 hours. Valproic acid level is 28. Appetite is 50%. She continues to have episodic yelling which attributes to pain but she needs constant interventions per nursing staff to get out of her bed, back in bed, move her to the side or cover her for any constant. Review of Systems: Ambulation impaired in wheelchair. Complains of chronic pain. No CV, , pulmonary, eye, ENT system symptoms on review. Mental Status Exam: The patient is reasonably oriented. Speech is coherent, rapid at times. Abstraction is fair. Computation is impaired. Language function intact. Mood and affect remains labile. Laboratory Data: Reviewed. Impression: Major depressive disorder with psychotic features. Anxiety disorder unspecified. Impulse control disorder unspecified. Plan: Valproic acid level is subtherapeutic at 28. We will increase Depakote Sprinkle from 250 mg 0900, 2100, and 125 mg at 1300 to 250 mg at 1300 hours and 375 mg at 2100 hours. Check CBC, CMP and valproic acid level in 3 days. Assessment: Vital Signs/I&O: Vital Signs Date Time Temp Pulse Resp B/P (MAP) Pulse Ox O2 Delivery O2 Flow Rate FiO2 11/30/20 06:33 96.9 64 18 102/64 (77) 99 Nasal Cannula 2.0 I & O 11/29/20 11/29/20 11/30/20 15:00 23:00 07:00 Intake Total 360 ml 0 ml 0 ml Balance 360 ml 0 ml 0 ml Current Medications: Meds: Current Medications Medications (Trade) Dose Ordered Sig/Jocelyn Route PRN Reason Start Time Stop Time Status Last Admin Dose Admin Acetaminophen (Tylenol) 650 mg PRN Q6HRS PRN PO MILD PAIN / TEMP > 100.3'F 11/16/20 17:30 11/17/20 18:17 DC 11/17/20 12:40 Multi-Ingredient Ointment (Analgesic [place]) 1 laurence PRN QID PRN TP MUSCLE PAIN 11/16/20 17:30 11/23/20 16:56 Al Hydroxide/Mg Hydroxide (Mylanta Plus Xs) 15 ml PRN AFTMEALHC PRN PO DYSPEPSIA 11/16/20 17:30 Magnesium Hydroxide (Milk Of Magnesia) 2,400 mg PRN QHS PRN PO 2ND CHOICE CONSTIPATION 11/16/20 17:30 Nicotine (Nicoderm Cq 7mg Patch) 1 patch DAILY TD 11/16/20 17:30 11/16/20 17:44 DC Nicotine (Nicoderm Cq 7mg Patch) 1 patch DAILY TD 11/17/20 09:00 11/27/20 21:49 DC 11/27/20 10:12 Acetaminophen (Tylenol) 650 mg PRN Q6HRS PRN PO MILD PAIN / TEMP > 100.3'F 11/16/20 18:00 11/18/20 16:23 Buspirone HCl (Buspar) 10 mg BIDWMEALS PO 11/17/20 08:00 11/17/20 18:09 DC 11/17/20 17:29 Calcium Carbonate/ Glycine (Oscal) 500 mg BID PO 11/16/20 21:00 11/29/20 18:54 Clopidogrel Bisulfate (Plavix) 75 mg DAILY PO 11/17/20 09:00 11/29/20 08:13 Docusate Sodium (Colace) 100 mg PRN DAILY PRN PO 1ST CHOICE CONSTIPATION 11/16/20 18:00 Ferrous Sulfate (Feosol) 325 mg BID PO 11/16/20 21:00 11/29/20 18:54 Gabapentin (Neurontin) 400 mg BID94 PO 11/17/20 09:00 11/29/20 17:46 DC 11/29/20 16:00 Lorazepam (Ativan) 0.5 mg PRN BID PRN PO ANXIETY / AGITATION 11/16/20 18:00 11/20/20 14:30 Neomycin/ Polymyxin/ Dexamethasone (Maxitrol) 1 drop DAILY OU 11/17/20 09:00 11/29/20 08:15 Nicotine (Nicoderm Cq 7mg Patch) 1 patch PRN DAILY PRN TD SMOKING CESSATION 11/16/20 19:00 11/27/20 21:49 DC Olanzapine (ZyPREXA) 10 mg BID PO 11/16/20 21:00 11/21/20 18:06 DC 11/21/20 10:36 Oxycodone HCl (OxyCONTIN) 20 mg BID PO 11/16/20 21:00 11/29/20 18:54 Pantoprazole Sodium (Protonix) 40 mg DAILYAC PO 11/17/20 07:30 11/29/20 08:14 Potassium Chloride (Klor-Con) 20 meq BID PO 11/16/20 21:00 11/29/20 18:52 Sucralfate (Carafate) 1 gm BID PO 11/16/20 21:00 11/29/20 18:52 Tamsulosin HCl (Flomax) 0.4 mg HS PO 11/16/20 21:00 11/29/20 18:53 Ascorbic Acid (Vitamin C) 500 mg BID PO 11/16/20 21:00 11/29/20 18:52 Fluoxetine HCl (PROzac) 40 mg DAILY PO 11/17/20 09:00 11/29/20 08:13 Non-Formulary Medication (Gabapentin ) 600 mg TID PO 11/16/20 21:00 UNV Gabapentin (Neurontin) 800 mg HS PO 11/16/20 21:00 11/29/20 18:53 Lactobacillus Rhamnosus (Culturelle) 1 cap BID PO 11/16/20 21:00 11/29/20 18:52 Phenyleph/Shark Oil/Min Oil/Petrol (Preparation H) 1 laurence PRN BID PRN RC RECTAL PAIN 11/16/20 18:45 Artificial Tears (Artificial Tears) 1 drop PRN Q15MIN PRN OD DRY EYE 11/16/20 18:45 Buspirone HCl (Buspar) 10 mg 1700 PO 11/18/20 17:00 11/20/20 23:50 DC 11/20/20 17:00 Buspirone HCl (Buspar) 5 mg DAILY PO 11/18/20 09:00 11/20/20 23:50 DC 11/20/20 06:39 Buspirone HCl (Buspar) 5 mg BIDWMEALS PO 11/21/20 08:00 11/28/20 18:20 DC 11/28/20 17:00 Quetiapine Fumarate (SEROquel) 12.5 mg 0900,1300,1500 PO 11/19/20 09:00 11/29/20 15:00 Olanzapine (ZyPREXA) 10 mg DAILY PO 11/22/20 09:00 11/24/20 22:00 DC 11/24/20 10:09 Olanzapine (ZyPREXA) 5 mg QHS PO 11/21/20 21:00 11/24/20 22:00 DC 11/24/20 20:15 Olanzapine (ZyPREXA) 5 mg BID PO 11/25/20 09:00 11/29/20 18:53 Divalproex Sodium (Depakote Sprinkles) 125 mg 0900,1300,1700 PO 11/22/20 09:00 11/24/20 16:52 DC 11/24/20 13:05 Divalproex Sodium (Depakote Sprinkles) 250 mg BID PO 11/24/20 21:00 11/26/20 12:26 DC 11/26/20 10:01 Divalproex Sodium (Depakote Sprinkles) 125 mg NOON PO 11/25/20 12:00 11/26/20 12:23 DC 11/25/20 12:03 Divalproex Sodium (Depakote Sprinkles) 250 mg NOON PO 11/26/20 12:40 11/29/20 12:00 Divalproex Sodium (Depakote Sprinkles) 375 mg HS PO 11/26/20 21:00 11/29/20 18:52 Divalproex Sodium (Depakote Sprinkles) 250 mg 0900 PO 11/27/20 09:00 11/29/20 08:14 Oxycodone HCl (Roxicodone) 5 mg PRN Q6HRS PRN PO BREAKTHROUGH MOD-SEV PAIN 11/26/20 15:30 11/30/20 01:19 Nicotine (Nicoderm Cq 7mg Patch) 1 patch PRN DAILY PRN TD SMOKING CESSATION 11/28/20 19:00 Buspirone HCl (Buspar) 10 mg BID PO 11/28/20 21:00 11/29/20 18:52 Gabapentin (Neurontin) 400 mg 0900,1400 PO 11/30/20 09:00 I have reviewed the current psychotropics carefully including drug interactions. Risk benefit ratio favors no change other than as noted in my dictated progress note. Diagnosis: Problems: (1) Impulse control disorder, unspecified (2) Anxiety disorder, unspecified (3) Major depressive disorder with psychotic features MUKESH JAY MD Nov 30, 2020 07:18
[2020-11-30] MEDS: PANTOPRAZOLE 40 MG TABLET. PO SCH (07:30)
--- NOTE | 2020-11-30 07:52 | PDOC ---
Exam Note: Andrea Note: This note is a late entry for 11/27/2020 covers elements not covered in my initial note. Subjective: The patient was seen face to face in the evening of 11/27/2020 with Ashley RODRIGUES, discussed and reviewed the chart. The patient slept 5-1/2 hours previous night. The patients Depakote was increased. She is little less anxious today. She attended groups at 1.30 p.m. and 5 p.m. with less yelling. Review of Systems: Ambulation impaired in wheelchair. No CV, , pulmonary, eye, ENT system symptoms on review. Mental Status Exam: The patient is reasonably oriented. She is calmer even during the individual visit. Speech is coherent. Abstraction is fair. Computation is impaired. Language function intact. Mood and affect still depressed, anxious but improved. No active suicidal or homicidal ideation. She is still dealing with anxiety. Laboratory Data: Reviewed. Impression: Major depressive disorder with psychotic features. Anxiety disorder unspecified. Impulse control disorder unspecified. Plan: Continue current psychotropics from initial note. Assessment: Vital Signs/I&O: Vital Signs Date Time Temp Pulse Resp B/P (MAP) Pulse Ox O2 Delivery O2 Flow Rate FiO2 11/30/20 06:33 96.9 64 18 102/64 (77) 99 Nasal Cannula 2.0 I & O0 11/29/20 11/29/20 11/30/20 15:00 23:00 07:00 Intake Total 360 ml 0 ml 0 ml Balance 360 ml 0 ml 0 ml Current Medications: Meds: Current Medications Medications (Trade) Dose Ordered Sig/Jocelyn Route PRN Reason Start Time Stop Time Status Last Admin Dose Admin Acetaminophen (Tylenol) 650 mg PRN Q6HRS PRN PO MILD PAIN / TEMP > 100.3'F 11/16/20 17:30 11/17/20 18:17 DC 11/17/20 12:40 Multi-Ingredient Ointment (Analgesic [place]) 1 laurence PRN QID PRN TP MUSCLE PAIN 11/16/20 17:30 11/23/20 16:56 Al Hydroxide/Mg Hydroxide (Mylanta Plus Xs) 15 ml PRN AFTMEALHC PRN PO DYSPEPSIA 11/16/20 17:30 Magnesium Hydroxide (Milk Of Magnesia) 2,400 mg PRN QHS PRN PO 2ND CHOICE CONSTIPATION 11/16/20 17:30 Nicotine (Nicoderm Cq 7mg Patch) 1 patch DAILY TD 11/16/20 17:30 11/16/20 17:44 DC Nicotine (Nicoderm Cq 7mg Patch) 1 patch DAILY TD 11/17/20 09:00 11/27/20 21:49 DC 11/27/20 10:12 Acetaminophen (Tylenol) 650 mg PRN Q6HRS PRN PO MILD PAIN / TEMP > 100.3'F 11/16/20 18:00 11/18/20 16:23 Buspirone HCl (Buspar) 10 mg BIDWMEALS PO 11/17/20 08:00 11/17/20 18:09 DC 11/17/20 17:29 Calcium Carbonate/ Glycine (Oscal) 500 mg BID PO 11/16/20 21:00 11/29/20 18:54 Clopidogrel Bisulfate (Plavix) 75 mg DAILY PO 11/17/20 09:00 11/29/20 08:13 Docusate Sodium (Colace) 100 mg PRN DAILY PRN PO 1ST CHOICE CONSTIPATION 11/16/20 18:00 Ferrous Sulfate (Feosol) 325 mg BID PO 11/16/20 21:00 11/29/20 18:54 Gabapentin (Neurontin) 400 mg BID94 PO 11/17/20 09:00 11/29/20 17:46 DC 11/29/20 16:00 Lorazepam (Ativan) 0.5 mg PRN BID PRN PO ANXIETY / AGITATION 11/16/20 18:00 11/20/20 14:30 Neomycin/ Polymyxin/ Dexamethasone (Maxitrol) 1 drop DAILY OU 11/17/20 09:00 11/29/20 08:15 Nicotine (Nicoderm Cq 7mg Patch) 1 patch PRN DAILY PRN TD SMOKING CESSATION 11/16/20 19:00 11/27/20 21:49 DC Olanzapine (ZyPREXA) 10 mg BID PO 11/16/20 21:00 11/21/20 18:06 DC 11/21/20 10:36 Oxycodone HCl (OxyCONTIN) 20 mg BID PO 11/16/20 21:00 11/29/20 18:54 Pantoprazole Sodium (Protonix) 40 mg DAILYAC PO 11/17/20 07:30 11/29/20 08:14 Potassium Chloride (Klor-Con) 20 meq BID PO 11/16/20 21:00 11/29/20 18:52 Sucralfate (Carafate) 1 gm BID PO 11/16/20 21:00 11/29/20 18:52 Tamsulosin HCl (Flomax) 0.4 mg HS PO 11/16/20 21:00 11/29/20 18:53 Ascorbic Acid (Vitamin C) 500 mg BID PO 11/16/20 21:00 11/29/20 18:52 Fluoxetine HCl (PROzac) 40 mg DAILY PO 11/17/20 09:00 11/29/20 08:13 Non-Formulary Medication (Gabapentin ) 600 mg TID PO 11/16/20 21:00 UNV Gabapentin (Neurontin) 800 mg HS PO 11/16/20 21:00 11/29/20 18:53 Lactobacillus Rhamnosus (Culturelle) 1 cap BID PO 11/16/20 21:00 11/29/20 18:52 Phenyleph/Shark Oil/Min Oil/Petrol (Preparation H) 1 laurence PRN BID PRN RC RECTAL PAIN 11/16/20 18:45 Artificial Tears (Artificial Tears) 1 drop PRN Q15MIN PRN OD DRY EYE 11/16/20 18:45 Buspirone HCl (Buspar) 10 mg 1700 PO 11/18/20 17:00 11/20/20 23:50 DC 11/20/20 17:00 Buspirone HCl (Buspar) 5 mg DAILY PO 11/18/20 09:00 11/20/20 23:50 DC 11/20/20 06:39 Buspirone HCl (Buspar) 5 mg BIDWMEALS PO 11/21/20 08:00 11/28/20 18:20 DC 11/28/20 17:00 Quetiapine Fumarate (SEROquel) 12.5 mg 0900,1300,1500 PO 11/19/20 09:00 11/29/20 15:00 Olanzapine (ZyPREXA) 10 mg DAILY PO 11/22/20 09:00 11/24/20 22:00 DC 11/24/20 10:09 Olanzapine (ZyPREXA) 5 mg QHS PO 11/21/20 21:00 11/24/20 22:00 DC 11/24/20 20:15 Olanzapine (ZyPREXA) 5 mg BID PO 11/25/20 09:00 11/29/20 18:53 Divalproex Sodium (Depakote Sprinkles) 125 mg 0900,1300,1700 PO 11/22/20 09:00 11/24/20 16:52 DC 11/24/20 13:05 Divalproex Sodium (Depakote Sprinkles) 250 mg BID PO 11/24/20 21:00 11/26/20 12:26 DC 11/26/20 10:01 Divalproex Sodium (Depakote Sprinkles) 125 mg NOON PO 11/25/20 12:00 11/26/20 12:23 DC 11/25/20 12:03 Divalproex Sodium (Depakote Sprinkles) 250 mg NOON PO 11/26/20 12:40 11/29/20 12:00 Divalproex Sodium (Depakote Sprinkles) 375 mg HS PO 11/26/20 21:00 11/29/20 18:52 Divalproex Sodium (Depakote Sprinkles) 250 mg 0900 PO 11/27/20 09:00 11/29/20 08:14 Oxycodone HCl (Roxicodone) 5 mg PRN Q6HRS PRN PO BREAKTHROUGH MOD-SEV PAIN 11/26/20 15:30 11/30/20 01:19 Nicotine (Nicoderm Cq 7mg Patch) 1 patch PRN DAILY PRN TD SMOKING CESSATION 11/28/20 19:00 Buspirone HCl (Buspar) 10 mg BID PO 11/28/20 21:00 11/29/20 18:52 Gabapentin (Neurontin) 400 mg 0900,1400 PO 11/30/20 09:00 I have reviewed the current psychotropics carefully including drug interactions. Risk benefit ratio favors no change other than as noted in my dictated progress note. Diagnosis: Problems: (1) Impulse control disorder, unspecified (2) Anxiety disorder, unspecified (3) Major depressive disorder with psychotic features MUKESH JAY MD Nov 30, 2020 07:52
--- NOTE | 2020-11-30 08:18 | PDOC ---
Exam Note: Andrea Note: This note is a late entry for 11/28/2020 covers elements not covered in my initial note. Subjective: The patient was seen face to face in the evening of 11/28/2020 with Ashley RODRIGUES, discussed and reviewed the chart. The patient slept 8-1/4 hours previous night. She did have telephone conversation with her son. She is on 2- hour toileting schedule to help her anxiety and seems to have concerns about this having the expectation of being able to use the restroom at regular intervals should reduce her anxiety over the period of time and help with the reduced yelling since she can have some surety staff will be there at a particular time. I did address with her and Ashley RODRIGUES addressed with the patients son. Her valproic acid level is to be checked on 11/30. Review of Systems: Ambulation impaired in wheelchair. No CV, , pulmonary, eye, ENT system symptoms on review. Mental Status Exam: The patient is reasonably oriented. Speech is coherent. Abstraction is fair. Computation is impaired. Language function intact. Mood and affect still anxious. Laboratory Data: Reviewed. Impression: Major depressive disorder with psychotic features. Anxiety disorder unspecified. Impulse control disorder unspecified. Plan: Given her ongoing anxiety, we will increase the BuSpar from 5 mg b.i.d. to 10 mg b.i.d. Rest unchanged for now. Assessment: Vital Signs/I&O: Vital Signs Date Time Temp Pulse Resp B/P (MAP) Pulse Ox O2 Delivery O2 Flow Rate FiO2 11/30/20 06:33 96.9 64 18 102/64 (77) 99 Nasal Cannula 2.0 I & O 11/29/20 11/29/20 11/30/20 15:00 23:00 07:00 Intake Total 360 ml 0 ml 0 ml Balance 360 ml 0 ml 0 ml Current Medications: Meds: Current Medications Medications (Trade) Dose Ordered Sig/Jocelyn Route PRN Reason Start Time Stop Time Status Last Admin Dose Admin Acetaminophen (Tylenol) 650 mg PRN Q6HRS PRN PO MILD PAIN / TEMP > 100.3'F 11/16/20 17:30 11/17/20 18:17 DC 11/17/20 12:40 Multi-Ingredient Ointment (Analgesic [place]) 1 laurence PRN QID PRN TP MUSCLE PAIN 11/16/20 17:30 11/23/20 16:56 Al Hydroxide/Mg Hydroxide (Mylanta Plus Xs) 15 ml PRN AFTMEALHC PRN PO DYSPEPSIA 11/16/20 17:30 Magnesium Hydroxide (Milk Of Magnesia) 2,400 mg PRN QHS PRN PO 2ND CHOICE CONSTIPATION 11/16/20 17:30 Nicotine (Nicoderm Cq 7mg Patch) 1 patch DAILY TD 11/16/20 17:30 11/16/20 17:44 DC Nicotine (Nicoderm Cq 7mg Patch) 1 patch DAILY TD 11/17/20 09:00 11/27/20 21:49 DC 11/27/20 10:12 Acetaminophen (Tylenol) 650 mg PRN Q6HRS PRN PO MILD PAIN / TEMP > 100.3'F 11/16/20 18:00 11/18/20 16:23 Buspirone HCl (Buspar) 10 mg BIDWMEALS PO 11/17/20 08:00 11/17/20 18:09 DC 11/17/20 17:29 Calcium Carbonate/ Glycine (Oscal) 500 mg BID PO 11/16/20 21:00 11/29/20 18:54 Clopidogrel Bisulfate (Plavix) 75 mg DAILY PO 11/17/20 09:00 11/29/20 08:13 Docusate Sodium (Colace) 100 mg PRN DAILY PRN PO 1ST CHOICE CONSTIPATION 11/16/20 18:00 Ferrous Sulfate (Feosol) 325 mg BID PO 11/16/20 21:00 11/29/20 18:54 Gabapentin (Neurontin) 400 mg BID94 PO 11/17/20 09:00 11/29/20 17:46 DC 11/29/20 16:00 Lorazepam (Ativan) 0.5 mg PRN BID PRN PO ANXIETY / AGITATION 11/16/20 18:00 11/20/20 14:30 Neomycin/ Polymyxin/ Dexamethasone (Maxitrol) 1 drop DAILY OU 11/17/20 09:00 11/29/20 08:15 Nicotine (Nicoderm Cq 7mg Patch) 1 patch PRN DAILY PRN TD SMOKING CESSATION 11/16/20 19:00 11/27/20 21:49 DC Olanzapine (ZyPREXA) 10 mg BID PO 11/16/20 21:00 11/21/20 18:06 DC 11/21/20 10:36 Oxycodone HCl (OxyCONTIN) 20 mg BID PO 11/16/20 21:00 11/29/20 18:54 Pantoprazole Sodium (Protonix) 40 mg DAILYAC PO 11/17/20 07:30 11/29/20 08:14 Potassium Chloride (Klor-Con) 20 meq BID PO 11/16/20 21:00 11/29/20 18:52 Sucralfate (Carafate) 1 gm BID PO 11/16/20 21:00 11/29/20 18:52 Tamsulosin HCl (Flomax) 0.4 mg HS PO 11/16/20 21:00 11/29/20 18:53 Ascorbic Acid (Vitamin C) 500 mg BID PO 11/16/20 21:00 11/29/20 18:52 Fluoxetine HCl (PROzac) 40 mg DAILY PO 11/17/20 09:00 11/29/20 08:13 Non-Formulary Medication (Gabapentin ) 600 mg TID PO 11/16/20 21:00 UNV Gabapentin (Neurontin) 800 mg HS PO 11/16/20 21:00 11/29/20 18:53 Lactobacillus Rhamnosus (Culturelle) 1 cap BID PO 11/16/20 21:00 11/29/20 18:52 Phenyleph/Shark Oil/Min Oil/Petrol (Preparation H) 1 laurence PRN BID PRN RC RECTAL PAIN 11/16/20 18:45 Artificial Tears (Artificial Tears) 1 drop PRN Q15MIN PRN OD DRY EYE 11/16/20 18:45 Buspirone HCl (Buspar) 10 mg 1700 PO 11/18/20 17:00 11/20/20 23:50 DC 11/20/20 17:00 Buspirone HCl (Buspar) 5 mg DAILY PO 11/18/20 09:00 11/20/20 23:50 DC 11/20/20 06:39 Buspirone HCl (Buspar) 5 mg BIDWMEALS PO 11/21/20 08:00 11/28/20 18:20 DC 11/28/20 17:00 Quetiapine Fumarate (SEROquel) 12.5 mg 0900,1300,1500 PO 11/19/20 09:00 11/29/20 15:00 Olanzapine (ZyPREXA) 10 mg DAILY PO 11/22/20 09:00 11/24/20 22:00 DC 11/24/20 10:09 Olanzapine (ZyPREXA) 5 mg QHS PO 11/21/20 21:00 11/24/20 22:00 DC 11/24/20 20:15 Olanzapine (ZyPREXA) 5 mg BID PO 11/25/20 09:00 11/29/20 18:53 Divalproex Sodium (Depakote Sprinkles) 125 mg 0900,1300,1700 PO 11/22/20 09:00 11/24/20 16:52 DC 11/24/20 13:05 Divalproex Sodium (Depakote Sprinkles) 250 mg BID PO 11/24/20 21:00 11/26/20 12:26 DC 11/26/20 10:01 Divalproex Sodium (Depakote Sprinkles) 125 mg NOON PO 11/25/20 12:00 11/26/20 12:23 DC 11/25/20 12:03 Divalproex Sodium (Depakote Sprinkles) 250 mg NOON PO 11/26/20 12:40 11/29/20 12:00 Divalproex Sodium (Depakote Sprinkles) 375 mg HS PO 11/26/20 21:00 11/29/20 18:52 Divalproex Sodium (Depakote Sprinkles) 250 mg 0900 PO 11/27/20 09:00 11/29/20 08:14 Oxycodone HCl (Roxicodone) 5 mg PRN Q6HRS PRN PO BREAKTHROUGH MOD-SEV PAIN 11/26/20 15:30 11/30/20 01:19 Nicotine (Nicoderm Cq 7mg Patch) 1 patch PRN DAILY PRN TD SMOKING CESSATION 11/28/20 19:00 Buspirone HCl (Buspar) 10 mg BID PO 11/28/20 21:00 11/29/20 18:52 Gabapentin (Neurontin) 400 mg 0900,1400 PO 11/30/20 09:00 I have reviewed the current psychotropics carefully including drug interactions. Risk benefit ratio favors no change other than as noted in my dictated progress note. Diagnosis: Problems: (1) Impulse control disorder, unspecified (2) Anxiety disorder, unspecified (3) Major depressive disorder with psychotic features MUKESH JAY MD Nov 30, 2020 08:18
--- NOTE | 2020-11-30 08:42 | PDOC ---
Exam Note: Andrea Note: This note is a late entry for 11/29/2020 covers elements not covered in my initial note. Subjective: The patient was seen face to face in the evening of 11/29/2020 with Ashley RODRIGUES, discussed and reviewed the chart. The patient slept 4-3/4 hours previous night. She has done better. She went out of the dining room for lunch, has been pleasant. I met with her in her room. She complains of chronic arthritic pain and was telling that she accused the nursing staff to her son and will tell her son that she lied about it. Review of Systems: Ambulation impaired in wheelchair. No CV, , pulmonary, eye, ENT system symptoms on review. Mental Status Exam: The patient is reasonably oriented. Speech is coherent, less pressured. Abstraction is fair. Computation is impaired. Language function intact. Mood and affect somewhat withdrawn, anxious. Laboratory Data: Reviewed. Impression: Major depressive disorder with psychotic features. Anxiety disorder unspecified. Impulse control disorder unspecified. Plan: Continue psychotropics from initial note. Assessment: Vital Signs/I&O: Vital Signs Date Time Temp Pulse Resp B/P (MAP) Pulse Ox O2 Delivery O2 Flow Rate FiO2 11/30/20 06:33 96.9 64 18 102/64 (77) 99 Nasal Cannula 2.0 I & O 11/29/20 11/29/20 11/30/20 15:00 23:00 07:00 Intake Total 360 ml 0 ml 0 ml Balance 360 ml 0 ml 0 ml Current Medications: Meds: Current Medications Medications (Trade) Dose Ordered Sig/Jocelyn Route PRN Reason Start Time Stop Time Status Last Admin Dose Admin Acetaminophen (Tylenol) 650 mg PRN Q6HRS PRN PO MILD PAIN / TEMP > 100.3'F 11/16/20 17:30 11/17/20 18:17 DC 11/17/20 12:40 Multi-Ingredient Ointment (Analgesic Mchenry) 1 laurence PRN QID PRN TP MUSCLE PAIN 11/16/20 17:30 11/23/20 16:56 Al Hydroxide/Mg Hydroxide (Mylanta Plus Xs) 15 ml PRN AFTMEALHC PRN PO DYSPEPSIA 11/16/20 17:30 Magnesium Hydroxide (Milk Of Magnesia) 2,400 mg PRN QHS PRN PO 2ND CHOICE CONSTIPATION 11/16/20 17:30 Nicotine (Nicoderm Cq 7mg Patch) 1 patch DAILY TD 11/16/20 17:30 11/16/20 17:44 DC Nicotine (Nicoderm Cq 7mg Patch) 1 patch DAILY TD 11/17/20 09:00 11/27/20 21:49 DC 11/27/20 10:12 Acetaminophen (Tylenol) 650 mg PRN Q6HRS PRN PO MILD PAIN / TEMP > 100.3'F 11/16/20 18:00 11/18/20 16:23 Buspirone HCl (Buspar) 10 mg BIDWMEALS PO 11/17/20 08:00 11/17/20 18:09 DC 11/17/20 17:29 Calcium Carbonate/ Glycine (Oscal) 500 mg BID PO 11/16/20 21:00 11/29/20 18:54 Clopidogrel Bisulfate (Plavix) 75 mg DAILY PO 11/17/20 09:00 11/29/20 08:13 Docusate Sodium (Colace) 100 mg PRN DAILY PRN PO 1ST CHOICE CONSTIPATION 11/16/20 18:00 Ferrous Sulfate (Feosol) 325 mg BID PO 11/16/20 21:00 11/29/20 18:54 Gabapentin (Neurontin) 400 mg BID94 PO 11/17/20 09:00 11/29/20 17:46 DC 11/29/20 16:00 Lorazepam (Ativan) 0.5 mg PRN BID PRN PO ANXIETY / AGITATION 11/16/20 18:00 11/20/20 14:30 Neomycin/ Polymyxin/ Dexamethasone (Maxitrol) 1 drop DAILY OU 11/17/20 09:00 11/29/20 08:15 Nicotine (Nicoderm Cq 7mg Patch) 1 patch PRN DAILY PRN TD SMOKING CESSATION 11/16/20 19:00 11/27/20 21:49 DC Olanzapine (ZyPREXA) 10 mg BID PO 11/16/20 21:00 11/21/20 18:06 DC 11/21/20 10:36 Oxycodone HCl (OxyCONTIN) 20 mg BID PO 11/16/20 21:00 11/29/20 18:54 Pantoprazole Sodium (Protonix) 40 mg DAILYAC PO 11/17/20 07:30 11/29/20 08:14 Potassium Chloride (Klor-Con) 20 meq BID PO 11/16/20 21:00 11/29/20 18:52 Sucralfate (Carafate) 1 gm BID PO 11/16/20 21:00 11/29/20 18:52 Tamsulosin HCl (Flomax) 0.4 mg HS PO 11/16/20 21:00 11/29/20 18:53 Ascorbic Acid (Vitamin C) 500 mg BID PO 11/16/20 21:00 11/29/20 18:52 Fluoxetine HCl (PROzac) 40 mg DAILY PO 11/17/20 09:00 11/29/20 08:13 Non-Formulary Medication (Gabapentin ) 600 mg TID PO 11/16/20 21:00 UNV Gabapentin (Neurontin) 800 mg HS PO 11/16/20 21:00 11/29/20 18:53 Lactobacillus Rhamnosus (Culturelle) 1 cap BID PO 11/16/20 21:00 11/29/20 18:52 Phenyleph/Shark Oil/Min Oil/Petrol (Preparation H) 1 laurence PRN BID PRN RC RECTAL PAIN 11/16/20 18:45 Artificial Tears (Artificial Tears) 1 drop PRN Q15MIN PRN OD DRY EYE 11/16/20 18:45 Buspirone HCl (Buspar) 10 mg 1700 PO 11/18/20 17:00 11/20/20 23:50 DC 11/20/20 17:00 Buspirone HCl (Buspar) 5 mg DAILY PO 11/18/20 09:00 11/20/20 23:50 DC 11/20/20 06:39 Buspirone HCl (Buspar) 5 mg BIDWMEALS PO 11/21/20 08:00 11/28/20 18:20 DC 11/28/20 17:00 Quetiapine Fumarate (SEROquel) 12.5 mg 0900,1300,1500 PO 11/19/20 09:00 11/29/20 15:00 Olanzapine (ZyPREXA) 10 mg DAILY PO 11/22/20 09:00 11/24/20 22:00 DC 11/24/20 10:09 Olanzapine (ZyPREXA) 5 mg QHS PO 11/21/20 21:00 11/24/20 22:00 DC 11/24/20 20:15 Olanzapine (ZyPREXA) 5 mg BID PO 11/25/20 09:00 11/29/20 18:53 Divalproex Sodium (Depakote Sprinkles) 125 mg 0900,1300,1700 PO 11/22/20 09:00 11/24/20 16:52 DC 11/24/20 13:05 Divalproex Sodium (Depakote Sprinkles) 250 mg BID PO 11/24/20 21:00 11/26/20 12:26 DC 11/26/20 10:01 Divalproex Sodium (Depakote Sprinkles) 125 mg NOON PO 11/25/20 12:00 11/26/20 12:23 DC 11/25/20 12:03 Divalproex Sodium (Depakote Sprinkles) 250 mg NOON PO 11/26/20 12:40 11/29/20 12:00 Divalproex Sodium (Depakote Sprinkles) 375 mg HS PO 11/26/20 21:00 11/29/20 18:52 Divalproex Sodium (Depakote Sprinkles) 250 mg 0900 PO 11/27/20 09:00 11/29/20 08:14 Oxycodone HCl (Roxicodone) 5 mg PRN Q6HRS PRN PO BREAKTHROUGH MOD-SEV PAIN 11/26/20 15:30 11/30/20 01:19 Nicotine (Nicoderm Cq 7mg Patch) 1 patch PRN DAILY PRN TD SMOKING CESSATION 11/28/20 19:00 Buspirone HCl (Buspar) 10 mg BID PO 11/28/20 21:00 11/29/20 18:52 Gabapentin (Neurontin) 400 mg 0900,1400 PO 11/30/20 09:00 I have reviewed the current psychotropics carefully including drug interactions. Risk benefit ratio favors no change other than as noted in my dictated progress note. Diagnosis: Problems: (1) Impulse control disorder, unspecified (2) Anxiety disorder, unspecified (3) Major depressive disorder with psychotic features MUKESH JAY MD Nov 30, 2020 08:42
[2020-11-30] MEDS: CALCIUM CARBONATE 500 MG TABLET PO SCH ×2 (09:00→21:06)
[2020-11-30] MEDS: oxyCODONE ER 20 MG TAB.ER.12H PO SCH ×2 (09:00→21:09)
[2020-11-30] MEDS: NEO/POLYMYX/DEXAMETH OPHTH SUSPENSION 5ML BOTTLE. OU SCH (09:00)
[2020-11-30] MEDS: SUCRALFATE 1 GM TABLET. PO SCH ×2 (09:00→21:06)
[2020-11-30] MEDS: FERROUS SULFATE 325 MG TABLET. PO SCH ×2 (09:00→21:09)
[2020-11-30] MEDS: LACTOBACILLUS RHAMNOSUS GG 1 CAPSULE. PO SCH ×2 (09:00→21:07)
[2020-11-30] MEDS: ASCORBIC ACID 500 MG TABLET PO SCH ×2 (09:00→21:06)
[2020-11-30] MEDS: DIVALPROEX 125 MG CAP.SPRINK PO SCH ×3 (09:00→21:06)
[2020-11-30] MEDS: QUEtiapine 25 MG TABLET. PO SCH ×3 (09:00→14:02)
[2020-11-30] MEDS: GABAPENTIN 400 MG CAPSULE. PO SCH ×3 (09:00→21:09)
[2020-11-30] MEDS: FLUoxetine HCL 20 MG CAPSULE PO SCH (09:00)
[2020-11-30] MEDS: POTASSIUM CHLORIDE 20 MEQ TABLET.ER. PO SCH ×2 (09:00→21:07)
[2020-11-30] MEDS: CLOPIDOGREL BISULFATE 75 MG TABLET PO SCH (09:00)
[2020-11-30] MEDS: busPIRone 10 MG TABLET. PO SCH ×2 (09:00→21:06)
[2020-11-30] MEDS: OLANZapine 5 MG TABLET PO SCH ×2 (09:00→21:07)
[2020-11-30 15:36] LABS: BASO # 0.1 x10^3/uL (0.0-0.2); BASO % 1 % (0-3); EOS # 0.3 x10^3/uL (0.0-0.7); EOS % 4 % (0-3); HEMATOCRIT 34.2 % (36.0-47.0); LYMPH # 2.6 x10^3/uL (1.0-4.8); LYMPH % 31 % (24-48); MEAN CORPUSCULAR HEMOGLOBIN 30 pg (25-35); MEAN CORPUSCULAR HGB CONC 32 g/dL (31-37); MEAN CORPUSCULAR VOLUME 94 fL (79-100); MONO # 0.6 x10^3/uL (0.0-1.1); MONO % 7 % (0-9); NEUT # 4.8 x10^3uL (1.8-7.7); NEUT % 57 % (31-73); PLATELET COUNT 343 x10^3/uL (140-400); RED BLOOD COUNT 3.65 x10^6/uL (3.50-5.40); WHITE BLOOD COUNT 8.5 x10^3/uL (4.0-11.0)
[2020-11-30 15:58] LABS: ALBUMIN 2.5 g/dL (3.4-5.0); ALBUMIN/GLOBULIN RATIO 0.5 (1.0-1.7); ALK PHOS 113 U/L (46-116); ALT (SGPT) 11 U/L (14-59); ANION GAP 6 (6-14); AST (SGOT) 13 U/L (15-37); BLOOD UREA NITROGEN 19 mg/dL (7-20); BUN/CREATININE RATIO 27 (6-20); CALCIUM 8.7 mg/dL (8.5-10.1); CARBON DIOXIDE 34 mmol/L (21-32); CHLORIDE 104 mmol/L (98-107); CREATININE 0.7 mg/dL (0.6-1.0); GFR 83.7; GLUCOSE 87 mg/dL (70-99); POTASSIUM 4.6 mmol/L (3.5-5.1); SODIUM 144 mmol/L (136-145); TOTAL BILIRUBIN 0.2 mg/dL (0.2-1.0); TOTAL PROTEIN 7.3 g/dL (6.4-8.2)
[2020-11-30 16:03] LABS: VAL ACID 67 mcg/mL (50-100)
[2020-11-30 16:13] VITALS: BP 108/69
[2020-11-30] MEDS: TAMSULOSIN 0.4 MG CAP.ER.24H. PO SCH (21:06)
--- NOTE | 2020-11-30 21:09 | PDOC ---
Exam Note: Andrea Note: Please also refer to the separate dictated note~for this date of service dictated separately.~Patient seen individually. Discussed the patient with Nursing staff reviewed the chart.~Reviewed interim history and current functioning. Reviewed vital signs,~Labs/ Radiology~and current medications noted below. Continue current treatment with the changes noted in the dictated addendum note Assessment: Vital Signs/I&O: Vital Signs Date Time Temp Pulse Resp B/P (MAP) Pulse Ox O2 Delivery O2 Flow Rate FiO2 11/30/20 16:13 97.4 64 18 108/69 (82) 99 11/30/20 06:33 Nasal Cannula 2.0 I & O 11/29/20 11/29/20 11/30/20 15:00 23:00 07:00 Intake Total 360 ml 0 ml 0 ml Balance 360 ml 0 ml 0 ml Labs: Laboratory Tests Test 11/30/20 15:05 White Blood Count 8.5 x10^3/uL (4.0-11.0) Red Blood Count 3.65 x10^6/uL (3.50-5.40) Hemoglobin 11.0 g/dL (12.0-15.5) L Hematocrit 34.2 % (36.0-47.0) L Mean Corpuscular Volume 94 fL (79-100) Mean Corpuscular Hemoglobin 30 pg (25-35) Mean Corpuscular Hemoglobin Concent 32 g/dL (31-37) Red Cell Distribution Width 15.0 % (11.5-14.5) H Platelet Count 343 x10^3/uL (140-400) Neutrophils (%) (Auto) 57 % (31-73) Lymphocytes (%) (Auto) 31 % (24-48) Monocytes (%) (Auto) 7 % (0-9) Eosinophils (%) (Auto) 4 % (0-3) H Basophils (%) (Auto) 1 % (0-3) Neutrophils # (Auto) 4.8 x10^3uL (1.8-7.7) Lymphocytes # (Auto) 2.6 x10^3/uL (1.0-4.8) Monocytes # (Auto) 0.6 x10^3/uL (0.0-1.1) Eosinophils # (Auto) 0.3 x10^3/uL (0.0-0.7) Basophils # (Auto) 0.1 x10^3/uL (0.0-0.2) Sodium Level 144 mmol/L (136-145) Potassium Level 4.6 mmol/L (3.5-5.1) Chloride Level 104 mmol/L (98-107) Carbon Dioxide Level 34 mmol/L (21-32) H Anion Gap 6 (6-14) Blood Urea Nitrogen 19 mg/dL (7-20) Creatinine 0.7 mg/dL (0.6-1.0) Estimated GFR (Cockcroft-Gault) 83.7 BUN/Creatinine Ratio 27 (6-20) H Glucose Level 87 mg/dL (70-99) Calcium Level 8.7 mg/dL (8.5-10.1) Total Bilirubin 0.2 mg/dL (0.2-1.0) Aspartate Amino Transferase (AST) 13 U/L (15-37) L Alanine Aminotransferase (ALT) 11 U/L (14-59) L Alkaline Phosphatase 113 U/L (46-116) Total Protein 7.3 g/dL (6.4-8.2) Albumin 2.5 g/dL (3.4-5.0) L Albumin/Globulin Ratio 0.5 (1.0-1.7) L Valproic Acid Level 67 mcg/mL (50-100) Valproic Acid Last Dose Date 11/29/20 Valproic Acid Last Dose Time 2100 Current Medications: Meds: Laboratory Tests Test 11/30/20 15:05 White Blood Count 8.5 x10^3/uL Red Blood Count 3.65 x10^6/uL Hemoglobin 11.0 g/dL Hematocrit 34.2 % Mean Corpuscular Volume 94 fL Mean Corpuscular Hemoglobin 30 pg Mean Corpuscular Hemoglobin Concent 32 g/dL Red Cell Distribution Width 15.0 % Platelet Count 343 x10^3/uL Neutrophils (%) (Auto) 57 % Lymphocytes (%) (Auto) 31 % Monocytes (%) (Auto) 7 % Eosinophils (%) (Auto) 4 % Basophils (%) (Auto) 1 % Neutrophils # (Auto) 4.8 x10^3uL Lymphocytes # (Auto) 2.6 x10^3/uL Monocytes # (Auto) 0.6 x10^3/uL Eosinophils # (Auto) 0.3 x10^3/uL Basophils # (Auto) 0.1 x10^3/uL Sodium Level 144 mmol/L Potassium Level 4.6 mmol/L Chloride Level 104 mmol/L Carbon Dioxide Level 34 mmol/L Anion Gap 6 Blood Urea Nitrogen 19 mg/dL Creatinine 0.7 mg/dL Estimated GFR (Cockcroft-Gault) 83.7 BUN/Creatinine Ratio 27 Glucose Level 87 mg/dL Calcium Level 8.7 mg/dL Total Bilirubin 0.2 mg/dL Aspartate Amino Transf (AST/SGOT) 13 U/L Alanine Aminotransferase (ALT/SGPT) 11 U/L Alkaline Phosphatase 113 U/L Total Protein 7.3 g/dL Albumin 2.5 g/dL Albumin/Globulin Ratio 0.5 Valproic Acid (Depakene) Level 67 mcg/mL Valproic Acid Last Dose Date 11/29/20 Valproic Acid Last Dose Time 2100 Current Medications Medications (Trade) Dose Ordered Sig/Jocelyn Route PRN Reason Start Time Stop Time Status Last Admin Dose Admin Acetaminophen (Tylenol) 650 mg PRN Q6HRS PRN PO MILD PAIN / TEMP > 100.3'F 11/16/20 17:30 11/17/20 18:17 DC 11/17/20 12:40 Multi-Ingredient Ointment (Analgesic Castella) 1 laurence PRN QID PRN TP MUSCLE PAIN 11/16/20 17:30 11/23/20 16:56 Al Hydroxide/Mg Hydroxide (Mylanta Plus Xs) 15 ml PRN AFTMEALHC PRN PO DYSPEPSIA 11/16/20 17:30 Magnesium Hydroxide (Milk Of Magnesia) 2,400 mg PRN QHS PRN PO 2ND CHOICE CONSTIPATION 11/16/20 17:30 Nicotine (Nicoderm Cq 7mg Patch) 1 patch DAILY TD 11/16/20 17:30 11/16/20 17:44 DC Nicotine (Nicoderm Cq 7mg Patch) 1 patch DAILY TD 11/17/20 09:00 11/27/20 21:49 DC 11/27/20 10:12 Acetaminophen (Tylenol) 650 mg PRN Q6HRS PRN PO MILD PAIN / TEMP > 100.3'F 11/16/20 18:00 11/18/20 16:23 Buspirone HCl (Buspar) 10 mg BIDWMEALS PO 11/17/20 08:00 11/17/20 18:09 DC 11/17/20 17:29 Calcium Carbonate/ Glycine (Oscal) 500 mg BID PO 11/16/20 21:00 11/29/20 18:54 Clopidogrel Bisulfate (Plavix) 75 mg DAILY PO 11/17/20 09:00 11/29/20 08:13 Docusate Sodium (Colace) 100 mg PRN DAILY PRN PO 1ST CHOICE CONSTIPATION 11/16/20 18:00 Ferrous Sulfate (Feosol) 325 mg BID PO 11/16/20 21:00 11/29/20 18:54 Gabapentin (Neurontin) 400 mg BID94 PO 11/17/20 09:00 11/29/20 17:46 DC 11/29/20 16:00 Lorazepam (Ativan) 0.5 mg PRN BID PRN PO ANXIETY / AGITATION 11/16/20 18:00 11/20/20 14:30 Neomycin/ Polymyxin/ Dexamethasone (Maxitrol) 1 drop DAILY OU 11/17/20 09:00 11/29/20 08:15 Nicotine (Nicoderm Cq 7mg Patch) 1 patch PRN DAILY PRN TD SMOKING CESSATION 11/16/20 19:00 11/27/20 21:49 DC Olanzapine (ZyPREXA) 10 mg BID PO 11/16/20 21:00 11/21/20 18:06 DC 11/21/20 10:36 Oxycodone HCl (OxyCONTIN) 20 mg BID PO 11/16/20 21:00 11/29/20 18:54 Pantoprazole Sodium (Protonix) 40 mg DAILYAC PO 11/17/20 07:30 11/29/20 08:14 Potassium Chloride (Klor-Con) 20 meq BID PO 11/16/20 21:00 11/29/20 18:52 Sucralfate (Carafate) 1 gm BID PO 11/16/20 21:00 11/29/20 18:52 Tamsulosin HCl (Flomax) 0.4 mg HS PO 11/16/20 21:00 11/29/20 18:53 Ascorbic Acid (Vitamin C) 500 mg BID PO 11/16/20 21:00 11/29/20 18:52 Fluoxetine HCl (PROzac) 40 mg DAILY PO 11/17/20 09:00 11/29/20 08:13 Non-Formulary Medication (Gabapentin ) 600 mg TID PO 11/16/20 21:00 UNV Gabapentin (Neurontin) 800 mg HS PO 11/16/20 21:00 11/29/20 18:53 Lactobacillus Rhamnosus (Culturelle) 1 cap BID PO 11/16/20 21:00 11/29/20 18:52 Phenyleph/Shark Oil/Min Oil/Petrol (Preparation H) 1 laurence PRN BID PRN RC RECTAL PAIN 11/16/20 18:45 Artificial Tears (Artificial Tears) 1 drop PRN Q15MIN PRN OD DRY EYE 11/16/20 18:45 Buspirone HCl (Buspar) 10 mg 1700 PO 11/18/20 17:00 11/20/20 23:50 DC 11/20/20 17:00 Buspirone HCl (Buspar) 5 mg DAILY PO 11/18/20 09:00 11/20/20 23:50 DC 11/20/20 06:39 Buspirone HCl (Buspar) 5 mg BIDWMEALS PO 11/21/20 08:00 11/28/20 18:20 DC 11/28/20 17:00 Quetiapine Fumarate (SEROquel) 12.5 mg 0900,1300,1500 PO 11/19/20 09:00 11/30/20 14:02 Olanzapine (ZyPREXA) 10 mg DAILY PO 11/22/20 09:00 11/24/20 22:00 DC 11/24/20 10:09 Olanzapine (ZyPREXA) 5 mg QHS PO 11/21/20 21:00 11/24/20 22:00 DC 11/24/20 20:15 Olanzapine (ZyPREXA) 5 mg BID PO 11/25/20 09:00 11/29/20 18:53 Divalproex Sodium (Depakote Sprinkles) 125 mg 0900,1300,1700 PO 11/22/20 09:00 11/24/20 16:52 DC 11/24/20 13:05 Divalproex Sodium (Depakote Sprinkles) 250 mg BID PO 11/24/20 21:00 11/26/20 12:26 DC 11/26/20 10:01 Divalproex Sodium (Depakote Sprinkles) 125 mg NOON PO 11/25/20 12:00 11/26/20 12:23 DC 11/25/20 12:03 Divalproex Sodium (Depakote Sprinkles) 250 mg NOON PO 11/26/20 12:40 11/30/20 14:00 Divalproex Sodium (Depakote Sprinkles) 375 mg HS PO 11/26/20 21:00 11/29/20 18:52 Divalproex Sodium (Depakote Sprinkles) 250 mg 0900 PO 11/27/20 09:00 11/29/20 08:14 Oxycodone HCl (Roxicodone) 5 mg PRN Q6HRS PRN PO BREAKTHROUGH MOD-SEV PAIN 11/26/20 15:30 11/30/20 01:19 Nicotine (Nicoderm Cq 7mg Patch) 1 patch PRN DAILY PRN TD SMOKING CESSATION 11/28/20 19:00 Buspirone HCl (Buspar) 10 mg BID PO 11/28/20 21:00 11/29/20 18:52 Gabapentin (Neurontin) 400 mg 0900,1400 PO 11/30/20 09:00 11/30/20 14:00 Current Medications Medications (Trade) Dose Ordered Sig/Jocelyn Route PRN Reason Start Time Stop Time Status Last Admin Dose Admin Gabapentin (Neurontin) 400 mg 0900,1400 PO 11/30/20 09:00 11/30/20 14:00 I have reviewed the current psychotropics carefully including drug interactions. Risk benefit ratio favors no change other than as noted in my dictated progress note. Diagnosis: Problems: (1) Impulse control disorder, unspecified (2) Anxiety disorder, unspecified (3) Major depressive disorder with psychotic features MUKESH JAY MD Nov 30, 2020 21:09
[2020-11-30] MEDS: METHYL SALICYLATE/MENTHOL TOPICAL OINTMENT 57GM TUBE. TP PRN (23:15)
[2020-12-01 06:04] VITALS: BP 106/68
[2020-12-01] MEDS: PANTOPRAZOLE 40 MG TABLET. PO SCH (07:30)
[2020-12-01] MEDS: OLANZapine 5 MG TABLET PO SCH ×2 (09:00→19:55)
[2020-12-01] MEDS: SUCRALFATE 1 GM TABLET. PO SCH ×2 (09:00→19:56)
[2020-12-01] MEDS: FERROUS SULFATE 325 MG TABLET. PO SCH ×2 (09:00→19:56)
[2020-12-01] MEDS: QUEtiapine 25 MG TABLET. PO SCH ×3 (09:00→19:54)
[2020-12-01] MEDS: NEO/POLYMYX/DEXAMETH OPHTH SUSPENSION 5ML BOTTLE. OU SCH (09:00)
[2020-12-01] MEDS: CALCIUM CARBONATE 500 MG TABLET PO SCH ×2 (09:00→19:55)
[2020-12-01] MEDS: DIVALPROEX 125 MG CAP.SPRINK PO SCH ×3 (09:00→19:55)
[2020-12-01] MEDS: ASCORBIC ACID 500 MG TABLET PO SCH ×2 (09:00→19:56)
[2020-12-01] MEDS: POTASSIUM CHLORIDE 20 MEQ TABLET.ER. PO SCH ×2 (09:00→19:55)
[2020-12-01] MEDS: oxyCODONE ER 20 MG TAB.ER.12H PO SCH ×2 (09:00→19:58)
[2020-12-01] MEDS: busPIRone 10 MG TABLET. PO SCH ×2 (09:00→19:56)
[2020-12-01] MEDS: FLUoxetine HCL 20 MG CAPSULE PO SCH (09:00)
[2020-12-01] MEDS: GABAPENTIN 400 MG CAPSULE. PO SCH ×3 (09:00→19:58)
[2020-12-01] MEDS: LACTOBACILLUS RHAMNOSUS GG 1 CAPSULE. PO SCH ×2 (09:00→19:56)
[2020-12-01] MEDS: CLOPIDOGREL BISULFATE 75 MG TABLET PO SCH (09:00)
[2020-12-01 16:23] VITALS: BP 114/69
[2020-12-01] MEDS: TAMSULOSIN 0.4 MG CAP.ER.24H. PO SCH (19:56)
--- NOTE | 2020-12-01 21:29 | PDOC ---
Exam Note: Andrea Note: This note is a late entry for 11/30/2020 covers elements not covered in my initial note. Subjective: The patient was seen face to face in the evening of 11/30/2020 with Yelena RODRIGUES, discussed and reviewed the chart. The patient slept 8-1/2 hours previous night. Overall the patient continues to have some intermittent yelling, anxious, restless. I met with her in her room. Review of Systems: Positive for tiredness, chronic pain due to arthritis. Ambulation impaired in wheelchair. No CV, , pulmonary, eye, ENT system symptoms on review. Mental Status Exam: The patient is reasonably oriented. Speech is coherent, less pressured. Abstraction is fair. Computation is impaired. Language function intact. Mood and affect less anxious, less yelling. No suicidal or homicidal ideation. Laboratory Data: Reviewed. Valproic acid level is therapeutic at 67. Impression: Major depressive disorder with psychotic features. Anxiety disorder unspecified. Impulse control disorder unspecified. Plan: Continue psychotropics from initial note. Assessment: Vital Signs/I&O: Vital Signs Date Time Temp Pulse Resp B/P (MAP) Pulse Ox O2 Delivery O2 Flow Rate FiO2 12/01/20 16:23 98.7 92 18 114/69 (84) 91 12/01/20 06:04 Nasal Cannula 3.0 I & O 11/30/20 11/30/20 12/01/20 15:00 23:00 07:00 Intake Total 0 ml 120 ml Balance 0 ml 120 ml Current Medications: Meds: Current Medications Medications (Trade) Dose Ordered Sig/Jocelyn Route PRN Reason Start Time Stop Time Status Last Admin Dose Admin Acetaminophen (Tylenol) 650 mg PRN Q6HRS PRN PO MILD PAIN / TEMP > 100.3'F 11/16/20 17:30 11/17/20 18:17 DC 11/17/20 12:40 Multi-Ingredient Ointment (Analgesic Milmay) 1 laurence PRN QID PRN TP MUSCLE PAIN 11/16/20 17:30 11/30/20 23:15 Al Hydroxide/Mg Hydroxide (Mylanta Plus Xs) 15 ml PRN AFTMEALHC PRN PO DYSPEPSIA 11/16/20 17:30 Magnesium Hydroxide (Milk Of Magnesia) 2,400 mg PRN QHS PRN PO 2ND CHOICE CONSTIPATION 11/16/20 17:30 Nicotine (Nicoderm Cq 7mg Patch) 1 patch DAILY TD 11/16/20 17:30 11/16/20 17:44 DC Nicotine (Nicoderm Cq 7mg Patch) 1 patch DAILY TD 11/17/20 09:00 11/27/20 21:49 DC 11/27/20 10:12 Acetaminophen (Tylenol) 650 mg PRN Q6HRS PRN PO MILD PAIN / TEMP > 100.3'F 11/16/20 18:00 11/18/20 16:23 Buspirone HCl (Buspar) 10 mg BIDWMEALS PO 11/17/20 08:00 11/17/20 18:09 DC 11/17/20 17:29 Calcium Carbonate/ Glycine (Oscal) 500 mg BID PO 11/16/20 21:00 12/01/20 19:55 Clopidogrel Bisulfate (Plavix) 75 mg DAILY PO 11/17/20 09:00 12/01/20 09:00 Docusate Sodium (Colace) 100 mg PRN DAILY PRN PO 1ST CHOICE CONSTIPATION 11/16/20 18:00 Ferrous Sulfate (Feosol) 325 mg BID PO 11/16/20 21:00 12/01/20 19:56 Gabapentin (Neurontin) 400 mg BID94 PO 11/17/20 09:00 11/29/20 17:46 DC 11/29/20 16:00 Lorazepam (Ativan) 0.5 mg PRN BID PRN PO ANXIETY / AGITATION 11/16/20 18:00 11/20/20 14:30 Neomycin/ Polymyxin/ Dexamethasone (Maxitrol) 1 drop DAILY OU 11/17/20 09:00 12/01/20 09:00 Nicotine (Nicoderm Cq 7mg Patch) 1 patch PRN DAILY PRN TD SMOKING CESSATION 11/16/20 19:00 11/27/20 21:49 DC Olanzapine (ZyPREXA) 10 mg BID PO 11/16/20 21:00 11/21/20 18:06 DC 11/21/20 10:36 Oxycodone HCl (OxyCONTIN) 20 mg BID PO 11/16/20 21:00 12/01/20 19:58 Pantoprazole Sodium (Protonix) 40 mg DAILYAC PO 11/17/20 07:30 12/01/20 07:30 Potassium Chloride (Klor-Con) 20 meq BID PO 11/16/20 21:00 12/01/20 19:55 Sucralfate (Carafate) 1 gm BID PO 11/16/20 21:00 12/01/20 19:56 Tamsulosin HCl (Flomax) 0.4 mg HS PO 11/16/20 21:00 12/01/20 19:56 Ascorbic Acid (Vitamin C) 500 mg BID PO 11/16/20 21:00 12/01/20 19:56 Fluoxetine HCl (PROzac) 40 mg DAILY PO 11/17/20 09:00 12/01/20 09:00 Non-Formulary Medication (Gabapentin ) 600 mg TID PO 11/16/20 21:00 UNV Gabapentin (Neurontin) 800 mg HS PO 11/16/20 21:00 12/01/20 19:58 Lactobacillus Rhamnosus (Culturelle) 1 cap BID PO 11/16/20 21:00 12/01/20 19:56 Phenyleph/Shark Oil/Min Oil/Petrol (Preparation H) 1 laurence PRN BID PRN RC RECTAL PAIN 11/16/20 18:45 Artificial Tears (Artificial Tears) 1 drop PRN Q15MIN PRN OD DRY EYE 11/16/20 18:45 Buspirone HCl (Buspar) 10 mg 1700 PO 11/18/20 17:00 11/20/20 23:50 DC 11/20/20 17:00 Buspirone HCl (Buspar) 5 mg DAILY PO 11/18/20 09:00 11/20/20 23:50 DC 11/20/20 06:39 Buspirone HCl (Buspar) 5 mg BIDWMEALS PO 11/21/20 08:00 11/28/20 18:20 DC 11/28/20 17:00 Quetiapine Fumarate (SEROquel) 12.5 mg 0900,1300,1500 PO 11/19/20 09:00 12/01/20 13:00 Olanzapine (ZyPREXA) 10 mg DAILY PO 11/22/20 09:00 11/24/20 22:00 DC 11/24/20 10:09 Olanzapine (ZyPREXA) 5 mg QHS PO 11/21/20 21:00 11/24/20 22:00 DC 11/24/20 20:15 Olanzapine (ZyPREXA) 5 mg BID PO 11/25/20 09:00 12/01/20 19:55 Divalproex Sodium (Depakote Sprinkles) 125 mg 0900,1300,1700 PO 11/22/20 09:00 11/24/20 16:52 DC 11/24/20 13:05 Divalproex Sodium (Depakote Sprinkles) 250 mg BID PO 11/24/20 21:00 11/26/20 12:26 DC 11/26/20 10:01 Divalproex Sodium (Depakote Sprinkles) 125 mg NOON PO 11/25/20 12:00 11/26/20 12:23 DC 11/25/20 12:03 Divalproex Sodium (Depakote Sprinkles) 250 mg NOON PO 11/26/20 12:40 12/01/20 12:00 Divalproex Sodium (Depakote Sprinkles) 375 mg HS PO 11/26/20 21:00 12/01/20 19:55 Divalproex Sodium (Depakote Sprinkles) 250 mg 0900 PO 11/27/20 09:00 12/01/20 09:00 Oxycodone HCl (Roxicodone) 5 mg PRN Q6HRS PRN PO BREAKTHROUGH MOD-SEV PAIN 11/26/20 15:30 11/30/20 01:19 Nicotine (Nicoderm Cq 7mg Patch) 1 patch PRN DAILY PRN TD SMOKING CESSATION 11/28/20 19:00 Buspirone HCl (Buspar) 10 mg BID PO 11/28/20 21:00 12/01/20 19:56 Gabapentin (Neurontin) 400 mg 0900,1400 PO 11/30/20 09:00 12/01/20 14:00 I have reviewed the current psychotropics carefully including drug interactions. Risk benefit ratio favors no change other than as noted in my dictated progress note. Diagnosis: Problems: (1) Impulse control disorder, unspecified (2) Anxiety disorder, unspecified (3) Major depressive disorder with psychotic features MUKESH JAY MD Dec 01, 2020 21:29
--- NOTE | 2020-12-01 21:30 | PDOC ---
Exam Note: Andrea Note: Please also refer to the separate dictated note~for this date of service dictated separately.~Patient seen individually. Discussed the patient with Nursing staff reviewed the chart.~Reviewed interim history and current functioning. Reviewed vital signs,~Labs/ Radiology~and current medications noted below. Continue current treatment with the changes noted in the dictated addendum note Assessment: Vital Signs/I&O: Vital Signs Date Time Temp Pulse Resp B/P (MAP) Pulse Ox O2 Delivery O2 Flow Rate FiO2 12/01/20 16:23 98.7 92 18 114/69 (84) 91 12/01/20 06:04 Nasal Cannula 3.0 I & O 11/30/20 11/30/20 12/01/20 15:00 23:00 07:00 Intake Total 0 ml 120 ml Balance 0 ml 120 ml Current Medications: Meds: Current Medications Medications (Trade) Dose Ordered Sig/Jocelyn Route PRN Reason Start Time Stop Time Status Last Admin Dose Admin Acetaminophen (Tylenol) 650 mg PRN Q6HRS PRN PO MILD PAIN / TEMP > 100.3'F 11/16/20 17:30 11/17/20 18:17 DC 11/17/20 12:40 Multi-Ingredient Ointment (Analgesic [place]) 1 laurence PRN QID PRN TP MUSCLE PAIN 11/16/20 17:30 11/30/20 23:15 Al Hydroxide/Mg Hydroxide (Mylanta Plus Xs) 15 ml PRN AFTMEALHC PRN PO DYSPEPSIA 11/16/20 17:30 Magnesium Hydroxide (Milk Of Magnesia) 2,400 mg PRN QHS PRN PO 2ND CHOICE CONSTIPATION 11/16/20 17:30 Nicotine (Nicoderm Cq 7mg Patch) 1 patch DAILY TD 11/16/20 17:30 11/16/20 17:44 DC Nicotine (Nicoderm Cq 7mg Patch) 1 patch DAILY TD 11/17/20 09:00 11/27/20 21:49 DC 11/27/20 10:12 Acetaminophen (Tylenol) 650 mg PRN Q6HRS PRN PO MILD PAIN / TEMP > 100.3'F 11/16/20 18:00 11/18/20 16:23 Buspirone HCl (Buspar) 10 mg BIDWMEALS PO 11/17/20 08:00 11/17/20 18:09 DC 11/17/20 17:29 Calcium Carbonate/ Glycine (Oscal) 500 mg BID PO 11/16/20 21:00 12/01/20 19:55 Clopidogrel Bisulfate (Plavix) 75 mg DAILY PO 11/17/20 09:00 12/01/20 09:00 Docusate Sodium (Colace) 100 mg PRN DAILY PRN PO 1ST CHOICE CONSTIPATION 11/16/20 18:00 Ferrous Sulfate (Feosol) 325 mg BID PO 11/16/20 21:00 12/01/20 19:56 Gabapentin (Neurontin) 400 mg BID94 PO 11/17/20 09:00 11/29/20 17:46 DC 11/29/20 16:00 Lorazepam (Ativan) 0.5 mg PRN BID PRN PO ANXIETY / AGITATION 11/16/20 18:00 11/20/20 14:30 Neomycin/ Polymyxin/ Dexamethasone (Maxitrol) 1 drop DAILY OU 11/17/20 09:00 12/01/20 09:00 Nicotine (Nicoderm Cq 7mg Patch) 1 patch PRN DAILY PRN TD SMOKING CESSATION 11/16/20 19:00 11/27/20 21:49 DC Olanzapine (ZyPREXA) 10 mg BID PO 11/16/20 21:00 11/21/20 18:06 DC 11/21/20 10:36 Oxycodone HCl (OxyCONTIN) 20 mg BID PO 11/16/20 21:00 12/01/20 19:58 Pantoprazole Sodium (Protonix) 40 mg DAILYAC PO 11/17/20 07:30 12/01/20 07:30 Potassium Chloride (Klor-Con) 20 meq BID PO 11/16/20 21:00 12/01/20 19:55 Sucralfate (Carafate) 1 gm BID PO 11/16/20 21:00 12/01/20 19:56 Tamsulosin HCl (Flomax) 0.4 mg HS PO 11/16/20 21:00 12/01/20 19:56 Ascorbic Acid (Vitamin C) 500 mg BID PO 11/16/20 21:00 12/01/20 19:56 Fluoxetine HCl (PROzac) 40 mg DAILY PO 11/17/20 09:00 12/01/20 09:00 Non-Formulary Medication (Gabapentin ) 600 mg TID PO 11/16/20 21:00 UNV Gabapentin (Neurontin) 800 mg HS PO 11/16/20 21:00 12/01/20 19:58 Lactobacillus Rhamnosus (Culturelle) 1 cap BID PO 11/16/20 21:00 12/01/20 19:56 Phenyleph/Shark Oil/Min Oil/Petrol (Preparation H) 1 laurence PRN BID PRN RC RECTAL PAIN 11/16/20 18:45 Artificial Tears (Artificial Tears) 1 drop PRN Q15MIN PRN OD DRY EYE 11/16/20 18:45 Buspirone HCl (Buspar) 10 mg 1700 PO 11/18/20 17:00 11/20/20 23:50 DC 11/20/20 17:00 Buspirone HCl (Buspar) 5 mg DAILY PO 11/18/20 09:00 11/20/20 23:50 DC 11/20/20 06:39 Buspirone HCl (Buspar) 5 mg BIDWMEALS PO 11/21/20 08:00 11/28/20 18:20 DC 11/28/20 17:00 Quetiapine Fumarate (SEROquel) 12.5 mg 0900,1300,1500 PO 11/19/20 09:00 12/01/20 13:00 Olanzapine (ZyPREXA) 10 mg DAILY PO 11/22/20 09:00 11/24/20 22:00 DC 11/24/20 10:09 Olanzapine (ZyPREXA) 5 mg QHS PO 11/21/20 21:00 11/24/20 22:00 DC 11/24/20 20:15 Olanzapine (ZyPREXA) 5 mg BID PO 11/25/20 09:00 12/01/20 19:55 Divalproex Sodium (Depakote Sprinkles) 125 mg 0900,1300,1700 PO 11/22/20 09:00 11/24/20 16:52 DC 11/24/20 13:05 Divalproex Sodium (Depakote Sprinkles) 250 mg BID PO 11/24/20 21:00 11/26/20 12:26 DC 11/26/20 10:01 Divalproex Sodium (Depakote Sprinkles) 125 mg NOON PO 11/25/20 12:00 11/26/20 12:23 DC 11/25/20 12:03 Divalproex Sodium (Depakote Sprinkles) 250 mg NOON PO 11/26/20 12:40 12/01/20 12:00 Divalproex Sodium (Depakote Sprinkles) 375 mg HS PO 11/26/20 21:00 12/01/20 19:55 Divalproex Sodium (Depakote Sprinkles) 250 mg 0900 PO 11/27/20 09:00 12/01/20 09:00 Oxycodone HCl (Roxicodone) 5 mg PRN Q6HRS PRN PO BREAKTHROUGH MOD-SEV PAIN 11/26/20 15:30 11/30/20 01:19 Nicotine (Nicoderm Cq 7mg Patch) 1 patch PRN DAILY PRN TD SMOKING CESSATION 11/28/20 19:00 Buspirone HCl (Buspar) 10 mg BID PO 11/28/20 21:00 12/01/20 19:56 Gabapentin (Neurontin) 400 mg 0900,1400 PO 11/30/20 09:00 12/01/20 14:00 I have reviewed the current psychotropics carefully including drug interactions. Risk benefit ratio favors no change other than as noted in my dictated progress note. Diagnosis: Problems: (1) Impulse control disorder, unspecified (2) Anxiety disorder, unspecified (3) Major depressive disorder with psychotic features MUKESH JAY MD Dec 01, 2020 21:30
[2020-12-01] MEDS: METHYL SALICYLATE/MENTHOL TOPICAL OINTMENT 57GM TUBE. TP PRN ×2 (22:56→23:11)
[2020-12-01] MEDS: oxyCODONE IR 5 MG TABLET PO PRN (23:04)
[2020-12-02 05:51] VITALS: BP 103/64
--- NOTE | 2020-12-02 07:47 | PDOC ---
Exam Note: Andrea Note: This note is a late entry for 12/01/2020 covers elements not covered in my initial note. Subjective: The patient was seen face to face in the evening of 12/01/2020 with Yelena RODRIGUES, discussed and reviewed the chart. The patient slept 6 hours previous night. She had a difficult night. She was trying to fall off her wheelchair. Nursing staff put some soft mats on the floor and had her on that for safety and then she was accusing staff for putting her on the floor and pushing her out of the wheelchair. As I met with her she was talking about feeling paranoid that someone was going to hurt her here. We addressed this at great length. Review of Systems: Ambulation impaired in wheelchair. No CV, , pulmonary, eye system symptoms on review. Mental Status Exam: The patient is reasonably oriented. Speech is coherent. Abstraction is fair. Computation is impaired. Language function intact. Attention span is short. She is quite paranoid, suspicious and anxious. No suicidal or homicidal ideation. Laboratory Data: Reviewed. Impression: Major depressive disorder with psychotic features. Anxiety disorder unspecified. Impulse control disorder unspecified. Plan: No change from initial note but if psychotic symptoms persist, we may need to increase her Seroquel or change to Risperdal in place of the Depakote a nd Seroquel. Assessment: Vital Signs/I&O: Vital Signs Date Time Temp Pulse Resp B/P (MAP) Pulse Ox O2 Delivery O2 Flow Rate FiO2 12/02/20 05:51 97.7 65 18 103/64 (77) 97 12/01/20 06:04 Nasal Cannula 3.0 I & O 12/01/20 12/01/20 12/02/20 15:00 23:00 07:00 Intake Total 600 ml 360 ml Balance 600 ml 360 ml Current Medications: Meds: Current Medications Medications (Trade) Dose Ordered Sig/Jocelyn Route PRN Reason Start Time Stop Time Status Last Admin Dose Admin Acetaminophen (Tylenol) 650 mg PRN Q6HRS PRN PO MILD PAIN / TEMP > 100.3'F 11/16/20 17:30 11/17/20 18:17 DC 11/17/20 12:40 Multi-Ingredient Ointment (Analgesic [place]) 1 laurence PRN QID PRN TP MUSCLE PAIN 11/16/20 17:30 12/01/20 23:11 Al Hydroxide/Mg Hydroxide (Mylanta Plus Xs) 15 ml PRN AFTMEALHC PRN PO DYSPEPSIA 11/16/20 17:30 Magnesium Hydroxide (Milk Of Magnesia) 2,400 mg PRN QHS PRN PO 2ND CHOICE CONSTIPATION 11/16/20 17:30 Nicotine (Nicoderm Cq 7mg Patch) 1 patch DAILY TD 11/16/20 17:30 11/16/20 17:44 DC Nicotine (Nicoderm Cq 7mg Patch) 1 patch DAILY TD 11/17/20 09:00 11/27/20 21:49 DC 11/27/20 10:12 Acetaminophen (Tylenol) 650 mg PRN Q6HRS PRN PO MILD PAIN / TEMP > 100.3'F 11/16/20 18:00 11/18/20 16:23 Buspirone HCl (Buspar) 10 mg BIDWMEALS PO 11/17/20 08:00 11/17/20 18:09 DC 11/17/20 17:29 Calcium Carbonate/ Glycine (Oscal) 500 mg BID PO 11/16/20 21:00 12/01/20 19:55 Clopidogrel Bisulfate (Plavix) 75 mg DAILY PO 11/17/20 09:00 12/01/20 09:00 Docusate Sodium (Colace) 100 mg PRN DAILY PRN PO 1ST CHOICE CONSTIPATION 11/16/20 18:00 Ferrous Sulfate (Feosol) 325 mg BID PO 11/16/20 21:00 12/01/20 19:56 Gabapentin (Neurontin) 400 mg BID94 PO 11/17/20 09:00 11/29/20 17:46 DC 11/29/20 16:00 Lorazepam (Ativan) 0.5 mg PRN BID PRN PO ANXIETY / AGITATION 11/16/20 18:00 11/20/20 14:30 Neomycin/ Polymyxin/ Dexamethasone (Maxitrol) 1 drop DAILY OU 11/17/20 09:00 12/01/20 09:00 Nicotine (Nicoderm Cq 7mg Patch) 1 patch PRN DAILY PRN TD SMOKING CESSATION 11/16/20 19:00 11/27/20 21:49 DC Olanzapine (ZyPREXA) 10 mg BID PO 11/16/20 21:00 11/21/20 18:06 DC 11/21/20 10:36 Oxycodone HCl (OxyCONTIN) 20 mg BID PO 11/16/20 21:00 12/01/20 19:58 Pantoprazole Sodium (Protonix) 40 mg DAILYAC PO 11/17/20 07:30 12/01/20 07:30 Potassium Chloride (Klor-Con) 20 meq BID PO 11/16/20 21:00 12/01/20 19:55 Sucralfate (Carafate) 1 gm BID PO 11/16/20 21:00 12/01/20 19:56 Tamsulosin HCl (Flomax) 0.4 mg HS PO 11/16/20 21:00 12/01/20 19:56 Ascorbic Acid (Vitamin C) 500 mg BID PO 11/16/20 21:00 12/01/20 19:56 Fluoxetine HCl (PROzac) 40 mg DAILY PO 11/17/20 09:00 12/01/20 09:00 Non-Formulary Medication (Gabapentin ) 600 mg TID PO 11/16/20 21:00 UNV Gabapentin (Neurontin) 800 mg HS PO 11/16/20 21:00 12/01/20 19:58 Lactobacillus Rhamnosus (Culturelle) 1 cap BID PO 11/16/20 21:00 12/01/20 19:56 Phenyleph/Shark Oil/Min Oil/Petrol (Preparation H) 1 laurence PRN BID PRN RC RECTAL PAIN 11/16/20 18:45 Artificial Tears (Artificial Tears) 1 drop PRN Q15MIN PRN OD DRY EYE 11/16/20 18:45 Buspirone HCl (Buspar) 10 mg 1700 PO 11/18/20 17:00 11/20/20 23:50 DC 11/20/20 17:00 Buspirone HCl (Buspar) 5 mg DAILY PO 11/18/20 09:00 11/20/20 23:50 DC 11/20/20 06:39 Buspirone HCl (Buspar) 5 mg BIDWMEALS PO 11/21/20 08:00 11/28/20 18:20 DC 11/28/20 17:00 Quetiapine Fumarate (SEROquel) 12.5 mg 0900,1300,1500 PO 11/19/20 09:00 12/01/20 13:00 Olanzapine (ZyPREXA) 10 mg DAILY PO 11/22/20 09:00 11/24/20 22:00 DC 11/24/20 10:09 Olanzapine (ZyPREXA) 5 mg QHS PO 11/21/20 21:00 11/24/20 22:00 DC 11/24/20 20:15 Olanzapine (ZyPREXA) 5 mg BID PO 11/25/20 09:00 12/01/20 19:55 Divalproex Sodium (Depakote Sprinkles) 125 mg 0900,1300,1700 PO 11/22/20 09:00 11/24/20 16:52 DC 11/24/20 13:05 Divalproex Sodium (Depakote Sprinkles) 250 mg BID PO 11/24/20 21:00 11/26/20 12:26 DC 11/26/20 10:01 Divalproex Sodium (Depakote Sprinkles) 125 mg NOON PO 11/25/20 12:00 11/26/20 12:23 DC 11/25/20 12:03 Divalproex Sodium (Depakote Sprinkles) 250 mg NOON PO 11/26/20 12:40 12/01/20 12:00 Divalproex Sodium (Depakote Sprinkles) 375 mg HS PO 11/26/20 21:00 12/01/20 19:55 Divalproex Sodium (Depakote Sprinkles) 250 mg 0900 PO 11/27/20 09:00 12/01/20 09:00 Oxycodone HCl (Roxicodone) 5 mg PRN Q6HRS PRN PO BREAKTHROUGH MOD-SEV PAIN 11/26/20 15:30 12/01/20 23:04 Nicotine (Nicoderm Cq 7mg Patch) 1 patch PRN DAILY PRN TD SMOKING CESSATION 11/28/20 19:00 Buspirone HCl (Buspar) 10 mg BID PO 11/28/20 21:00 12/01/20 19:56 Gabapentin (Neurontin) 400 mg 0900,1400 PO 11/30/20 09:00 12/01/20 14:00 I have reviewed the current psychotropics carefully including drug interactions. Risk benefit ratio favors no change other than as noted in my dictated progress note. Diagnosis: Problems: (1) Impulse control disorder, unspecified (2) Anxiety disorder, unspecified (3) Major depressive disorder with psychotic features MUKESH JAY MD Dec 02, 2020 07:47
[2020-12-02] MEDS: oxyCODONE ER 20 MG TAB.ER.12H PO SCH ×2 (09:00→20:05)
[2020-12-02] MEDS: GABAPENTIN 400 MG CAPSULE. PO SCH ×3 (09:00→20:05)
[2020-12-02] MEDS: ASCORBIC ACID 500 MG TABLET PO SCH ×2 (10:45→20:01)
[2020-12-02] MEDS: SUCRALFATE 1 GM TABLET. PO SCH ×2 (10:45→20:01)
[2020-12-02] MEDS: DIVALPROEX 125 MG CAP.SPRINK PO SCH ×3 (10:45→20:02)
[2020-12-02] MEDS: OLANZapine 5 MG TABLET PO SCH ×2 (10:45→20:00)
[2020-12-02] MEDS: NEO/POLYMYX/DEXAMETH OPHTH SUSPENSION 5ML BOTTLE. OU SCH (10:45)
[2020-12-02] MEDS: FLUoxetine HCL 20 MG CAPSULE PO SCH (10:46)
[2020-12-02] MEDS: PANTOPRAZOLE 40 MG TABLET. PO SCH (10:46)
[2020-12-02] MEDS: FERROUS SULFATE 325 MG TABLET. PO SCH ×2 (10:46→20:01)
[2020-12-02] MEDS: POTASSIUM CHLORIDE 20 MEQ TABLET.ER. PO SCH ×2 (10:46→20:01)
[2020-12-02] MEDS: QUEtiapine 25 MG TABLET. PO SCH ×4 (10:46→16:52)
[2020-12-02] MEDS: CALCIUM CARBONATE 500 MG TABLET PO SCH ×2 (10:46→20:01)
[2020-12-02] MEDS: CLOPIDOGREL BISULFATE 75 MG TABLET PO SCH (10:46)
[2020-12-02] MEDS: LACTOBACILLUS RHAMNOSUS GG 1 CAPSULE. PO SCH ×2 (10:46→20:01)
[2020-12-02] MEDS: busPIRone 10 MG TABLET. PO SCH ×2 (10:46→20:02)
[2020-12-02 16:56] VITALS: BP 114/71
[2020-12-02] MEDS: TAMSULOSIN 0.4 MG CAP.ER.24H. PO SCH (20:02)
[2020-12-02] MEDS: METHYL SALICYLATE/MENTHOL TOPICAL OINTMENT 57GM TUBE. TP PRN (21:03)
--- NOTE | 2020-12-02 21:09 | PDOC ---
Exam Note: Andrea Note: Please also refer to the separate dictated note~for this date of service dictated separately.~Patient seen individually. Discussed the patient with Nursing staff reviewed the chart.~Reviewed interim history and current functioning. Reviewed vital signs,~Labs/ Radiology~and current medications noted below. Continue current treatment with the changes noted in the dictated addendum note Assessment: Vital Signs/I&O: Vital Signs Date Time Temp Pulse Resp B/P (MAP) Pulse Ox O2 Delivery O2 Flow Rate FiO2 12/02/20 16:56 97.3 68 18 114/71 (85) 97 12/01/20 06:04 Nasal Cannula 3.0 I & O 12/01/20 12/01/20 12/02/20 15:00 23:00 07:00 Intake Total 600 ml 360 ml Balance 600 ml 360 ml Current Medications: Meds: Current Medications Medications (Trade) Dose Ordered Sig/Jocelyn Route PRN Reason Start Time Stop Time Status Last Admin Dose Admin Acetaminophen (Tylenol) 650 mg PRN Q6HRS PRN PO MILD PAIN / TEMP > 100.3'F 11/16/20 17:30 11/17/20 18:17 DC 11/17/20 12:40 Multi-Ingredient Ointment (Analgesic [place]) 1 laurence PRN QID PRN TP MUSCLE PAIN 11/16/20 17:30 12/02/20 21:03 Al Hydroxide/Mg Hydroxide (Mylanta Plus Xs) 15 ml PRN AFTMEALHC PRN PO DYSPEPSIA 11/16/20 17:30 Magnesium Hydroxide (Milk Of Magnesia) 2,400 mg PRN QHS PRN PO 2ND CHOICE CONSTIPATION 11/16/20 17:30 Nicotine (Nicoderm Cq 7mg Patch) 1 patch DAILY TD 11/16/20 17:30 11/16/20 17:44 DC Nicotine (Nicoderm Cq 7mg Patch) 1 patch DAILY TD 11/17/20 09:00 11/27/20 21:49 DC 11/27/20 10:12 Acetaminophen (Tylenol) 650 mg PRN Q6HRS PRN PO MILD PAIN / TEMP > 100.3'F 11/16/20 18:00 11/18/20 16:23 Buspirone HCl (Buspar) 10 mg BIDWMEALS PO 11/17/20 08:00 11/17/20 18:09 DC 11/17/20 17:29 Calcium Carbonate/ Glycine (Oscal) 500 mg BID PO 11/16/20 21:00 12/02/20 20:01 Clopidogrel Bisulfate (Plavix) 75 mg DAILY PO 11/17/20 09:00 12/02/20 10:46 Docusate Sodium (Colace) 100 mg PRN DAILY PRN PO 1ST CHOICE CONSTIPATION 11/16/20 18:00 Ferrous Sulfate (Feosol) 325 mg BID PO 11/16/20 21:00 12/02/20 20:01 Gabapentin (Neurontin) 400 mg BID94 PO 11/17/20 09:00 11/29/20 17:46 DC 11/29/20 16:00 Lorazepam (Ativan) 0.5 mg PRN BID PRN PO ANXIETY / AGITATION 11/16/20 18:00 11/20/20 14:30 Neomycin/ Polymyxin/ Dexamethasone (Maxitrol) 1 drop DAILY OU 11/17/20 09:00 12/02/20 10:45 Nicotine (Nicoderm Cq 7mg Patch) 1 patch PRN DAILY PRN TD SMOKING CESSATION 11/16/20 19:00 11/27/20 21:49 DC Olanzapine (ZyPREXA) 10 mg BID PO 11/16/20 21:00 11/21/20 18:06 DC 11/21/20 10:36 Oxycodone HCl (OxyCONTIN) 20 mg BID PO 11/16/20 21:00 12/02/20 20:05 Pantoprazole Sodium (Protonix) 40 mg DAILYAC PO 11/17/20 07:30 12/02/20 10:46 Potassium Chloride (Klor-Con) 20 meq BID PO 11/16/20 21:00 12/02/20 20:01 Sucralfate (Carafate) 1 gm BID PO 11/16/20 21:00 12/02/20 20:01 Tamsulosin HCl (Flomax) 0.4 mg HS PO 11/16/20 21:00 12/02/20 20:02 Ascorbic Acid (Vitamin C) 500 mg BID PO 11/16/20 21:00 12/02/20 20:01 Fluoxetine HCl (PROzac) 40 mg DAILY PO 11/17/20 09:00 12/02/20 10:46 Non-Formulary Medication (Gabapentin ) 600 mg TID PO 11/16/20 21:00 UNV Gabapentin (Neurontin) 800 mg HS PO 11/16/20 21:00 12/02/20 20:05 Lactobacillus Rhamnosus (Culturelle) 1 cap BID PO 11/16/20 21:00 12/02/20 20:01 Phenyleph/Shark Oil/Min Oil/Petrol (Preparation H) 1 laurence PRN BID PRN RC RECTAL PAIN 11/16/20 18:45 Artificial Tears (Artificial Tears) 1 drop PRN Q15MIN PRN OD DRY EYE 11/16/20 18:45 Buspirone HCl (Buspar) 10 mg 1700 PO 11/18/20 17:00 11/20/20 23:50 DC 11/20/20 17:00 Buspirone HCl (Buspar) 5 mg DAILY PO 11/18/20 09:00 11/20/20 23:50 DC 11/20/20 06:39 Buspirone HCl (Buspar) 5 mg BIDWMEALS PO 11/21/20 08:00 11/28/20 18:20 DC 11/28/20 17:00 Quetiapine Fumarate (SEROquel) 12.5 mg 0900,1300,1500 PO 11/19/20 09:00 12/02/20 14:40 Olanzapine (ZyPREXA) 10 mg DAILY PO 11/22/20 09:00 11/24/20 22:00 DC 11/24/20 10:09 Olanzapine (ZyPREXA) 5 mg QHS PO 11/21/20 21:00 11/24/20 22:00 DC 11/24/20 20:15 Olanzapine (ZyPREXA) 5 mg BID PO 11/25/20 09:00 12/02/20 20:00 Divalproex Sodium (Depakote Sprinkles) 125 mg 0900,1300,1700 PO 11/22/20 09:00 11/24/20 16:52 DC 11/24/20 13:05 Divalproex Sodium (Depakote Sprinkles) 250 mg BID PO 11/24/20 21:00 11/26/20 12:26 DC 11/26/20 10:01 Divalproex Sodium (Depakote Sprinkles) 125 mg NOON PO 11/25/20 12:00 11/26/20 12:23 DC 11/25/20 12:03 Divalproex Sodium (Depakote Sprinkles) 250 mg NOON PO 11/26/20 12:40 12/02/20 14:40 Divalproex Sodium (Depakote Sprinkles) 375 mg HS PO 11/26/20 21:00 12/02/20 20:02 Divalproex Sodium (Depakote Sprinkles) 250 mg 0900 PO 11/27/20 09:00 12/02/20 10:45 Oxycodone HCl (Roxicodone) 5 mg PRN Q6HRS PRN PO BREAKTHROUGH MOD-SEV PAIN 11/26/20 15:30 12/01/20 23:04 Nicotine (Nicoderm Cq 7mg Patch) 1 patch PRN DAILY PRN TD SMOKING CESSATION 11/28/20 19:00 Buspirone HCl (Buspar) 10 mg BID PO 11/28/20 21:00 12/02/20 20:02 Gabapentin (Neurontin) 400 mg 0900,1400 PO 11/30/20 09:00 12/02/20 14:40 I have reviewed the current psychotropics carefully including drug interactions. Risk benefit ratio favors no change other than as noted in my dictated progress note. Diagnosis: Problems: (1) Impulse control disorder, unspecified (2) Anxiety disorder, unspecified (3) Major depressive disorder with psychotic features MUKESH JAY MD Dec 02, 2020 21:09
[2020-12-03 06:17] VITALS: BP 110/68
--- NOTE | 2020-12-03 08:08 | PDOC ---
Exam Note: Andrea Note: This note is a late entry for 12/02/2020 covers elements not covered in my initial note. Subjective: The patient was seen face to face in the evening of 12/02/2020 with Yelena RODRIGUES, discussed and reviewed the chart. The patient slept 7-1/2 hours previous night. She has complained about the day shift. She has been staying in her chair, compliant with medications, cooperative in shower, refused her hair to be cleaned. Review of Systems: Ambulation impaired in wheelchair. No CV, , pulmonary, eye system symptoms on review. She does complain of arthritic pain. Mental Status Exam: The patient is reasonably oriented. Speech is coherent. Abstraction is fair. Computation is impaired. Language function intact. Attention span is short. Mood and affect is anxious but better than before. Laboratory Data: Reviewed. Impression: Major depressive disorder with psychotic features. Anxiety disorder unspecified. Impulse control disorder unspecified. Plan: No change from initial note. Assessment: Vital Signs/I&O: Vital Signs Date Time Temp Pulse Resp B/P (MAP) Pulse Ox O2 Delivery O2 Flow Rate FiO2 12/03/20 06:17 97.2 63 18 110/68 (82) 100 12/01/20 06:04 Nasal Cannula 3.0 I & O 12/02/20 12/02/20 12/03/20 15:00 23:00 07:00 Intake Total 220 ml Balance 220 ml Current Medications: Meds: Current Medications Medications (Trade) Dose Ordered Sig/Jocelyn Route PRN Reason Start Time Stop Time Status Last Admin Dose Admin Acetaminophen (Tylenol) 650 mg PRN Q6HRS PRN PO MILD PAIN / TEMP > 100.3'F 11/16/20 17:30 11/17/20 18:17 DC 11/17/20 12:40 Multi-Ingredient Ointment (Analgesic [place]) 1 laurence PRN QID PRN TP MUSCLE PAIN 11/16/20 17:30 12/02/20 21:03 Al Hydroxide/Mg Hydroxide (Mylanta Plus Xs) 15 ml PRN AFTMEALHC PRN PO DYSPEPSIA 11/16/20 17:30 Magnesium Hydroxide (Milk Of Magnesia) 2,400 mg PRN QHS PRN PO 2ND CHOICE CONSTIPATION 11/16/20 17:30 Nicotine (Nicoderm Cq 7mg Patch) 1 patch DAILY TD 11/16/20 17:30 11/16/20 17:44 DC Nicotine (Nicoderm Cq 7mg Patch) 1 patch DAILY TD 11/17/20 09:00 11/27/20 21:49 DC 11/27/20 10:12 Acetaminophen (Tylenol) 650 mg PRN Q6HRS PRN PO MILD PAIN / TEMP > 100.3'F 11/16/20 18:00 11/18/20 16:23 Buspirone HCl (Buspar) 10 mg BIDWMEALS PO 11/17/20 08:00 11/17/20 18:09 DC 11/17/20 17:29 Calcium Carbonate/ Glycine (Oscal) 500 mg BID PO 11/16/20 21:00 12/02/20 20:01 Clopidogrel Bisulfate (Plavix) 75 mg DAILY PO 11/17/20 09:00 12/02/20 10:46 Docusate Sodium (Colace) 100 mg PRN DAILY PRN PO 1ST CHOICE CONSTIPATION 11/16/20 18:00 Ferrous Sulfate (Feosol) 325 mg BID PO 11/16/20 21:00 12/02/20 20:01 Gabapentin (Neurontin) 400 mg BID94 PO 11/17/20 09:00 11/29/20 17:46 DC 11/29/20 16:00 Lorazepam (Ativan) 0.5 mg PRN BID PRN PO ANXIETY / AGITATION 11/16/20 18:00 11/20/20 14:30 Neomycin/ Polymyxin/ Dexamethasone (Maxitrol) 1 drop DAILY OU 11/17/20 09:00 12/02/20 10:45 Nicotine (Nicoderm Cq 7mg Patch) 1 patch PRN DAILY PRN TD SMOKING CESSATION 11/16/20 19:00 11/27/20 21:49 DC Olanzapine (ZyPREXA) 10 mg BID PO 11/16/20 21:00 11/21/20 18:06 DC 11/21/20 10:36 Oxycodone HCl (OxyCONTIN) 20 mg BID PO 11/16/20 21:00 12/02/20 20:05 Pantoprazole Sodium (Protonix) 40 mg DAILYAC PO 11/17/20 07:30 12/02/20 10:46 Potassium Chloride (Klor-Con) 20 meq BID PO 11/16/20 21:00 12/02/20 20:01 Sucralfate (Carafate) 1 gm BID PO 11/16/20 21:00 12/02/20 20:01 Tamsulosin HCl (Flomax) 0.4 mg HS PO 11/16/20 21:00 12/02/20 20:02 Ascorbic Acid (Vitamin C) 500 mg BID PO 11/16/20 21:00 12/02/20 20:01 Fluoxetine HCl (PROzac) 40 mg DAILY PO 11/17/20 09:00 12/02/20 10:46 Non-Formulary Medication (Gabapentin ) 600 mg TID PO 11/16/20 21:00 UNV Gabapentin (Neurontin) 800 mg HS PO 11/16/20 21:00 12/02/20 20:05 Lactobacillus Rhamnosus (Culturelle) 1 cap BID PO 11/16/20 21:00 12/02/20 20:01 Phenyleph/Shark Oil/Min Oil/Petrol (Preparation H) 1 laurence PRN BID PRN RC RECTAL PAIN 11/16/20 18:45 Artificial Tears (Artificial Tears) 1 drop PRN Q15MIN PRN OD DRY EYE 11/16/20 18:45 Buspirone HCl (Buspar) 10 mg 1700 PO 11/18/20 17:00 11/20/20 23:50 DC 11/20/20 17:00 Buspirone HCl (Buspar) 5 mg DAILY PO 11/18/20 09:00 11/20/20 23:50 DC 11/20/20 06:39 Buspirone HCl (Buspar) 5 mg BIDWMEALS PO 11/21/20 08:00 11/28/20 18:20 DC 11/28/20 17:00 Quetiapine Fumarate (SEROquel) 12.5 mg 0900,1300,1500 PO 11/19/20 09:00 12/02/20 14:40 Olanzapine (ZyPREXA) 10 mg DAILY PO 11/22/20 09:00 11/24/20 22:00 DC 11/24/20 10:09 Olanzapine (ZyPREXA) 5 mg QHS PO 11/21/20 21:00 11/24/20 22:00 DC 11/24/20 20:15 Olanzapine (ZyPREXA) 5 mg BID PO 11/25/20 09:00 12/02/20 20:00 Divalproex Sodium (Depakote Sprinkles) 125 mg 0900,1300,1700 PO 11/22/20 09:00 11/24/20 16:52 DC 11/24/20 13:05 Divalproex Sodium (Depakote Sprinkles) 250 mg BID PO 11/24/20 21:00 11/26/20 12:26 DC 11/26/20 10:01 Divalproex Sodium (Depakote Sprinkles) 125 mg NOON PO 11/25/20 12:00 11/26/20 12:23 DC 11/25/20 12:03 Divalproex Sodium (Depakote Sprinkles) 250 mg NOON PO 11/26/20 12:40 12/02/20 14:40 Divalproex Sodium (Depakote Sprinkles) 375 mg HS PO 11/26/20 21:00 12/02/20 20:02 Divalproex Sodium (Depakote Sprinkles) 250 mg 0900 PO 11/27/20 09:00 12/02/20 10:45 Oxycodone HCl (Roxicodone) 5 mg PRN Q6HRS PRN PO BREAKTHROUGH MOD-SEV PAIN 11/26/20 15:30 12/01/20 23:04 Nicotine (Nicoderm Cq 7mg Patch) 1 patch PRN DAILY PRN TD SMOKING CESSATION 11/28/20 19:00 Buspirone HCl (Buspar) 10 mg BID PO 11/28/20 21:00 12/02/20 20:02 Gabapentin (Neurontin) 400 mg 0900,1400 PO 11/30/20 09:00 12/02/20 14:40 I have reviewed the current psychotropics carefully including drug interactions. Risk benefit ratio favors no change other than as noted in my dictated progress note. Diagnosis: Problems: (1) Impulse control disorder, unspecified (2) Anxiety disorder, unspecified (3) Major depressive disorder with psychotic features MUKESH JAY MD Dec 03, 2020 08:08
[2020-12-03] MEDS: NEO/POLYMYX/DEXAMETH OPHTH SUSPENSION 5ML BOTTLE. OU SCH (09:00)
[2020-12-03] MEDS: GABAPENTIN 400 MG CAPSULE. PO SCH ×3 (09:00→20:16)
[2020-12-03] MEDS: OLANZapine 5 MG TABLET PO SCH ×2 (09:29→20:17)
[2020-12-03] MEDS: POTASSIUM CHLORIDE 20 MEQ TABLET.ER. PO SCH ×2 (09:29→20:15)
[2020-12-03] MEDS: busPIRone 10 MG TABLET. PO SCH ×2 (09:29→20:12)
[2020-12-03] MEDS: DIVALPROEX 125 MG CAP.SPRINK PO SCH ×3 (09:30→20:15)
[2020-12-03] MEDS: ASCORBIC ACID 500 MG TABLET PO SCH ×2 (09:30→20:16)
[2020-12-03] MEDS: CALCIUM CARBONATE 500 MG TABLET PO SCH ×2 (09:30→20:11)
[2020-12-03] MEDS: QUEtiapine 25 MG TABLET. PO SCH ×3 (09:30→15:00)
[2020-12-03] MEDS: PANTOPRAZOLE 40 MG TABLET. PO SCH (09:30)
[2020-12-03] MEDS: FLUoxetine HCL 20 MG CAPSULE PO SCH (09:30)
[2020-12-03] MEDS: CLOPIDOGREL BISULFATE 75 MG TABLET PO SCH (09:30)
[2020-12-03] MEDS: FERROUS SULFATE 325 MG TABLET. PO SCH ×2 (09:30→20:12)
[2020-12-03] MEDS: SUCRALFATE 1 GM TABLET. PO SCH ×2 (09:31→20:12)
[2020-12-03] MEDS: oxyCODONE ER 20 MG TAB.ER.12H PO SCH ×2 (09:31→20:16)
[2020-12-03] MEDS: LACTOBACILLUS RHAMNOSUS GG 1 CAPSULE. PO SCH ×2 (09:31→20:16)
--- NOTE | 2020-12-03 13:21 | TX PLAN ---
Interdisciplinary Tx Plan Admission Information Nov 16, 2020 at 15:30 Legal Status (on Admission): Voluntary DPOA/Guardian Name: Christiano Duncan Contact Other Contact Name: Heriberto Davey Other Contact Verified Code Status: Full Code Allergies: Coded Allergies: amoxicillin (Verified Allergy, Unknown, 02/21/20) aspirin (Verified Allergy, Unknown, 02/21/20) cephalexin (Verified Allergy, Unknown, 02/21/20) clarithromycin (Verified Allergy, Unknown, 02/21/20) clavulanic acid (Verified Allergy, Unknown, 02/21/20) codeine (Verified Allergy, Unknown, 02/21/20) ibuprofen (Verified Allergy, Unknown, 02/21/20) latex (Verified Allergy, Unknown, 02/21/20) nalbuphine (Verified Allergy, Unknown, 02/21/20) oseltamivir (Verified Allergy, Unknown, 02/21/20) Diagnoses Primary Diagnosis: MDD with psychotic features Reasons for Admission: Aggressive, Relation/conflict, Poor impulse control Problem in Patient's Words: According to pt son, she is in continual pain. Additional Admission Comments: According to the intake, pt is consistently on the call light, yelling out, threatening to throw self on the floor, attention-seeking, verbally abusive, name calling and belligerent, anxious, irritable Problems Active Problems: Yelling out Attention-seeking Verbally abusive Irritable Anxious Inactive Problems: Medication compliant Pt Strengths/Limitations Ability for [place]: Poor Cognitive Functioning/Ability: Fair Communication Skills/Ability: Fair Financial Resources: Poor Insight/Judgement: Poor Intellectual Ability: Fair Physical Health: Poor Social Skills: Poor Stability in Family: Fair Stability in School/Work: Poor Verbal Skills: Fair Discharge Criteria Discharge Criteria: No need for close observ., Adequate arrangements @DC, Improved behavior, Improved mood/thought Preliminary Discharge Plan Preliminary DC Plan: Current Living Arrange., Other Special Precautions Fall Risk: High Initial D/C Plan At this time, pt will return to placement. Placement has requested help with higher level of care. Identified Discharge Needs: Pt can return to placement; however, may need a higher level of care. Currently Utilized Resources Currently Utilized Resources/P: Primary Care Physician Psychiatrist (telehealth) Referrals Community Resources: Facility referrals Identified Problems/Hx/Goals Objectives/Short-Term Goals Short Term Goals: Dec. Anxiety/Panic, Dec. Outbursts, Dec. Symp. Depression, Improved Social Skills, Medication Stabilization, Promote Coping Skill Short Term Goals in Patient's: N/A Interventions/Frequency Staff Interventions/Frequency&: Psychiatrist to assess pt at least 3x per week to rmedication mgmt. Social Work to assess pt at least 2x per week to identify barriers to care and discharge planning goals. Nursing to assess behaviors, medication effects and complete 15 minute checks daily. Encourage group participation in activities (if applicable) or 1:1 engagement based off Activity Therapy goals. 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 Pt is medication compliant and continues to yell out but minimally. Pt was less argumentative last night but tearful when talking to her son on the phone. Pt is currently on Buspar BID with meals, Gabapentin, Prozac, Seroquel and Depakote. Pt appears to be therapeutic on the Depakote and shows no troubles medication effects. Pt will plan to discharge back to [facility]. ANDRES RODRIGES Dec 03, 2020 13:21
[2020-12-03 16:24] VITALS: BP 96/60
[2020-12-03] MEDS: TAMSULOSIN 0.4 MG CAP.ER.24H. PO SCH (20:12)
--- NOTE | 2020-12-03 21:08 | PDOC ---
Exam Note: Andrea Note: Please also refer to the separate dictated note~for this date of service dictated separately.~Patient seen individually. Discussed the patient with Nursing staff reviewed the chart.~Reviewed interim history and current functioning. Reviewed vital signs,~Labs/ Radiology~and current medications noted below. Continue current treatment with the changes noted in the dictated addendum note Assessment: Vital Signs/I&O: Vital Signs Date Time Temp Pulse Resp B/P (MAP) Pulse Ox O2 Delivery O2 Flow Rate FiO2 12/03/20 16:24 98.3 93 22 96/60 (72) 97 12/01/20 06:04 Nasal Cannula 3.0 I & O 12/02/20 12/02/20 12/03/20 15:00 23:00 07:00 Intake Total 220 ml Balance 220 ml Current Medications: Meds: Current Medications Medications (Trade) Dose Ordered Sig/Jocelyn Route PRN Reason Start Time Stop Time Status Last Admin Dose Admin Acetaminophen (Tylenol) 650 mg PRN Q6HRS PRN PO MILD PAIN / TEMP > 100.3'F 11/16/20 17:30 11/17/20 18:17 DC 11/17/20 12:40 Multi-Ingredient Ointment (Analgesic [place]) 1 laurence PRN QID PRN TP MUSCLE PAIN 11/16/20 17:30 12/02/20 21:03 Al Hydroxide/Mg Hydroxide (Mylanta Plus Xs) 15 ml PRN AFTMEALHC PRN PO DYSPEPSIA 11/16/20 17:30 Magnesium Hydroxide (Milk Of Magnesia) 2,400 mg PRN QHS PRN PO 2ND CHOICE CONSTIPATION 11/16/20 17:30 Nicotine (Nicoderm Cq 7mg Patch) 1 patch DAILY TD 11/16/20 17:30 11/16/20 17:44 DC Nicotine (Nicoderm Cq 7mg Patch) 1 patch DAILY TD 11/17/20 09:00 11/27/20 21:49 DC 11/27/20 10:12 Acetaminophen (Tylenol) 650 mg PRN Q6HRS PRN PO MILD PAIN / TEMP > 100.3'F 11/16/20 18:00 11/18/20 16:23 Buspirone HCl (Buspar) 10 mg BIDWMEALS PO 11/17/20 08:00 11/17/20 18:09 DC 11/17/20 17:29 Calcium Carbonate/ Glycine (Oscal) 500 mg BID PO 11/16/20 21:00 12/03/20 20:11 Clopidogrel Bisulfate (Plavix) 75 mg DAILY PO 11/17/20 09:00 12/03/20 09:30 Docusate Sodium (Colace) 100 mg PRN DAILY PRN PO 1ST CHOICE CONSTIPATION 11/16/20 18:00 Ferrous Sulfate (Feosol) 325 mg BID PO 11/16/20 21:00 12/03/20 20:12 Gabapentin (Neurontin) 400 mg BID94 PO 11/17/20 09:00 11/29/20 17:46 DC 11/29/20 16:00 Lorazepam (Ativan) 0.5 mg PRN BID PRN PO ANXIETY / AGITATION 11/16/20 18:00 11/20/20 14:30 Neomycin/ Polymyxin/ Dexamethasone (Maxitrol) 1 drop DAILY OU 11/17/20 09:00 12/03/20 09:00 Nicotine (Nicoderm Cq 7mg Patch) 1 patch PRN DAILY PRN TD SMOKING CESSATION 11/16/20 19:00 11/27/20 21:49 DC Olanzapine (ZyPREXA) 10 mg BID PO 11/16/20 21:00 11/21/20 18:06 DC 11/21/20 10:36 Oxycodone HCl (OxyCONTIN) 20 mg BID PO 11/16/20 21:00 12/03/20 20:16 Pantoprazole Sodium (Protonix) 40 mg DAILYAC PO 11/17/20 07:30 12/03/20 09:30 Potassium Chloride (Klor-Con) 20 meq BID PO 11/16/20 21:00 12/03/20 20:15 Sucralfate (Carafate) 1 gm BID PO 11/16/20 21:00 12/03/20 20:12 Tamsulosin HCl (Flomax) 0.4 mg HS PO 11/16/20 21:00 12/03/20 20:12 Ascorbic Acid (Vitamin C) 500 mg BID PO 11/16/20 21:00 12/03/20 20:16 Fluoxetine HCl (PROzac) 40 mg DAILY PO 11/17/20 09:00 12/03/20 09:30 Non-Formulary Medication (Gabapentin ) 600 mg TID PO 11/16/20 21:00 UNV Gabapentin (Neurontin) 800 mg HS PO 11/16/20 21:00 12/03/20 20:16 Lactobacillus Rhamnosus (Culturelle) 1 cap BID PO 11/16/20 21:00 12/03/20 20:16 Phenyleph/Shark Oil/Min Oil/Petrol (Preparation H) 1 laurence PRN BID PRN RC RECTAL PAIN 11/16/20 18:45 Artificial Tears (Artificial Tears) 1 drop PRN Q15MIN PRN OD DRY EYE 11/16/20 18:45 Buspirone HCl (Buspar) 10 mg 1700 PO 11/18/20 17:00 11/20/20 23:50 DC 11/20/20 17:00 Buspirone HCl (Buspar) 5 mg DAILY PO 11/18/20 09:00 11/20/20 23:50 DC 11/20/20 06:39 Buspirone HCl (Buspar) 5 mg BIDWMEALS PO 11/21/20 08:00 11/28/20 18:20 DC 11/28/20 17:00 Quetiapine Fumarate (SEROquel) 12.5 mg 0900,1300,1500 PO 11/19/20 09:00 12/03/20 15:00 Olanzapine (ZyPREXA) 10 mg DAILY PO 11/22/20 09:00 11/24/20 22:00 DC 11/24/20 10:09 Olanzapine (ZyPREXA) 5 mg QHS PO 11/21/20 21:00 11/24/20 22:00 DC 11/24/20 20:15 Olanzapine (ZyPREXA) 5 mg BID PO 11/25/20 09:00 12/03/20 20:17 Divalproex Sodium (Depakote Sprinkles) 125 mg 0900,1300,1700 PO 11/22/20 09:00 11/24/20 16:52 DC 11/24/20 13:05 Divalproex Sodium (Depakote Sprinkles) 250 mg BID PO 11/24/20 21:00 11/26/20 12:26 DC 11/26/20 10:01 Divalproex Sodium (Depakote Sprinkles) 125 mg NOON PO 11/25/20 12:00 11/26/20 12:23 DC 11/25/20 12:03 Divalproex Sodium (Depakote Sprinkles) 250 mg NOON PO 11/26/20 12:40 12/03/20 12:00 Divalproex Sodium (Depakote Sprinkles) 375 mg HS PO 11/26/20 21:00 12/03/20 20:15 Divalproex Sodium (Depakote Sprinkles) 250 mg 0900 PO 11/27/20 09:00 12/03/20 09:30 Oxycodone HCl (Roxicodone) 5 mg PRN Q6HRS PRN PO BREAKTHROUGH MOD-SEV PAIN 11/26/20 15:30 12/01/20 23:04 Nicotine (Nicoderm Cq 7mg Patch) 1 patch PRN DAILY PRN TD SMOKING CESSATION 11/28/20 19:00 Buspirone HCl (Buspar) 10 mg BID PO 11/28/20 21:00 12/03/20 20:12 Gabapentin (Neurontin) 400 mg 0900,1400 PO 11/30/20 09:00 12/03/20 14:00 I have reviewed the current psychotropics carefully including drug interactions. Risk benefit ratio favors no change other than as noted in my dictated progress note. Diagnosis: Problems: (1) Impulse control disorder, unspecified (2) Anxiety disorder, unspecified (3) Major depressive disorder with psychotic features MUKESH JAY MD Dec 03, 2020 21:08
[2020-12-03] MEDS: oxyCODONE IR 5 MG TABLET PO PRN (23:43)
[2020-12-04 05:53] VITALS: BP 131/69
--- NOTE | 2020-12-04 08:28 | PDOC ---
Exam Note: Andrea Note: This note is a late entry for 12/03/2020 covers elements not covered in my initial note. Subjective: The patient was seen face to face in the morning of 12/03/2020 for a treatment team meeting with Belle Solomon, Heather Campbell and Liya (director social service), Jonna Nicolas, activity therapy and Sharla RODRIGUES, discussed and reviewed the chart. The patient slept 7 hours previous night. Overall she continues to have some mood lability, yelling intermittently. I met with her in her room in the evening. Review of Systems: Ambulation impaired in wheelchair. She complains of some back pain. No CV, , pulmonary, eye system symptoms on review. Mental Status Exam: The patient is reasonably oriented. Speech is coherent. Abstraction is fair. Computation is impaired. Language function intact. Attention span is short. Mood and affect remains somewhat anxious, labile. Laboratory Data: Reviewed. Impression: Major depressive disorder with psychotic features. Anxiety disorder unspecified. Impulse control disorder unspecified. Plan: No change from initial note. Assessment: Vital Signs/I&O: Vital Signs Date Time Temp Pulse Resp B/P (MAP) Pulse Ox O2 Delivery O2 Flow Rate FiO2 12/04/20 05:53 97.6 71 20 131/69 (89) 99 Room Air 12/01/20 06:04 3.0 I & O 12/03/20 12/03/20 12/04/20 15:00 23:00 07:00 Intake Total 120 ml Balance 120 ml Current Medications: Meds: Current Medications Medications (Trade) Dose Ordered Sig/Jocelyn Route PRN Reason Start Time Stop Time Status Last Admin Dose Admin Acetaminophen (Tylenol) 650 mg PRN Q6HRS PRN PO MILD PAIN / TEMP > 100.3'F 11/16/20 17:30 11/17/20 18:17 DC 11/17/20 12:40 Multi-Ingredient Ointment (Analgesic [place]) 1 laurence PRN QID PRN TP MUSCLE PAIN 11/16/20 17:30 12/02/20 21:03 Al Hydroxide/Mg Hydroxide (Mylanta Plus Xs) 15 ml PRN AFTMEALHC PRN PO DYSPEPSIA 11/16/20 17:30 Magnesium Hydroxide (Milk Of Magnesia) 2,400 mg PRN QHS PRN PO 2ND CHOICE CONSTIPATION 11/16/20 17:30 Nicotine (Nicoderm Cq 7mg Patch) 1 patch DAILY TD 11/16/20 17:30 11/16/20 17:44 DC Nicotine (Nicoderm Cq 7mg Patch) 1 patch DAILY TD 11/17/20 09:00 11/27/20 21:49 DC 11/27/20 10:12 Acetaminophen (Tylenol) 650 mg PRN Q6HRS PRN PO MILD PAIN / TEMP > 100.3'F 11/16/20 18:00 11/18/20 16:23 Buspirone HCl (Buspar) 10 mg BIDWMEALS PO 11/17/20 08:00 11/17/20 18:09 DC 11/17/20 17:29 Calcium Carbonate/ Glycine (Oscal) 500 mg BID PO 11/16/20 21:00 12/03/20 20:11 Clopidogrel Bisulfate (Plavix) 75 mg DAILY PO 11/17/20 09:00 12/03/20 09:30 Docusate Sodium (Colace) 100 mg PRN DAILY PRN PO 1ST CHOICE CONSTIPATION 11/16/20 18:00 Ferrous Sulfate (Feosol) 325 mg BID PO 11/16/20 21:00 12/03/20 20:12 Gabapentin (Neurontin) 400 mg BID94 PO 11/17/20 09:00 11/29/20 17:46 DC 11/29/20 16:00 Lorazepam (Ativan) 0.5 mg PRN BID PRN PO ANXIETY / AGITATION 11/16/20 18:00 11/20/20 14:30 Neomycin/ Polymyxin/ Dexamethasone (Maxitrol) 1 drop DAILY OU 11/17/20 09:00 12/03/20 09:00 Nicotine (Nicoderm Cq 7mg Patch) 1 patch PRN DAILY PRN TD SMOKING CESSATION 11/16/20 19:00 11/27/20 21:49 DC Olanzapine (ZyPREXA) 10 mg BID PO 11/16/20 21:00 11/21/20 18:06 DC 11/21/20 10:36 Oxycodone HCl (OxyCONTIN) 20 mg BID PO 11/16/20 21:00 12/03/20 20:16 Pantoprazole Sodium (Protonix) 40 mg DAILYAC PO 11/17/20 07:30 12/03/20 09:30 Potassium Chloride (Klor-Con) 20 meq BID PO 11/16/20 21:00 12/03/20 20:15 Sucralfate (Carafate) 1 gm BID PO 11/16/20 21:00 12/03/20 20:12 Tamsulosin HCl (Flomax) 0.4 mg HS PO 11/16/20 21:00 12/03/20 20:12 Ascorbic Acid (Vitamin C) 500 mg BID PO 11/16/20 21:00 12/03/20 20:16 Fluoxetine HCl (PROzac) 40 mg DAILY PO 11/17/20 09:00 12/03/20 09:30 Non-Formulary Medication (Gabapentin ) 600 mg TID PO 11/16/20 21:00 UNV Gabapentin (Neurontin) 800 mg HS PO 11/16/20 21:00 12/03/20 20:16 Lactobacillus Rhamnosus (Culturelle) 1 cap BID PO 11/16/20 21:00 12/03/20 20:16 Phenyleph/Shark Oil/Min Oil/Petrol (Preparation H) 1 laurence PRN BID PRN RC RECTAL PAIN 11/16/20 18:45 Artificial Tears (Artificial Tears) 1 drop PRN Q15MIN PRN OD DRY EYE 11/16/20 18:45 Buspirone HCl (Buspar) 10 mg 1700 PO 11/18/20 17:00 11/20/20 23:50 DC 11/20/20 17:00 Buspirone HCl (Buspar) 5 mg DAILY PO 11/18/20 09:00 11/20/20 23:50 DC 11/20/20 06:39 Buspirone HCl (Buspar) 5 mg BIDWMEALS PO 11/21/20 08:00 11/28/20 18:20 DC 11/28/20 17:00 Quetiapine Fumarate (SEROquel) 12.5 mg 0900,1300,1500 PO 11/19/20 09:00 12/03/20 15:00 Olanzapine (ZyPREXA) 10 mg DAILY PO 11/22/20 09:00 11/24/20 22:00 DC 11/24/20 10:09 Olanzapine (ZyPREXA) 5 mg QHS PO 11/21/20 21:00 11/24/20 22:00 DC 11/24/20 20:15 Olanzapine (ZyPREXA) 5 mg BID PO 11/25/20 09:00 12/03/20 20:17 Divalproex Sodium (Depakote Sprinkles) 125 mg 0900,1300,1700 PO 11/22/20 09:00 11/24/20 16:52 DC 11/24/20 13:05 Divalproex Sodium (Depakote Sprinkles) 250 mg BID PO 11/24/20 21:00 11/26/20 12:26 DC 11/26/20 10:01 Divalproex Sodium (Depakote Sprinkles) 125 mg NOON PO 11/25/20 12:00 11/26/20 12:23 DC 11/25/20 12:03 Divalproex Sodium (Depakote Sprinkles) 250 mg NOON PO 11/26/20 12:40 12/03/20 12:00 Divalproex Sodium (Depakote Sprinkles) 375 mg HS PO 11/26/20 21:00 12/03/20 20:15 Divalproex Sodium (Depakote Sprinkles) 250 mg 0900 PO 11/27/20 09:00 12/03/20 09:30 Oxycodone HCl (Roxicodone) 5 mg PRN Q6HRS PRN PO BREAKTHROUGH MOD-SEV PAIN 11/26/20 15:30 12/03/20 23:43 Nicotine (Nicoderm Cq 7mg Patch) 1 patch PRN DAILY PRN TD SMOKING CESSATION 11/28/20 19:00 Buspirone HCl (Buspar) 10 mg BID PO 11/28/20 21:00 12/03/20 20:12 Gabapentin (Neurontin) 400 mg 0900,1400 PO 11/30/20 09:00 12/03/20 14:00 I have reviewed the current psychotropics carefully including drug interactions. Risk benefit ratio favors no change other than as noted in my dictated progress note. Diagnosis: Problems: (1) Impulse control disorder, unspecified (2) Anxiety disorder, unspecified (3) Major depressive disorder with psychotic features MUKESH JAY MD Dec 04, 2020 08:28
[2020-12-04] MEDS: SUCRALFATE 1 GM TABLET. PO SCH ×2 (09:00→19:33)
[2020-12-04] MEDS: NEO/POLYMYX/DEXAMETH OPHTH SUSPENSION 5ML BOTTLE. OU SCH (09:00)
[2020-12-04] MEDS: DIVALPROEX 125 MG CAP.SPRINK PO SCH ×3 (12:00→19:33)
[2020-12-04] MEDS: OLANZapine 5 MG TABLET PO SCH ×2 (12:00→19:34)
[2020-12-04] MEDS: PANTOPRAZOLE 40 MG TABLET. PO SCH (12:00)
[2020-12-04] MEDS: QUEtiapine 25 MG TABLET. PO SCH ×3 (12:00→15:00)
[2020-12-04] MEDS: LACTOBACILLUS RHAMNOSUS GG 1 CAPSULE. PO SCH ×2 (12:00→19:32)
[2020-12-04] MEDS: busPIRone 10 MG TABLET. PO SCH ×2 (12:00→19:33)
[2020-12-04] MEDS: ASCORBIC ACID 500 MG TABLET PO SCH ×2 (12:01→19:34)
[2020-12-04] MEDS: FERROUS SULFATE 325 MG TABLET. PO SCH ×2 (12:01→19:33)
[2020-12-04] MEDS: FLUoxetine HCL 20 MG CAPSULE PO SCH (12:01)
[2020-12-04] MEDS: CALCIUM CARBONATE 500 MG TABLET PO SCH ×2 (12:01→19:34)
[2020-12-04] MEDS: POTASSIUM CHLORIDE 20 MEQ TABLET.ER. PO SCH ×2 (12:01→19:34)
[2020-12-04] MEDS: GABAPENTIN 400 MG CAPSULE. PO SCH ×3 (12:01→19:33)
[2020-12-04] MEDS: CLOPIDOGREL BISULFATE 75 MG TABLET PO SCH (12:02)
[2020-12-04] MEDS: oxyCODONE ER 20 MG TAB.ER.12H PO SCH ×2 (12:02→19:34)
[2020-12-04] MEDS: oxyCODONE IR 5 MG TABLET PO PRN (14:34)
[2020-12-04 15:36] VITALS: BP 115/71
[2020-12-04] MEDS: TAMSULOSIN 0.4 MG CAP.ER.24H. PO SCH (19:34)
--- NOTE | 2020-12-04 20:57 | PDOC ---
Exam Note: Andrea Note: Please also refer to the separate dictated note~for this date of service dictated separately.~Patient seen individually. Discussed the patient with Nursing staff reviewed the chart.~Reviewed interim history and current functioning. Reviewed vital signs,~Labs/ Radiology~and current medications noted below. Continue current treatment with the changes noted in the dictated addendum note Assessment: Vital Signs/I&O: Vital Signs Date Time Temp Pulse Resp B/P (MAP) Pulse Ox O2 Delivery O2 Flow Rate FiO2 12/04/20 19:34 Nasal Cannula 12/04/20 15:36 97.7 80 16 115/71 (86) 96 12/01/20 06:04 3.0 I & O 12/03/20 12/03/20 12/04/20 14:59 22:59 06:59 Intake Total 120 ml Balance 120 ml Current Medications: Meds: Current Medications Medications (Trade) Dose Ordered Sig/Jocelyn Route PRN Reason Start Time Stop Time Status Last Admin Dose Admin Acetaminophen (Tylenol) 650 mg PRN Q6HRS PRN PO MILD PAIN / TEMP > 100.3'F 11/16/20 17:30 11/17/20 18:17 DC 11/17/20 12:40 Multi-Ingredient Ointment (Analgesic [place]) 1 laurence PRN QID PRN TP MUSCLE PAIN 11/16/20 17:30 12/02/20 21:03 Al Hydroxide/Mg Hydroxide (Mylanta Plus Xs) 15 ml PRN AFTMEALHC PRN PO DYSPEPSIA 11/16/20 17:30 Magnesium Hydroxide (Milk Of Magnesia) 2,400 mg PRN QHS PRN PO 2ND CHOICE CONSTIPATION 11/16/20 17:30 Nicotine (Nicoderm Cq 7mg Patch) 1 patch DAILY TD 11/16/20 17:30 11/16/20 17:44 DC Nicotine (Nicoderm Cq 7mg Patch) 1 patch DAILY TD 11/17/20 09:00 11/27/20 21:49 DC 11/27/20 10:12 Acetaminophen (Tylenol) 650 mg PRN Q6HRS PRN PO MILD PAIN / TEMP > 100.3'F 11/16/20 18:00 11/18/20 16:23 Buspirone HCl (Buspar) 10 mg BIDWMEALS PO 11/17/20 08:00 11/17/20 18:09 DC 11/17/20 17:29 Calcium Carbonate/ Glycine (Oscal) 500 mg BID PO 11/16/20 21:00 12/04/20 19:34 Clopidogrel Bisulfate (Plavix) 75 mg DAILY PO 11/17/20 09:00 12/04/20 12:02 Docusate Sodium (Colace) 100 mg PRN DAILY PRN PO 1ST CHOICE CONSTIPATION 11/16/20 18:00 Ferrous Sulfate (Feosol) 325 mg BID PO 11/16/20 21:00 12/04/20 19:33 Gabapentin (Neurontin) 400 mg BID94 PO 11/17/20 09:00 11/29/20 17:46 DC 11/29/20 16:00 Lorazepam (Ativan) 0.5 mg PRN BID PRN PO ANXIETY / AGITATION 11/16/20 18:00 11/20/20 14:30 Neomycin/ Polymyxin/ Dexamethasone (Maxitrol) 1 drop DAILY OU 11/17/20 09:00 12/04/20 09:00 Nicotine (Nicoderm Cq 7mg Patch) 1 patch PRN DAILY PRN TD SMOKING CESSATION 11/16/20 19:00 11/27/20 21:49 DC Olanzapine (ZyPREXA) 10 mg BID PO 11/16/20 21:00 11/21/20 18:06 DC 11/21/20 10:36 Oxycodone HCl (OxyCONTIN) 20 mg BID PO 11/16/20 21:00 12/04/20 19:34 Pantoprazole Sodium (Protonix) 40 mg DAILYAC PO 11/17/20 07:30 12/04/20 12:00 Potassium Chloride (Klor-Con) 20 meq BID PO 11/16/20 21:00 12/04/20 19:34 Sucralfate (Carafate) 1 gm BID PO 11/16/20 21:00 12/04/20 19:33 Tamsulosin HCl (Flomax) 0.4 mg HS PO 11/16/20 21:00 12/04/20 19:34 Ascorbic Acid (Vitamin C) 500 mg BID PO 11/16/20 21:00 12/04/20 19:34 Fluoxetine HCl (PROzac) 40 mg DAILY PO 11/17/20 09:00 12/04/20 12:01 Non-Formulary Medication (Gabapentin ) 600 mg TID PO 11/16/20 21:00 UNV Gabapentin (Neurontin) 800 mg HS PO 11/16/20 21:00 12/04/20 19:33 Lactobacillus Rhamnosus (Culturelle) 1 cap BID PO 11/16/20 21:00 12/04/20 19:32 Phenyleph/Shark Oil/Min Oil/Petrol (Preparation H) 1 laurence PRN BID PRN RC RECTAL PAIN 11/16/20 18:45 Artificial Tears (Artificial Tears) 1 drop PRN Q15MIN PRN OD DRY EYE 11/16/20 18:45 Buspirone HCl (Buspar) 10 mg 1700 PO 11/18/20 17:00 11/20/20 23:50 DC 11/20/20 17:00 Buspirone HCl (Buspar) 5 mg DAILY PO 11/18/20 09:00 11/20/20 23:50 DC 11/20/20 06:39 Buspirone HCl (Buspar) 5 mg BIDWMEALS PO 11/21/20 08:00 11/28/20 18:20 DC 11/28/20 17:00 Quetiapine Fumarate (SEROquel) 12.5 mg 0900,1300,1500 PO 11/19/20 09:00 12/04/20 17:51 DC 12/04/20 15:00 Olanzapine (ZyPREXA) 10 mg DAILY PO 11/22/20 09:00 11/24/20 22:00 DC 11/24/20 10:09 Olanzapine (ZyPREXA) 5 mg QHS PO 11/21/20 21:00 11/24/20 22:00 DC 11/24/20 20:15 Olanzapine (ZyPREXA) 5 mg BID PO 11/25/20 09:00 12/04/20 19:34 Divalproex Sodium (Depakote Sprinkles) 125 mg 0900,1300,1700 PO 11/22/20 09:00 11/24/20 16:52 DC 11/24/20 13:05 Divalproex Sodium (Depakote Sprinkles) 250 mg BID PO 11/24/20 21:00 11/26/20 12:26 DC 11/26/20 10:01 Divalproex Sodium (Depakote Sprinkles) 125 mg NOON PO 11/25/20 12:00 11/26/20 12:23 DC 11/25/20 12:03 Divalproex Sodium (Depakote Sprinkles) 250 mg NOON PO 11/26/20 12:40 12/03/20 12:00 Divalproex Sodium (Depakote Sprinkles) 375 mg HS PO 11/26/20 21:00 12/04/20 19:33 Divalproex Sodium (Depakote Sprinkles) 250 mg 0900 PO 11/27/20 09:00 12/04/20 12:01 Oxycodone HCl (Roxicodone) 5 mg PRN Q6HRS PRN PO BREAKTHROUGH MOD-SEV PAIN 11/26/20 15:30 12/04/20 14:34 Nicotine (Nicoderm Cq 7mg Patch) 1 patch PRN DAILY PRN TD SMOKING CESSATION 11/28/20 19:00 Buspirone HCl (Buspar) 10 mg BID PO 11/28/20 21:00 12/04/20 19:33 Gabapentin (Neurontin) 400 mg 0900,1400 PO 11/30/20 09:00 12/04/20 14:00 Quetiapine Fumarate (SEROquel) 25 mg BID@1300,1700 PO 12/05/20 13:00 I have reviewed the current psychotropics carefully including drug interactions. Risk benefit ratio favors no change other than as noted in my dictated progress note. Diagnosis: Problems: (1) Impulse control disorder, unspecified (2) Anxiety disorder, unspecified (3) Major depressive disorder with psychotic features MUKESH JAY MD Dec 04, 2020 20:57
[2020-12-05 06:18] VITALS: BP 145/76
--- NOTE | 2020-12-05 07:52 | PDOC ---
Exam Note: Andrea Note: This note is a late entry for 12/04/2020 covers elements not covered in my initial note. Subjective: The patient was seen face to face in the evening of 12/04/2020 with Sharla RODRIGUES, discussed and reviewed the chart. The patient slept 4 hours previous night. She has been fixated and obsessed about wanting pain medications. She often sleeps in late. Review of Systems: Ambulation impaired in wheelchair and chronic pain due to arthritis, back pain. No CV, , pulmonary, eye system symptoms on review. Mental Status Exam: The patient is reasonably oriented. Speech is coherent, has some latency. Abstraction is fair. Computation is impaired. Language function intact. Attention span is short. Mood and affect labile. I met with her on 3 separate occasions on rounds this evening as she wanted me back to explain that she wanted the nursing staff either to take her to bed or to the restroom. Laboratory Data: Reviewed. Impression: Major depressive disorder with psychotic features. Anxiety disorder unspecified. Impulse control disorder unspecified. Plan: Since she sleeps in, in the morning, we will change the Seroquel 12.5 mg 0900, 1300, 1700 hours to 25 mg 1300 hours and 12.5 mg 1700 hours. Maintain rest of the psychotropics unchanged. Assessment: Vital Signs/I&O: Vital Signs Date Time Temp Pulse Resp B/P (MAP) Pulse Ox O2 Delivery O2 Flow Rate FiO2 12/05/20 06:18 97.6 62 18 145/76 (99) 96 12/05/20 00:01 Nasal Cannula 12/01/20 06:04 3.0 I & O 12/04/20 12/04/20 12/05/20 14:59 22:59 06:59 Intake Total 330 ml 360 ml Balance 330 ml 360 ml Current Medications: Meds: Current Medications Medications (Trade) Dose Ordered Sig/Jocelyn Route PRN Reason Start Time Stop Time Status Last Admin Dose Admin Acetaminophen (Tylenol) 650 mg PRN Q6HRS PRN PO MILD PAIN / TEMP > 100.3'F 11/16/20 17:30 11/17/20 18:17 DC 11/17/20 12:40 Multi-Ingredient Ointment (Analgesic [place]) 1 laurence PRN QID PRN TP MUSCLE PAIN 11/16/20 17:30 12/02/20 21:03 Al Hydroxide/Mg Hydroxide (Mylanta Plus Xs) 15 ml PRN AFTMEALHC PRN PO DYSPEPSIA 11/16/20 17:30 Magnesium Hydroxide (Milk Of Magnesia) 2,400 mg PRN QHS PRN PO 2ND CHOICE CONSTIPATION 11/16/20 17:30 Nicotine (Nicoderm Cq 7mg Patch) 1 patch DAILY TD 11/16/20 17:30 11/16/20 17:44 DC Nicotine (Nicoderm Cq 7mg Patch) 1 patch DAILY TD 11/17/20 09:00 11/27/20 21:49 DC 11/27/20 10:12 Acetaminophen (Tylenol) 650 mg PRN Q6HRS PRN PO MILD PAIN / TEMP > 100.3'F 11/16/20 18:00 11/18/20 16:23 Buspirone HCl (Buspar) 10 mg BIDWMEALS PO 11/17/20 08:00 11/17/20 18:09 DC 11/17/20 17:29 Calcium Carbonate/ Glycine (Oscal) 500 mg BID PO 11/16/20 21:00 12/04/20 19:34 Clopidogrel Bisulfate (Plavix) 75 mg DAILY PO 11/17/20 09:00 12/04/20 12:02 Docusate Sodium (Colace) 100 mg PRN DAILY PRN PO 1ST CHOICE CONSTIPATION 11/16/20 18:00 Ferrous Sulfate (Feosol) 325 mg BID PO 11/16/20 21:00 12/04/20 19:33 Gabapentin (Neurontin) 400 mg BID94 PO 11/17/20 09:00 11/29/20 17:46 DC 11/29/20 16:00 Lorazepam (Ativan) 0.5 mg PRN BID PRN PO ANXIETY / AGITATION 11/16/20 18:00 11/20/20 14:30 Neomycin/ Polymyxin/ Dexamethasone (Maxitrol) 1 drop DAILY OU 11/17/20 09:00 12/04/20 09:00 Nicotine (Nicoderm Cq 7mg Patch) 1 patch PRN DAILY PRN TD SMOKING CESSATION 11/16/20 19:00 11/27/20 21:49 DC Olanzapine (ZyPREXA) 10 mg BID PO 11/16/20 21:00 11/21/20 18:06 DC 11/21/20 10:36 Oxycodone HCl (OxyCONTIN) 20 mg BID PO 11/16/20 21:00 12/04/20 19:34 Pantoprazole Sodium (Protonix) 40 mg DAILYAC PO 11/17/20 07:30 12/04/20 12:00 Potassium Chloride (Klor-Con) 20 meq BID PO 11/16/20 21:00 12/04/20 19:34 Sucralfate (Carafate) 1 gm BID PO 11/16/20 21:00 12/04/20 19:33 Tamsulosin HCl (Flomax) 0.4 mg HS PO 11/16/20 21:00 12/04/20 19:34 Ascorbic Acid (Vitamin C) 500 mg BID PO 11/16/20 21:00 12/04/20 19:34 Fluoxetine HCl (PROzac) 40 mg DAILY PO 11/17/20 09:00 12/04/20 12:01 Non-Formulary Medication (Gabapentin ) 600 mg TID PO 11/16/20 21:00 UNV Gabapentin (Neurontin) 800 mg HS PO 11/16/20 21:00 12/04/20 19:33 Lactobacillus Rhamnosus (Culturelle) 1 cap BID PO 11/16/20 21:00 12/04/20 19:32 Phenyleph/Shark Oil/Min Oil/Petrol (Preparation H) 1 laurence PRN BID PRN RC RECTAL PAIN 11/16/20 18:45 Artificial Tears (Artificial Tears) 1 drop PRN Q15MIN PRN OD DRY EYE 11/16/20 18:45 Buspirone HCl (Buspar) 10 mg 1700 PO 11/18/20 17:00 11/20/20 23:50 DC 11/20/20 17:00 Buspirone HCl (Buspar) 5 mg DAILY PO 11/18/20 09:00 11/20/20 23:50 DC 11/20/20 06:39 Buspirone HCl (Buspar) 5 mg BIDWMEALS PO 11/21/20 08:00 11/28/20 18:20 DC 11/28/20 17:00 Quetiapine Fumarate (SEROquel) 12.5 mg 0900,1300,1500 PO 11/19/20 09:00 12/04/20 17:51 DC 12/04/20 15:00 Olanzapine (ZyPREXA) 10 mg DAILY PO 11/22/20 09:00 11/24/20 22:00 DC 11/24/20 10:09 Olanzapine (ZyPREXA) 5 mg QHS PO 11/21/20 21:00 11/24/20 22:00 DC 11/24/20 20:15 Olanzapine (ZyPREXA) 5 mg BID PO 11/25/20 09:00 12/04/20 19:34 Divalproex Sodium (Depakote Sprinkles) 125 mg 0900,1300,1700 PO 11/22/20 09:00 11/24/20 16:52 DC 11/24/20 13:05 Divalproex Sodium (Depakote Sprinkles) 250 mg BID PO 11/24/20 21:00 11/26/20 12:26 DC 11/26/20 10:01 Divalproex Sodium (Depakote Sprinkles) 125 mg NOON PO 11/25/20 12:00 11/26/20 12:23 DC 11/25/20 12:03 Divalproex Sodium (Depakote Sprinkles) 250 mg NOON PO 11/26/20 12:40 12/03/20 12:00 Divalproex Sodium (Depakote Sprinkles) 375 mg HS PO 11/26/20 21:00 12/04/20 19:33 Divalproex Sodium (Depakote Sprinkles) 250 mg 0900 PO 11/27/20 09:00 12/04/20 12:01 Oxycodone HCl (Roxicodone) 5 mg PRN Q6HRS PRN PO BREAKTHROUGH MOD-SEV PAIN 11/26/20 15:30 12/04/20 14:34 Nicotine (Nicoderm Cq 7mg Patch) 1 patch PRN DAILY PRN TD SMOKING CESSATION 11/28/20 19:00 Buspirone HCl (Buspar) 10 mg BID PO 11/28/20 21:00 12/04/20 19:33 Gabapentin (Neurontin) 400 mg 0900,1400 PO 11/30/20 09:00 12/04/20 14:00 Quetiapine Fumarate (SEROquel) 25 mg BID@1300,1700 PO 12/05/20 13:00 I have reviewed the current psychotropics carefully including drug interactions. Risk benefit ratio favors no change other than as noted in my dictated progress note. Diagnosis: Problems: (1) Impulse control disorder, unspecified (2) Anxiety disorder, unspecified (3) Major depressive disorder with psychotic features MUKESH JAY MD Dec 05, 2020 07:52
[2020-12-05] MEDS: POTASSIUM CHLORIDE 20 MEQ TABLET.ER. PO SCH ×3 (09:00→19:29)
[2020-12-05] MEDS: NEO/POLYMYX/DEXAMETH OPHTH SUSPENSION 5ML BOTTLE. OU SCH (09:00)
[2020-12-05] MEDS: GABAPENTIN 400 MG CAPSULE. PO SCH ×3 (11:24→19:29)
[2020-12-05] MEDS: busPIRone 10 MG TABLET. PO SCH ×2 (11:24→19:34)
[2020-12-05] MEDS: LACTOBACILLUS RHAMNOSUS GG 1 CAPSULE. PO SCH ×2 (11:24→19:29)
[2020-12-05] MEDS: PANTOPRAZOLE 40 MG TABLET. PO SCH (11:24)
[2020-12-05] MEDS: OLANZapine 5 MG TABLET PO SCH ×2 (11:25→19:29)
[2020-12-05] MEDS: CLOPIDOGREL BISULFATE 75 MG TABLET PO SCH (11:25)
[2020-12-05] MEDS: ASCORBIC ACID 500 MG TABLET PO SCH ×2 (11:25→19:28)
[2020-12-05] MEDS: FERROUS SULFATE 325 MG TABLET. PO SCH ×2 (11:31→19:28)
[2020-12-05] MEDS: SUCRALFATE 1 GM TABLET. PO SCH ×2 (11:31→19:34)
[2020-12-05] MEDS: FLUoxetine HCL 20 MG CAPSULE PO SCH (11:31)
[2020-12-05] MEDS: DIVALPROEX 125 MG CAP.SPRINK PO SCH ×3 (11:32→19:28)
[2020-12-05] MEDS: CALCIUM CARBONATE 500 MG TABLET PO SCH ×2 (11:32→19:27)
[2020-12-05] MEDS: oxyCODONE ER 20 MG TAB.ER.12H PO SCH ×2 (11:32→19:28)
[2020-12-05] MEDS ORDERED: QUEtiapine 25 MG TABLET. PO SCH (13:00)
[2020-12-05] MEDS: QUEtiapine 25 MG TABLET. PO SCH ×2 (13:46→16:30)
[2020-12-05 15:47] VITALS: BP 114/72
[2020-12-05] MEDS: TAMSULOSIN 0.4 MG CAP.ER.24H. PO SCH (19:27)
--- NOTE | 2020-12-05 21:02 | PDOC ---
Exam Note: Andrea Note: Please also refer to the separate dictated note~for this date of service dictated separately.~Patient seen individually. Discussed the patient with Nursing staff reviewed the chart.~Reviewed interim history and current functioning. Reviewed vital signs,~Labs/ Radiology~and current medications noted below. Continue current treatment with the changes noted in the dictated addendum note Assessment: Vital Signs/I&O: Vital Signs Date Time Temp Pulse Resp B/P (MAP) Pulse Ox O2 Delivery O2 Flow Rate FiO2 12/05/20 15:47 98.1 93 20 114/72 (86) 98 Nasal Cannula 2.0 I & O 12/04/20 12/04/20 12/05/20 15:00 23:00 07:00 Intake Total 330 ml 360 ml Balance 330 ml 360 ml Current Medications: Meds: Current Medications Medications (Trade) Dose Ordered Sig/Jocelyn Route PRN Reason Start Time Stop Time Status Last Admin Dose Admin Acetaminophen (Tylenol) 650 mg PRN Q6HRS PRN PO MILD PAIN / TEMP > 100.3'F 11/16/20 17:30 11/17/20 18:17 DC 11/17/20 12:40 Multi-Ingredient Ointment (Analgesic [place]) 1 laurence PRN QID PRN TP MUSCLE PAIN 11/16/20 17:30 12/02/20 21:03 Al Hydroxide/Mg Hydroxide (Mylanta Plus Xs) 15 ml PRN AFTMEALHC PRN PO DYSPEPSIA 11/16/20 17:30 Magnesium Hydroxide (Milk Of Magnesia) 2,400 mg PRN QHS PRN PO 2ND CHOICE CONSTIPATION 11/16/20 17:30 Nicotine (Nicoderm Cq 7mg Patch) 1 patch DAILY TD 11/16/20 17:30 11/16/20 17:44 DC Nicotine (Nicoderm Cq 7mg Patch) 1 patch DAILY TD 11/17/20 09:00 11/27/20 21:49 DC 11/27/20 10:12 Acetaminophen (Tylenol) 650 mg PRN Q6HRS PRN PO MILD PAIN / TEMP > 100.3'F 11/16/20 18:00 11/18/20 16:23 Buspirone HCl (Buspar) 10 mg BIDWMEALS PO 11/17/20 08:00 11/17/20 18:09 DC 11/17/20 17:29 Calcium Carbonate/ Glycine (Oscal) 500 mg BID PO 11/16/20 21:00 12/05/20 19:27 Clopidogrel Bisulfate (Plavix) 75 mg DAILY PO 11/17/20 09:00 12/05/20 11:25 Docusate Sodium (Colace) 100 mg PRN DAILY PRN PO 1ST CHOICE CONSTIPATION 11/16/20 18:00 Ferrous Sulfate (Feosol) 325 mg BID PO 11/16/20 21:00 12/05/20 19:28 Gabapentin (Neurontin) 400 mg BID94 PO 11/17/20 09:00 11/29/20 17:46 DC 11/29/20 16:00 Lorazepam (Ativan) 0.5 mg PRN BID PRN PO ANXIETY / AGITATION 11/16/20 18:00 11/20/20 14:30 Neomycin/ Polymyxin/ Dexamethasone (Maxitrol) 1 drop DAILY OU 11/17/20 09:00 12/05/20 09:00 Nicotine (Nicoderm Cq 7mg Patch) 1 patch PRN DAILY PRN TD SMOKING CESSATION 11/16/20 19:00 11/27/20 21:49 DC Olanzapine (ZyPREXA) 10 mg BID PO 11/16/20 21:00 11/21/20 18:06 DC 11/21/20 10:36 Oxycodone HCl (OxyCONTIN) 20 mg BID PO 11/16/20 21:00 12/05/20 19:28 Pantoprazole Sodium (Protonix) 40 mg DAILYAC PO 11/17/20 07:30 12/05/20 11:24 Potassium Chloride (Klor-Con) 20 meq BID PO 11/16/20 21:00 12/05/20 19:29 Sucralfate (Carafate) 1 gm BID PO 11/16/20 21:00 12/05/20 19:34 Tamsulosin HCl (Flomax) 0.4 mg HS PO 11/16/20 21:00 12/05/20 19:27 Ascorbic Acid (Vitamin C) 500 mg BID PO 11/16/20 21:00 12/05/20 19:28 Fluoxetine HCl (PROzac) 40 mg DAILY PO 11/17/20 09:00 12/05/20 11:31 Non-Formulary Medication (Gabapentin ) 600 mg TID PO 11/16/20 21:00 UNV Gabapentin (Neurontin) 800 mg HS PO 11/16/20 21:00 12/05/20 19:29 Lactobacillus Rhamnosus (Culturelle) 1 cap BID PO 11/16/20 21:00 12/05/20 19:29 Phenyleph/Shark Oil/Min Oil/Petrol (Preparation H) 1 laurence PRN BID PRN RC RECTAL PAIN 11/16/20 18:45 Artificial Tears (Artificial Tears) 1 drop PRN Q15MIN PRN OD DRY EYE 11/16/20 18:45 Buspirone HCl (Buspar) 10 mg 1700 PO 11/18/20 17:00 11/20/20 23:50 DC 11/20/20 17:00 Buspirone HCl (Buspar) 5 mg DAILY PO 11/18/20 09:00 11/20/20 23:50 DC 11/20/20 06:39 Buspirone HCl (Buspar) 5 mg BIDWMEALS PO 11/21/20 08:00 11/28/20 18:20 DC 11/28/20 17:00 Quetiapine Fumarate (SEROquel) 12.5 mg 0900,1300,1500 PO 11/19/20 09:00 12/04/20 17:51 DC 12/04/20 15:00 Olanzapine (ZyPREXA) 10 mg DAILY PO 11/22/20 09:00 11/24/20 22:00 DC 11/24/20 10:09 Olanzapine (ZyPREXA) 5 mg QHS PO 11/21/20 21:00 11/24/20 22:00 DC 11/24/20 20:15 Olanzapine (ZyPREXA) 5 mg BID PO 11/25/20 09:00 12/05/20 19:29 Divalproex Sodium (Depakote Sprinkles) 125 mg 0900,1300,1700 PO 11/22/20 09:00 11/24/20 16:52 DC 11/24/20 13:05 Divalproex Sodium (Depakote Sprinkles) 250 mg BID PO 11/24/20 21:00 11/26/20 12:26 DC 11/26/20 10:01 Divalproex Sodium (Depakote Sprinkles) 125 mg NOON PO 11/25/20 12:00 11/26/20 12:23 DC 11/25/20 12:03 Divalproex Sodium (Depakote Sprinkles) 250 mg NOON PO 11/26/20 12:40 12/05/20 13:14 DC 12/03/20 12:00 Divalproex Sodium (Depakote Sprinkles) 375 mg HS PO 11/26/20 21:00 12/05/20 19:28 Divalproex Sodium (Depakote Sprinkles) 250 mg 0900 PO 11/27/20 09:00 12/05/20 11:32 Oxycodone HCl (Roxicodone) 5 mg PRN Q6HRS PRN PO BREAKTHROUGH MOD-SEV PAIN 11/26/20 15:30 12/04/20 14:34 Nicotine (Nicoderm Cq 7mg Patch) 1 patch PRN DAILY PRN TD SMOKING CESSATION 11/28/20 19:00 Buspirone HCl (Buspar) 10 mg BID PO 11/28/20 21:00 12/05/20 19:34 Gabapentin (Neurontin) 400 mg 0900,1400 PO 11/30/20 09:00 12/05/20 13:46 Quetiapine Fumarate (SEROquel) 25 mg BID@1300,1700 PO 12/05/20 13:00 12/05/20 13:14 DC Divalproex Sodium (Depakote Sprinkles) 250 mg DAILY@1200 PO 12/06/20 12:00 12/05/20 13:47 Quetiapine Fumarate (SEROquel) 25 mg BID@1400,1700 PO 12/05/20 14:00 12/05/20 16:30 Current Medications Medications (Trade) Dose Ordered Sig/Jocelyn Route PRN Reason Start Time Stop Time Status Last Admin Dose Admin Divalproex Sodium (Depakote Sprinkles) 250 mg DAILY@1200 PO 12/06/20 12:00 12/05/20 13:47 Quetiapine Fumarate (SEROquel) 25 mg BID@1400,1700 PO 12/05/20 14:00 12/05/20 16:30 I have reviewed the current psychotropics carefully including drug interactions. Risk benefit ratio favors no change other than as noted in my dictated progress note. Diagnosis: Problems: (1) Impulse control disorder, unspecified (2) Anxiety disorder, unspecified (3) Major depressive disorder with psychotic features MUKESH JAY MD Dec 05, 2020 21:02
[2020-12-06 05:38] VITALS: BP 124/66
[2020-12-06] MEDS: GABAPENTIN 400 MG CAPSULE. PO SCH ×3 (07:56→20:32)
[2020-12-06] MEDS: LACTOBACILLUS RHAMNOSUS GG 1 CAPSULE. PO SCH ×2 (07:56→20:33)
[2020-12-06] MEDS: ASCORBIC ACID 500 MG TABLET PO SCH ×2 (07:56→20:32)
[2020-12-06] MEDS: PANTOPRAZOLE 40 MG TABLET. PO SCH (07:56)
[2020-12-06] MEDS: SUCRALFATE 1 GM TABLET. PO SCH ×2 (07:56→20:32)
[2020-12-06] MEDS: busPIRone 10 MG TABLET. PO SCH ×2 (07:56→20:33)
[2020-12-06] MEDS: DIVALPROEX 125 MG CAP.SPRINK PO SCH ×2 (07:56→20:32)
[2020-12-06] MEDS: oxyCODONE ER 20 MG TAB.ER.12H PO SCH ×2 (07:56→20:33)
[2020-12-06] MEDS: CLOPIDOGREL BISULFATE 75 MG TABLET PO SCH (07:56)
[2020-12-06] MEDS: FLUoxetine HCL 20 MG CAPSULE PO SCH (07:56)
[2020-12-06] MEDS: OLANZapine 5 MG TABLET PO SCH ×2 (07:56→20:32)
[2020-12-06] MEDS: CALCIUM CARBONATE 500 MG TABLET PO SCH ×2 (07:57→20:32)
[2020-12-06] MEDS: FERROUS SULFATE 325 MG TABLET. PO SCH ×2 (07:57→20:32)
[2020-12-06] MEDS: POTASSIUM CHLORIDE 20 MEQ TABLET.ER. PO SCH ×2 (07:57→20:33)
[2020-12-06] MEDS: NEO/POLYMYX/DEXAMETH OPHTH SUSPENSION 5ML BOTTLE. OU SCH (09:00)
[2020-12-06] MEDS: QUEtiapine 25 MG TABLET. PO SCH ×2 (13:13→17:00)
[2020-12-06] MEDS: LORazepam 1 MG TABLET PO PRN (13:14)
[2020-12-06 16:23] VITALS: BP 98/57
[2020-12-06] MEDS: TAMSULOSIN 0.4 MG CAP.ER.24H. PO SCH (20:33)
--- NOTE | 2020-12-06 21:32 | PDOC ---
Exam Note: Andrea Note: Please also refer to the separate dictated note~for this date of service dictated separately.~Patient seen individually. Discussed the patient with Nursing staff reviewed the chart.~Reviewed interim history and current functioning. Reviewed vital signs,~Labs/ Radiology~and current medications noted below. Continue current treatment with the changes noted in the dictated addendum note Assessment: Vital Signs/I&O: Vital Signs Date Time Temp Pulse Resp B/P (MAP) Pulse Ox O2 Delivery O2 Flow Rate FiO2 12/06/20 16:23 98.1 84 22 98/57 (71) 93 Nasal Cannula 2.0 I & O 12/05/20 12/05/20 12/06/20 15:00 23:00 07:00 Intake Total 600 ml 600 ml Balance 600 ml 600 ml Current Medications: Meds: Current Medications Medications (Trade) Dose Ordered Sig/Jocelyn Route PRN Reason Start Time Stop Time Status Last Admin Dose Admin Divalproex Sodium (Depakote Sprinkles) 250 mg DAILY@1200 PO 12/06/20 12:00 12/05/20 13:47 I have reviewed the current psychotropics carefully including drug interactions. Risk benefit ratio favors no change other than as noted in my dictated progress note. Diagnosis: Problems: (1) Impulse control disorder, unspecified (2) Anxiety disorder, unspecified (3) Acute psychosis (4) Major depressive disorder with psychotic features (5) Major depressive disorder, recurrent episode MUKESH JAY MD Dec 06, 2020 21:32
[2020-12-07 06:02] VITALS: BP 111/75
--- NOTE | 2020-12-07 06:54 | PN ---
DATE: 12/06/2020 PSYCHIATRIC PROGRESS NOTE This late entry covers elements not covered in my initial note, 12/06/2020. SUBJECTIVE: I met with the patient in her room at length. Per RAVI Ramirez, the patient slept 6-1/4 hours previous night. She was yelling at night, constantly calling from the nursing staff, little less intense during the day on 12/06/2020 until about noon time and then some of the same behaviors and anxiety resurfaced. REVIEW OF SYSTEMS: Positive for the chronic pain, impaired ambulation. No CV, , pulmonary, eye, ENT system symptoms on review. MENTAL STATUS EXAM: Reasonably oriented. Speech is coherent, abstraction fair, computation impaired, language function intact. Mood and affect, anxiety, lability is improved. LABORATORY DATA: Reviewed. IMPRESSION: Major depressive disorder, recurrent with psychotic features, in partial remission; bipolar disorder, unspecified; anxiety disorder, unspecified; impulse control disorder. PLAN: From a psychiatric standpoint, I have carefully reviewed her psychotropics. No changes indicated at this time. We passed on a message to social service staffHeather that the patient's primary care physician at [facility] was wondering whether alternative placements for the patient might be more therapeutic for her. I will defer this to the best judgment of social service staff to explore. MUKESH JAY MD DR: CASANDRA/elvis JOB#: [id number] / [id number]
[2020-12-07] MEDS: FLUoxetine HCL 20 MG CAPSULE PO SCH (08:53)
[2020-12-07] MEDS: FERROUS SULFATE 325 MG TABLET. PO SCH ×2 (08:54→20:16)
[2020-12-07] MEDS: DIVALPROEX 125 MG CAP.SPRINK PO SCH ×3 (08:54→20:15)
[2020-12-07] MEDS: PANTOPRAZOLE 40 MG TABLET. PO SCH (08:54)
[2020-12-07] MEDS: CALCIUM CARBONATE 500 MG TABLET PO SCH ×2 (08:54→20:15)
[2020-12-07] MEDS: ASCORBIC ACID 500 MG TABLET PO SCH ×2 (08:54→20:16)
[2020-12-07] MEDS: CLOPIDOGREL BISULFATE 75 MG TABLET PO SCH (08:54)
[2020-12-07] MEDS: OLANZapine 5 MG TABLET PO SCH ×2 (08:54→20:16)
[2020-12-07] MEDS: POTASSIUM CHLORIDE 20 MEQ TABLET.ER. PO SCH ×2 (08:54→20:15)
[2020-12-07] MEDS: SUCRALFATE 1 GM TABLET. PO SCH ×2 (08:54→20:15)
[2020-12-07] MEDS: busPIRone 10 MG TABLET. PO SCH ×2 (08:54→20:16)
[2020-12-07] MEDS: LACTOBACILLUS RHAMNOSUS GG 1 CAPSULE. PO SCH ×2 (08:54→20:15)
[2020-12-07] MEDS: oxyCODONE ER 20 MG TAB.ER.12H PO SCH ×2 (08:56→20:20)
[2020-12-07] MEDS: GABAPENTIN 400 MG CAPSULE. PO SCH ×3 (08:56→20:16)
[2020-12-07] MEDS: NEO/POLYMYX/DEXAMETH OPHTH SUSPENSION 5ML BOTTLE. OU SCH (08:58)
[2020-12-07] MEDS: QUEtiapine 25 MG TABLET. PO SCH ×2 (14:00→17:00)
[2020-12-07] MEDS: oxyCODONE IR 5 MG TABLET PO PRN ×2 (14:16→18:41)
[2020-12-07 15:35] VITALS: BP 116/62
[2020-12-07] MEDS: TAMSULOSIN 0.4 MG CAP.ER.24H. PO SCH (20:15)
--- NOTE | 2020-12-07 21:59 | PDOC ---
Exam Note: Andrea Note: Please also refer to the separate dictated note~for this date of service dictated separately.~Patient seen individually. Discussed the patient with Nursing staff reviewed the chart.~Reviewed interim history and current functioning. Reviewed vital signs,~Labs/ Radiology~and current medications noted below. Continue current treatment with the changes noted in the dictated addendum note Assessment: Vital Signs/I&O: Vital Signs Date Time Temp Pulse Resp B/P (MAP) Pulse Ox O2 Delivery O2 Flow Rate FiO2 12/07/20 15:35 98.0 88 20 116/62 (80) 98 Nasal Cannula 3.0 I & O 12/06/20 12/06/20 12/07/20 15:00 23:00 07:00 Intake Total 240 ml 360 ml Balance 240 ml 360 ml Current Medications: I have reviewed the current psychotropics carefully including drug interactions. Risk benefit ratio favors no change other than as noted in my dictated progress note. Diagnosis: Problems: (1) Impulse control disorder, unspecified (2) Anxiety disorder, unspecified (3) Acute psychosis (4) Major depressive disorder with psychotic features (5) Major depressive disorder, recurrent episode MUKESH JAY MD Dec 07, 2020 21:59
[2020-12-08 05:48] VITALS: BP 98/56
[2020-12-08] MEDS: DIVALPROEX 125 MG CAP.SPRINK PO SCH ×4 (08:01→23:30)
[2020-12-08] MEDS: LACTOBACILLUS RHAMNOSUS GG 1 CAPSULE. PO SCH ×3 (08:02→23:30)
[2020-12-08] MEDS: busPIRone 10 MG TABLET. PO SCH ×3 (08:02→23:30)
[2020-12-08] MEDS: POTASSIUM CHLORIDE 20 MEQ TABLET.ER. PO SCH ×3 (08:02→23:30)
[2020-12-08] MEDS: CALCIUM CARBONATE 500 MG TABLET PO SCH ×3 (08:02→23:30)
[2020-12-08] MEDS: OLANZapine 5 MG TABLET PO SCH ×3 (08:02→23:30)
[2020-12-08] MEDS: ASCORBIC ACID 500 MG TABLET PO SCH ×3 (08:02→23:30)
[2020-12-08] MEDS: CLOPIDOGREL BISULFATE 75 MG TABLET PO SCH (08:02)
[2020-12-08] MEDS: FLUoxetine HCL 20 MG CAPSULE PO SCH (08:02)
[2020-12-08] MEDS: SUCRALFATE 1 GM TABLET. PO SCH ×3 (08:02→23:30)
[2020-12-08] MEDS: PANTOPRAZOLE 40 MG TABLET. PO SCH (08:02)
[2020-12-08] MEDS: POLYVINYL ALCOHOL 1.4% OPHTH SOLUTION 15ML BOTTLE. OD PRN (08:03)
[2020-12-08] MEDS: FERROUS SULFATE 325 MG TABLET. PO SCH ×3 (08:03→23:30)
[2020-12-08] MEDS: NEO/POLYMYX/DEXAMETH OPHTH SUSPENSION 5ML BOTTLE. OU SCH (08:03)
[2020-12-08] MEDS: oxyCODONE ER 20 MG TAB.ER.12H PO SCH ×3 (08:05→23:30)
[2020-12-08] MEDS: GABAPENTIN 400 MG CAPSULE. PO SCH ×4 (08:05→23:30)
--- NOTE | 2020-12-08 08:18 | PDOC ---
Exam Note: Andrea Note: This note is a late entry for 12/05/2020 covers elements not covered in my initial note. Subjective: The patient was seen face to face in the evening of 12/05/2020 with Sharla RODRIGUES, discussed and reviewed the chart. The patient slept 7-3/4 hours previous night. She sleeps in, in the morning. Often did not get up till around 11 a.m. and we will change a.m. meds to 11 a.m. Review of Systems: She still complains of pain. Impaired ambulation. No CV, , pulmonary, eye system symptoms on review. Mental Status Exam: The patient is reasonably oriented. I met with her in her room. She is oriented to herself and situation. Speech is coherent, less pressured. Abstraction is fair. Computation is impaired. Language function intact. Mood and affect remains somewhat anxious, labile but less so than before. I did receive call from Jason Hyatt APRN. Question was whether the patient would be inappropriate fit back at [facility]. I passed this on to social service staff to explore options. Laboratory Data: Reviewed. Impression: Major depressive disorder with psychotic features. Anxiety disorder unspecified. Impulse control disorder unspecified. Plan: Continue current psychotropics as noted in my initial note. Adjust further as clinically indicated. Assessment: Vital Signs/I&O: Vital Signs Date Time Temp Pulse Resp B/P (MAP) Pulse Ox O2 Delivery O2 Flow Rate FiO2 12/08/20 08:05 95 12/08/20 05:48 97.5 83 18 98/56 (70) 12/07/20 15:35 Nasal Cannula 3.0 I & O 12/07/20 12/07/20 12/08/20 14:59 22:59 06:59 Intake Total 660 ml 600 ml Balance 660 ml 600 ml Current Medications: Meds: Current Medications Medications (Trade) Dose Ordered Sig/Jocelyn Route PRN Reason Start Time Stop Time Status Last Admin Dose Admin Acetaminophen (Tylenol) 650 mg PRN Q6HRS PRN PO MILD PAIN / TEMP > 100.3'F 11/16/20 17:30 11/17/20 18:17 DC 11/17/20 12:40 Multi-Ingredient Ointment (Analgesic [place]) 1 laurence PRN QID PRN TP MUSCLE PAIN 11/16/20 17:30 2/17/21 21:03 Al Hydroxide/Mg Hydroxide (Mylanta Plus Xs) 15 ml PRN AFTMEALHC PRN PO DYSPEPSIA 11/16/20 17:30 Magnesium Hydroxide (Milk Of Magnesia) 2,400 mg PRN QHS PRN PO 2ND CHOICE CONSTIPATION 11/16/20 17:30 Nicotine (Nicoderm Cq 7mg Patch) 1 patch DAILY TD 11/16/20 17:30 11/16/20 17:44 DC Nicotine (Nicoderm Cq 7mg Patch) 1 patch DAILY TD 11/17/20 09:00 11/27/20 21:49 DC 11/27/20 10:12 Acetaminophen (Tylenol) 650 mg PRN Q6HRS PRN PO MILD PAIN / TEMP > 100.3'F 11/16/20 18:00 11/18/20 16:23 Buspirone HCl (Buspar) 10 mg BIDWMEALS PO 11/17/20 08:00 11/17/20 18:09 DC 11/17/20 17:29 Calcium Carbonate/ Glycine (Oscal) 500 mg BID PO 11/16/20 21:00 12/08/20 08:02 Clopidogrel Bisulfate (Plavix) 75 mg DAILY PO 11/17/20 09:00 12/08/20 08:02 Docusate Sodium (Colace) 100 mg PRN DAILY PRN PO 1ST CHOICE CONSTIPATION 11/16/20 18:00 Ferrous Sulfate (Feosol) 325 mg BID PO 11/16/20 21:00 12/08/20 08:03 Gabapentin (Neurontin) 400 mg BID94 PO 11/17/20 09:00 11/29/20 17:46 DC 11/29/20 16:00 Lorazepam (Ativan) 0.5 mg PRN BID PRN PO ANXIETY / AGITATION 11/16/20 18:00 12/06/20 13:14 Neomycin/ Polymyxin/ Dexamethasone (Maxitrol) 1 drop DAILY OU 11/17/20 09:00 12/08/20 08:03 Nicotine (Nicoderm Cq 7mg Patch) 1 patch PRN DAILY PRN TD SMOKING CESSATION 11/16/20 19:00 11/27/20 21:49 DC Olanzapine (ZyPREXA) 10 mg BID PO 11/16/20 21:00 11/21/20 18:06 DC 11/21/20 10:36 Oxycodone HCl (OxyCONTIN) 20 mg BID PO 11/16/20 21:00 12/08/20 08:05 Pantoprazole Sodium (Protonix) 40 mg DAILYAC PO 11/17/20 07:30 12/08/20 08:02 Potassium Chloride (Klor-Con) 20 meq BID PO 11/16/20 21:00 12/08/20 08:02 Sucralfate (Carafate) 1 gm BID PO 11/16/20 21:00 12/08/20 08:02 Tamsulosin HCl (Flomax) 0.4 mg HS PO 11/16/20 21:00 12/07/20 20:15 Ascorbic Acid (Vitamin C) 500 mg BID PO 11/16/20 21:00 12/08/20 08:02 Fluoxetine HCl (PROzac) 40 mg DAILY PO 11/17/20 09:00 12/08/20 08:02 Non-Formulary Medication (Gabapentin ) 600 mg TID PO 11/16/20 21:00 UNV Gabapentin (Neurontin) 800 mg HS PO 11/16/20 21:00 12/07/20 20:16 Lactobacillus Rhamnosus (Culturelle) 1 cap BID PO 11/16/20 21:00 12/08/20 08:02 Phenyleph/Shark Oil/Min Oil/Petrol (Preparation H) 1 laurence PRN BID PRN RC RECTAL PAIN 11/16/20 18:45 Artificial Tears (Artificial Tears) 1 drop PRN Q15MIN PRN OD DRY EYE 11/16/20 18:45 12/08/20 08:03 Buspirone HCl (Buspar) 10 mg 1700 PO 11/18/20 17:00 11/20/20 23:50 DC 11/20/20 17:00 Buspirone HCl (Buspar) 5 mg DAILY PO 11/18/20 09:00 11/20/20 23:50 DC 11/20/20 06:39 Buspirone HCl (Buspar) 5 mg BIDWMEALS PO 11/21/20 08:00 11/28/20 18:20 DC 11/28/20 17:00 Quetiapine Fumarate (SEROquel) 12.5 mg 0900,1300,1500 PO 11/19/20 09:00 12/04/20 17:51 DC 12/04/20 15:00 Olanzapine (ZyPREXA) 10 mg DAILY PO 11/22/20 09:00 11/24/20 22:00 DC 11/24/20 10:09 Olanzapine (ZyPREXA) 5 mg QHS PO 11/21/20 21:00 11/24/20 22:00 DC 11/24/20 20:15 Olanzapine (ZyPREXA) 5 mg BID PO 11/25/20 09:00 12/08/20 08:02 Divalproex Sodium (Depakote Sprinkles) 125 mg 0900,1300,1700 PO 11/22/20 09:00 11/24/20 16:52 DC 11/24/20 13:05 Divalproex Sodium (Depakote Sprinkles) 250 mg BID PO 11/24/20 21:00 11/26/20 12:26 DC 11/26/20 10:01 Divalproex Sodium (Depakote Sprinkles) 125 mg NOON PO 11/25/20 12:00 11/26/20 12:23 DC 11/25/20 12:03 Divalproex Sodium (Depakote Sprinkles) 250 mg NOON PO 11/26/20 12:40 12/05/20 13:14 DC 12/03/20 12:00 Divalproex Sodium (Depakote Sprinkles) 375 mg HS PO 11/26/20 21:00 12/07/20 20:15 Divalproex Sodium (Depakote Sprinkles) 250 mg 0900 PO 11/27/20 09:00 12/08/20 08:01 Oxycodone HCl (Roxicodone) 5 mg PRN Q6HRS PRN PO BREAKTHROUGH MOD-SEV PAIN 11/26/20 15:30 12/07/20 18:41 Nicotine (Nicoderm Cq 7mg Patch) 1 patch PRN DAILY PRN TD SMOKING CESSATION 11/28/20 19:00 Buspirone HCl (Buspar) 10 mg BID PO 11/28/20 21:00 12/08/20 08:02 Gabapentin (Neurontin) 400 mg 0900,1400 PO 11/30/20 09:00 12/08/20 08:05 Quetiapine Fumarate (SEROquel) 25 mg BID@1300,1700 PO 12/05/20 13:00 12/05/20 13:14 DC Divalproex Sodium (Depakote Sprinkles) 250 mg DAILY@1200 PO 12/06/20 12:00 12/07/20 12:00 Quetiapine Fumarate (SEROquel) 25 mg BID@1400,1700 PO 12/05/20 14:00 12/07/20 17:00 I have reviewed the current psychotropics carefully including drug interactions. Risk benefit ratio favors no change other than as noted in my dictated progress note. Diagnosis: Problems: (1) Impulse control disorder, unspecified (2) Anxiety disorder, unspecified (3) Major depressive disorder with psychotic features MUKESH JAY MD Dec 08, 2020 08:18
[2020-12-08] MEDS: QUEtiapine 25 MG TABLET. PO SCH ×2 (12:13→17:51)
[2020-12-08 15:48] VITALS: BP 134/76
--- NOTE | 2020-12-08 21:20 | PDOC ---
Exam Note: Andrea Note: Please also refer to the separate dictated note~for this date of service dictated separately.~Patient seen individually. Discussed the patient with Nursing staff reviewed the chart.~Reviewed interim history and current functioning. Reviewed vital signs,~Labs/ Radiology~and current medications noted below. Continue current treatment with the changes noted in the dictated addendum note Assessment: Vital Signs/I&O: Vital Signs Date Time Temp Pulse Resp B/P (MAP) Pulse Ox O2 Delivery O2 Flow Rate FiO2 12/08/20 15:48 97.9 84 18 134/76 (95) 99 2.0 12/07/20 15:35 Nasal Cannula I & O 12/07/20 12/07/20 12/08/20 15:00 23:00 07:00 Intake Total 660 ml 600 ml Balance 660 ml 600 ml Current Medications: Meds: Current Medications Medications (Trade) Dose Ordered Sig/Jocelyn Route PRN Reason Start Time Stop Time Status Last Admin Dose Admin Acetaminophen (Tylenol) 650 mg PRN Q6HRS PRN PO MILD PAIN / TEMP > 100.3'F 11/16/20 17:30 11/17/20 18:17 DC 11/17/20 12:40 Multi-Ingredient Ointment (Analgesic Mcneil) 1 laurence PRN QID PRN TP MUSCLE PAIN 11/16/20 17:30 12/02/20 21:03 Al Hydroxide/Mg Hydroxide (Mylanta Plus Xs) 15 ml PRN AFTMEALHC PRN PO DYSPEPSIA 11/16/20 17:30 Magnesium Hydroxide (Milk Of Magnesia) 2,400 mg PRN QHS PRN PO 2ND CHOICE CONSTIPATION 11/16/20 17:30 Nicotine (Nicoderm Cq 7mg Patch) 1 patch DAILY TD 11/16/20 17:30 11/16/20 17:44 DC Nicotine (Nicoderm Cq 7mg Patch) 1 patch DAILY TD 11/17/20 09:00 11/27/20 21:49 DC 11/27/20 10:12 Acetaminophen (Tylenol) 650 mg PRN Q6HRS PRN PO MILD PAIN / TEMP > 100.3'F 11/16/20 18:00 11/18/20 16:23 Buspirone HCl (Buspar) 10 mg BIDWMEALS PO 11/17/20 08:00 11/17/20 18:09 DC 11/17/20 17:29 Calcium Carbonate/ Glycine (Oscal) 500 mg BID PO 11/16/20 21:00 12/08/20 08:02 Clopidogrel Bisulfate (Plavix) 75 mg DAILY PO 11/17/20 09:00 12/08/20 08:02 Docusate Sodium (Colace) 100 mg PRN DAILY PRN PO 1ST CHOICE CONSTIPATION 11/16/20 18:00 Ferrous Sulfate (Feosol) 325 mg BID PO 11/16/20 21:00 12/08/20 08:03 Gabapentin (Neurontin) 400 mg BID94 PO 11/17/20 09:00 11/29/20 17:46 DC 11/29/20 16:00 Lorazepam (Ativan) 0.5 mg PRN BID PRN PO ANXIETY / AGITATION 11/16/20 18:00 12/06/20 13:14 Neomycin/ Polymyxin/ Dexamethasone (Maxitrol) 1 drop DAILY OU 11/17/20 09:00 12/08/20 08:03 Nicotine (Nicoderm Cq 7mg Patch) 1 patch PRN DAILY PRN TD SMOKING CESSATION 11/16/20 19:00 11/27/20 21:49 DC Olanzapine (ZyPREXA) 10 mg BID PO 11/16/20 21:00 11/21/20 18:06 DC 11/21/20 10:36 Oxycodone HCl (OxyCONTIN) 20 mg BID PO 11/16/20 21:00 12/08/20 08:05 Pantoprazole Sodium (Protonix) 40 mg DAILYAC PO 11/17/20 07:30 12/08/20 08:02 Potassium Chloride (Klor-Con) 20 meq BID PO 11/16/20 21:00 12/08/20 08:02 Sucralfate (Carafate) 1 gm BID PO 11/16/20 21:00 12/08/20 08:02 Tamsulosin HCl (Flomax) 0.4 mg HS PO 11/16/20 21:00 12/07/20 20:15 Ascorbic Acid (Vitamin C) 500 mg BID PO 11/16/20 21:00 12/08/20 08:02 Fluoxetine HCl (PROzac) 40 mg DAILY PO 11/17/20 09:00 12/08/20 08:02 Non-Formulary Medication (Gabapentin ) 600 mg TID PO 11/16/20 21:00 UNV Gabapentin (Neurontin) 800 mg HS PO 11/16/20 21:00 12/07/20 20:16 Lactobacillus Rhamnosus (Culturelle) 1 cap BID PO 11/16/20 21:00 12/08/20 08:02 Phenyleph/Shark Oil/Min Oil/Petrol (Preparation H) 1 laurence PRN BID PRN RC RECTAL PAIN 11/16/20 18:45 Artificial Tears (Artificial Tears) 1 drop PRN Q15MIN PRN OD DRY EYE 11/16/20 18:45 12/08/20 08:03 Buspirone HCl (Buspar) 10 mg 1700 PO 11/18/20 17:00 11/20/20 23:50 DC 11/20/20 17:00 Buspirone HCl (Buspar) 5 mg DAILY PO 11/18/20 09:00 11/20/20 23:50 DC 11/20/20 06:39 Buspirone HCl (Buspar) 5 mg BIDWMEALS PO 11/21/20 08:00 11/28/20 18:20 DC 11/28/20 17:00 Quetiapine Fumarate (SEROquel) 12.5 mg 0900,1300,1500 PO 11/19/20 09:00 12/04/20 17:51 DC 12/04/20 15:00 Olanzapine (ZyPREXA) 10 mg DAILY PO 11/22/20 09:00 11/24/20 22:00 DC 11/24/20 10:09 Olanzapine (ZyPREXA) 5 mg QHS PO 11/21/20 21:00 11/24/20 22:00 DC 11/24/20 20:15 Olanzapine (ZyPREXA) 5 mg BID PO 11/25/20 09:00 12/08/20 08:02 Divalproex Sodium (Depakote Sprinkles) 125 mg 0900,1300,1700 PO 11/22/20 09:00 11/24/20 16:52 DC 11/24/20 13:05 Divalproex Sodium (Depakote Sprinkles) 250 mg BID PO 11/24/20 21:00 11/26/20 12:26 DC 11/26/20 10:01 Divalproex Sodium (Depakote Sprinkles) 125 mg NOON PO 11/25/20 12:00 11/26/20 12:23 DC 11/25/20 12:03 Divalproex Sodium (Depakote Sprinkles) 250 mg NOON PO 11/26/20 12:40 12/05/20 13:14 DC 12/03/20 12:00 Divalproex Sodium (Depakote Sprinkles) 375 mg HS PO 11/26/20 21:00 12/07/20 20:15 Divalproex Sodium (Depakote Sprinkles) 250 mg 0900 PO 11/27/20 09:00 12/08/20 08:01 Oxycodone HCl (Roxicodone) 5 mg PRN Q6HRS PRN PO BREAKTHROUGH MOD-SEV PAIN 11/26/20 15:30 12/07/20 18:41 Nicotine (Nicoderm Cq 7mg Patch) 1 patch PRN DAILY PRN TD SMOKING CESSATION 11/28/20 19:00 Buspirone HCl (Buspar) 10 mg BID PO 11/28/20 21:00 12/08/20 08:02 Gabapentin (Neurontin) 400 mg 0900,1400 PO 11/30/20 09:00 12/08/20 12:13 Quetiapine Fumarate (SEROquel) 25 mg BID@1300,1700 PO 12/05/20 13:00 12/05/20 13:14 DC Divalproex Sodium (Depakote Sprinkles) 250 mg DAILY@1200 PO 12/06/20 12:00 12/08/20 12:13 Quetiapine Fumarate (SEROquel) 25 mg BID@1400,1700 PO 12/05/20 14:00 12/08/20 18:18 DC 12/08/20 17:51 Neomycin/ Polymyxin/Bacitr/ Hydrocort (Cortisporin Ophth) 2 laurence BID OU 12/08/20 21:00 Quetiapine Fumarate (SEROquel) 50 mg 1300,1700 PO 12/09/20 13:00 I have reviewed the current psychotropics carefully including drug interactions. Risk benefit ratio favors no change other than as noted in my dictated progress note. Diagnosis: Problems: (1) Impulse control disorder, unspecified (2) Anxiety disorder, unspecified (3) Major depressive disorder with psychotic features MUKESH JAY MD Dec 08, 2020 21:20
[2020-12-08] MEDS: TAMSULOSIN 0.4 MG CAP.ER.24H. PO SCH ×2 (21:54→23:30)
[2020-12-08] MEDS: NEOMYCIN/BACI/POLY/HC OPHTH OINTMENT 3.5GM TUBE. OU SCH ×2 (21:59→23:30)
[2020-12-09 06:14] VITALS: BP 116/57
--- NOTE | 2020-12-09 08:29 | PDOC ---
Exam Note: Andrea Note: This note is a late entry for 12/07/2020 covers elements not covered in my initial note. Subjective: The patient was seen face to face in the evening of 12/07/2020 with Lori RODRIGUES, discussed and reviewed the chart. The patient slept 7 hours previous night. She has less yelling. She was up for a few hours. She gets anxious, restless. Review of Systems: Ambulation impaired in wheelchair. No CV, , pulmonary, eye system symptoms on review. She has vague somatic symptoms. Mental Status Exam: The patient is oriented reasonably. Speech is coherent. Abstraction is fair. Computation is impaired. Language function intact. Attention span is short. Mood and affect remains somewhat withdrawn. Laboratory Data: Reviewed. Impression: Major depressive disorder with psychotic features. Anxiety disorder unspecified. Impulse control disorder unspecified. Plan: No change from initial note. Assessment: Vital Signs/I&O: Vital Signs Date Time Temp Pulse Resp B/P (MAP) Pulse Ox O2 Delivery O2 Flow Rate FiO2 12/09/20 06:14 97.5 72 22 116/57 (76) 98 2.0 12/07/20 15:35 Nasal Cannula I & O 12/08/20 12/08/20 12/09/20 15:00 23:00 07:00 Intake Total 360 ml 600 ml Balance 360 ml 600 ml Current Medications: Meds: Current Medications Medications (Trade) Dose Ordered Sig/Jocelyn Route PRN Reason Start Time Stop Time Status Last Admin Dose Admin Acetaminophen (Tylenol) 650 mg PRN Q6HRS PRN PO MILD PAIN / TEMP > 100.3'F 11/16/20 17:30 11/17/20 18:17 DC 11/17/20 12:40 Multi-Ingredient Ointment (Analgesic Tenino) 1 laurence PRN QID PRN TP MUSCLE PAIN 11/16/20 17:30 12/02/20 21:03 Al Hydroxide/Mg Hydroxide (Mylanta Plus Xs) 15 ml PRN AFTMEALHC PRN PO DYSPEPSIA 11/16/20 17:30 Magnesium Hydroxide (Milk Of Magnesia) 2,400 mg PRN QHS PRN PO 2ND CHOICE CONSTIPATION 11/16/20 17:30 Nicotine (Nicoderm Cq 7mg Patch) 1 patch DAILY TD 11/16/20 17:30 11/16/20 17:44 DC Nicotine (Nicoderm Cq 7mg Patch) 1 patch DAILY TD 11/17/20 09:00 11/27/20 21:49 DC 11/27/20 10:12 Acetaminophen (Tylenol) 650 mg PRN Q6HRS PRN PO MILD PAIN / TEMP > 100.3'F 11/16/20 18:00 11/18/20 16:23 Buspirone HCl (Buspar) 10 mg BIDWMEALS PO 11/17/20 08:00 11/17/20 18:09 DC 11/17/20 17:29 Calcium Carbonate/ Glycine (Oscal) 500 mg BID PO 11/16/20 21:00 12/08/20 08:02 Clopidogrel Bisulfate (Plavix) 75 mg DAILY PO 11/17/20 09:00 12/08/20 08:02 Docusate Sodium (Colace) 100 mg PRN DAILY PRN PO 1ST CHOICE CONSTIPATION 11/16/20 18:00 Ferrous Sulfate (Feosol) 325 mg BID PO 11/16/20 21:00 12/08/20 08:03 Gabapentin (Neurontin) 400 mg BID94 PO 11/17/20 09:00 11/29/20 17:46 DC 11/29/20 16:00 Lorazepam (Ativan) 0.5 mg PRN BID PRN PO ANXIETY / AGITATION 11/16/20 18:00 12/06/20 13:14 Neomycin/ Polymyxin/ Dexamethasone (Maxitrol) 1 drop DAILY OU 11/17/20 09:00 12/08/20 08:03 Nicotine (Nicoderm Cq 7mg Patch) 1 patch PRN DAILY PRN TD SMOKING CESSATION 11/16/20 19:00 11/27/20 21:49 DC Olanzapine (ZyPREXA) 10 mg BID PO 11/16/20 21:00 11/21/20 18:06 DC 11/21/20 10:36 Oxycodone HCl (OxyCONTIN) 20 mg BID PO 11/16/20 21:00 12/08/20 08:05 Pantoprazole Sodium (Protonix) 40 mg DAILYAC PO 11/17/20 07:30 12/08/20 08:02 Potassium Chloride (Klor-Con) 20 meq BID PO 11/16/20 21:00 12/08/20 08:02 Sucralfate (Carafate) 1 gm BID PO 11/16/20 21:00 12/08/20 08:02 Tamsulosin HCl (Flomax) 0.4 mg HS PO 11/16/20 21:00 12/07/20 20:15 Ascorbic Acid (Vitamin C) 500 mg BID PO 11/16/20 21:00 12/08/20 08:02 Fluoxetine HCl (PROzac) 40 mg DAILY PO 11/17/20 09:00 12/08/20 08:02 Non-Formulary Medication (Gabapentin ) 600 mg TID PO 11/16/20 21:00 UNV Gabapentin (Neurontin) 800 mg HS PO 11/16/20 21:00 12/07/20 20:16 Lactobacillus Rhamnosus (Culturelle) 1 cap BID PO 11/16/20 21:00 12/08/20 08:02 Phenyleph/Shark Oil/Min Oil/Petrol (Preparation H) 1 laurence PRN BID PRN RC RECTAL PAIN 11/16/20 18:45 Artificial Tears (Artificial Tears) 1 drop PRN Q15MIN PRN OD DRY EYE 11/16/20 18:45 12/08/20 08:03 Buspirone HCl (Buspar) 10 mg 1700 PO 11/18/20 17:00 11/20/20 23:50 DC 11/20/20 17:00 Buspirone HCl (Buspar) 5 mg DAILY PO 11/18/20 09:00 11/20/20 23:50 DC 11/20/20 06:39 Buspirone HCl (Buspar) 5 mg BIDWMEALS PO 11/21/20 08:00 11/28/20 18:20 DC 11/28/20 17:00 Quetiapine Fumarate (SEROquel) 12.5 mg 0900,1300,1500 PO 11/19/20 09:00 12/04/20 17:51 DC 12/04/20 15:00 Olanzapine (ZyPREXA) 10 mg DAILY PO 11/22/20 09:00 11/24/20 22:00 DC 11/24/20 10:09 Olanzapine (ZyPREXA) 5 mg QHS PO 11/21/20 21:00 11/24/20 22:00 DC 11/24/20 20:15 Olanzapine (ZyPREXA) 5 mg BID PO 11/25/20 09:00 12/08/20 08:02 Divalproex Sodium (Depakote Sprinkles) 125 mg 0900,1300,1700 PO 11/22/20 09:00 11/24/20 16:52 DC 11/24/20 13:05 Divalproex Sodium (Depakote Sprinkles) 250 mg BID PO 11/24/20 21:00 11/26/20 12:26 DC 11/26/20 10:01 Divalproex Sodium (Depakote Sprinkles) 125 mg NOON PO 11/25/20 12:00 11/26/20 12:23 DC 11/25/20 12:03 Divalproex Sodium (Depakote Sprinkles) 250 mg NOON PO 11/26/20 12:40 12/05/20 13:14 DC 12/03/20 12:00 Divalproex Sodium (Depakote Sprinkles) 375 mg HS PO 11/26/20 21:00 12/07/20 20:15 Divalproex Sodium (Depakote Sprinkles) 250 mg 0900 PO 11/27/20 09:00 12/08/20 08:01 Oxycodone HCl (Roxicodone) 5 mg PRN Q6HRS PRN PO BREAKTHROUGH MOD-SEV PAIN 11/26/20 15:30 12/07/20 18:41 Nicotine (Nicoderm Cq 7mg Patch) 1 patch PRN DAILY PRN TD SMOKING CESSATION 11/28/20 19:00 Buspirone HCl (Buspar) 10 mg BID PO 11/28/20 21:00 12/08/20 08:02 Gabapentin (Neurontin) 400 mg 0900,1400 PO 11/30/20 09:00 12/08/20 12:13 Quetiapine Fumarate (SEROquel) 25 mg BID@1300,1700 PO 12/05/20 13:00 12/05/20 13:14 DC Divalproex Sodium (Depakote Sprinkles) 250 mg DAILY@1200 PO 12/06/20 12:00 12/08/20 12:13 Quetiapine Fumarate (SEROquel) 25 mg BID@1400,1700 PO 12/05/20 14:00 12/08/20 18:18 DC 12/08/20 17:51 Neomycin/ Polymyxin/Bacitr/ Hydrocort (Cortisporin Ophth) 2 laurecne BID OU 12/08/20 21:00 Quetiapine Fumarate (SEROquel) 50 mg 1300,1700 PO 12/09/20 13:00 I have reviewed the current psychotropics carefully including drug interactions. Risk benefit ratio favors no change other than as noted in my dictated progress note. Diagnosis: Problems: (1) Impulse control disorder, unspecified (2) Anxiety disorder, unspecified (3) Major depressive disorder with psychotic features MUKESH JAY MD Dec 09, 2020 08:28
--- NOTE | 2020-12-09 08:58 | PDOC ---
Exam Note: Andrea Note: This note is a late entry for 12/08/2020 covers elements not covered in my initial note. Subjective: The patient was seen face to face in the evening of 12/08/2020 with Nalini RODRIGUES, discussed and reviewed the chart. The patient slept 6 hours previous night. She was pleasant in the morning. She was put in the wheelchair to be taken in the dayroom but then she was cursing at one of the nursing aids, anxious, restless, agitated. Review of Systems: Impaired ambulation in wheelchair. No CV, , pulmonary, eye system symptoms on review. She has chronic pain symptoms. Mental Status Exam: The patient is reasonably oriented. She is less yelling, agitated, somewhat paranoid as I met with her in the evening. Speech is coherent, less pressured. Abstraction is fair. Computation is impaired. Language function intact. Mood and affect remains somewhat anxious, labile. Laboratory Data: Reviewed. Impression: Major depressive disorder with psychotic features. Anxiety disorder unspecified. Impulse control disorder unspecified. Plan: She is currently on Seroquel 25 mg at 1300, 1700. We will increase it to 50 mg at 1300. Maintain rest of the psychotropics unchanged. Assessment: Vital Signs/I&O: Vital Signs Date Time Temp Pulse Resp B/P (MAP) Pulse Ox O2 Delivery O2 Flow Rate FiO2 12/09/20 06:14 97.5 72 22 116/57 (76) 98 2.0 12/07/20 15:35 Nasal Cannula I & O 12/08/20 12/08/20 12/09/20 15:00 23:00 07:00 Intake Total 360 ml 600 ml Balance 360 ml 600 ml Current Medications: Meds: Current Medications Medications (Trade) Dose Ordered Sig/Jocelyn Route PRN Reason Start Time Stop Time Status Last Admin Dose Admin Acetaminophen (Tylenol) 650 mg PRN Q6HRS PRN PO MILD PAIN / TEMP > 100.3'F 11/16/20 17:30 11/17/20 18:17 DC 11/17/20 12:40 Multi-Ingredient Ointment (Analgesic Burton) 1 laurence PRN QID PRN TP MUSCLE PAIN 11/16/20 17:30 12/02/20 21:03 Al Hydroxide/Mg Hydroxide (Mylanta Plus Xs) 15 ml PRN AFTMEALHC PRN PO DYSPEPSIA 11/16/20 17:30 Magnesium Hydroxide (Milk Of Magnesia) 2,400 mg PRN QHS PRN PO 2ND CHOICE CONSTIPATION 11/16/20 17:30 Nicotine (Nicoderm Cq 7mg Patch) 1 patch DAILY TD 11/16/20 17:30 11/16/20 17:44 DC Nicotine (Nicoderm Cq 7mg Patch) 1 patch DAILY TD 11/17/20 09:00 11/27/20 21:49 DC 11/27/20 10:12 Acetaminophen (Tylenol) 650 mg PRN Q6HRS PRN PO MILD PAIN / TEMP > 100.3'F 11/16/20 18:00 11/18/20 16:23 Buspirone HCl (Buspar) 10 mg BIDWMEALS PO 11/17/20 08:00 11/17/20 18:09 DC 11/17/20 17:29 Calcium Carbonate/ Glycine (Oscal) 500 mg BID PO 11/16/20 21:00 12/08/20 08:02 Clopidogrel Bisulfate (Plavix) 75 mg DAILY PO 11/17/20 09:00 12/08/20 08:02 Docusate Sodium (Colace) 100 mg PRN DAILY PRN PO 1ST CHOICE CONSTIPATION 11/16/20 18:00 Ferrous Sulfate (Feosol) 325 mg BID PO 11/16/20 21:00 12/08/20 08:03 Gabapentin (Neurontin) 400 mg BID94 PO 11/17/20 09:00 11/29/20 17:46 DC 11/29/20 16:00 Lorazepam (Ativan) 0.5 mg PRN BID PRN PO ANXIETY / AGITATION 11/16/20 18:00 12/06/20 13:14 Neomycin/ Polymyxin/ Dexamethasone (Maxitrol) 1 drop DAILY OU 11/17/20 09:00 12/08/20 08:03 Nicotine (Nicoderm Cq 7mg Patch) 1 patch PRN DAILY PRN TD SMOKING CESSATION 11/16/20 19:00 11/27/20 21:49 DC Olanzapine (ZyPREXA) 10 mg BID PO 11/16/20 21:00 11/21/20 18:06 DC 11/21/20 10:36 Oxycodone HCl (OxyCONTIN) 20 mg BID PO 11/16/20 21:00 12/08/20 08:05 Pantoprazole Sodium (Protonix) 40 mg DAILYAC PO 11/17/20 07:30 12/08/20 08:02 Potassium Chloride (Klor-Con) 20 meq BID PO 11/16/20 21:00 12/08/20 08:02 Sucralfate (Carafate) 1 gm BID PO 11/16/20 21:00 12/08/20 08:02 Tamsulosin HCl (Flomax) 0.4 mg HS PO 11/16/20 21:00 12/07/20 20:15 Ascorbic Acid (Vitamin C) 500 mg BID PO 11/16/20 21:00 12/08/20 08:02 Fluoxetine HCl (PROzac) 40 mg DAILY PO 11/17/20 09:00 12/08/20 08:02 Non-Formulary Medication (Gabapentin ) 600 mg TID PO 11/16/20 21:00 UNV Gabapentin (Neurontin) 800 mg HS PO 11/16/20 21:00 12/07/20 20:16 Lactobacillus Rhamnosus (Culturelle) 1 cap BID PO 11/16/20 21:00 12/08/20 08:02 Phenyleph/Shark Oil/Min Oil/Petrol (Preparation H) 1 laurence PRN BID PRN RC RECTAL PAIN 11/16/20 18:45 Artificial Tears (Artificial Tears) 1 drop PRN Q15MIN PRN OD DRY EYE 11/16/20 18:45 12/08/20 08:03 Buspirone HCl (Buspar) 10 mg 1700 PO 11/18/20 17:00 11/20/20 23:50 DC 11/20/20 17:00 Buspirone HCl (Buspar) 5 mg DAILY PO 11/18/20 09:00 11/20/20 23:50 DC 11/20/20 06:39 Buspirone HCl (Buspar) 5 mg BIDWMEALS PO 11/21/20 08:00 11/28/20 18:20 DC 11/28/20 17:00 Quetiapine Fumarate (SEROquel) 12.5 mg 0900,1300,1500 PO 11/19/20 09:00 12/04/20 17:51 DC 12/04/20 15:00 Olanzapine (ZyPREXA) 10 mg DAILY PO 11/22/20 09:00 11/24/20 22:00 DC 11/24/20 10:09 Olanzapine (ZyPREXA) 5 mg QHS PO 11/21/20 21:00 11/24/20 22:00 DC 11/24/20 20:15 Olanzapine (ZyPREXA) 5 mg BID PO 11/25/20 09:00 12/08/20 08:02 Divalproex Sodium (Depakote Sprinkles) 125 mg 0900,1300,1700 PO 11/22/20 09:00 11/24/20 16:52 DC 11/24/20 13:05 Divalproex Sodium (Depakote Sprinkles) 250 mg BID PO 11/24/20 21:00 11/26/20 12:26 DC 11/26/20 10:01 Divalproex Sodium (Depakote Sprinkles) 125 mg NOON PO 11/25/20 12:00 11/26/20 12:23 DC 11/25/20 12:03 Divalproex Sodium (Depakote Sprinkles) 250 mg NOON PO 11/26/20 12:40 12/05/20 13:14 DC 12/03/20 12:00 Divalproex Sodium (Depakote Sprinkles) 375 mg HS PO 11/26/20 21:00 12/07/20 20:15 Divalproex Sodium (Depakote Sprinkles) 250 mg 0900 PO 11/27/20 09:00 12/08/20 08:01 Oxycodone HCl (Roxicodone) 5 mg PRN Q6HRS PRN PO BREAKTHROUGH MOD-SEV PAIN 11/26/20 15:30 12/07/20 18:41 Nicotine (Nicoderm Cq 7mg Patch) 1 patch PRN DAILY PRN TD SMOKING CESSATION 11/28/20 19:00 Buspirone HCl (Buspar) 10 mg BID PO 11/28/20 21:00 12/08/20 08:02 Gabapentin (Neurontin) 400 mg 0900,1400 PO 11/30/20 09:00 12/08/20 12:13 Quetiapine Fumarate (SEROquel) 25 mg BID@1300,1700 PO 12/05/20 13:00 12/05/20 13:14 DC Divalproex Sodium (Depakote Sprinkles) 250 mg DAILY@1200 PO 12/06/20 12:00 12/08/20 12:13 Quetiapine Fumarate (SEROquel) 25 mg BID@1400,1700 PO 12/05/20 14:00 12/08/20 18:18 DC 12/08/20 17:51 Neomycin/ Polymyxin/Bacitr/ Hydrocort (Cortisporin Ophth) 2 laurence BID OU 12/08/20 21:00 Quetiapine Fumarate (SEROquel) 50 mg 1300,1700 PO 12/09/20 13:00 I have reviewed the current psychotropics carefully including drug interactions. Risk benefit ratio favors no change other than as noted in my dictated progress note. Diagnosis: Problems: (1) Impulse control disorder, unspecified (2) Anxiety disorder, unspecified (3) Major depressive disorder with psychotic features MUKESH JAY MD Dec 09, 2020 08:58
[2020-12-09] MEDS: NEO/POLYMYX/DEXAMETH OPHTH SUSPENSION 5ML BOTTLE. OU SCH ×2 (09:00→10:42)
[2020-12-09] MEDS: NEOMYCIN/BACI/POLY/HC OPHTH OINTMENT 3.5GM TUBE. OU SCH ×3 (09:00→19:56)
[2020-12-09] MEDS: SUCRALFATE 1 GM TABLET. PO SCH ×2 (10:42→19:52)
[2020-12-09] MEDS: OLANZapine 5 MG TABLET PO SCH (10:42)
[2020-12-09] MEDS: FERROUS SULFATE 325 MG TABLET. PO SCH ×2 (10:43→19:53)
[2020-12-09] MEDS: POTASSIUM CHLORIDE 20 MEQ TABLET.ER. PO SCH ×2 (10:43→19:52)
[2020-12-09] MEDS: PANTOPRAZOLE 40 MG TABLET. PO SCH (10:43)
[2020-12-09] MEDS: LACTOBACILLUS RHAMNOSUS GG 1 CAPSULE. PO SCH ×2 (10:43→19:53)
[2020-12-09] MEDS: CALCIUM CARBONATE 500 MG TABLET PO SCH ×2 (10:43→19:53)
[2020-12-09] MEDS: DIVALPROEX 125 MG CAP.SPRINK PO SCH ×3 (10:43→19:51)
[2020-12-09] MEDS: CLOPIDOGREL BISULFATE 75 MG TABLET PO SCH (10:43)
[2020-12-09] MEDS: ASCORBIC ACID 500 MG TABLET PO SCH ×2 (10:43→19:53)
[2020-12-09] MEDS: FLUoxetine HCL 20 MG CAPSULE PO SCH (10:43)
[2020-12-09] MEDS: GABAPENTIN 400 MG CAPSULE. PO SCH ×3 (10:47→19:54)
[2020-12-09] MEDS: busPIRone 10 MG TABLET. PO SCH ×2 (10:47→19:52)
[2020-12-09] MEDS: oxyCODONE ER 20 MG TAB.ER.12H PO SCH ×2 (10:48→19:55)
[2020-12-09] MEDS: QUEtiapine 50 MG TABLET. PO SCH ×2 (13:21→16:33)
[2020-12-09 16:07] VITALS: BP 94/54
[2020-12-09] MEDS: oxyCODONE IR 5 MG TABLET PO PRN (16:33)
[2020-12-09] MEDS: TAMSULOSIN 0.4 MG CAP.ER.24H. PO SCH (19:53)
--- NOTE | 2020-12-09 21:13 | PDOC ---
Exam Note: Andrea Note: Please also refer to the separate dictated note~for this date of service dictated separately.~Patient seen individually. Discussed the patient with Nursing staff reviewed the chart.~Reviewed interim history and current functioning. Reviewed vital signs,~Labs/ Radiology~and current medications noted below. Continue current treatment with the changes noted in the dictated addendum note Assessment: Vital Signs/I&O: Vital Signs Date Time Temp Pulse Resp B/P (MAP) Pulse Ox O2 Delivery O2 Flow Rate FiO2 12/09/20 17:37 96 12/09/20 16:07 98.0 73 18 94/54 (67) 2.0 12/07/20 15:35 Nasal Cannula I & O 12/08/20 12/08/20 12/09/20 15:00 23:00 07:00 Intake Total 360 ml 600 ml Balance 360 ml 600 ml Current Medications: Meds: Current Medications Medications (Trade) Dose Ordered Sig/Jocelyn Route PRN Reason Start Time Stop Time Status Last Admin Dose Admin Acetaminophen (Tylenol) 650 mg PRN Q6HRS PRN PO MILD PAIN / TEMP > 100.3'F 11/16/20 17:30 11/17/20 18:17 DC 11/17/20 12:40 Multi-Ingredient Ointment (Analgesic [place]) 1 laurence PRN QID PRN TP MUSCLE PAIN 11/16/20 17:30 12/02/20 21:03 Al Hydroxide/Mg Hydroxide (Mylanta Plus Xs) 15 ml PRN AFTMEALHC PRN PO DYSPEPSIA 11/16/20 17:30 Magnesium Hydroxide (Milk Of Magnesia) 2,400 mg PRN QHS PRN PO 2ND CHOICE CONSTIPATION 11/16/20 17:30 Nicotine (Nicoderm Cq 7mg Patch) 1 patch DAILY TD 11/16/20 17:30 11/16/20 17:44 DC Nicotine (Nicoderm Cq 7mg Patch) 1 patch DAILY TD 11/17/20 09:00 11/27/20 21:49 DC 11/27/20 10:12 Acetaminophen (Tylenol) 650 mg PRN Q6HRS PRN PO MILD PAIN / TEMP > 100.3'F 11/16/20 18:00 11/18/20 16:23 Buspirone HCl (Buspar) 10 mg BIDWMEALS PO 11/17/20 08:00 11/17/20 18:09 DC 11/17/20 17:29 Calcium Carbonate/ Glycine (Oscal) 500 mg BID PO 11/16/20 21:00 12/09/20 19:53 Clopidogrel Bisulfate (Plavix) 75 mg DAILY PO 11/17/20 09:00 12/09/20 10:43 Docusate Sodium (Colace) 100 mg PRN DAILY PRN PO 1ST CHOICE CONSTIPATION 11/16/20 18:00 Ferrous Sulfate (Feosol) 325 mg BID PO 11/16/20 21:00 12/09/20 19:53 Gabapentin (Neurontin) 400 mg BID94 PO 11/17/20 09:00 11/29/20 17:46 DC 11/29/20 16:00 Lorazepam (Ativan) 0.5 mg PRN BID PRN PO ANXIETY / AGITATION 11/16/20 18:00 12/06/20 13:14 Neomycin/ Polymyxin/ Dexamethasone (Maxitrol) 1 drop DAILY OU 11/17/20 09:00 12/08/20 08:03 Nicotine (Nicoderm Cq 7mg Patch) 1 patch PRN DAILY PRN TD SMOKING CESSATION 11/16/20 19:00 11/27/20 21:49 DC Olanzapine (ZyPREXA) 10 mg BID PO 11/16/20 21:00 11/21/20 18:06 DC 11/21/20 10:36 Oxycodone HCl (OxyCONTIN) 20 mg BID PO 11/16/20 21:00 12/09/20 19:55 Pantoprazole Sodium (Protonix) 40 mg DAILYAC PO 11/17/20 07:30 12/09/20 10:43 Potassium Chloride (Klor-Con) 20 meq BID PO 11/16/20 21:00 12/09/20 19:52 Sucralfate (Carafate) 1 gm BID PO 11/16/20 21:00 12/09/20 19:52 Tamsulosin HCl (Flomax) 0.4 mg HS PO 11/16/20 21:00 12/09/20 19:53 Ascorbic Acid (Vitamin C) 500 mg BID PO 11/16/20 21:00 12/09/20 19:53 Fluoxetine HCl (PROzac) 40 mg DAILY PO 11/17/20 09:00 12/09/20 10:43 Non-Formulary Medication (Gabapentin ) 600 mg TID PO 11/16/20 21:00 UNV Gabapentin (Neurontin) 800 mg HS PO 11/16/20 21:00 12/09/20 19:54 Lactobacillus Rhamnosus (Culturelle) 1 cap BID PO 11/16/20 21:00 12/09/20 19:53 Phenyleph/Shark Oil/Min Oil/Petrol (Preparation H) 1 laurence PRN BID PRN RC RECTAL PAIN 11/16/20 18:45 Artificial Tears (Artificial Tears) 1 drop PRN Q15MIN PRN OD DRY EYE 11/16/20 18:45 12/08/20 08:03 Buspirone HCl (Buspar) 10 mg 1700 PO 11/18/20 17:00 11/20/20 23:50 DC 11/20/20 17:00 Buspirone HCl (Buspar) 5 mg DAILY PO 11/18/20 09:00 11/20/20 23:50 DC 11/20/20 06:39 Buspirone HCl (Buspar) 5 mg BIDWMEALS PO 11/21/20 08:00 11/28/20 18:20 DC 11/28/20 17:00 Quetiapine Fumarate (SEROquel) 12.5 mg 0900,1300,1500 PO 11/19/20 09:00 12/04/20 17:51 DC 12/04/20 15:00 Olanzapine (ZyPREXA) 10 mg DAILY PO 11/22/20 09:00 11/24/20 22:00 DC 11/24/20 10:09 Olanzapine (ZyPREXA) 5 mg QHS PO 11/21/20 21:00 11/24/20 22:00 DC 11/24/20 20:15 Olanzapine (ZyPREXA) 5 mg BID PO 11/25/20 09:00 12/09/20 18:40 DC 12/09/20 10:42 Divalproex Sodium (Depakote Sprinkles) 125 mg 0900,1300,1700 PO 11/22/20 09:00 11/24/20 16:52 DC 11/24/20 13:05 Divalproex Sodium (Depakote Sprinkles) 250 mg BID PO 11/24/20 21:00 11/26/20 12:26 DC 11/26/20 10:01 Divalproex Sodium (Depakote Sprinkles) 125 mg NOON PO 11/25/20 12:00 11/26/20 12:23 DC 11/25/20 12:03 Divalproex Sodium (Depakote Sprinkles) 250 mg NOON PO 11/26/20 12:40 12/05/20 13:14 DC 12/03/20 12:00 Divalproex Sodium (Depakote Sprinkles) 375 mg HS PO 11/26/20 21:00 12/09/20 19:51 Divalproex Sodium (Depakote Sprinkles) 250 mg 0900 PO 11/27/20 09:00 12/09/20 10:43 Oxycodone HCl (Roxicodone) 5 mg PRN Q6HRS PRN PO BREAKTHROUGH MOD-SEV PAIN 11/26/20 15:30 12/09/20 16:33 Nicotine (Nicoderm Cq 7mg Patch) 1 patch PRN DAILY PRN TD SMOKING CESSATION 11/28/20 19:00 Buspirone HCl (Buspar) 10 mg BID PO 11/28/20 21:00 12/09/20 19:52 Gabapentin (Neurontin) 400 mg 0900,1400 PO 11/30/20 09:00 12/09/20 13:21 Quetiapine Fumarate (SEROquel) 25 mg BID@1300,1700 PO 12/05/20 13:00 12/05/20 13:14 DC Divalproex Sodium (Depakote Sprinkles) 250 mg DAILY@1200 PO 12/06/20 12:00 12/09/20 13:21 Quetiapine Fumarate (SEROquel) 25 mg BID@1400,1700 PO 12/05/20 14:00 12/08/20 18:18 DC 12/08/20 17:51 Neomycin/ Polymyxin/Bacitr/ Hydrocort (Cortisporin Ophth) 2 laurence BID OU 12/08/20 21:00 12/09/20 19:56 Quetiapine Fumarate (SEROquel) 50 mg 1300,1700 PO 12/09/20 13:00 12/09/20 16:33 Olanzapine (ZyPREXA) 5 mg DAILY PO 12/10/20 09:00 12/12/20 21:00 12/09/20 19:51 Current Medications Medications (Trade) Dose Ordered Sig/Jocelyn Route PRN Reason Start Time Stop Time Status Last Admin Dose Admin Quetiapine Fumarate (SEROquel) 50 mg 1300,1700 PO 12/09/20 13:00 12/09/20 16:33 Olanzapine (ZyPREXA) 5 mg DAILY PO 12/10/20 09:00 12/12/20 21:00 12/09/20 19:51 I have reviewed the current psychotropics carefully including drug interactions. Risk benefit ratio favors no change other than as noted in my dictated progress note. Diagnosis: Problems: (1) Impulse control disorder, unspecified (2) Anxiety disorder, unspecified (3) Major depressive disorder with psychotic features MUKESH JAY MD Dec 09, 2020 21:13
[2020-12-10 05:43] VITALS: BP 114/69
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
[2020-12-10] MEDS: NEO/POLYMYX/DEXAMETH OPHTH SUSPENSION 5ML BOTTLE. OU SCH ×2 (09:00→20:11)
[2020-12-10] MEDS: NEOMYCIN/BACI/POLY/HC OPHTH OINTMENT 3.5GM TUBE. OU SCH ×2 (09:00→21:00)
[2020-12-10] MEDS ORDERED: OLANZapine 5 MG TABLET PO SCH (09:00)
[2020-12-10] MEDS: DIVALPROEX 125 MG CAP.SPRINK PO SCH ×3 (11:25→20:12)
[2020-12-10] MEDS: SUCRALFATE 1 GM TABLET. PO SCH ×2 (11:25→20:11)
[2020-12-10] MEDS: CALCIUM CARBONATE 500 MG TABLET PO SCH ×2 (11:25→20:11)
[2020-12-10] MEDS: FERROUS SULFATE 325 MG TABLET. PO SCH ×2 (11:25→20:11)
[2020-12-10] MEDS: LACTOBACILLUS RHAMNOSUS GG 1 CAPSULE. PO SCH ×2 (11:25→20:12)
[2020-12-10] MEDS: POTASSIUM CHLORIDE 20 MEQ TABLET.ER. PO SCH ×2 (11:25→20:12)
[2020-12-10] MEDS: busPIRone 10 MG TABLET. PO SCH ×3 (11:25→20:11)
[2020-12-10] MEDS: PANTOPRAZOLE 40 MG TABLET. PO SCH (11:25)
[2020-12-10] MEDS: ASCORBIC ACID 500 MG TABLET PO SCH ×2 (11:25→20:12)
[2020-12-10] MEDS: FLUoxetine HCL 20 MG CAPSULE PO SCH (11:26)
[2020-12-10] MEDS: CLOPIDOGREL BISULFATE 75 MG TABLET PO SCH (11:26)
[2020-12-10] MEDS: GABAPENTIN 400 MG CAPSULE. PO SCH ×3 (11:30→20:13)
[2020-12-10] MEDS: oxyCODONE ER 20 MG TAB.ER.12H PO SCH ×2 (11:30→20:19)
[2020-12-10] MEDS: QUEtiapine 50 MG TABLET. PO SCH ×2 (13:08→17:26)
[2020-12-10 13:30] LABS: BILIRUBIN,URINE NEG (NEG); CLARITY,URINE HAZY; COLOR,URINE YELLOW; GLUCOSE,URINE NEG (NEG); NITRITE,URINE POS (NEG); UROBILINOGEN,URINE 0.2 mg/dL (0.2 mg/dL)
[2020-12-10 13:31] LABS: BACTERIA,URINE MANY /HPF (0-FEW); RBC,URINE 20-40 /HPF (0-2); WBC,URINE TNTC /HPF (0-4)
[2020-12-10 15:26] VITALS: BP 110/70
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
[2020-12-10] MEDS: TAMSULOSIN 0.4 MG CAP.ER.24H. PO SCH (20:11)
--- NOTE | 2020-12-10 21:10 | PDOC ---
Exam Note: Andrea Note: Please also refer to the separate dictated note~for this date of service dictated separately.~Patient seen individually. Discussed the patient with Nursing staff reviewed the chart.~Reviewed interim history and current functioning. Reviewed vital signs,~Labs/ Radiology~and current medications noted below. Continue current treatment with the changes noted in the dictated addendum note Assessment: Vital Signs/I&O: Vital Signs Date Time Temp Pulse Resp B/P (MAP) Pulse Ox O2 Delivery O2 Flow Rate FiO2 12/10/20 20:19 Nasal Cannula 2.0 12/10/20 16:23 94 12/10/20 15:26 98.3 101 20 110/70 (83) I & O0 12/09/20 12/09/20 12/10/20 15:00 23:00 07:00 Intake Total 360 ml 240 ml Balance 360 ml 240 ml Labs: Laboratory Tests Test 12/10/20 12:25 Urine Collection Type Unknown Urine Color Yellow Urine Clarity Hazy Urine pH 7.0 Urine Specific [place] 1.025 Urine Protein >100 mg/dl (NEG-TRACE) Urine Glucose (UA) Neg mg/dL (NEG) Urine Ketones (Stick) Neg mg/dL (NEG) Urine Blood Large (NEG) Urine Nitrite Pos (NEG) Urine Bilirubin Neg (NEG) Urine Urobilinogen Dipstick 0.2 mg/dL (0.2 mg/dL) Urine Leukocyte Esterase Large (NEG) Urine RBC 20-40 /HPF (0-2) Urine WBC Tntc /HPF (0-4) Urine Bacteria Many /HPF (0-FEW) Current Medications: Meds: Current Medications Medications (Trade) Dose Ordered Sig/Jocelyn Route PRN Reason Start Time Stop Time Status Last Admin Dose Admin Olanzapine (ZyPREXA) 5 mg DAILY PO 12/10/20 09:00 12/10/20 12:01 DC 12/09/20 19:51 Buspirone HCl (Buspar) 10 mg TID PO 12/10/20 14:00 12/10/20 20:11 Quetiapine Fumarate (SEROquel) 50 mg 0900,1300,1700 PO 12/10/20 13:00 12/10/20 17:26 I have reviewed the current psychotropics carefully including drug interactions. Risk benefit ratio favors no change other than as noted in my dictated progress note. Diagnosis: Problems: (1) Impulse control disorder, unspecified (2) Anxiety disorder, unspecified (3) Major depressive disorder with psychotic features MUKESH JAY MD Dec 10, 2020 21:10
[2020-12-11 06:05] VITALS: BP 110/63
[2020-12-11 07:32] LABS: ALBUMIN 2.3 g/dL (3.4-5.0); ALBUMIN/GLOBULIN RATIO 0.5 (1.0-1.7); CALCIUM 8.5 mg/dL (8.5-10.1); CREATININE 0.8 mg/dL (0.6-1.0); GFR 71.8; POTASSIUM 4.6 mmol/L (3.5-5.1); TOTAL BILIRUBIN 0.2 mg/dL (0.2-1.0)
[2020-12-11] MEDS: NEOMYCIN/BACI/POLY/HC OPHTH OINTMENT 3.5GM TUBE. OU SCH ×2 (09:00→20:27)
[2020-12-11] MEDS: DIVALPROEX 125 MG CAP.SPRINK PO SCH ×3 (11:16→20:19)
[2020-12-11] MEDS: SUCRALFATE 1 GM TABLET. PO SCH ×2 (11:16→20:19)
[2020-12-11] MEDS: PANTOPRAZOLE 40 MG TABLET. PO SCH (11:16)
[2020-12-11] MEDS: FERROUS SULFATE 325 MG TABLET. PO SCH ×2 (11:16→20:19)
[2020-12-11] MEDS: DULoxetine HCL 30 MG CAPSULE.DR PO SCH (11:16)
[2020-12-11] MEDS: busPIRone 10 MG TABLET. PO SCH ×3 (11:17→20:20)
[2020-12-11] MEDS: ASCORBIC ACID 500 MG TABLET PO SCH ×2 (11:17→20:20)
[2020-12-11] MEDS: QUEtiapine 50 MG TABLET. PO SCH ×3 (11:17→17:00)
[2020-12-11] MEDS: POTASSIUM CHLORIDE 20 MEQ TABLET.ER. PO SCH ×2 (11:17→20:20)
[2020-12-11] MEDS: CLOPIDOGREL BISULFATE 75 MG TABLET PO SCH (11:17)
[2020-12-11] MEDS: LACTOBACILLUS RHAMNOSUS GG 1 CAPSULE. PO SCH ×2 (11:17→20:20)
[2020-12-11] MEDS: GABAPENTIN 400 MG CAPSULE. PO SCH ×3 (11:18→21:00)
[2020-12-11] MEDS: oxyCODONE ER 20 MG TAB.ER.12H PO SCH ×2 (11:18→20:21)
[2020-12-11] MEDS: CALCIUM CARBONATE 500 MG TABLET PO SCH ×2 (11:18→20:19)
[2020-12-11] MEDS: oxyCODONE IR 5 MG TABLET PO PRN (14:57)
[2020-12-11 15:47] VITALS: BP 107/62
[2020-12-11] MEDS: NEO/POLYMYX/DEXAMETH OPHTH SUSPENSION 5ML BOTTLE. OU SCH (20:19)
[2020-12-11] MEDS: TAMSULOSIN 0.4 MG CAP.ER.24H. PO SCH (20:20)
--- NOTE | 2020-12-11 20:56 | PDOC ---
Exam Note: Andrea Note: Please also refer to the separate dictated note~for this date of service dictated separately.~Patient seen individually. Discussed the patient with Nursing staff reviewed the chart.~Reviewed interim history and current functioning. Reviewed vital signs,~Labs/ Radiology~and current medications noted below. Continue current treatment with the changes noted in the dictated addendum note Assessment: Vital Signs/I&O: Vital Signs Date Time Temp Pulse Resp B/P (MAP) Pulse Ox O2 Delivery O2 Flow Rate FiO2 12/11/20 20:21 Nasal Cannula 2.0 12/11/20 15:47 97.8 78 17 107/62 (77) 95 I & O 12/10/20 12/10/20 12/11/20 15:00 23:00 07:00 Intake Total 360 ml 120 ml Balance 360 ml 120 ml Labs: Laboratory Tests Test 12/11/20 06:59 Sodium Level 144 mmol/L (136-145) Potassium Level 4.6 mmol/L (3.5-5.1) Chloride Level 106 mmol/L (98-107) Carbon Dioxide Level 33 mmol/L (21-32) H Anion Gap 5 (6-14) L Blood Urea Nitrogen 25 mg/dL (7-20) H Creatinine 0.8 mg/dL (0.6-1.0) Estimated GFR (Cockcroft-Gault) 71.8 BUN/Creatinine Ratio 31 (6-20) H Glucose Level 97 mg/dL (70-99) Calcium Level 8.5 mg/dL (8.5-10.1) Total Bilirubin 0.2 mg/dL (0.2-1.0) Aspartate Amino Transferase (AST) 14 U/L (15-37) L Alanine Aminotransferase (ALT) 11 U/L (14-59) L Alkaline Phosphatase 109 U/L (46-116) Total Protein 7.0 g/dL (6.4-8.2) Albumin 2.3 g/dL (3.4-5.0) L Albumin/Globulin Ratio 0.5 (1.0-1.7) L Current Medications: Meds: Current Medications Medications (Trade) Dose Ordered Sig/Jocelyn Route PRN Reason Start Time Stop Time Status Last Admin Dose Admin Duloxetine HCl (Cymbalta) 30 mg DAILY PO 12/11/20 09:00 12/13/20 21:00 12/11/20 11:16 I have reviewed the current psychotropics carefully including drug interactions. Risk benefit ratio favors no change other than as noted in my dictated progress note. Diagnosis: Problems: (1) Impulse control disorder, unspecified (2) Anxiety disorder, unspecified (3) Major depressive disorder with psychotic features MUKESH JAY MD Dec 11, 2020 20:56
[2020-12-12 05:42] VITALS: BP 127/80
[2020-12-12] MEDS: FERROUS SULFATE 325 MG TABLET. PO SCH ×2 (08:34→17:27)
[2020-12-12] MEDS: SUCRALFATE 1 GM TABLET. PO SCH ×2 (08:34→17:26)
[2020-12-12] MEDS: LACTOBACILLUS RHAMNOSUS GG 1 CAPSULE. PO SCH ×2 (08:34→17:27)
[2020-12-12] MEDS: QUEtiapine 50 MG TABLET. PO SCH ×3 (08:35→17:26)
[2020-12-12] MEDS: DULoxetine HCL 30 MG CAPSULE.DR PO SCH (08:35)
[2020-12-12] MEDS: CALCIUM CARBONATE 500 MG TABLET PO SCH ×2 (08:35→17:27)
[2020-12-12] MEDS: busPIRone 10 MG TABLET. PO SCH ×3 (08:35→17:27)
[2020-12-12] MEDS: GABAPENTIN 400 MG CAPSULE. PO SCH ×3 (08:35→17:27)
[2020-12-12] MEDS: PANTOPRAZOLE 40 MG TABLET. PO SCH (08:35)
[2020-12-12] MEDS: CLOPIDOGREL BISULFATE 75 MG TABLET PO SCH (08:35)
[2020-12-12] MEDS: POTASSIUM CHLORIDE 20 MEQ TABLET.ER. PO SCH ×2 (08:35→17:28)
[2020-12-12] MEDS: oxyCODONE ER 20 MG TAB.ER.12H PO SCH ×2 (08:35→17:27)
[2020-12-12] MEDS: ASCORBIC ACID 500 MG TABLET PO SCH ×2 (08:35→17:27)
[2020-12-12] MEDS: DIVALPROEX 125 MG CAP.SPRINK PO SCH ×3 (08:35→17:28)
[2020-12-12] MEDS: NEOMYCIN/BACI/POLY/HC OPHTH OINTMENT 3.5GM TUBE. OU SCH ×2 (08:38→17:28)
[2020-12-12] MEDS: oxyCODONE IR 5 MG TABLET PO PRN ×2 (12:51→17:26)
[2020-12-12 16:27] VITALS: BP 98/61
[2020-12-12] MEDS: levoFLOXacin 250 MG TABLET PO SCH (17:26)
[2020-12-12] MEDS: TAMSULOSIN 0.4 MG CAP.ER.24H. PO SCH (17:27)
--- NOTE | 2020-12-12 22:04 | PDOC ---
Exam Note: Andrea Note: Please also refer to the separate dictated note~for this date of service dictated separately.~Patient seen individually. Discussed the patient with Nursing staff reviewed the chart.~Reviewed interim history and current functioning. Reviewed vital signs,~Labs/ Radiology~and current medications noted below. Continue current treatment with the changes noted in the dictated addendum note Assessment: Vital Signs/I&O: Vital Signs Date Time Temp Pulse Resp B/P (MAP) Pulse Ox O2 Delivery O2 Flow Rate FiO2 12/12/20 21:29 93 12/12/20 16:27 97.8 88 18 98/61 (73) Room Air 12/12/20 05:42 2.0 I & O 12/11/20 12/11/20 12/12/20 14:59 22:59 06:59 Intake Total 240 ml 340 ml Balance 240 ml 340 ml Current Medications: Meds: Current Medications Medications (Trade) Dose Ordered Sig/Jocelyn Route PRN Reason Start Time Stop Time Status Last Admin Dose Admin Levofloxacin (Levaquin) 250 mg DAILY06 PO 12/12/20 16:30 12/16/20 21:00 12/12/20 17:26 I have reviewed the current psychotropics carefully including drug interactions. Risk benefit ratio favors no change other than as noted in my dictated progress note. Diagnosis: Problems: (1) Impulse control disorder, unspecified (2) Anxiety disorder, unspecified (3) Major depressive disorder with psychotic features MUKESH JAY MD Dec 12, 2020 22:04
[2020-12-13 05:28] VITALS: BP 118/70
[2020-12-13] MEDS: levoFLOXacin 250 MG TABLET PO SCH (05:33)
[2020-12-13] MEDS: POTASSIUM CHLORIDE 20 MEQ TABLET.ER. PO SCH ×2 (08:14→19:32)
[2020-12-13] MEDS: GABAPENTIN 400 MG CAPSULE. PO SCH ×3 (08:15→19:32)
[2020-12-13] MEDS: DULoxetine HCL 30 MG CAPSULE.DR PO SCH (08:15)
[2020-12-13] MEDS: FERROUS SULFATE 325 MG TABLET. PO SCH ×2 (08:15→19:32)
[2020-12-13] MEDS: PANTOPRAZOLE 40 MG TABLET. PO SCH (08:15)
[2020-12-13] MEDS: busPIRone 10 MG TABLET. PO SCH ×3 (08:15→19:33)
[2020-12-13] MEDS: ASCORBIC ACID 500 MG TABLET PO SCH ×2 (08:15→19:32)
[2020-12-13] MEDS: SUCRALFATE 1 GM TABLET. PO SCH ×2 (08:15→19:31)
[2020-12-13] MEDS: LACTOBACILLUS RHAMNOSUS GG 1 CAPSULE. PO SCH ×2 (08:15→19:31)
[2020-12-13] MEDS: CLOPIDOGREL BISULFATE 75 MG TABLET PO SCH (08:15)
[2020-12-13] MEDS: CALCIUM CARBONATE 500 MG TABLET PO SCH ×2 (08:16→19:32)
[2020-12-13] MEDS: NEO/POLYMYX/DEXAMETH OPHTH SUSPENSION 5ML BOTTLE. OU SCH (08:16)
[2020-12-13] MEDS: QUEtiapine 50 MG TABLET. PO SCH ×3 (08:16→17:00)
[2020-12-13] MEDS: DIVALPROEX 125 MG CAP.SPRINK PO SCH ×3 (08:16→19:33)
[2020-12-13] MEDS: NEOMYCIN/BACI/POLY/HC OPHTH OINTMENT 3.5GM TUBE. OU SCH ×2 (08:17→19:31)
[2020-12-13] MEDS: oxyCODONE ER 20 MG TAB.ER.12H PO SCH ×2 (08:18→19:32)
[2020-12-13 09:37] LABS: BASO # 0.1 x10^3/uL (0.0-0.2); BASO % 1 % (0-3); EOS # 0.4 x10^3/uL (0.0-0.7); EOS % 4 % (0-3); HEMOGLOBIN 10.5 g/dL (12.0-15.5); LYMPH # 2.5 x10^3/uL (1.0-4.8); LYMPH % 23 % (24-48); MEAN CORPUSCULAR HEMOGLOBIN 30 pg (25-35); MEAN CORPUSCULAR HGB CONC 32 g/dL (31-37); MEAN CORPUSCULAR VOLUME 94 fL (79-100); MONO # 1.3 x10^3/uL (0.0-1.1); MONO % 12 % (0-9); NEUT # 6.6 x10^3uL (1.8-7.7); NEUT % 61 % (31-73); PLATELET COUNT 269 x10^3/uL (140-400); RED BLOOD COUNT 3.51 x10^6/uL (3.50-5.40); RED CELL DISTRIBUTION WIDTH 14.9 % (11.5-14.5); WHITE BLOOD COUNT 10.8 x10^3/uL (4.0-11.0)
[2020-12-13 09:52] LABS: ALBUMIN 2.1 g/dL (3.4-5.0); ALBUMIN/GLOBULIN RATIO 0.4 (1.0-1.7); CALCIUM 8.7 mg/dL (8.5-10.1); CREATININE 0.8 mg/dL (0.6-1.0); GFR 71.8; POTASSIUM 4.4 mmol/L (3.5-5.1); TOTAL BILIRUBIN 0.2 mg/dL (0.2-1.0); TOTAL PROTEIN 6.8 g/dL (6.4-8.2)
[2020-12-13] MEDS: oxyCODONE IR 5 MG TABLET PO PRN (12:28)
[2020-12-13 19:22] VITALS: BP 109/71
[2020-12-13] MEDS: TAMSULOSIN 0.4 MG CAP.ER.24H. PO SCH (19:31)
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
--- NOTE | 2020-12-13 21:27 | PDOC ---
Exam Note: Andrea Note: This note is a late entry for 12/11/2020 covers elements not covered in my initial note. Subjective: The patient was seen face to face in the evening of 12/11/2020 with Sharla RODRIGUES, discussed and reviewed the chart. The patient slept 6-1/[address] Blair confirmed that her creatinine was unremarkable and approved the increased gabapentin for her pain, mood and anxiety symptoms. She has been talking about staff being mean to her, shows limited insight into her own, yelling. She does have severe arthritic contractures with significant chronic pain disability, some of her mood symptoms are understandable. She was in bed till noon. She has been encouraged to get up out of the bed, teary eyed at times. Review of Systems: Positive for chronic pain. Impaired ambulation in wheelchair. No CV, , pulmonary, eye system symptoms on review. Mental Status Exam: The patient is reasonably oriented. Speech is coherent. Abstraction is fair. Computation is impaired. Language function intact. Mood and affect remains somewhat anxious, labile. Laboratory Data: Reviewed. Impression: Major depressive disorder with psychotic features. Anxiety disorder unspecified. Impulse control disorder unspecified. Plan: No change from initial note. Assessment: Vital Signs/I&O: Vital Signs Date Time Temp Pulse Resp B/P (MAP) Pulse Ox O2 Delivery O2 Flow Rate FiO2 12/13/20 19:32 98 12/13/20 19:22 92 18 109/71 (84) 2.0 12/13/20 05:28 97.2 12/12/20 16:27 Room Air I & O 12/12/20 12/12/20 12/13/20 14:59 22:59 06:59 Intake Total 360 ml 360 ml 100 ml Balance 360 ml 360 ml 100 ml Labs: Laboratory Tests Test 12/13/20 09:00 White Blood Count 10.8 x10^3/uL (4.0-11.0) Red Blood Count 3.51 x10^6/uL (3.50-5.40) Hemoglobin 10.5 g/dL (12.0-15.5) L Hematocrit 33.0 % (36.0-47.0) L Mean Corpuscular Volume 94 fL (79-100) Mean Corpuscular Hemoglobin 30 pg (25-35) Mean Corpuscular Hemoglobin Concent 32 g/dL (31-37) Red Cell Distribution Width 14.9 % (11.5-14.5) H Platelet Count 269 x10^3/uL (140-400) Neutrophils (%) (Auto) 61 % (31-73) Lymphocytes (%) (Auto) 23 % (24-48) L Monocytes (%) (Auto) 12 % (0-9) H Eosinophils (%) (Auto) 4 % (0-3) H Basophils (%) (Auto) 1 % (0-3) Neutrophils # (Auto) 6.6 x10^3uL (1.8-7.7) Lymphocytes # (Auto) 2.5 x10^3/uL (1.0-4.8) Monocytes # (Auto) 1.3 x10^3/uL (0.0-1.1) H Eosinophils # (Auto) 0.4 x10^3/uL (0.0-0.7) Basophils # (Auto) 0.1 x10^3/uL (0.0-0.2) Sodium Level 144 mmol/L (136-145) Potassium Level 4.4 mmol/L (3.5-5.1) Chloride Level 105 mmol/L (98-107) Carbon Dioxide Level 34 mmol/L (21-32) H Anion Gap 5 (6-14) L Blood Urea Nitrogen 29 mg/dL (7-20) H Creatinine 0.8 mg/dL (0.6-1.0) Estimated GFR (Cockcroft-Gault) 71.8 BUN/Creatinine Ratio 36 (6-20) H Glucose Level 81 mg/dL (70-99) Calcium Level 8.7 mg/dL (8.5-10.1) Total Bilirubin 0.2 mg/dL (0.2-1.0) Aspartate Amino Transferase (AST) 16 U/L (15-37) Alanine Aminotransferase (ALT) 14 U/L (14-59) Alkaline Phosphatase 107 U/L (46-116) Total Protein 6.8 g/dL (6.4-8.2) Albumin 2.1 g/dL (3.4-5.0) L Albumin/Globulin Ratio 0.4 (1.0-1.7) L Current Medications: Meds: Laboratory Tests Test 12/13/20 09:00 White Blood Count 10.8 x10^3/uL Red Blood Count 3.51 x10^6/uL Hemoglobin 10.5 g/dL Hematocrit 33.0 % Mean Corpuscular Volume 94 fL Mean Corpuscular Hemoglobin 30 pg Mean Corpuscular Hemoglobin Concent 32 g/dL Red Cell Distribution Width 14.9 % Platelet Count 269 x10^3/uL Neutrophils (%) (Auto) 61 % Lymphocytes (%) (Auto) 23 % Monocytes (%) (Auto) 12 % Eosinophils (%) (Auto) 4 % Basophils (%) (Auto) 1 % Neutrophils # (Auto) 6.6 x10^3uL Lymphocytes # (Auto) 2.5 x10^3/uL Monocytes # (Auto) 1.3 x10^3/uL Eosinophils # (Auto) 0.4 x10^3/uL Basophils # (Auto) 0.1 x10^3/uL Sodium Level 144 mmol/L Potassium Level 4.4 mmol/L Chloride Level 105 mmol/L Carbon Dioxide Level 34 mmol/L Anion Gap 5 Blood Urea Nitrogen 29 mg/dL Creatinine 0.8 mg/dL Estimated GFR (Cockcroft-Gault) 71.8 BUN/Creatinine Ratio 36 Glucose Level 81 mg/dL Calcium Level 8.7 mg/dL Total Bilirubin 0.2 mg/dL Aspartate Amino Transf (AST/SGOT) 16 U/L Alanine Aminotransferase (ALT/SGPT) 14 U/L Alkaline Phosphatase 107 U/L Total Protein 6.8 g/dL Albumin 2.1 g/dL Albumin/Globulin Ratio 0.4 Current Medications Medications (Trade) Dose Ordered Sig/Jocelyn Route PRN Reason Start Time Stop Time Status Last Admin Dose Admin Acetaminophen (Tylenol) 650 mg PRN Q6HRS PRN PO MILD PAIN / TEMP > 100.3'F 11/16/20 17:30 11/17/20 18:17 DC 11/17/20 12:40 Multi-Ingredient Ointment (Analgesic [place]) 1 laurence PRN QID PRN TP MUSCLE PAIN 11/16/20 17:30 12/02/20 21:03 Al Hydroxide/Mg Hydroxide (Mylanta Plus Xs) 15 ml PRN AFTMEALHC PRN PO DYSPEPSIA 11/16/20 17:30 Magnesium Hydroxide (Milk Of Magnesia) 2,400 mg PRN QHS PRN PO 2ND CHOICE CONSTIPATION 11/16/20 17:30 Nicotine (Nicoderm Cq 7mg Patch) 1 patch DAILY TD 11/16/20 17:30 11/16/20 17:44 DC Nicotine (Nicoderm Cq 7mg Patch) 1 patch DAILY TD 11/17/20 09:00 11/27/20 21:49 DC 11/27/20 10:12 Acetaminophen (Tylenol) 650 mg PRN Q6HRS PRN PO MILD PAIN / TEMP > 100.3'F 11/16/20 18:00 11/18/20 16:23 Buspirone HCl (Buspar) 10 mg BIDWMEALS PO 11/17/20 08:00 11/17/20 18:09 DC 11/17/20 17:29 Calcium Carbonate/ Glycine (Oscal) 500 mg BID PO 11/16/20 21:00 12/13/20 19:32 Clopidogrel Bisulfate (Plavix) 75 mg DAILY PO 11/17/20 09:00 12/13/20 08:15 Docusate Sodium (Colace) 100 mg PRN DAILY PRN PO 1ST CHOICE CONSTIPATION 11/16/20 18:00 Ferrous Sulfate (Feosol) 325 mg BID PO 11/16/20 21:00 12/13/20 19:32 Gabapentin (Neurontin) 400 mg BID94 PO 11/17/20 09:00 11/29/20 17:46 DC 11/29/20 16:00 Lorazepam (Ativan) 0.5 mg PRN BID PRN PO ANXIETY / AGITATION 11/16/20 18:00 12/06/20 13:14 Neomycin/ Polymyxin/ Dexamethasone (Maxitrol) 1 drop DAILY OU 11/17/20 09:00 12/11/20 20:19 Nicotine (Nicoderm Cq 7mg Patch) 1 patch PRN DAILY PRN TD SMOKING CESSATION 11/16/20 19:00 11/27/20 21:49 DC Olanzapine (ZyPREXA) 10 mg BID PO 11/16/20 21:00 11/21/20 18:06 DC 11/21/20 10:36 Oxycodone HCl (OxyCONTIN) 20 mg BID PO 11/16/20 21:00 12/13/20 19:32 Pantoprazole Sodium (Protonix) 40 mg DAILYAC PO 11/17/20 07:30 12/13/20 08:15 Potassium Chloride (Klor-Con) 20 meq BID PO 11/16/20 21:00 12/13/20 19:32 Sucralfate (Carafate) 1 gm BID PO 11/16/20 21:00 12/13/20 19:31 Tamsulosin HCl (Flomax) 0.4 mg HS PO 11/16/20 21:00 12/13/20 19:31 Ascorbic Acid (Vitamin C) 500 mg BID PO 11/16/20 21:00 12/13/20 19:32 Fluoxetine HCl (PROzac) 40 mg DAILY PO 11/17/20 09:00 12/10/20 12:01 DC 12/10/20 11:26 Non-Formulary Medication (Gabapentin ) 600 mg TID PO 11/16/20 21:00 UNV Gabapentin (Neurontin) 800 mg HS PO 11/16/20 21:00 12/13/20 19:32 Lactobacillus Rhamnosus (Culturelle) 1 cap BID PO 11/16/20 21:00 12/13/20 19:31 Phenyleph/Shark Oil/Min Oil/Petrol (Preparation H) 1 laurence PRN BID PRN RC RECTAL PAIN 11/16/20 18:45 Artificial Tears (Artificial Tears) 1 drop PRN Q15MIN PRN OD DRY EYE 11/16/20 18:45 12/08/20 08:03 Buspirone HCl (Buspar) 10 mg 1700 PO 11/18/20 17:00 11/20/20 23:50 DC 11/20/20 17:00 Buspirone HCl (Buspar) 5 mg DAILY PO 11/18/20 09:00 11/20/20 23:50 DC 11/20/20 06:39 Buspirone HCl (Buspar) 5 mg BIDWMEALS PO 11/21/20 08:00 11/28/20 18:20 DC 11/28/20 17:00 Quetiapine Fumarate (SEROquel) 12.5 mg 0900,1300,1500 PO 11/19/20 09:00 12/04/20 17:51 DC 12/04/20 15:00 Olanzapine (ZyPREXA) 10 mg DAILY PO 11/22/20 09:00 11/24/20 22:00 DC 11/24/20 10:09 Olanzapine (ZyPREXA) 5 mg QHS PO 11/21/20 21:00 11/24/20 22:00 DC 11/24/20 20:15 Olanzapine (ZyPREXA) 5 mg BID PO 11/25/20 09:00 12/09/20 18:40 DC 12/09/20 10:42 Divalproex Sodium (Depakote Sprinkles) 125 mg 0900,1300,1700 PO 11/22/20 09:00 11/24/20 16:52 DC 11/24/20 13:05 Divalproex Sodium (Depakote Sprinkles) 250 mg BID PO 11/24/20 21:00 11/26/20 12:26 DC 11/26/20 10:01 Divalproex Sodium (Depakote Sprinkles) 125 mg NOON PO 11/25/20 12:00 11/26/20 12:23 DC 11/25/20 12:03 Divalproex Sodium (Depakote Sprinkles) 250 mg NOON PO 11/26/20 12:40 12/05/20 13:14 DC 12/03/20 12:00 Divalproex Sodium (Depakote Sprinkles) 375 mg HS PO 11/26/20 21:00 12/13/20 19:33 Divalproex Sodium (Depakote Sprinkles) 250 mg 0900 PO 11/27/20 09:00 12/13/20 08:16 Oxycodone HCl (Roxicodone) 5 mg PRN Q6HRS PRN PO BREAKTHROUGH MOD-SEV PAIN 11/26/20 15:30 12/13/20 12:28 Nicotine (Nicoderm Cq 7mg Patch) 1 patch PRN DAILY PRN TD SMOKING CESSATION 11/28/20 19:00 Buspirone HCl (Buspar) 10 mg BID PO 11/28/20 21:00 12/10/20 12:01 DC 12/10/20 11:25 Gabapentin (Neurontin) 400 mg 0900,1400 PO 11/30/20 09:00 12/13/20 12:27 Quetiapine Fumarate (SEROquel) 25 mg BID@1300,1700 PO 12/05/20 13:00 12/05/20 13:14 DC Divalproex Sodium (Depakote Sprinkles) 250 mg DAILY@1200 PO 12/06/20 12:00 12/13/20 12:28 Quetiapine Fumarate (SEROquel) 25 mg BID@1400,1700 PO 12/05/20 14:00 12/08/20 18:18 DC 12/08/20 17:51 Neomycin/ Polymyxin/Bacitr/ Hydrocort (Cortisporin Ophth) 2 laurence BID OU 12/08/20 21:00 12/13/20 19:31 Quetiapine Fumarate (SEROquel) 50 mg 1300,1700 PO 12/09/20 13:00 12/10/20 12:01 DC 12/09/20 16:33 Olanzapine (ZyPREXA) 5 mg DAILY PO 12/10/20 09:00 12/10/20 12:01 DC 12/09/20 19:51 Buspirone HCl (Buspar) 10 mg TID PO 12/10/20 14:00 12/13/20 19:33 Quetiapine Fumarate (SEROquel) 50 mg 0900,1300,1700 PO 12/10/20 13:00 12/13/20 18:34 DC 12/13/20 17:00 Duloxetine HCl (Cymbalta) 30 mg DAILY PO 12/11/20 09:00 12/13/20 21:01 DC 12/13/20 08:15 Duloxetine HCl (Cymbalta) 60 mg DAILY PO 12/14/20 09:00 Levofloxacin (Levaquin) 250 mg DAILY06 PO 12/12/20 16:30 12/16/20 21:00 12/13/20 05:33 Quetiapine Fumarate (SEROquel) 50 mg BIDWBKFT/JODY PO 12/14/20 08:00 Quetiapine Fumarate (SEROquel) 75 mg DAILYWSUP PO 12/14/20 17:00 I have reviewed the current psychotropics carefully including drug interactions. Risk benefit ratio favors no change other than as noted in my dictated progress note. Diagnosis: Problems: (1) Impulse control disorder, unspecified (2) Anxiety disorder, unspecified (3) Major depressive disorder with psychotic features MUKESH JAY MD Dec 13, 2020 21:27
[2020-12-14 06:02] VITALS: BP 103/65
[2020-12-14] MEDS: SUCRALFATE 1 GM TABLET. PO SCH ×2 (06:06→20:22)
[2020-12-14] MEDS: PANTOPRAZOLE 40 MG TABLET. PO SCH (06:06)
[2020-12-14] MEDS: CALCIUM CARBONATE 500 MG TABLET PO SCH ×2 (06:06→20:21)
[2020-12-14] MEDS: LACTOBACILLUS RHAMNOSUS GG 1 CAPSULE. PO SCH ×2 (06:06→20:22)
[2020-12-14] MEDS: levoFLOXacin 250 MG TABLET PO SCH (06:06)
[2020-12-14] MEDS: FERROUS SULFATE 325 MG TABLET. PO SCH ×2 (06:07→20:21)
[2020-12-14] MEDS: ASCORBIC ACID 500 MG TABLET PO SCH ×2 (06:07→20:22)
[2020-12-14] MEDS: busPIRone 10 MG TABLET. PO SCH ×3 (06:07→20:22)
[2020-12-14] MEDS: NEOMYCIN/BACI/POLY/HC OPHTH OINTMENT 3.5GM TUBE. OU SCH ×2 (06:07→20:23)
[2020-12-14] MEDS: DIVALPROEX 125 MG CAP.SPRINK PO SCH ×3 (06:07→20:22)
[2020-12-14] MEDS: POTASSIUM CHLORIDE 20 MEQ TABLET.ER. PO SCH ×2 (06:07→20:22)
[2020-12-14] MEDS: GABAPENTIN 400 MG CAPSULE. PO SCH ×3 (06:07→20:22)
[2020-12-14] MEDS: CLOPIDOGREL BISULFATE 75 MG TABLET PO SCH (06:07)
[2020-12-14] MEDS: NEO/POLYMYX/DEXAMETH OPHTH SUSPENSION 5ML BOTTLE. OU SCH (06:08)
[2020-12-14] MEDS: oxyCODONE ER 20 MG TAB.ER.12H PO SCH ×2 (06:09→20:25)
[2020-12-14] MEDS: QUEtiapine 50 MG TABLET. PO SCH ×3 (06:09→17:58)
[2020-12-14] MEDS: DULoxetine HCL 60 MG CAPSULE.DR PO SCH (12:10)
[2020-12-14] MEDS: oxyCODONE IR 5 MG TABLET PO PRN (12:26)
[2020-12-14 16:04] VITALS: BP 108/63
[2020-12-14] MEDS: TAMSULOSIN 0.4 MG CAP.ER.24H. PO SCH (20:22)
--- NOTE | 2020-12-14 21:07 | PDOC ---
Exam Note: Andrea Note: This note is a late entry for 12/12/2020 covers elements not covered in my initial note. Subjective: The patient was seen face to face in the evening of 12/12/2020 with Ashley RODRIGUES, discussed and reviewed the chart. The patient slept 8-1/4 hours previous night. She does have UTI, was started on Levaquin 250 mg a day for [address] Blair. Review of Systems: Positive for chronic pain to severe arthritis and contractures. Impaired ambulation in wheelchair. No CV, , pulmonary, eye system symptoms on review. Mental Status Exam: The patient is reasonably oriented. Speech is coherent. Abstraction is fair. Computation is impaired. Language function intact. Mood and affect remains somewhat anxious, labile. Laboratory Data: Reviewed. Impression: Major depressive disorder with psychotic features. Anxiety disorder unspecified. Impulse control disorder unspecified. UTI. Plan: No change from initial note. Treat the UTI. Valproic acid level is therapeutic. We will adjust further as clinically indicated. Assessment: Vital Signs/I&O: Vital Signs Date Time Temp Pulse Resp B/P (MAP) Pulse Ox O2 Delivery O2 Flow Rate FiO2 12/14/20 20:25 94 12/14/20 16:04 98.2 91 18 108/63 (78) 12/14/20 06:02 2.0 12/12/20 16:27 Room Air I & O 12/13/20 12/13/20 12/14/20 14:59 22:59 06:59 Intake Total 0 ml 700 ml Balance 0 ml 700 ml Current Medications: Meds: Current Medications Medications (Trade) Dose Ordered Sig/Jocelyn Route PRN Reason Start Time Stop Time Status Last Admin Dose Admin Acetaminophen (Tylenol) 650 mg PRN Q6HRS PRN PO MILD PAIN / TEMP > 100.3'F 11/16/20 17:30 11/17/20 18:17 DC 11/17/20 12:40 Multi-Ingredient Ointment (Analgesic [place]) 1 laurence PRN QID PRN TP MUSCLE PAIN 11/16/20 17:30 12/02/20 21:03 Al Hydroxide/Mg Hydroxide (Mylanta Plus Xs) 15 ml PRN AFTMEALHC PRN PO DYSPEPSIA 11/16/20 17:30 Magnesium Hydroxide (Milk Of Magnesia) 2,400 mg PRN QHS PRN PO 2ND CHOICE CONSTIPATION 11/16/20 17:30 Nicotine (Nicoderm Cq 7mg Patch) 1 patch DAILY TD 11/16/20 17:30 11/16/20 17:44 DC Nicotine (Nicoderm Cq 7mg Patch) 1 patch DAILY TD 11/17/20 09:00 11/27/20 21:49 DC 11/27/20 10:12 Acetaminophen (Tylenol) 650 mg PRN Q6HRS PRN PO MILD PAIN / TEMP > 100.3'F 11/16/20 18:00 11/18/20 16:23 Buspirone HCl (Buspar) 10 mg BIDWMEALS PO 11/17/20 08:00 11/17/20 18:09 DC 11/17/20 17:29 Calcium Carbonate/ Glycine (Oscal) 500 mg BID PO 11/16/20 21:00 12/14/20 20:21 Clopidogrel Bisulfate (Plavix) 75 mg DAILY PO 11/17/20 09:00 12/14/20 06:07 Docusate Sodium (Colace) 100 mg PRN DAILY PRN PO 1ST CHOICE CONSTIPATION 11/16/20 18:00 Ferrous Sulfate (Feosol) 325 mg BID PO 11/16/20 21:00 12/14/20 20:21 Gabapentin (Neurontin) 400 mg BID94 PO 11/17/20 09:00 11/29/20 17:46 DC 11/29/20 16:00 Lorazepam (Ativan) 0.5 mg PRN BID PRN PO ANXIETY / AGITATION 11/16/20 18:00 12/06/20 13:14 Neomycin/ Polymyxin/ Dexamethasone (Maxitrol) 1 drop DAILY OU 11/17/20 09:00 12/14/20 06:08 Nicotine (Nicoderm Cq 7mg Patch) 1 patch PRN DAILY PRN TD SMOKING CESSATION 11/16/20 19:00 11/27/20 21:49 DC Olanzapine (ZyPREXA) 10 mg BID PO 11/16/20 21:00 11/21/20 18:06 DC 11/21/20 10:36 Oxycodone HCl (OxyCONTIN) 20 mg BID PO 11/16/20 21:00 12/14/20 20:25 Pantoprazole Sodium (Protonix) 40 mg DAILYAC PO 11/17/20 07:30 12/14/20 06:06 Potassium Chloride (Klor-Con) 20 meq BID PO 11/16/20 21:00 12/14/20 20:22 Sucralfate (Carafate) 1 gm BID PO 11/16/20 21:00 12/14/20 20:22 Tamsulosin HCl (Flomax) 0.4 mg HS PO 11/16/20 21:00 12/14/20 20:22 Ascorbic Acid (Vitamin C) 500 mg BID PO 11/16/20 21:00 12/14/20 20:22 Fluoxetine HCl (PROzac) 40 mg DAILY PO 11/17/20 09:00 12/10/20 12:01 DC 12/10/20 11:26 Non-Formulary Medication (Gabapentin ) 600 mg TID PO 11/16/20 21:00 UNV Gabapentin (Neurontin) 800 mg HS PO 11/16/20 21:00 12/14/20 20:22 Lactobacillus Rhamnosus (Culturelle) 1 cap BID PO 11/16/20 21:00 12/14/20 20:22 Phenyleph/Shark Oil/Min Oil/Petrol (Preparation H) 1 laurence PRN BID PRN RC RECTAL PAIN 11/16/20 18:45 Artificial Tears (Artificial Tears) 1 drop PRN Q15MIN PRN OD DRY EYE 11/16/20 18:45 12/08/20 08:03 Buspirone HCl (Buspar) 10 mg 1700 PO 11/18/20 17:00 11/20/20 23:50 DC 11/20/20 17:00 Buspirone HCl (Buspar) 5 mg DAILY PO 11/18/20 09:00 11/20/20 23:50 DC 11/20/20 06:39 Buspirone HCl (Buspar) 5 mg BIDWMEALS PO 11/21/20 08:00 11/28/20 18:20 DC 11/28/20 17:00 Quetiapine Fumarate (SEROquel) 12.5 mg 0900,1300,1500 PO 11/19/20 09:00 12/04/20 17:51 DC 12/04/20 15:00 Olanzapine (ZyPREXA) 10 mg DAILY PO 11/22/20 09:00 11/24/20 22:00 DC 11/24/20 10:09 Olanzapine (ZyPREXA) 5 mg QHS PO 11/21/20 21:00 11/24/20 22:00 DC 11/24/20 20:15 Olanzapine (ZyPREXA) 5 mg BID PO 11/25/20 09:00 12/09/20 18:40 DC 12/09/20 10:42 Divalproex Sodium (Depakote Sprinkles) 125 mg 0900,1300,1700 PO 11/22/20 09:00 11/24/20 16:52 DC 11/24/20 13:05 Divalproex Sodium (Depakote Sprinkles) 250 mg BID PO 11/24/20 21:00 11/26/20 12:26 DC 11/26/20 10:01 Divalproex Sodium (Depakote Sprinkles) 125 mg NOON PO 11/25/20 12:00 11/26/20 12:23 DC 11/25/20 12:03 Divalproex Sodium (Depakote Sprinkles) 250 mg NOON PO 11/26/20 12:40 12/05/20 13:14 DC 12/03/20 12:00 Divalproex Sodium (Depakote Sprinkles) 375 mg HS PO 11/26/20 21:00 12/14/20 20:22 Divalproex Sodium (Depakote Sprinkles) 250 mg 0900 PO 11/27/20 09:00 12/14/20 06:07 Oxycodone HCl (Roxicodone) 5 mg PRN Q6HRS PRN PO BREAKTHROUGH MOD-SEV PAIN 11/26/20 15:30 12/14/20 12:26 Nicotine (Nicoderm Cq 7mg Patch) 1 patch PRN DAILY PRN TD SMOKING CESSATION 11/28/20 19:00 Buspirone HCl (Buspar) 10 mg BID PO 11/28/20 21:00 12/10/20 12:01 DC 12/10/20 11:25 Gabapentin (Neurontin) 400 mg 0900,1400 PO 11/30/20 09:00 12/14/20 12:11 Quetiapine Fumarate (SEROquel) 25 mg BID@1300,1700 PO 12/05/20 13:00 12/05/20 13:14 DC Divalproex Sodium (Depakote Sprinkles) 250 mg DAILY@1200 PO 12/06/20 12:00 12/14/20 12:10 Quetiapine Fumarate (SEROquel) 25 mg BID@1400,1700 PO 12/05/20 14:00 12/08/20 18:18 DC 12/08/20 17:51 Neomycin/ Polymyxin/Bacitr/ Hydrocort (Cortisporin Ophth) 2 laurence BID OU 12/08/20 21:00 12/14/20 20:23 Quetiapine Fumarate (SEROquel) 50 mg 1300,1700 PO 12/09/20 13:00 12/10/20 12:01 DC 12/09/20 16:33 Olanzapine (ZyPREXA) 5 mg DAILY PO 12/10/20 09:00 12/10/20 12:01 DC 12/09/20 19:51 Buspirone HCl (Buspar) 10 mg TID PO 12/10/20 14:00 12/14/20 20:22 Quetiapine Fumarate (SEROquel) 50 mg 0900,1300,1700 PO 12/10/20 13:00 12/13/20 18:34 DC 12/13/20 17:00 Duloxetine HCl (Cymbalta) 30 mg DAILY PO 12/11/20 09:00 12/13/20 21:01 DC 12/13/20 08:15 Duloxetine HCl (Cymbalta) 60 mg DAILY PO 12/14/20 09:00 12/14/20 12:10 Levofloxacin (Levaquin) 250 mg DAILY06 PO 12/12/20 16:30 12/16/20 21:00 12/14/20 06:06 Quetiapine Fumarate (SEROquel) 50 mg BIDWBKFT/JODY PO 12/14/20 08:00 12/14/20 12:10 Quetiapine Fumarate (SEROquel) 75 mg DAILYWSUP PO 12/14/20 17:00 12/14/20 17:58 Current Medications Medications (Trade) Dose Ordered Sig/Jocelyn Route PRN Reason Start Time Stop Time Status Last Admin Dose Admin Duloxetine HCl (Cymbalta) 60 mg DAILY PO 12/14/20 09:00 12/14/20 12:10 Quetiapine Fumarate (SEROquel) 50 mg BIDWBKFT/JODY PO 12/14/20 08:00 12/14/20 12:10 Quetiapine Fumarate (SEROquel) 75 mg DAILYWSUP PO 12/14/20 17:00 12/14/20 17:58 I have reviewed the current psychotropics carefully including drug interactions. Risk benefit ratio favors no change other than as noted in my dictated progress note. Diagnosis: Problems: (1) UTI (urinary tract infection) (2) Impulse control disorder, unspecified (3) Anxiety disorder, unspecified (4) Major depressive disorder with psychotic features MUKESH JAY MD Dec 14, 2020 21:07
--- NOTE | 2020-12-14 21:32 | PDOC ---
Exam Note: Andrea Note: This note is a late entry for 12/13/2020 covers elements not covered in my initial note. Subjective: The patient was seen face to face in the evening of 12/13/2020 with Ashley RODRIGUES, discussed and reviewed the chart. The patient slept 10 hours previous night. The patient got up at 10 a.m. and had COVID screen and lab studies. She has been intermittently yelling, less than before. Review of Systems: Positive for chronic pain to severe arthritis and contractures. Impaired ambulation in wheelchair. No CV, , pulmonary, eye system symptoms on review. Mental Status Exam: The patient is reasonably oriented. I met with her at length in her room. She was able to discuss the chronic pain she has and she was very appreciative of the recognition that I had expressed concern to her. Speech is coherent. Abstraction is fair. Computation is impaired. Language function intact. Mood and affect remains somewhat anxious, labile. Laboratory Data: Reviewed. Impression: Major depressive disorder with psychotic features. Anxiety disorder unspecified. Impulse control disorder unspecified. Plan: We will increase the 5 p.m. Seroquel from 50 mg to 75 mg. Continue the 50 mg morning and afternoon. Rest unchanged for now. Assessment: Vital Signs/I&O: Vital Signs Date Time Temp Pulse Resp B/P (MAP) Pulse Ox O2 Delivery O2 Flow Rate FiO2 12/14/20 20:25 94 12/14/20 16:04 98.2 91 18 108/63 (78) 12/14/20 06:02 2.0 12/12/20 16:27 Room Air I & O 12/13/20 12/13/20 12/14/20 14:59 22:59 06:59 Intake Total 0 ml 700 ml Balance 0 ml 700 ml Current Medications: Meds: Current Medications Medications (Trade) Dose Ordered Sig/Jocelyn Route PRN Reason Start Time Stop Time Status Last Admin Dose Admin Acetaminophen (Tylenol) 650 mg PRN Q6HRS PRN PO MILD PAIN / TEMP > 100.3'F 11/16/20 17:30 11/17/20 18:17 DC 11/17/20 12:40 Multi-Ingredient Ointment (Analgesic [place]) 1 laurence PRN QID PRN TP MUSCLE PAIN 11/16/20 17:30 12/02/20 21:03 Al Hydroxide/Mg Hydroxide (Mylanta Plus Xs) 15 ml PRN AFTMEALHC PRN PO DYSPEPSIA 11/16/20 17:30 Magnesium Hydroxide (Milk Of Magnesia) 2,400 mg PRN QHS PRN PO 2ND CHOICE CONSTIPATION 11/16/20 17:30 Nicotine (Nicoderm Cq 7mg Patch) 1 patch DAILY TD 11/16/20 17:30 11/16/20 17:44 DC Nicotine (Nicoderm Cq 7mg Patch) 1 patch DAILY TD 11/17/20 09:00 11/27/20 21:49 DC 11/27/20 10:12 Acetaminophen (Tylenol) 650 mg PRN Q6HRS PRN PO MILD PAIN / TEMP > 100.3'F 11/16/20 18:00 11/18/20 16:23 Buspirone HCl (Buspar) 10 mg BIDWMEALS PO 11/17/20 08:00 11/17/20 18:09 DC 11/17/20 17:29 Calcium Carbonate/ Glycine (Oscal) 500 mg BID PO 11/16/20 21:00 12/14/20 20:21 Clopidogrel Bisulfate (Plavix) 75 mg DAILY PO 11/17/20 09:00 12/14/20 06:07 Docusate Sodium (Colace) 100 mg PRN DAILY PRN PO 1ST CHOICE CONSTIPATION 11/16/20 18:00 Ferrous Sulfate (Feosol) 325 mg BID PO 11/16/20 21:00 12/14/20 20:21 Gabapentin (Neurontin) 400 mg BID94 PO 11/17/20 09:00 11/29/20 17:46 DC 11/29/20 16:00 Lorazepam (Ativan) 0.5 mg PRN BID PRN PO ANXIETY / AGITATION 11/16/20 18:00 12/06/20 13:14 Neomycin/ Polymyxin/ Dexamethasone (Maxitrol) 1 drop DAILY OU 11/17/20 09:00 12/14/20 06:08 Nicotine (Nicoderm Cq 7mg Patch) 1 patch PRN DAILY PRN TD SMOKING CESSATION 11/16/20 19:00 11/27/20 21:49 DC Olanzapine (ZyPREXA) 10 mg BID PO 11/16/20 21:00 11/21/20 18:06 DC 11/21/20 10:36 Oxycodone HCl (OxyCONTIN) 20 mg BID PO 11/16/20 21:00 12/14/20 20:25 Pantoprazole Sodium (Protonix) 40 mg DAILYAC PO 11/17/20 07:30 12/14/20 06:06 Potassium Chloride (Klor-Con) 20 meq BID PO 11/16/20 21:00 12/14/20 20:22 Sucralfate (Carafate) 1 gm BID PO 11/16/20 21:00 12/14/20 20:22 Tamsulosin HCl (Flomax) 0.4 mg HS PO 11/16/20 21:00 12/14/20 20:22 Ascorbic Acid (Vitamin C) 500 mg BID PO 11/16/20 21:00 12/14/20 20:22 Fluoxetine HCl (PROzac) 40 mg DAILY PO 11/17/20 09:00 12/10/20 12:01 DC 12/10/20 11:26 Non-Formulary Medication (Gabapentin ) 600 mg TID PO 11/16/20 21:00 UNV Gabapentin (Neurontin) 800 mg HS PO 11/16/20 21:00 12/14/20 20:22 Lactobacillus Rhamnosus (Culturelle) 1 cap BID PO 11/16/20 21:00 12/14/20 20:22 Phenyleph/Shark Oil/Min Oil/Petrol (Preparation H) 1 laurence PRN BID PRN RC RECTAL PAIN 11/16/20 18:45 Artificial Tears (Artificial Tears) 1 drop PRN Q15MIN PRN OD DRY EYE 11/16/20 18:45 12/08/20 08:03 Buspirone HCl (Buspar) 10 mg 1700 PO 11/18/20 17:00 11/20/20 23:50 DC 11/20/20 17:00 Buspirone HCl (Buspar) 5 mg DAILY PO 11/18/20 09:00 11/20/20 23:50 DC 11/20/20 06:39 Buspirone HCl (Buspar) 5 mg BIDWMEALS PO 11/21/20 08:00 11/28/20 18:20 DC 11/28/20 17:00 Quetiapine Fumarate (SEROquel) 12.5 mg 0900,1300,1500 PO 11/19/20 09:00 12/04/20 17:51 DC 12/04/20 15:00 Olanzapine (ZyPREXA) 10 mg DAILY PO 11/22/20 09:00 11/24/20 22:00 DC 11/24/20 10:09 Olanzapine (ZyPREXA) 5 mg QHS PO 11/21/20 21:00 11/24/20 22:00 DC 11/24/20 20:15 Olanzapine (ZyPREXA) 5 mg BID PO 11/25/20 09:00 12/09/20 18:40 DC 12/09/20 10:42 Divalproex Sodium (Depakote Sprinkles) 125 mg 0900,1300,1700 PO 11/22/20 09:00 11/24/20 16:52 DC 11/24/20 13:05 Divalproex Sodium (Depakote Sprinkles) 250 mg BID PO 11/24/20 21:00 11/26/20 12:26 DC 11/26/20 10:01 Divalproex Sodium (Depakote Sprinkles) 125 mg NOON PO 11/25/20 12:00 11/26/20 12:23 DC 11/25/20 12:03 Divalproex Sodium (Depakote Sprinkles) 250 mg NOON PO 11/26/20 12:40 12/05/20 13:14 DC 12/03/20 12:00 Divalproex Sodium (Depakote Sprinkles) 375 mg HS PO 11/26/20 21:00 12/14/20 20:22 Divalproex Sodium (Depakote Sprinkles) 250 mg 0900 PO 11/27/20 09:00 12/14/20 06:07 Oxycodone HCl (Roxicodone) 5 mg PRN Q6HRS PRN PO BREAKTHROUGH MOD-SEV PAIN 11/26/20 15:30 12/14/20 12:26 Nicotine (Nicoderm Cq 7mg Patch) 1 patch PRN DAILY PRN TD SMOKING CESSATION 11/28/20 19:00 Buspirone HCl (Buspar) 10 mg BID PO 11/28/20 21:00 12/10/20 12:01 DC 12/10/20 11:25 Gabapentin (Neurontin) 400 mg 0900,1400 PO 11/30/20 09:00 12/14/20 12:11 Quetiapine Fumarate (SEROquel) 25 mg BID@1300,1700 PO 12/05/20 13:00 12/05/20 13:14 DC Divalproex Sodium (Depakote Sprinkles) 250 mg DAILY@1200 PO 12/06/20 12:00 12/14/20 12:10 Quetiapine Fumarate (SEROquel) 25 mg BID@1400,1700 PO 12/05/20 14:00 12/08/20 18:18 DC 12/08/20 17:51 Neomycin/ Polymyxin/Bacitr/ Hydrocort (Cortisporin Ophth) 2 laurence BID OU 12/08/20 21:00 12/14/20 20:23 Quetiapine Fumarate (SEROquel) 50 mg 1300,1700 PO 12/09/20 13:00 12/10/20 12:01 DC 12/09/20 16:33 Olanzapine (ZyPREXA) 5 mg DAILY PO 12/10/20 09:00 12/10/20 12:01 DC 12/09/20 19:51 Buspirone HCl (Buspar) 10 mg TID PO 12/10/20 14:00 12/14/20 20:22 Quetiapine Fumarate (SEROquel) 50 mg 0900,1300,1700 PO 12/10/20 13:00 12/13/20 18:34 DC 12/13/20 17:00 Duloxetine HCl (Cymbalta) 30 mg DAILY PO 12/11/20 09:00 12/13/20 21:01 DC 12/13/20 08:15 Duloxetine HCl (Cymbalta) 60 mg DAILY PO 12/14/20 09:00 12/14/20 12:10 Levofloxacin (Levaquin) 250 mg DAILY06 PO 12/12/20 16:30 12/16/20 21:00 12/14/20 06:06 Quetiapine Fumarate (SEROquel) 50 mg BIDWBKFT/JODY PO 12/14/20 08:00 12/14/20 12:10 Quetiapine Fumarate (SEROquel) 75 mg DAILYWSUP PO 12/14/20 17:00 12/14/20 17:58 Current Medications Medications (Trade) Dose Ordered Sig/Jocelyn Route PRN Reason Start Time Stop Time Status Last Admin Dose Admin Duloxetine HCl (Cymbalta) 60 mg DAILY PO 12/14/20 09:00 12/14/20 12:10 Quetiapine Fumarate (SEROquel) 50 mg BIDWBKFT/JODY PO 12/14/20 08:00 12/14/20 12:10 Quetiapine Fumarate (SEROquel) 75 mg DAILYWSUP PO 12/14/20 17:00 12/14/20 17:58 I have reviewed the current psychotropics carefully including drug interactions. Risk benefit ratio favors no change other than as noted in my dictated progress note. Diagnosis: Problems: (1) Impulse control disorder, unspecified (2) Anxiety disorder, unspecified (3) Major depressive disorder with psychotic features (4) Major depressive disorder, recurrent episode MUKESH JAY MD Dec 14, 2020 21:32
--- NOTE | 2020-12-14 21:56 | PDOC ---
Exam Note: Andrea Note: Please also refer to the separate dictated note~for this date of service dictated separately.~Patient seen individually. Discussed the patient with Nursing staff reviewed the chart.~Reviewed interim history and current functioning. Reviewed vital signs,~Labs/ Radiology~and current medications noted below. Continue current treatment with the changes noted in the dictated addendum note Assessment: Vital Signs/I&O: Vital Signs Date Time Temp Pulse Resp B/P (MAP) Pulse Ox O2 Delivery O2 Flow Rate FiO2 12/14/20 20:25 94 12/14/20 16:04 98.2 91 18 108/63 (78) 12/14/20 06:02 2.0 12/12/20 16:27 Room Air I & O 12/13/20 12/13/20 12/14/20 15:00 23:00 07:00 Intake Total 0 ml 700 ml Balance 0 ml 700 ml Current Medications: Meds: Current Medications Medications (Trade) Dose Ordered Sig/Jocelyn Route PRN Reason Start Time Stop Time Status Last Admin Dose Admin Duloxetine HCl (Cymbalta) 60 mg DAILY PO 12/14/20 09:00 12/14/20 12:10 Quetiapine Fumarate (SEROquel) 50 mg BIDWBKFT/JODY PO 12/14/20 08:00 12/14/20 12:10 Quetiapine Fumarate (SEROquel) 75 mg DAILYWSUP PO 12/14/20 17:00 12/14/20 17:58 I have reviewed the current psychotropics carefully including drug interactions. Risk benefit ratio favors no change other than as noted in my dictated progress note. Diagnosis: Problems: (1) Impulse control disorder, unspecified (2) Anxiety disorder, unspecified (3) Major depressive disorder with psychotic features (4) Major depressive disorder, recurrent episode MUKESH JAY MD Dec 14, 2020 21:56
[2020-12-15] MEDS: levoFLOXacin 250 MG TABLET PO SCH (05:27)
[2020-12-15 06:04] VITALS: BP 113/62
[2020-12-15] MEDS: DIVALPROEX 125 MG CAP.SPRINK PO SCH ×3 (08:57→19:52)
[2020-12-15] MEDS: POTASSIUM CHLORIDE 20 MEQ TABLET.ER. PO SCH ×2 (08:57→19:52)
[2020-12-15] MEDS: LACTOBACILLUS RHAMNOSUS GG 1 CAPSULE. PO SCH ×2 (08:57→19:52)
[2020-12-15] MEDS: PANTOPRAZOLE 40 MG TABLET. PO SCH (08:57)
[2020-12-15] MEDS: ASCORBIC ACID 500 MG TABLET PO SCH ×2 (08:58→19:52)
[2020-12-15] MEDS: SUCRALFATE 1 GM TABLET. PO SCH ×2 (08:58→19:52)
[2020-12-15] MEDS: CLOPIDOGREL BISULFATE 75 MG TABLET PO SCH (08:58)
[2020-12-15] MEDS: POLYVINYL ALCOHOL 1.4% OPHTH SOLUTION 15ML BOTTLE. OD PRN (08:58)
[2020-12-15] MEDS: DULoxetine HCL 60 MG CAPSULE.DR PO SCH (08:58)
[2020-12-15] MEDS: CALCIUM CARBONATE 500 MG TABLET PO SCH ×2 (08:58→19:52)
[2020-12-15] MEDS: oxyCODONE ER 20 MG TAB.ER.12H PO SCH ×2 (08:58→19:53)
[2020-12-15] MEDS: FERROUS SULFATE 325 MG TABLET. PO SCH ×2 (08:58→19:52)
[2020-12-15] MEDS: GABAPENTIN 400 MG CAPSULE. PO SCH ×3 (08:58→19:52)
[2020-12-15] MEDS: QUEtiapine 50 MG TABLET. PO SCH ×3 (08:58→17:00)
[2020-12-15] MEDS: NEOMYCIN/BACI/POLY/HC OPHTH OINTMENT 3.5GM TUBE. OU SCH ×2 (08:58→19:51)
[2020-12-15] MEDS: busPIRone 10 MG TABLET. PO SCH ×3 (08:58→19:52)
[2020-12-15] MEDS: NEO/POLYMYX/DEXAMETH OPHTH SUSPENSION 5ML BOTTLE. OU SCH (09:00)
[2020-12-15] MEDS: oxyCODONE IR 5 MG TABLET PO PRN (13:56)
[2020-12-15 16:03] VITALS: BP 111/68
[2020-12-15] MEDS: TAMSULOSIN 0.4 MG CAP.ER.24H. PO SCH (19:52)
--- NOTE | 2020-12-15 21:03 | PDOC ---
Exam Note: Andrea Note: Please also refer to the separate dictated note~for this date of service dictated separately.~Patient seen individually. Discussed the patient with Nursing staff reviewed the chart.~Reviewed interim history and current functioning. Reviewed vital signs,~Labs/ Radiology~and current medications noted below. Continue current treatment with the changes noted in the dictated addendum note Assessment: Vital Signs/I&O: Vital Signs Date Time Temp Pulse Resp B/P (MAP) Pulse Ox O2 Delivery O2 Flow Rate FiO2 12/15/20 19:53 95 12/15/20 16:03 97.8 77 20 111/68 (82) 2.0 12/12/20 16:27 Room Air I & O 12/14/20 12/14/20 12/15/20 15:00 23:00 07:00 Intake Total 360 ml 580 ml Balance 360 ml 580 ml Current Medications: Meds: Current Medications Medications (Trade) Dose Ordered Sig/Jocelyn Route PRN Reason Start Time Stop Time Status Last Admin Dose Admin Acetaminophen (Tylenol) 650 mg PRN Q6HRS PRN PO MILD PAIN / TEMP > 100.3'F 11/16/20 17:30 11/17/20 18:17 DC 11/17/20 12:40 Multi-Ingredient Ointment (Analgesic [place]) 1 laurence PRN QID PRN TP MUSCLE PAIN 11/16/20 17:30 12/02/20 21:03 Al Hydroxide/Mg Hydroxide (Mylanta Plus Xs) 15 ml PRN AFTMEALHC PRN PO DYSPEPSIA 11/16/20 17:30 Magnesium Hydroxide (Milk Of Magnesia) 2,400 mg PRN QHS PRN PO 2ND CHOICE CONSTIPATION 11/16/20 17:30 Nicotine (Nicoderm Cq 7mg Patch) 1 patch DAILY TD 11/16/20 17:30 11/16/20 17:44 DC Nicotine (Nicoderm Cq 7mg Patch) 1 patch DAILY TD 11/17/20 09:00 11/27/20 21:49 DC 11/27/20 10:12 Acetaminophen (Tylenol) 650 mg PRN Q6HRS PRN PO MILD PAIN / TEMP > 100.3'F 11/16/20 18:00 11/18/20 16:23 Buspirone HCl (Buspar) 10 mg BIDWMEALS PO 11/17/20 08:00 11/17/20 18:09 DC 11/17/20 17:29 Calcium Carbonate/ Glycine (Oscal) 500 mg BID PO 11/16/20 21:00 12/15/20 19:52 Clopidogrel Bisulfate (Plavix) 75 mg DAILY PO 11/17/20 09:00 12/15/20 08:58 Docusate Sodium (Colace) 100 mg PRN DAILY PRN PO 1ST CHOICE CONSTIPATION 11/16/20 18:00 Ferrous Sulfate (Feosol) 325 mg BID PO 11/16/20 21:00 12/15/20 19:52 Gabapentin (Neurontin) 400 mg BID94 PO 11/17/20 09:00 11/29/20 17:46 DC 11/29/20 16:00 Lorazepam (Ativan) 0.5 mg PRN BID PRN PO ANXIETY / AGITATION 11/16/20 18:00 12/06/20 13:14 Neomycin/ Polymyxin/ Dexamethasone (Maxitrol) 1 drop DAILY OU 11/17/20 09:00 12/15/20 09:00 Nicotine (Nicoderm Cq 7mg Patch) 1 patch PRN DAILY PRN TD SMOKING CESSATION 11/16/20 19:00 11/27/20 21:49 DC Olanzapine (ZyPREXA) 10 mg BID PO 11/16/20 21:00 11/21/20 18:06 DC 11/21/20 10:36 Oxycodone HCl (OxyCONTIN) 20 mg BID PO 11/16/20 21:00 12/15/20 19:53 Pantoprazole Sodium (Protonix) 40 mg DAILYAC PO 11/17/20 07:30 12/15/20 08:57 Potassium Chloride (Klor-Con) 20 meq BID PO 11/16/20 21:00 12/15/20 19:52 Sucralfate (Carafate) 1 gm BID PO 11/16/20 21:00 12/15/20 19:52 Tamsulosin HCl (Flomax) 0.4 mg HS PO 11/16/20 21:00 12/15/20 19:52 Ascorbic Acid (Vitamin C) 500 mg BID PO 11/16/20 21:00 12/15/20 19:52 Fluoxetine HCl (PROzac) 40 mg DAILY PO 11/17/20 09:00 12/10/20 12:01 DC 12/10/20 11:26 Non-Formulary Medication (Gabapentin ) 600 mg TID PO 11/16/20 21:00 UNV Gabapentin (Neurontin) 800 mg HS PO 11/16/20 21:00 12/15/20 19:52 Lactobacillus Rhamnosus (Culturelle) 1 cap BID PO 11/16/20 21:00 12/15/20 19:52 Phenyleph/Shark Oil/Min Oil/Petrol (Preparation H) 1 laurence PRN BID PRN RC RECTAL PAIN 11/16/20 18:45 Artificial Tears (Artificial Tears) 1 drop PRN Q15MIN PRN OD DRY EYE 11/16/20 18:45 12/15/20 08:58 Buspirone HCl (Buspar) 10 mg 1700 PO 11/18/20 17:00 11/20/20 23:50 DC 11/20/20 17:00 Buspirone HCl (Buspar) 5 mg DAILY PO 11/18/20 09:00 11/20/20 23:50 DC 11/20/20 06:39 Buspirone HCl (Buspar) 5 mg BIDWMEALS PO 11/21/20 08:00 11/28/20 18:20 DC 11/28/20 17:00 Quetiapine Fumarate (SEROquel) 12.5 mg 0900,1300,1500 PO 11/19/20 09:00 12/04/20 17:51 DC 12/04/20 15:00 Olanzapine (ZyPREXA) 10 mg DAILY PO 11/22/20 09:00 11/24/20 22:00 DC 11/24/20 10:09 Olanzapine (ZyPREXA) 5 mg QHS PO 11/21/20 21:00 11/24/20 22:00 DC 11/24/20 20:15 Olanzapine (ZyPREXA) 5 mg BID PO 11/25/20 09:00 12/09/20 18:40 DC 12/09/20 10:42 Divalproex Sodium (Depakote Sprinkles) 125 mg 0900,1300,1700 PO 11/22/20 09:00 11/24/20 16:52 DC 11/24/20 13:05 Divalproex Sodium (Depakote Sprinkles) 250 mg BID PO 11/24/20 21:00 11/26/20 12:26 DC 11/26/20 10:01 Divalproex Sodium (Depakote Sprinkles) 125 mg NOON PO 11/25/20 12:00 11/26/20 12:23 DC 11/25/20 12:03 Divalproex Sodium (Depakote Sprinkles) 250 mg NOON PO 11/26/20 12:40 12/05/20 13:14 DC 12/03/20 12:00 Divalproex Sodium (Depakote Sprinkles) 375 mg HS PO 11/26/20 21:00 12/15/20 19:52 Divalproex Sodium (Depakote Sprinkles) 250 mg 0900 PO 11/27/20 09:00 12/15/20 08:57 Oxycodone HCl (Roxicodone) 5 mg PRN Q6HRS PRN PO BREAKTHROUGH MOD-SEV PAIN 11/26/20 15:30 12/15/20 13:56 Nicotine (Nicoderm Cq 7mg Patch) 1 patch PRN DAILY PRN TD SMOKING CESSATION 11/28/20 19:00 Buspirone HCl (Buspar) 10 mg BID PO 11/28/20 21:00 12/10/20 12:01 DC 12/10/20 11:25 Gabapentin (Neurontin) 400 mg 0900,1400 PO 11/30/20 09:00 12/15/20 13:17 Quetiapine Fumarate (SEROquel) 25 mg BID@1300,1700 PO 12/05/20 13:00 12/05/20 13:14 DC Divalproex Sodium (Depakote Sprinkles) 250 mg DAILY@1200 PO 12/06/20 12:00 12/15/20 13:17 Quetiapine Fumarate (SEROquel) 25 mg BID@1400,1700 PO 12/05/20 14:00 12/08/20 18:18 DC 12/08/20 17:51 Neomycin/ Polymyxin/Bacitr/ Hydrocort (Cortisporin Ophth) 2 laurence BID OU 12/08/20 21:00 12/15/20 19:51 Quetiapine Fumarate (SEROquel) 50 mg 1300,1700 PO 12/09/20 13:00 12/10/20 12:01 DC 12/09/20 16:33 Olanzapine (ZyPREXA) 5 mg DAILY PO 12/10/20 09:00 12/10/20 12:01 DC 12/09/20 19:51 Buspirone HCl (Buspar) 10 mg TID PO 12/10/20 14:00 12/15/20 19:52 Quetiapine Fumarate (SEROquel) 50 mg 0900,1300,1700 PO 12/10/20 13:00 12/13/20 18:34 DC 12/13/20 17:00 Duloxetine HCl (Cymbalta) 30 mg DAILY PO 12/11/20 09:00 12/13/20 21:01 DC 12/13/20 08:15 Duloxetine HCl (Cymbalta) 60 mg DAILY PO 12/14/20 09:00 12/15/20 08:58 Levofloxacin (Levaquin) 250 mg DAILY06 PO 12/12/20 16:30 12/16/20 21:00 12/15/20 05:27 Quetiapine Fumarate (SEROquel) 50 mg BIDWBKFT/JODY PO 12/14/20 08:00 12/15/20 13:17 Quetiapine Fumarate (SEROquel) 75 mg DAILYWSUP PO 12/14/20 17:00 12/15/20 17:00 I have reviewed the current psychotropics carefully including drug interactions. Risk benefit ratio favors no change other than as noted in my dictated progress note. Diagnosis: Problems: (1) Impulse control disorder, unspecified (2) Anxiety disorder, unspecified (3) Major depressive disorder with psychotic features (4) Major depressive disorder, recurrent episode MUKESH JAY MD Dec 15, 2020 21:03
[2020-12-16] MEDS: levoFLOXacin 250 MG TABLET PO SCH (05:45)
[2020-12-16 06:08] VITALS: BP 104/63
[2020-12-16] MEDS: POTASSIUM CHLORIDE 20 MEQ TABLET.ER. PO SCH (09:20)
[2020-12-16] MEDS: DULoxetine HCL 60 MG CAPSULE.DR PO SCH (09:20)
[2020-12-16] MEDS: LACTOBACILLUS RHAMNOSUS GG 1 CAPSULE. PO SCH (09:20)
[2020-12-16] MEDS: ASCORBIC ACID 500 MG TABLET PO SCH (09:20)
[2020-12-16] MEDS: DIVALPROEX 125 MG CAP.SPRINK PO SCH ×2 (09:20→12:12)
[2020-12-16] MEDS: busPIRone 10 MG TABLET. PO SCH ×2 (09:21→15:06)
[2020-12-16] MEDS: FERROUS SULFATE 325 MG TABLET. PO SCH (09:21)
[2020-12-16] MEDS: CLOPIDOGREL BISULFATE 75 MG TABLET PO SCH (09:21)
[2020-12-16] MEDS: CALCIUM CARBONATE 500 MG TABLET PO SCH (09:21)
[2020-12-16] MEDS: PANTOPRAZOLE 40 MG TABLET. PO SCH (09:21)
[2020-12-16] MEDS: QUEtiapine 50 MG TABLET. PO SCH ×2 (09:21→12:12)
[2020-12-16] MEDS: GABAPENTIN 400 MG CAPSULE. PO SCH ×2 (09:22→15:06)
[2020-12-16] MEDS: SUCRALFATE 1 GM TABLET. PO SCH (09:22)
[2020-12-16] MEDS: NEOMYCIN/BACI/POLY/HC OPHTH OINTMENT 3.5GM TUBE. OU SCH (09:25)
[2020-12-16] MEDS: POLYVINYL ALCOHOL 1.4% OPHTH SOLUTION 15ML BOTTLE. OD PRN (09:25)
[2020-12-16] MEDS: oxyCODONE ER 20 MG TAB.ER.12H PO SCH (09:26)
[2020-12-16] MEDS: NEO/POLYMYX/DEXAMETH OPHTH SUSPENSION 5ML BOTTLE. OU SCH (09:29)
--- NOTE | 2020-12-16 10:00 | PDOC ---
Exam Note: Andrea Note: This note is a late entry for 12/14/2020 covers elements not covered in my initial note. Subjective: The patient was seen face to face in the evening of 12/14/2020 with Nalini RODRIGUES, discussed and reviewed the chart. The patient slept 8-1/2 hours previous night. Overall she is doing a little better, less anxious, less labile in her mood. Review of Systems: Positive for chronic pain to severe arthritis and contractures. Impaired ambulation in wheelchair. No CV, , pulmonary, eye system symptoms on review. Mental Status Exam: The patient is reasonably oriented. During the visit, she was less anxious, labile. Speech is coherent. Abstraction is fair. Computation is impaired. Language function intact. Mood and affect remains somewhat anxious, labile. No suicidal or homicidal ideation. Laboratory Data: Reviewed. Impression: Major depressive disorder with psychotic features. Anxiety disorder unspecified. Impulse control disorder unspecified. Plan: No change from initial note. Assessment: Vital Signs/I&O: Vital Signs Date Time Temp Pulse Resp B/P (MAP) Pulse Ox O2 Delivery O2 Flow Rate FiO2 12/16/20 09:26 16 95 Nasal Cannula 2.0 12/16/20 06:08 97.2 76 104/63 (77) I & O 12/15/20 12/15/20 12/16/20 15:00 23:00 07:00 Intake Total 0 ml 220 ml Balance 0 ml 220 ml Current Medications: Meds: Current Medications Medications (Trade) Dose Ordered Sig/Jocelyn Route PRN Reason Start Time Stop Time Status Last Admin Dose Admin Acetaminophen (Tylenol) 650 mg PRN Q6HRS PRN PO MILD PAIN / TEMP > 100.3'F 11/16/20 17:30 11/17/20 18:17 DC 11/17/20 12:40 Multi-Ingredient Ointment (Analgesic [place]) 1 laurence PRN QID PRN TP MUSCLE PAIN 11/16/20 17:30 12/02/20 21:03 Al Hydroxide/Mg Hydroxide (Mylanta Plus Xs) 15 ml PRN AFTMEALHC PRN PO DYSPEPSIA 11/16/20 17:30 Magnesium Hydroxide (Milk Of Magnesia) 2,400 mg PRN QHS PRN PO 2ND CHOICE CONSTIPATION 11/16/20 17:30 Nicotine (Nicoderm Cq 7mg Patch) 1 patch DAILY TD 11/16/20 17:30 11/16/20 17:44 DC Nicotine (Nicoderm Cq 7mg Patch) 1 patch DAILY TD 11/17/20 09:00 11/27/20 21:49 DC 11/27/20 10:12 Acetaminophen (Tylenol) 650 mg PRN Q6HRS PRN PO MILD PAIN / TEMP > 100.3'F 11/16/20 18:00 11/18/20 16:23 Buspirone HCl (Buspar) 10 mg BIDWMEALS PO 11/17/20 08:00 11/17/20 18:09 DC 11/17/20 17:29 Calcium Carbonate/ Glycine (Oscal) 500 mg BID PO 11/16/20 21:00 12/16/20 09:21 Clopidogrel Bisulfate (Plavix) 75 mg DAILY PO 11/17/20 09:00 12/16/20 09:21 Docusate Sodium (Colace) 100 mg PRN DAILY PRN PO 1ST CHOICE CONSTIPATION 11/16/20 18:00 Ferrous Sulfate (Feosol) 325 mg BID PO 11/16/20 21:00 12/16/20 09:21 Gabapentin (Neurontin) 400 mg BID94 PO 11/17/20 09:00 11/29/20 17:46 DC 11/29/20 16:00 Lorazepam (Ativan) 0.5 mg PRN BID PRN PO ANXIETY / AGITATION 11/16/20 18:00 12/06/20 13:14 Neomycin/ Polymyxin/ Dexamethasone (Maxitrol) 1 drop DAILY OU 11/17/20 09:00 12/16/20 09:29 Nicotine (Nicoderm Cq 7mg Patch) 1 patch PRN DAILY PRN TD SMOKING CESSATION 11/16/20 19:00 11/27/20 21:49 DC Olanzapine (ZyPREXA) 10 mg BID PO 11/16/20 21:00 11/21/20 18:06 DC 11/21/20 10:36 Oxycodone HCl (OxyCONTIN) 20 mg BID PO 11/16/20 21:00 12/16/20 09:26 Pantoprazole Sodium (Protonix) 40 mg DAILYAC PO 11/17/20 07:30 12/16/20 09:21 Potassium Chloride (Klor-Con) 20 meq BID PO 11/16/20 21:00 12/16/20 09:20 Sucralfate (Carafate) 1 gm BID PO 11/16/20 21:00 12/16/20 09:22 Tamsulosin HCl (Flomax) 0.4 mg HS PO 11/16/20 21:00 12/15/20 19:52 Ascorbic Acid (Vitamin C) 500 mg BID PO 11/16/20 21:00 12/16/20 09:20 Fluoxetine HCl (PROzac) 40 mg DAILY PO 11/17/20 09:00 12/10/20 12:01 DC 12/10/20 11:26 Non-Formulary Medication (Gabapentin ) 600 mg TID PO 11/16/20 21:00 UNV Gabapentin (Neurontin) 800 mg HS PO 11/16/20 21:00 12/15/20 19:52 Lactobacillus Rhamnosus (Culturelle) 1 cap BID PO 11/16/20 21:00 12/16/20 09:20 Phenyleph/Shark Oil/Min Oil/Petrol (Preparation H) 1 laurence PRN BID PRN RC RECTAL PAIN 11/16/20 18:45 Artificial Tears (Artificial Tears) 1 drop PRN Q15MIN PRN OD DRY EYE 11/16/20 18:45 12/16/20 09:25 Buspirone HCl (Buspar) 10 mg 1700 PO 11/18/20 17:00 11/20/20 23:50 DC 11/20/20 17:00 Buspirone HCl (Buspar) 5 mg DAILY PO 11/18/20 09:00 11/20/20 23:50 DC 11/20/20 06:39 Buspirone HCl (Buspar) 5 mg BIDWMEALS PO 11/21/20 08:00 11/28/20 18:20 DC 11/28/20 17:00 Quetiapine Fumarate (SEROquel) 12.5 mg 0900,1300,1500 PO 11/19/20 09:00 12/04/20 17:51 DC 12/04/20 15:00 Olanzapine (ZyPREXA) 10 mg DAILY PO 11/22/20 09:00 11/24/20 22:00 DC 11/24/20 10:09 Olanzapine (ZyPREXA) 5 mg QHS PO 11/21/20 21:00 11/24/20 22:00 DC 11/24/20 20:15 Olanzapine (ZyPREXA) 5 mg BID PO 11/25/20 09:00 12/09/20 18:40 DC 12/09/20 10:42 Divalproex Sodium (Depakote Sprinkles) 125 mg 0900,1300,1700 PO 11/22/20 09:00 11/24/20 16:52 DC 11/24/20 13:05 Divalproex Sodium (Depakote Sprinkles) 250 mg BID PO 11/24/20 21:00 11/26/20 12:26 DC 11/26/20 10:01 Divalproex Sodium (Depakote Sprinkles) 125 mg NOON PO 11/25/20 12:00 11/26/20 12:23 DC 11/25/20 12:03 Divalproex Sodium (Depakote Sprinkles) 250 mg NOON PO 11/26/20 12:40 12/05/20 13:14 DC 12/03/20 12:00 Divalproex Sodium (Depakote Sprinkles) 375 mg HS PO 11/26/20 21:00 12/15/20 19:52 Divalproex Sodium (Depakote Sprinkles) 250 mg 0900 PO 11/27/20 09:00 12/16/20 09:20 Oxycodone HCl (Roxicodone) 5 mg PRN Q6HRS PRN PO BREAKTHROUGH MOD-SEV PAIN 11/26/20 15:30 12/15/20 13:56 Nicotine (Nicoderm Cq 7mg Patch) 1 patch PRN DAILY PRN TD SMOKING CESSATION 11/28/20 19:00 Buspirone HCl (Buspar) 10 mg BID PO 11/28/20 21:00 12/10/20 12:01 DC 12/10/20 11:25 Gabapentin (Neurontin) 400 mg 0900,1400 PO 11/30/20 09:00 12/16/20 09:22 Quetiapine Fumarate (SEROquel) 25 mg BID@1300,1700 PO 12/05/20 13:00 12/05/20 13:14 DC Divalproex Sodium (Depakote Sprinkles) 250 mg DAILY@1200 PO 12/06/20 12:00 12/15/20 13:17 Quetiapine Fumarate (SEROquel) 25 mg BID@1400,1700 PO 12/05/20 14:00 12/08/20 18:18 DC 12/08/20 17:51 Neomycin/ Polymyxin/Bacitr/ Hydrocort (Cortisporin Ophth) 2 laurence BID OU 12/08/20 21:00 12/16/20 09:25 Quetiapine Fumarate (SEROquel) 50 mg 1300,1700 PO 12/09/20 13:00 12/10/20 12:01 DC 12/09/20 16:33 Olanzapine (ZyPREXA) 5 mg DAILY PO 12/10/20 09:00 12/10/20 12:01 DC 12/09/20 19:51 Buspirone HCl (Buspar) 10 mg TID PO 12/10/20 14:00 12/16/20 09:21 Quetiapine Fumarate (SEROquel) 50 mg 0900,1300,1700 PO 12/10/20 13:00 12/13/20 18:34 DC 12/13/20 17:00 Duloxetine HCl (Cymbalta) 30 mg DAILY PO 12/11/20 09:00 12/13/20 21:01 DC 12/13/20 08:15 Duloxetine HCl (Cymbalta) 60 mg DAILY PO 12/14/20 09:00 12/16/20 09:20 Levofloxacin (Levaquin) 250 mg DAILY06 PO 12/12/20 16:30 12/16/20 21:00 12/16/20 05:45 Quetiapine Fumarate (SEROquel) 50 mg BIDWBKFT/JODY PO 12/14/20 08:00 12/16/20 09:21 Quetiapine Fumarate (SEROquel) 75 mg DAILYWSUP PO 12/14/20 17:00 12/15/20 17:00 I have reviewed the current psychotropics carefully including drug interactions. Risk benefit ratio favors no change other than as noted in my dictated progress note. Diagnosis: Problems: (1) Impulse control disorder, unspecified (2) Anxiety disorder, unspecified (3) Major depressive disorder with psychotic features MUKESH JAY MD Dec 16, 2020 10:00
--- NOTE | 2020-12-16 10:26 | PDOC ---
Exam Note: Andrea Note: This note is a late entry for 12/15/2020 covers elements not covered in my initial note. Subjective: The patient was seen face to face in the evening of 12/15/2020 with Sharla RODRIGUES, discussed and reviewed the chart. The patient slept 9-1/2 hours previous night. She has less yelling, less anxious. She remains on Levaquin for UTI. Review of Systems: Positive for chronic pain to severe arthritis and contractures. Impaired ambulation in wheelchair. No CV, , pulmonary, eye system symptoms on review. Mental Status Exam: The patient is reasonably oriented. Speech is coherent. Abstraction is fair. Computation is impaired. Language function intact. Mood and affect remains anxious, labile. No suicidal or homicidal ideation. Laboratory Data: Reviewed. Impression: Major depressive disorder with psychotic features. Anxiety disorder unspecified. Impulse control disorder unspecified. Plan: No change from initial note. Assessment: Vital Signs/I&O: Vital Signs Date Time Temp Pulse Resp B/P (MAP) Pulse Ox O2 Delivery O2 Flow Rate FiO2 12/16/20 09:26 16 95 Nasal Cannula 2.0 12/16/20 06:08 97.2 76 104/63 (77) I & O 12/15/20 12/15/20 12/16/20 15:00 23:00 07:00 Intake Total 0 ml 220 ml Balance 0 ml 220 ml Current Medications: Meds: Current Medications Medications (Trade) Dose Ordered Sig/Jocelyn Route PRN Reason Start Time Stop Time Status Last Admin Dose Admin Acetaminophen (Tylenol) 650 mg PRN Q6HRS PRN PO MILD PAIN / TEMP > 100.3'F 11/16/20 17:30 11/17/20 18:17 DC 11/17/20 12:40 Multi-Ingredient Ointment (Analgesic [place]) 1 laurence PRN QID PRN TP MUSCLE PAIN 11/16/20 17:30 12/02/20 21:03 Al Hydroxide/Mg Hydroxide (Mylanta Plus Xs) 15 ml PRN AFTMEALHC PRN PO DYSPEPSIA 11/16/20 17:30 Magnesium Hydroxide (Milk Of Magnesia) 2,400 mg PRN QHS PRN PO 2ND CHOICE CONSTIPATION 11/16/20 17:30 Nicotine (Nicoderm Cq 7mg Patch) 1 patch DAILY TD 11/16/20 17:30 11/16/20 17:44 DC Nicotine (Nicoderm Cq 7mg Patch) 1 patch DAILY TD 11/17/20 09:00 11/27/20 21:49 DC 11/27/20 10:12 Acetaminophen (Tylenol) 650 mg PRN Q6HRS PRN PO MILD PAIN / TEMP > 100.3'F 11/16/20 18:00 11/18/20 16:23 Buspirone HCl (Buspar) 10 mg BIDWMEALS PO 11/17/20 08:00 11/17/20 18:09 DC 11/17/20 17:29 Calcium Carbonate/ Glycine (Oscal) 500 mg BID PO 11/16/20 21:00 12/16/20 09:21 Clopidogrel Bisulfate (Plavix) 75 mg DAILY PO 11/17/20 09:00 12/16/20 09:21 Docusate Sodium (Colace) 100 mg PRN DAILY PRN PO 1ST CHOICE CONSTIPATION 11/16/20 18:00 Ferrous Sulfate (Feosol) 325 mg BID PO 11/16/20 21:00 12/16/20 09:21 Gabapentin (Neurontin) 400 mg BID94 PO 11/17/20 09:00 11/29/20 17:46 DC 11/29/20 16:00 Lorazepam (Ativan) 0.5 mg PRN BID PRN PO ANXIETY / AGITATION 11/16/20 18:00 12/06/20 13:14 Neomycin/ Polymyxin/ Dexamethasone (Maxitrol) 1 drop DAILY OU 11/17/20 09:00 12/16/20 09:29 Nicotine (Nicoderm Cq 7mg Patch) 1 patch PRN DAILY PRN TD SMOKING CESSATION 11/16/20 19:00 11/27/20 21:49 DC Olanzapine (ZyPREXA) 10 mg BID PO 11/16/20 21:00 11/21/20 18:06 DC 11/21/20 10:36 Oxycodone HCl (OxyCONTIN) 20 mg BID PO 11/16/20 21:00 12/16/20 09:26 Pantoprazole Sodium (Protonix) 40 mg DAILYAC PO 11/17/20 07:30 12/16/20 09:21 Potassium Chloride (Klor-Con) 20 meq BID PO 11/16/20 21:00 12/16/20 09:20 Sucralfate (Carafate) 1 gm BID PO 11/16/20 21:00 12/16/20 09:22 Tamsulosin HCl (Flomax) 0.4 mg HS PO 11/16/20 21:00 12/15/20 19:52 Ascorbic Acid (Vitamin C) 500 mg BID PO 11/16/20 21:00 12/16/20 09:20 Fluoxetine HCl (PROzac) 40 mg DAILY PO 11/17/20 09:00 12/10/20 12:01 DC 12/10/20 11:26 Non-Formulary Medication (Gabapentin ) 600 mg TID PO 11/16/20 21:00 UNV Gabapentin (Neurontin) 800 mg HS PO 11/16/20 21:00 12/15/20 19:52 Lactobacillus Rhamnosus (Culturelle) 1 cap BID PO 11/16/20 21:00 12/16/20 09:20 Phenyleph/Shark Oil/Min Oil/Petrol (Preparation H) 1 laurence PRN BID PRN RC RECTAL PAIN 11/16/20 18:45 Artificial Tears (Artificial Tears) 1 drop PRN Q15MIN PRN OD DRY EYE 11/16/20 18:45 12/16/20 09:25 Buspirone HCl (Buspar) 10 mg 1700 PO 11/18/20 17:00 11/20/20 23:50 DC 11/20/20 17:00 Buspirone HCl (Buspar) 5 mg DAILY PO 11/18/20 09:00 11/20/20 23:50 DC 11/20/20 06:39 Buspirone HCl (Buspar) 5 mg BIDWMEALS PO 11/21/20 08:00 11/28/20 18:20 DC 11/28/20 17:00 Quetiapine Fumarate (SEROquel) 12.5 mg 0900,1300,1500 PO 11/19/20 09:00 12/04/20 17:51 DC 12/04/20 15:00 Olanzapine (ZyPREXA) 10 mg DAILY PO 11/22/20 09:00 11/24/20 22:00 DC 11/24/20 10:09 Olanzapine (ZyPREXA) 5 mg QHS PO 11/21/20 21:00 11/24/20 22:00 DC 11/24/20 20:15 Olanzapine (ZyPREXA) 5 mg BID PO 11/25/20 09:00 12/09/20 18:40 DC 12/09/20 10:42 Divalproex Sodium (Depakote Sprinkles) 125 mg 0900,1300,1700 PO 11/22/20 09:00 11/24/20 16:52 DC 11/24/20 13:05 Divalproex Sodium (Depakote Sprinkles) 250 mg BID PO 11/24/20 21:00 11/26/20 12:26 DC 11/26/20 10:01 Divalproex Sodium (Depakote Sprinkles) 125 mg NOON PO 11/25/20 12:00 11/26/20 12:23 DC 11/25/20 12:03 Divalproex Sodium (Depakote Sprinkles) 250 mg NOON PO 11/26/20 12:40 12/05/20 13:14 DC 12/03/20 12:00 Divalproex Sodium (Depakote Sprinkles) 375 mg HS PO 11/26/20 21:00 12/15/20 19:52 Divalproex Sodium (Depakote Sprinkles) 250 mg 0900 PO 11/27/20 09:00 12/16/20 09:20 Oxycodone HCl (Roxicodone) 5 mg PRN Q6HRS PRN PO BREAKTHROUGH MOD-SEV PAIN 11/26/20 15:30 12/15/20 13:56 Nicotine (Nicoderm Cq 7mg Patch) 1 patch PRN DAILY PRN TD SMOKING CESSATION 11/28/20 19:00 Buspirone HCl (Buspar) 10 mg BID PO 11/28/20 21:00 12/10/20 12:01 DC 12/10/20 11:25 Gabapentin (Neurontin) 400 mg 0900,1400 PO 11/30/20 09:00 12/16/20 09:22 Quetiapine Fumarate (SEROquel) 25 mg BID@1300,1700 PO 12/05/20 13:00 12/05/20 13:14 DC Divalproex Sodium (Depakote Sprinkles) 250 mg DAILY@1200 PO 12/06/20 12:00 12/15/20 13:17 Quetiapine Fumarate (SEROquel) 25 mg BID@1400,1700 PO 12/05/20 14:00 12/08/20 18:18 DC 12/08/20 17:51 Neomycin/ Polymyxin/Bacitr/ Hydrocort (Cortisporin Ophth) 2 laurence BID OU 12/08/20 21:00 12/16/20 09:25 Quetiapine Fumarate (SEROquel) 50 mg 1300,1700 PO 12/09/20 13:00 12/10/20 12:01 DC 12/09/20 16:33 Olanzapine (ZyPREXA) 5 mg DAILY PO 12/10/20 09:00 12/10/20 12:01 DC 12/09/20 19:51 Buspirone HCl (Buspar) 10 mg TID PO 12/10/20 14:00 12/16/20 09:21 Quetiapine Fumarate (SEROquel) 50 mg 0900,1300,1700 PO 12/10/20 13:00 12/13/20 18:34 DC 12/13/20 17:00 Duloxetine HCl (Cymbalta) 30 mg DAILY PO 12/11/20 09:00 12/13/20 21:01 DC 12/13/20 08:15 Duloxetine HCl (Cymbalta) 60 mg DAILY PO 12/14/20 09:00 12/16/20 09:20 Levofloxacin (Levaquin) 250 mg DAILY06 PO 12/12/20 16:30 12/16/20 21:00 12/16/20 05:45 Quetiapine Fumarate (SEROquel) 50 mg BIDWBKFT/JODY PO 12/14/20 08:00 12/16/20 09:21 Quetiapine Fumarate (SEROquel) 75 mg DAILYWSUP PO 12/14/20 17:00 12/15/20 17:00 I have reviewed the current psychotropics carefully including drug interactions. Risk benefit ratio favors no change other than as noted in my dictated progress note. Diagnosis: Problems: (1) Acute psychosis (2) UTI (urinary tract infection) (3) Major depressive disorder, recurrent episode MUKESH JAY MD Dec 16, 2020 10:26
[2020-12-16] MEDS ORDERED: DIVA125C2 PO ×2 (14:22→14:23)
[2020-12-16] MEDS ORDERED: DULO60CA6 PO (14:24)
[2020-12-16] MEDS ORDERED: MAG-115 PO (14:26)
[2020-12-16] MEDS ORDERED: MAGN24003 PO (14:27)
[2020-12-16] MEDS ORDERED: METH57CR17 TP (14:28)
[2020-12-16] MEDS ORDERED: [UNRECOGNIZED DRUG - CODE] OP (14:33)
[2020-12-16] MEDS ORDERED: QUET50TA5 PO ×2 (14:34→14:35)
[2020-12-16] MEDS ORDERED: LEVO250T7 PO (14:36)
[2020-12-16] MEDS ORDERED: OXYC5TAB4 PO (14:37)
[2020-12-16 15:33] VITALS: BP 99/65
--- NOTE | 2020-12-16 21:11 | PDOC ---
Exam Note: Andrea Note: Please also refer to the separate dictated note~for this date of service dictated separately.~Patient seen individually. Discussed the patient with Nursing staff reviewed the chart.~Reviewed interim history and current functioning. Reviewed vital signs,~Labs/ Radiology~and current medications noted below. Continue current treatment with the changes noted in the dictated addendum note Assessment: Vital Signs/I&O: Vital Signs Date Time Temp Pulse Resp B/P (MAP) Pulse Ox O2 Delivery O2 Flow Rate FiO2 12/16/20 15:33 98.1 104 18 99/65 (76) 97 12/16/20 14:00 Nasal Cannula 3.0 I & O 12/15/20 12/15/20 12/16/20 15:00 23:00 07:00 Intake Total 0 ml 220 ml Balance 0 ml 220 ml Current Medications: Meds: Current Medications Medications (Trade) Dose Ordered Sig/Jocelyn Route PRN Reason Start Time Stop Time Status Last Admin Dose Admin Acetaminophen (Tylenol) 650 mg PRN Q6HRS PRN PO MILD PAIN / TEMP > 100.3'F 11/16/20 17:30 11/17/20 18:17 DC 11/17/20 12:40 Multi-Ingredient Ointment (Analgesic [place]) 1 laurence PRN QID PRN TP MUSCLE PAIN 11/16/20 17:30 12/16/20 16:52 DC 12/02/20 21:03 Al Hydroxide/Mg Hydroxide (Mylanta Plus Xs) 15 ml PRN AFTMEALHC PRN PO DYSPEPSIA 11/16/20 17:30 12/16/20 16:52 DC Magnesium Hydroxide (Milk Of Magnesia) 2,400 mg PRN QHS PRN PO 2ND CHOICE CONSTIPATION 11/16/20 17:30 12/16/20 16:52 DC Nicotine (Nicoderm Cq 7mg Patch) 1 patch DAILY TD 11/16/20 17:30 11/16/20 17:44 DC Nicotine (Nicoderm Cq 7mg Patch) 1 patch DAILY TD 11/17/20 09:00 11/27/20 21:49 DC 11/27/20 10:12 Acetaminophen (Tylenol) 650 mg PRN Q6HRS PRN PO MILD PAIN / TEMP > 100.3'F 11/16/20 18:00 12/16/20 16:52 DC 11/18/20 16:23 Buspirone HCl (Buspar) 10 mg BIDWMEALS PO 11/17/20 08:00 11/17/20 18:09 DC 11/17/20 17:29 Calcium Carbonate/ Glycine (Oscal) 500 mg BID PO 11/16/20 21:00 12/16/20 16:52 DC 12/16/20 09:21 Clopidogrel Bisulfate (Plavix) 75 mg DAILY PO 11/17/20 09:00 12/16/20 16:52 DC 12/16/20 09:21 Docusate Sodium (Colace) 100 mg PRN DAILY PRN PO 1ST CHOICE CONSTIPATION 11/16/20 18:00 12/16/20 16:52 DC Ferrous Sulfate (Feosol) 325 mg BID PO 11/16/20 21:00 12/16/20 16:52 DC 12/16/20 09:21 Gabapentin (Neurontin) 400 mg BID94 PO 11/17/20 09:00 11/29/20 17:46 DC 11/29/20 16:00 Lorazepam (Ativan) 0.5 mg PRN BID PRN PO ANXIETY / AGITATION 11/16/20 18:00 12/16/20 16:52 DC 12/06/20 13:14 Neomycin/ Polymyxin/ Dexamethasone (Maxitrol) 1 drop DAILY OU 11/17/20 09:00 12/16/20 16:52 DC 12/16/20 09:29 Nicotine (Nicoderm Cq 7mg Patch) 1 patch PRN DAILY PRN TD SMOKING CESSATION 11/16/20 19:00 11/27/20 21:49 DC Olanzapine (ZyPREXA) 10 mg BID PO 11/16/20 21:00 11/21/20 18:06 DC 11/21/20 10:36 Oxycodone HCl (OxyCONTIN) 20 mg BID PO 11/16/20 21:00 12/16/20 16:52 DC 12/16/20 09:26 Pantoprazole Sodium (Protonix) 40 mg DAILYAC PO 11/17/20 07:30 12/16/20 16:52 DC 12/16/20 09:21 Potassium Chloride (Klor-Con) 20 meq BID PO 11/16/20 21:00 12/16/20 16:52 DC 12/16/20 09:20 Sucralfate (Carafate) 1 gm BID PO 11/16/20 21:00 12/16/20 16:52 DC 12/16/20 09:22 Tamsulosin HCl (Flomax) 0.4 mg HS PO 11/16/20 21:00 12/16/20 16:52 DC 12/15/20 19:52 Ascorbic Acid (Vitamin C) 500 mg BID PO 11/16/20 21:00 12/16/20 16:52 DC 12/16/20 09:20 Fluoxetine HCl (PROzac) 40 mg DAILY PO 11/17/20 09:00 12/10/20 12:01 DC 12/10/20 11:26 Non-Formulary Medication (Gabapentin ) 600 mg TID PO 11/16/20 21:00 UNV Gabapentin (Neurontin) 800 mg HS PO 11/16/20 21:00 12/16/20 16:52 DC 12/15/20 19:52 Lactobacillus Rhamnosus (Culturelle) 1 cap BID PO 11/16/20 21:00 12/16/20 16:52 DC 12/16/20 09:20 Phenyleph/Shark Oil/Min Oil/Petrol (Preparation H) 1 laurence PRN BID PRN RC RECTAL PAIN 11/16/20 18:45 12/16/20 16:52 DC Artificial Tears (Artificial Tears) 1 drop PRN Q15MIN PRN OD DRY EYE 11/16/20 18:45 12/16/20 16:52 DC 12/16/20 09:25 Buspirone HCl (Buspar) 10 mg 1700 PO 11/18/20 17:00 11/20/20 23:50 DC 11/20/20 17:00 Buspirone HCl (Buspar) 5 mg DAILY PO 11/18/20 09:00 11/20/20 23:50 DC 11/20/20 06:39 Buspirone HCl (Buspar) 5 mg BIDWMEALS PO 11/21/20 08:00 11/28/20 18:20 DC 11/28/20 17:00 Quetiapine Fumarate (SEROquel) 12.5 mg 0900,1300,1500 PO 11/19/20 09:00 12/04/20 17:51 DC 12/04/20 15:00 Olanzapine (ZyPREXA) 10 mg DAILY PO 11/22/20 09:00 11/24/20 22:00 DC 11/24/20 10:09 Olanzapine (ZyPREXA) 5 mg QHS PO 11/21/20 21:00 11/24/20 22:00 DC 11/24/20 20:15 Olanzapine (ZyPREXA) 5 mg BID PO 11/25/20 09:00 12/09/20 18:40 DC 12/09/20 10:42 Divalproex Sodium (Depakote Sprinkles) 125 mg 0900,1300,1700 PO 11/22/20 09:00 11/24/20 16:52 DC 11/24/20 13:05 Divalproex Sodium (Depakote Sprinkles) 250 mg BID PO 11/24/20 21:00 11/26/20 12:26 DC 11/26/20 10:01 Divalproex Sodium (Depakote Sprinkles) 125 mg NOON PO 11/25/20 12:00 11/26/20 12:23 DC 11/25/20 12:03 Divalproex Sodium (Depakote Sprinkles) 250 mg NOON PO 11/26/20 12:40 12/05/20 13:14 DC 12/03/20 12:00 Divalproex Sodium (Depakote Sprinkles) 375 mg HS PO 11/26/20 21:00 12/16/20 16:52 DC 12/15/20 19:52 Divalproex Sodium (Depakote Sprinkles) 250 mg 0900 PO 11/27/20 09:00 12/16/20 16:52 DC 12/16/20 09:20 Oxycodone HCl (Roxicodone) 5 mg PRN Q6HRS PRN PO BREAKTHROUGH MOD-SEV PAIN 11/26/20 15:30 12/16/20 16:52 DC 12/15/20 13:56 Nicotine (Nicoderm Cq 7mg Patch) 1 patch PRN DAILY PRN TD SMOKING CESSATION 11/28/20 19:00 12/16/20 16:52 DC Buspirone HCl (Buspar) 10 mg BID PO 11/28/20 21:00 12/10/20 12:01 DC 12/10/20 11:25 Gabapentin (Neurontin) 400 mg 0900,1400 PO 11/30/20 09:00 12/16/20 16:52 DC 12/16/20 15:06 Quetiapine Fumarate (SEROquel) 25 mg BID@1300,1700 PO 12/05/20 13:00 12/05/20 13:14 DC Divalproex Sodium (Depakote Sprinkles) 250 mg DAILY@1200 PO 12/06/20 12:00 12/16/20 16:52 DC 12/16/20 12:12 Quetiapine Fumarate (SEROquel) 25 mg BID@1400,1700 PO 12/05/20 14:00 12/08/20 18:18 DC 12/08/20 17:51 Neomycin/ Polymyxin/Bacitr/ Hydrocort (Cortisporin Ophth) 2 laurence BID OU 12/08/20 21:00 12/16/20 16:52 DC 12/16/20 09:25 Quetiapine Fumarate (SEROquel) 50 mg 1300,1700 PO 12/09/20 13:00 12/10/20 12:01 DC 12/09/20 16:33 Olanzapine (ZyPREXA) 5 mg DAILY PO 12/10/20 09:00 12/10/20 12:01 DC 12/09/20 19:51 Buspirone HCl (Buspar) 10 mg TID PO 12/10/20 14:00 12/16/20 16:52 DC 12/16/20 15:06 Quetiapine Fumarate (SEROquel) 50 mg 0900,1300,1700 PO 12/10/20 13:00 12/13/20 18:34 DC 12/13/20 17:00 Duloxetine HCl (Cymbalta) 30 mg DAILY PO 12/11/20 09:00 12/13/20 21:01 DC 12/13/20 08:15 Duloxetine HCl (Cymbalta) 60 mg DAILY PO 12/14/20 09:00 12/16/20 16:52 DC 12/16/20 09:20 Levofloxacin (Levaquin) 250 mg DAILY06 PO 12/12/20 16:30 12/16/20 16:52 DC 12/16/20 05:45 Quetiapine Fumarate (SEROquel) 50 mg BIDWBKFT/JODY PO 12/14/20 08:00 12/16/20 16:52 DC 12/16/20 12:12 Quetiapine Fumarate (SEROquel) 75 mg DAILYWSUP PO 12/14/20 17:00 12/16/20 16:52 DC 12/15/20 17:00 I have reviewed the current psychotropics carefully including drug interactions. Risk benefit ratio favors no change other than as noted in my dictated progress note. Diagnosis: Problems: (1) Impulse control disorder, unspecified (2) Anxiety disorder, unspecified (3) Major depressive disorder with psychotic features MUKESH JAY MD Dec 16, 2020 21:11
--- NOTE | 2020-12-16 22:04 | DS ---
DATE OF DISCHARGE: 12/16/2020 DISCHARGE SUMMARY/PSYCHIATRIC PROGRESS NOTE This note covers elements not covered in my initial note of 12/16/2020. REASON FOR ADMISSION: Please refer to the admission history for details. Briefly, the patient is a 65-year-old female referred back to us from [facility] where she has been residing. She has appeared more depressed, anxious, restless, threatening to throw herself on the floor, verbally abusive, name calling to staff, belligerent, anxious, irritable. She was on [facility] floor. COVID-19 returned negative and then she presents to us for inpatient psychiatric stabilization. SIGNIFICANT FINDINGS AND CLINICAL COURSE: Following admission, the patient was seen daily individually by myself from a psychiatric standpoint, medical followup with Dr. Blair/Dr. Palafox. The patient was in fairly significant pain and had marked contractures of all 4 extremities, especially beyond the wrist and ankle area. She was in pain, but continued to be yelling, screaming, agitated, obsessive, anxious, threatening to throw herself on the floor. Adjustments were made in her psychotropics. Additionally, she did have a UTI, which was treated. She seemed to respond to a combination of BuSpar 10 mg t.i.d. remained on Neurontin 400 mg 0900 and 1500, 800 mg at bedtime. This was adjusted during this hospitalization to help with impulse control. Ativan 0.5 mg b.i.d. p.r.n. anxiety, Seroquel 50 mg b.i.d., 75 mg at 1700, Depakote Sprinkles 250 mg b.i.d., 375 mg at bedtime with a Valproic acid level therapeutic at 67 and Cymbalta 60 mg a day. REVIEW OF SYSTEMS: Prior to discharge on 12/16/2020, ambulation impaired, complains of ongoing pain. No CV, , pulmonary, eye system symptoms on review. MENTAL STATUS EXAM: The patient is reasonably oriented. Speech is coherent, pressured at times. Abstraction fair, computation impaired, language function intact, attention span short. Mood and affect, lability is improved. LABORATORY DATA: Reviewed. FINAL DIAGNOSES: Major depressive disorder with psychotic features; anxiety disorder, unspecified; impulse control disorder, unspecified; probable personality disorder. Rest unchanged from admission. DISCHARGE MEDICATIONS: Please refer to the [facility]. DISCHARGE INSTRUCTIONS: Outpatient psychiatric and medical followup at the retirement. Time for discharge day management greater than 30 minutes. MUKESH JAY MD DR: CASANDRA/elvis JOB#: [id number] / [id number]
== END 2020-12-16 16:00 | DRG 885 ==
LOC: GEROPSY 15:30
PROVIDERS: ADMIT Psychiatry & Neurology Psychiatry; ATTEND Psychiatry & Neurology Psychiatry
DX: F32.3 Major depressive disorder, single episode, severe with psychotic features (principal); E43 Unspecified severe protein-calorie malnutrition; F23 Brief psychotic disorder; N39.0 Urinary tract infection, site not specified; F41.9 Anxiety disorder, unspecified; Z96.653 Presence of artificial knee joint, bilateral; Z20.822 Contact with and (suspected) exposure to COVID-19; F60.9 Personality disorder, unspecified; G89.4 Chronic pain syndrome; I10 Essential (primary) hypertension; J43.9 Emphysema, unspecified; K21.00 Gastro-esophageal reflux disease with esophagitis, without bleeding; K59.09 Other constipation; M06.9 Rheumatoid arthritis, unspecified; M62.81 Muscle weakness (generalized); R45.87 Impulsiveness; M19.90 Unspecified osteoarthritis, unspecified site; R29.6 Repeated falls; F03.90 Unspecified dementia, unspecified severity, without behavioral disturbance, psychotic disturbance, mood disturbance, and anxiety; F17.210 Nicotine dependence, cigarettes, uncomplicated; K44.9 Diaphragmatic hernia without obstruction or gangrene; F63.9 Impulse disorder, unspecified; Z98.42 Cataract extraction status, left eye; Z98.41 Cataract extraction status, right eye; Z90.710 Acquired absence of both cervix and uterus; Z90.49 Acquired absence of other specified parts of digestive tract; Z68.21 Body mass index [BMI] 21.0-21.9, adult; Z79.899 Other long term (current) drug therapy; Z87.01 Personal history of pneumonia (recurrent)
CPT/HCPCS: 36415; 80053; 80164; 81001; 84439; 84480; 85025; 87077; 87086; 87186; 93005; 99407; U0003